=== PATIENT | male | born 1965 | race Caucasian/White ===

== ENCOUNTER → 2016-06-19 | Day surgery (SDC) | payer OTHER ==
[2016-06-18 11:29] VITALS: Ht 182.9 cm; Wt 127.3 kg
[~2016-06-19] VITALS: Ht 182.9 cm; Wt 127.3 kg
[~2016-06-19] MED LIST: AMIT25TA9 PO; AMOX1TAB42 PO; APR25 PO; ATOR-24 PO; B-COCAP20 PO; CALC0.2510 PO; CEPH500C PO; CHOL1TAB76 PO; CHOLTAB11 PO; CINA0.42 PO; FLV1 PO; KFL500 PO; LCTX PO; LIDOCAINE HCL 2% 2 ML VIAL (20MG/ML) ONE; LINE1TAB2 PO; LSN20 PO; METO50TA16 PO; NAPR1TAB9 PO; PHS667 PO; PRD20 PO; PROPOFOL IV EMULSION 10 MG/ML 20 ML VIAL IV ONE; SODI325T9 PO; SODIUM CHLORIDE 0.9% 500ML 500 ML IV ONE; SULF800T23 PEG; ULT50X PO
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
[2016-06-19 09:37] LABS: ISTAT CREATININE 8.3 mg/dl (0.6-1.3); ISTAT HEMOGLOBIN 12.2 g/dl (14.0-18.0); ISTAT IONIZED CALCIUM 1.19 mmol/l (1.12-1.32)
--- NOTE | 2016-06-19 10:03 | Anesthesiology Progress Note ---
Anesthesia Post Op Note Date & Time Jun 19, 2016 at 10:03 Vital Signs Pain Intensity: 0 Vital Signs Past 12 Hours Date Time Temp Pulse Resp B/P Pulse Ox O2 Delivery O2 Flow Rate FiO2 06/19/16 09:53 74 20 145/77 95 Room Air 06/19/16 08:50 37 68 20 189/99 98 Room Air Notes Mental Status: alert / awake / arousable, participated in evaluation Pt Amnestic to Procedure: Yes Nausea / Vomiting: adequately controlled Pain: adequately controlled Airway Patency, RR, SpO2: stable & adequate BP & HR: stable & adequate Hydration State: stable & adequate Anesthetic Complications: no major complications apparent
--- NOTE | 2016-06-19 10:04 | Discharge Instructions ---
Endoscopy Patient Instructions Date / Procedure(s) Performed Jun 19, 2016. Colonoscopy Allergy Information Coded Allergies: Iodinated Diagnostic Agents (Verified Allergy, Unknown, STAGE 4 KIDNEY DISEASE, 06/18/16) Discharge Date / Findings Jun 19, 2016. small colon polyp Provider Instructions Activity Restrictions - No exercising or heavy lifting for 24 hours. - Do not drink alcohol the day of the procedure. - Do not drive a car or operate machinery until the day after the procedure. - Do not make any important decisions or sign important papers in 24 hours after the procedure. Following Day: - Return to full activity which may include returning to work/school. Diet Start your diet with liquids and light foods (jello, soup, juice, toast). Then eat your usual diet if not nauseated. Treatment For Common After Affects For mild abdominal pain, bloating, or excessive gas: - Rest - Eat lightly - Lie on right side Follow-Up Information Follow-up with Dr. Pam Taylor as scheduled Anesthesia Information What You Should Know You have had a procedure that required some medicine to reduce anxiety and discomfort. This treatment is called moderate sedation. After receiving the treatment, you may be sleepy, but you will be able to breathe on your own. The effects of the treatment may last for several hours. Follow these instructions along with Activity/Diet recommendations noted above: * Do NOT do anything where dizziness or clumsiness would be dangerous. * Rest quietly at home today, then you can be up and about tomorrow. * Have a responsible person stay with you the rest of today. * You may have had an I.V. today. If so, you may take the dressing off later today. Recommendations Call your doctor if: * Trouble breathing * Continuous vomiting for more than 24 hours * Temperature above 101 degrees * Severe abdominal pain or bloating * Pain not relieved by pain medicine ordered * There is increased drainage or redness from any incision * A large amount of rectal bleeding greater than 2-3 tablespoons. (If you had a polyp/s removed or have hemorrhoids, a small amount of blood - from the rectum is to be expected.) * You have any unanswered questions or concerns. IN THE EVENT OF A SERIOUS EMERGENCY, GO TO THE NEAREST EMERGENCY ROOM Your discharge instructions were prepared by provider Maurisio Hanson. Patient Instructions Signature Page Shawn Quick Patient (or Guardian) Signature/Date: I have read and understand the instructions given to me by my caregivers. Caregiver/RN/Doctor Signature/Date: The above-named patient and/or guardian has received patient instructions on this date. + Original Patient Signature Page (only) stays with chart. Please make copy for patient.
--- NOTE | 2016-06-19 10:16 | GI REPORT ---
Procedure Date: 06/19/2016 9:30 AM Procedure: Colonoscopy Indications: Screening for colorectal malignant neoplasm Medicines: See the Anesthesia note for documentation of the administered medications Complications: No immediate complications. Estimated Blood Loss: Estimated blood loss was minimal. Procedure: Pre-Anesthesia Assessment: - Prior to the procedure, a History and Physical was performed, and patient medications, allergies and sensitivities were reviewed. The patient's tolerance of previous anesthesia was reviewed. - The risks and benefits of the procedure and the sedation options and risks were discussed with the patient. All questions were answered and informed consent was obtained. - Patient identification and proposed procedure were verified prior to the procedure by the physician and the nurse. The procedure was verified in the pre-procedure area. - Pre-procedure physical examination revealed no contraindications to sedation. - After reviewing the risks and benefits, the patient was deemed in satisfactory condition to undergo the procedure. After I obtained informed consent, the scope was passed under direct vision. Throughout the procedure, the patient's blood pressure, pulse, and oxygen saturations were monitored continuously. The scope was introduced through the anus and advanced to the cecum, identified by appendiceal orifice and ileocecal valve. The colonoscopy was performed without difficulty. The patient tolerated the procedure well. The quality of the bowel preparation was good. Findings: The perianal and digital rectal examinations were normal. A 4 mm polyp was found at 20 cm proximal to the anus. The polyp was sessile. The polyp was removed with a cold snare. Resection and retrieval were complete. Verification of patient identification for the specimen was done by the physician and nurse using the patient's name and medical record number. Estimated blood loss was minimal. The exam was otherwise without abnormality on direct and retroflexion views. Impression: - One 4 mm polyp at 20 cm proximal to the anus, removed with a cold snare. Resected and retrieved. - The examination was otherwise normal on direct and retroflexion views. Recommendation: - Await pathology results. - Discharge patient to home. Maurisio Hanson M.D. Maurisio Hanson MD 06/19/2016 10:14:28 AM This report has been signed electronically. Note Initiated On: 06/19/2016 9:30 AM
[2016-06-19 10:23] VITALS: BP 163/95; PULSE 69; O2SAT 99
== END | disposition home or self-care (01) ==
LOC: C.GI 08:20
PROVIDERS: ATTEND Internal Medicine Gastroenterology
DX: Z12.11 Encounter for screening for malignant neoplasm of colon (principal); K63.5 Polyp of colon; Z80.0 Family history of malignant neoplasm of digestive organs; Z83.71 Family history of colonic polyps; E11.9 Type 2 diabetes mellitus without complications; I10 Essential (primary) hypertension; M81.0 Age-related osteoporosis without current pathological fracture

== ENCOUNTER 2016-09-03 18:26 | Emergency (ER) | payer OTHER ==
[~2016-09-03] VITALS: Ht 182.9 cm; Wt 123.4 kg
[~2016-09-03 18:26] MED LIST changes: -AMOX1TAB42 PO; -APR25 PO; -B-COCAP20 PO; -CEPH500C PO; -CHOL1TAB76 PO; -CHOLTAB11 PO; -CINA0.42 PO; -FLV1 PO; -KFL500 PO; -LCTX PO; -LIDOCAINE HCL 2% 2 ML VIAL (20MG/ML) ONE; -LINE1TAB2 PO; -LSN20 PO; -PHS667 PO; -PRD20 PO; -PROPOFOL IV EMULSION 10 MG/ML 20 ML VIAL IV ONE; -SODIUM CHLORIDE 0.9% 500ML 500 ML IV ONE; -SULF800T23 PEG; -ULT50X PO
[2016-09-03 18:31] VITALS: TEMP 36.6; Ht 182.9 cm; Wt 123.4 kg
[2016-09-03] MEDS ORDERED: SULFAMETHOXAZOLE/TRIMETHOPRIM DS 800/160MG TAB PO STA (18:55)
[2016-09-03] MEDS ORDERED: CEPHALEXIN MONOHYDRATE 250 MG CAP PO ONE (19:00)
[2016-09-03] MEDS ORDERED: CEPHALEXIN 500MG HOME PACK 1 EA BTL PO ONE (19:00)
--- NOTE | 2016-09-03 19:25 | EMERGENCY ROOM VISIT NOTE ---
History Report prepared by [employer]: Christin Reno Under the Supervision of: Dr. Hipolito Nova D.O. First contact with patient: 18:33 Chief Complaint: WOUND INFECTION Stated Complaint: BUG BITE ON LT LEG Nursing Triage Summary: Pt reports he woke up last week with a quarter size wound on right inner calf wound is progressing pt is diabetic History of Present Illness The patient is a 51 year old male who presents to the Emergency Room with complaints of a constant wound infection beginning 8 days ago. The patient states that he noticed a cris on his leg that looked like a spider bite. He reports that 5 days after it started he noticed that it was turning white underneath. He notes that he squeezed out the pus and there was about enough to fill a shot glass and this improved the wound. The patient states that he has not seen his primary care doctor. He notes that he has diabetes and has not checked his blood sugar lately, arthritis, hypertension that he has not been taking medication for recently, and kidney failure. The patient complains of redness. He denies any new cough, runny nose, chest pain, nausea, vomiting, diarrhea, shortness of breath, pain with urination, and recent surgeries, Source of History: patient Onset: 8 days ago Position: leg (right) Quality: other (infection) Timing: constant Modifying Factors (Relieving): other (squeezing pus out) Associated Symptoms: No SOB, No chest pain, No cough, No diarrhea, No nausea , No urinary symptoms, No vomiting Note: Pt complains of redness. He denies any runny nose and recent surgeries, Review of Systems See HPI for pertinent positives & negatives. A total of 10 systems reviewed and were otherwise negative. 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 (15) Urinary retention Surgical Problems: (1) H/O arthroscopic knee surgery (2) H/o fistula placement (3) H/O hand surgery (4) H/O laminectomy Family History Diabetes mellitus FH: cancer FH: gallbladder disease FH: heart disease Hypertension Kidney disease Kidney stones Social History Smoking Status: Never Smoker Smokeless Tobacco Use: No Alcohol Use: occasionally Drug Use: other Marital Status: in relationship Housing Status: lives with significant other Occupation Status: disabled Current/Historical Medications Scheduled Amitriptyline Hcl (Elavil), 25 MG PO HS Atorvastatin (Lipitor), 40 MG PO QAM Calcitriol (Rocaltrol Cap), 0.25 MCG PO QAM Cephalexin Monohydrate (Keflex), 500 MG PO QID Metoprolol Tartrate (Lopressor) (Lopressor), 50 MG PO BID Sodium Bicarbonate (Antacid) (Sodium Bicarbonate), 2 TABS PO TID Sulfa/Trimethoprim (Bactrim Ds 800MG/160MG), 1 TAB PEG BID Allergies Coded Allergies: Iodinated Diagnostic Agents (Verified Allergy, Unknown, STAGE 4 KIDNEY DISEASE, 06/18/16) Physical Exam Vital Signs Date Time Temp Pulse Resp B/P Pulse Ox O2 Delivery O2 Flow Rate FiO2 09/03/16 20:01 92 179/101 96 09/03/16 18:31 36.6 77 18 197/110 98 Room Air Physical Exam GENERAL: sitting up in bed, alert, well appearing, well nourished, no distress, non-toxic EYE EXAM: normal conjunctiva OROPHARYNX: no exudate, no erythema, lips, buccal mucosa, and tongue normal and mucous membranes are moist LUNGS: Clear to auscultation. Normal chest wall mechanics HEART: no murmurs, S1 normal and S2 normal ABDOMEN: abdomen soft, non-tender, normo-active bowel sounds, no masses, no rebound or guarding. BACK: Back is symmetrical on inspection and there is no deformity, no midline tenderness, no CVA tenderness. UPPER EXTREMITIES: upper extremities are grossly normal. LOWER EXTREMITIES: No pitting edema. RLE mid calf on medial aspect with 5cm draining abscess, purulent green discharge, is able to be expressed, area of 4- 5cm of surrounding erythema with induration, bedside ultrasound reveals cobblestone appearance without focal fluid collection NEURO EXAM: Normal sensorium, cranial nerves II-XII grossly intact, normal speech, no gross weakness of arms, no gross weakness of legs. Medical Decision & Procedures ED Course ED COURSE: Vital signs were reviewed and showed hypertension The patients medical record was reviewed The above diagnostic studies were performed and reviewed. ED treatments and interventions as stated above. 184: The patient was evaluated in room C12B. A complete history and physical examination was performed. 185: Trimethoprim/ Sulfamethoxazole 1 tab PO. 1899: Cephalexin Monohydrate 1 homepack PO, Keflex Cap 500mg PO. 2002: Upon reevaluation, the patient is hemodynamically stable.I discussed my findings with the patient and he understands and agrees with the treatment plan. Based on the patients age, coexisting illnesses, exam and lab findings the decision to treat as an outpatient was made. The patient remained stable while under my care. The patient appeared well at the time of discharge. Medical Decision Differential diagnosis includes etiologies such as cellulitis, abscess, MRSA infection, DVT, necrotizing fasciitis, dermatitis, drug eruption, as well as others were entertained. Patient is a 51-year-old diabetic male who presents the ER with a draining abscess on his right mid calf. He notes he opened this up and drained about a shot glass of green purulent discharge. Bedside ultrasound shows cobblestoning but no focal fluid collection. I expressed a small amount of purulent discharge from the wound. He does have surrounding erythema. Vitals were unremarkable. He has no other complaints. Patient was given Bactrim and Keflex instructed to follow with his primary care doctor in next 48 hours. Any recurrence of fevers, worsening erythema or elevated blood sugars was instructed to return immediately to the ER. Patient also admits to not taking any of his blood pressure medications for the past several weeks. Stressed the importance of having this followed up. Discussed with Pt concerning signs and symptoms to watch out for. Pt was instructed to follow up with their PCP and discussed with the patient their option to return to the ED at anytime for persistent or worsening symptoms. The appropriate anticipatory guidance and out- patient management, including indications for return to the emergency department , were explained at length to the patient and understood. Impression Primary Impression: Abscess Additional Impression: Cellulitis Scribe Attestation The scribe's documentation has been prepared under my direction and personally reviewed by me in its entirety. I confirm that the note above accurately reflects all work, treatment, procedures, and medical decision making performed by me. Departure Information Dispostion Home / Self-Care Prescriptions Sulfa/Trimethoprim (Bactrim Ds 800MG/160MG) Tab 1 TAB PEG BID, #20 TAB Prov: Hipolito Nova, DO 09/03/16 Cephalexin Monohydrate (Keflex) 500 Mg Cap 500 MG PO QID, #40 CAP Prov: Hipolito Nova, DO 09/03/16 Referrals No Doctor, Assigned (PCP) Forms HOME CARE DOCUMENTATION FORM, IMPORTANT VISIT INFORMATION, WORK / SCHOOL INSTRUCTIONS Patient Instructions ED Abscess [facility], [facility] Additional Instructions Please follow up with your primary care doctor with in the next 24 hours. Any worsening of your symptoms, please return to the ED immediately. This includes spreading of the redness up her leg, fevers greater than 100.4, persistently elevated blood sugars, or any other concerning signs or symptoms from your standpoint. You must have your leg reevaluated within 2 days. Please take antibiotics as prescribed. Problem Qualifiers Additional Impression: Cellulitis Site of cellulitis: extremity Site of cellulitis of extremity: lower extremity Laterality: right Qualified Codes: L03.115 - Cellulitis of right lower limb
[2016-09-03] MEDS ORDERED: CEPH500C PO (19:36)
[2016-09-03] MEDS ORDERED: SULF800T23 PEG (19:36)
[2016-09-03 20:01] VITALS: BP 179/101; PULSE 92; O2SAT 96
[2016-11-02] MEDS ORDERED: PHS667 PO (12:07)
[2016-11-02] MEDS ORDERED: PRD20 PO (12:07)
[2016-11-02] MEDS ORDERED: LSN20 PO (12:07)
[2016-11-02] MEDS ORDERED: METO50TA16 PO (12:07)
[2016-11-02] MEDS ORDERED: KFL500 PO (12:07)
[2016-11-02] MEDS ORDERED: ULT50X PO (12:07)
[2016-11-02] MEDS ORDERED: APR25 PO (12:07)
[2016-11-02] MEDS ORDERED: FLV1 PO (12:07)
[2016-12-10] MEDS ORDERED: LCTX PO (15:30)
[2016-12-10] MEDS ORDERED: LINE1TAB2 PO (15:30)
[2016-12-10] MEDS ORDERED: AMOX1TAB42 PO (15:30)
== END 2016-09-03 20:03 | disposition home or self-care (01) ==
LOC: C.EDB 18:27 → C.EDC 20:03
DX: L02.415 Cutaneous abscess of right lower limb (principal); L03.115 Cellulitis of right lower limb; N18.4 Chronic kidney disease, stage 4 (severe); E11.9 Type 2 diabetes mellitus without complications; E78.5 Hyperlipidemia, unspecified; M10.9 Gout, unspecified; I10 Essential (primary) hypertension; Z86.14 Personal history of Methicillin resistant Staphylococcus aureus infection; G47.33 Obstructive sleep apnea (adult) (pediatric); M86.9 Osteomyelitis, unspecified; N25.0 Renal osteodystrophy; Z83.3 Family history of diabetes mellitus; Z82.49 Family history of ischemic heart disease and other diseases of the circulatory system

== ENCOUNTER 2016-10-28 19:17 | Inpatient (IN) | payer OTHER ==
[~2016-10-28] VITALS: Ht 182.9 cm; Wt 122.5 kg
[~2016-10-28 19:17] MED LIST changes: +CEPH500C PO; -NAPR1TAB9 PO; +SULF800T23 PEG
[2016-10-28] MEDS ORDERED: SODIUM CHLORIDE 0.9% 500ML 500 ML IV STA (20:53)
[2016-10-28] MEDS ORDERED: LIDO/EPINEPHRINE/SOD BICARB 20 ML VIAL INFIL ONE (21:00)
[2016-10-28] MEDS ORDERED: CEFAZOLIN IV 3,000 MG/65 ML D5W IV ONE (21:00)
[2016-10-28 21:04] LABS: HEMATOCRIT 31.2 % (42-52); MEAN CELL VOLUME 87.9 fL (80-100); MEAN CORPUSCULAR HEMOGLOBIN 29.6 pg (25-34); MEAN CORPUSCULAR HGB CONC 33.7 g/dl (32-36); MEAN PLATELET VOLUME 8.1 fL (7.4-10.4); PLATELET COUNT 343 K/uL (130-400); RED BLOOD COUNT 3.55 M/uL (4.7-6.1); WHITE BLOOD COUNT 17.38 K/uL (4.8-10.8)
[2016-10-28 21:28] LABS: BASO % 0.2 %; BASO ABS # 0.03 K/uL (0-0.2); COMPLETE YES; IG% 0.5 %; LYMPH % 4.9 %; LYMPH ABS # 0.85 K/uL (1.2-3.4); MONO % 4.2 %; NEUT % 88.2 %
[2016-10-28 21:29] LABS: URINE APPEARANCE TURBID (CLEAR); URINE BILIRUBIN NEG (NEG); URINE COLOR YELLOW; URINE EPITHELIAL CELL AUTO 20-30 /lpf (0-5); URINE NITRITE POS (NEG); URINE SPECIFIC GRAVITY 1.017 (1.000-1.030); UROBILINOGEN NEG (NEG); ZZUR CULT IF INDIC CLEAN CATCH YES
[2016-10-28 21:31] LABS: MANUAL MICROSCOPIC REQUIRED? NO; REVIEW REQ? YES
[2016-10-28] MEDS ORDERED: VANCOMYCIN 1GM/270ML NSS IV STA (22:01)
[2016-10-28] MEDS ORDERED: MoRPHine SULFATE 4 MG/ML 1 ML CARP\\VIAL IV STA (22:02)
[2016-10-28] MEDS ORDERED: METOPROLOL TARTRATE 50 MG TAB PO STA (22:13)
[2016-10-28 22:23] LABS: ALKALINE PHOSPHATASE 100 U/L (45-117); ALT/SGPT 26 U/L (12-78); AST/SGOT 15 U/L (15-37); BLOOD UREA NITROGEN 86 mg/dl (7-18); BUN/CREATININE RATIO 7.1 (10-20); CALCIUM 9.2 mg/dl (8.5-10.1); CARBON DIOXIDE 14 mmol/L (21-32); CHLORIDE 111 mmol/L (98-107); GLUCOSE 130 mg/dl (70-99); POTASSIUM 4.1 mmol/L (3.5-5.1); SODIUM 142 mmol/L (136-145)
[2016-10-28] MEDS ORDERED: VANCOMYCIN INJ 2,200 MG in SODIUM CHLORIDE 0.9% 500ML 500 ML IV STA (22:43)
[2016-10-28] MEDS ORDERED: SODIUM BICARBONATE 8.4% INJ 150 MEQ in DEXTROSE 5% 1000ML 1,000 ML IV SCH (22:45)
[2016-10-28] MEDS ORDERED: LABETALOL HCL IV 5 MG/ML 20ML IV ONE (23:00)
[2016-10-28 23:25] LABS: VEN BLD GAS O2 SATURATION < 60.0 %; VEN BLOOD GAS BASE EXCESS -16.2 mmol/L; VENOUS BLOOD GAS PCO2 33 mmHg (38.0-50.0); VENOUS BLOOD GAS PO2 30 mmHg
[2016-10-28] MEDS ORDERED: ONDANSETRON INJ 2 MG/ML 2 ML VIAL ONE (23:45)
[2016-10-28] MEDS ORDERED: ONDANSETRON INJ 2 MG/ML 2 ML VIAL IV STA (23:46)
--- NOTE | 2016-10-28 23:55 | EMERGENCY ROOM VISIT NOTE ---
History Report prepared by [employer]: Christin Reno Under the Supervision of: Dr. Hipolito Nova D.O. First contact with patient: 20:33 Chief Complaint: OTHER COMPLAINT Stated Complaint: FLUID IN KNEE,ABSESS ON TOP OF HEAD,UTI History of Present Illness The patient is a 51 year old male who presents to the Emergency Room with complaints of a constant abscess on his head beginning 1 week ago. The patient states that he shaved his head 1 week ago and noticed a pimple forming the next day. He reprts that over the next few days the bump gradually increased in size before it opened up 2 days ago. He notes that he has stage IV kidney disease and self-catheterizes 3-4 times a day since 2010. The patient also complains of dysuria, headaches, and left knee swelling. He notes that he is concerned that he has a UTI. He reports that he has had intermittent knee swelling since 2006 and had his left knee drained in 2006. The patient states that his knee swelling has been more frequent in the last year and he is having difficulty walking. He reports that he has diabetes but does not check his blood sugar. Pt denies change in vision, fevers, chest pain, shortness of breath, nausea, vomiting, diarrhea. Source of History: patient Onset: 1 week ago Position: head Quality: other (abscess) Timing: constant Associated Symptoms: + headache, + urinary symptoms, No SOB, No chest pain, No diarrhea, No fevers, No nausea, No vomiting Note: Pt complains of left knee swelling. Pt denies change in vision. Review of Systems See HPI for pertinent positives & negatives. A total of 10 systems reviewed and were otherwise negative. 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 (15) Urinary retention Surgical Problems: (1) H/O arthroscopic knee surgery (2) H/o fistula placement (3) H/O hand surgery (4) H/O laminectomy Family History Diabetes mellitus FH: cancer FH: gallbladder disease FH: heart disease Hypertension Kidney disease Kidney stones Social History Smoking Status: Never Smoker Alcohol Use: occasionally Drug Use: other Marital Status: in relationship Housing Status: lives with significant other Occupation Status: disabled Current/Historical Medications Scheduled Amitriptyline Hcl (Elavil), 25 MG PO HS Atorvastatin (Lipitor), 40 MG PO QAM Calcitriol (Rocaltrol Cap), 0.25 MCG PO QAM Metoprolol Tartrate (Lopressor) (Lopressor), 50 MG PO BID Sodium Bicarbonate (Antacid) (Sodium Bicarbonate), 2 TABS PO TID Allergies Coded Allergies: Iodinated Diagnostic Agents (Verified Allergy, Unknown, STAGE 4 KIDNEY DISEASE, 10/28/16) Physical Exam Vital Signs Date Time Temp Pulse Resp B/P Pulse Ox O2 Delivery O2 Flow Rate FiO2 10/28/16 23:24 75 16 194/111 97 Room Air 10/28/16 23:07 91 16 221/119 10/28/16 22:42 94 16 228/126 98 Room Air 10/28/16 22:00 87 16 206/105 98 Room Air 10/28/16 19:33 36.8 97 18 212/106 97 Room Air Physical Exam GENERAL: alert, sitting up in bed, chronically ill appearing, well nourished, no distress, non-toxic EYE EXAM: normal conjunctiva, PERRL and EOM's grossly intact HEAD: Large firm erythematous mass with green purulent drainage from multiple sites. No obvious fluid collection on bedside ultrasound. OROPHARYNX: no exudate, no erythema, lips, buccal mucosa, and tongue normal and mucous membranes are moist NECK: supple, no nuchal rigidity, no adenopathy, non-tender LUNGS: Clear to auscultation. Normal chest wall mechanics HEART: no murmurs, S1 normal and S2 normal ABDOMEN: abdomen soft, non-tender, normo-active bowel sounds, no masses, no rebound or guarding. BACK: Back is symmetrical on inspection and there is no deformity, no midline tenderness, no CVA tenderness. SKIN: no rashes and no bruising. Multiple old scars on extremities. UPPER EXTREMITIES: upper extremities are grossly normal. Fistula located in the LUE. +thrill LOWER EXTREMITIES: No pitting edema. Left knee with pre-patellar edema, no surrounding erythema or induration, flexion up to 90 degrees without pain, beyond 90 with mild discomfort. Gross sensation intact . NEURO EXAM: Normal sensorium, cranial nerves II-XII grossly intact, normal speech, no gross weakness of arms, no gross weakness of legs. Medical Decision & Procedures Laboratory Results 10/28/16 20:55 Red Blood Count 3.55, Mean Corpuscular Volume 87.9, Mean Corpuscular Hemoglobin 29.6, Mean Corpuscular Hemoglobin Concent 33.7, Mean Platelet Volume 8.1, Neutrophils (%) (Auto) 88.2, Lymphocytes (%) (Auto) 4.9, Monocytes (%) (Auto) 4.2, Eosinophils (%) (Auto) 2.0, Basophils (%) (Auto) 0.2, Neutrophils # (Auto) 15.35, Lymphocytes # (Auto) 0.85, Monocytes # (Auto) 0.73, Eosinophils # (Auto) 0.34, Basophils # (Auto) 0.03 10/28/16 20:55 Test 10/28/16 20:55 10/28/16 21:10 10/28/16 23:10 White Blood Count 17.38 K/uL (4.8-10.8) Red Blood Count 3.55 M/uL (4.7-6.1) Hemoglobin 10.5 g/dL (14.0-18.0) Hematocrit 31.2 % (42-52) Mean Corpuscular Volume 87.9 fL (80-100) Mean Corpuscular Hemoglobin 29.6 pg (25-34) Mean Corpuscular Hemoglobin Concent 33.7 g/dl (32-36) Platelet Count 343 K/uL (130-400) Mean Platelet Volume 8.1 fL (7.4-10.4) Neutrophils (%) (Auto) 88.2 % Lymphocytes (%) (Auto) 4.9 % Monocytes (%) (Auto) 4.2 % Eosinophils (%) (Auto) 2.0 % Basophils (%) (Auto) 0.2 % Neutrophils # (Auto) 15.35 K/uL (1.4-6.5) Lymphocytes # (Auto) 0.85 K/uL (1.2-3.4) Monocytes # (Auto) 0.73 K/uL (0.11-0.59) Eosinophils # (Auto) 0.34 K/uL (0-0.5) Basophils # (Auto) 0.03 K/uL (0-0.2) RDW Standard Deviation 49.0 fL (36.4-46.3) RDW Coefficient of Variation 15.3 % (11.5-14.5) Immature Granulocyte % (Auto) 0.5 % Immature Granulocyte # (Auto) 0.08 K/uL (0.00-0.02) Anion Gap 17.0 mmol/L (3-11) Est Creatinine Clear Calc Drug Dose 9.6 ml/min Estimated GFR () 5.0 Estimated GFR (Non- 4.3 BUN/Creatinine Ratio 7.1 (10-20) Calcium Level 9.2 mg/dl (8.5-10.1) Total Bilirubin 1.1 mg/dl (0.2-1) Direct Bilirubin < 0.1 mg/dl (0-0.2) Aspartate Amino Transf (AST/SGOT) 15 U/L (15-37) Alanine Aminotransferase (ALT/SGPT) 26 U/L (12-78) Alkaline Phosphatase 100 U/L (45-117) Total Protein 7.7 gm/dl (6.4-8.2) Albumin 2.6 gm/dl (3.4-5.0) Urine Color YELLOW Urine Appearance TURBID (CLEAR) Urine pH 6.0 (4.5-7.5) Urine Specific [place] 1.017 (1.000-1.030) Urine Protein 3+ (NEG) Urine Glucose (UA) 2+ (NEG) Urine Ketones NEG (NEG) Urine Occult Blood 2+ (NEG) Urine Nitrite POS (NEG) Urine Bilirubin NEG (NEG) Urine Urobilinogen NEG (NEG) Urine Leukocyte Esterase MODERATE (NEG) Urine WBC (Auto) >30 /hpf (0-5) Urine RBC (Auto) 5-10 /hpf (0-4) Urine Hyaline Casts (Auto) 1-5 /lpf (0-5) Urine Epithelial Cells (Auto) 20-30 /lpf (0-5) Urine Bacteria (Auto) 2+ (NEG) Venous Blood pH 7.15 (7.36-7.41) Venous Blood Partial Pressure CO2 33 mmHg (38.0-50.0) Venous Blood Partial Pressure O2 30 mmHg Venous Blood HCO3 12 mmol/L Venous Blood Oxygen Saturation < 60.0 % Venous Blood Base Excess -16.2 mmol/L Laboratory results per my review. Medications Administered Medications (Trade) Dose Ordered Sig/Arti Route Start Time Stop Time Status Last Admin Dose Admin Cefazolin Sodium 3000 mg 3,000 mg NOW ONCE IV 10/28/16 21:00 10/28/16 21:01 DC 10/28/16 22:22 3,000 MG Sodium Chloride (Nss 500ml) 500 ml @ 999 mls/hr Q31M STAT IV 10/28/16 20:53 10/28/16 21:23 DC 10/28/16 21:20 999 MLS/HR Morphine Sulfate (MoRPHine SULFATE INJ) 4 mg NOW STAT IV 10/28/16 22:02 10/28/16 22:03 DC 10/28/16 22:23 4 MG Metoprolol Tartrate 50 mg 50 mg NOW STAT PO 10/28/16 22:13 10/28/16 22:14 DC 10/28/16 22:22 50 MG Vancomycin HCl/ Sodium Chloride (Vancomycin Inj/ Nss 500ml) 544 ml @ 200 mls/hr NOW STAT IV 10/28/16 22:43 10/29/16 01:26 10/28/16 22:59 200 MLS/HR Labetalol HCl (Normodyne IV) 20 mg ONE ONCE IV 10/28/16 23:00 10/28/16 23:01 DC 10/28/16 23:02 20 MG Procedure Incision & Drainage Indication: Abscess. Location: Head Verbal consent was obtained after the risks and benefits were explained, including but not limited to bleeding, scarring, infection, pain, and bone/joint /nerve damage. At this time, the risks of the procedure are less than the risks of NOT performing the procedure. A time out was taken and the correct patient and site identified. The skin was prepped with betadine and a sterile field set. The wound was anesthetized with 5 ml of 1% lidocaine with epinephrine. The abscess cavity was entered with a number 11 blade and green purulent material expressed. Debridement was not performed. Detailed wound care instructions and signs and symptoms of worsening infection reviewed with the patient. No complications and the patient tolerated the procedure well. ED Course ED COURSE: Vital signs were reviewed and showed hypertension The patients medical record was reviewed The above diagnostic studies were performed and reviewed. ED treatments and interventions as stated above. 2032: The patient was evaluated in room C1B. A complete history and physical examination was performed. 2052: Sodium Chloride 500 ml @ 999 mls/hr IV. 2100: Lidocaine/Epinephrine 20ml INFIL, Cefazolin Sodium 3000mg IV. 2200: Vancomycin HCl 2.2gm IV. 2210: I reviewed the patient's case with Dr. Nathalie Reilly. He will evaluate the patient for further management. 2213: Lopressor Tab 50mg PO. 221: Upon reevaluation, the patient is doing well. I discussed my findings with the patient and he understands and agrees with the treatment plan. Based on the patients age, coexisting illnesses, exam and lab findings the decision to treat as an inpatient was made. The patient remained stable while under my care. The patient will be evaluated for further management. 2238: I reviewed the patient's case with a counter caser. He would like him on a bicarb drip but is not doing dialysis tonight. 2243: Vancomycin HCl 2200 mg/Sodium Chloride 544ml @ 200mls/hr IV. 2245: Sodium Bicarbonate 150meq/Dextrose 1150ml @ 75mls/hr IV. Medical Decision Differential diagnosis includes etiologies such as sepsis, UTI, pneumonia, metabolic, electrolyte abnormalities, cardiac sources, intracerebral event, toxicologic, neurologic, as well as others were entertained. Medication Reconciliation: I attest that I have personally reviewed the patient' s current medication list. Blood pressure screening: Patient was found to have an elevated blood pressure and was referred to their primary doctor for recheck and further treatment. Patient is a 51-year-old male who presents the ER for an abscess on his posterior occiput that and a possible UTI. He notes he straight caths himself secondary to a previous trauma. He does have a fistula in his left upper extremity as they are preparing him for dialysis. He follows with Dr. Ragsdale. Labs are remarkable for a leukocytosis of 17,000. BMP shows a creatinine of 12 and a CO2 of 14. Following this a VBG was obtained which shows a pH of 7.15. I placed him on a bicarbonate drip and did discuss case with nephrology. They did agree with bicarbonate drip rate at 75 ml/hr. They will hold on dialysis tonight. Urine showed nitrates, esterase, whites and bacteria. He was covered with vancomycin and Ancef which will cover both staph and strep which of the likely culprits of the infection. This will likely cover for his UTI as well. Blood pressure was significantly elevated at 220s. He was given his home dose of metoprolol, and IV dose of labetalol. He did have improvement of his pressure to the 180s. Patient did have one episode of vomiting. He was admitted to internal medicine for further workup of his sepsis secondary to his abscess, and UTI along with his severe acidosis. Consults Time Called: 2202 Consulting Physician: Dr. Zelaya Returned Call: [phone] I reviewed the patient's case with Dr. Nathalie Reilly. He will evaluate the patient for further management. Additional Consults: Time Called: 2229 Consulted Physician: Nephrology Returned Call: [phone] Additional Comments: I reviewed the patient's case with a counter caser. He would like him on a bicarb drip but is not doing dialysis tonight. Impression Primary Impression: Sepsis Additional Impressions: Abscess Acidosis Renal failure (ARF), acute on chronic Anemia Critical Care I have personally spent 35 minutes of critical care time in the direct management of this patient. This includes bedside care, interpretation of diagnostic studies, and testing, discussion with consultants, patient, and family members, and other required patient management activities. This 35 minutes is in excess of all separately billable procedures. Scribe Attestation The scribe's documentation has been prepared under my direction and personally reviewed by me in its entirety. I confirm that the note above accurately reflects all work, treatment, procedures, and medical decision making performed by me. Departure Information Dispostion Being Evaluated By Hospitalist Pam Pacheco M.D. (PCP) Patient Instructions My [facility] Problem Qualifiers Primary Impression: Sepsis Sepsis type: sepsis due to unspecified organism Qualified Codes: A41.9 - Sepsis, unspecified organism Additional Impressions: Renal failure (ARF), acute on chronic Acute renal failure type: unspecified Chronic kidney disease stage: unspecified stage Qualified Codes: N17.9 - Acute kidney failure, unspecified; N18.9 - Chronic kidney disease, unspecified Anemia Anemia type: unspecified type Qualified Codes: D64.9 - Anemia, unspecified
[2016-10-29] VITALS (21 sets, daily range): BP systolic 131–196; BP diastolic 73–97; PULSE 70–84; TEMP 36.4–37.1; O2SAT 95–97; Ht 182.9 cm; Wt 122.5 kg
[2016-10-29 00:06] LABS: PARTIAL THROMBOPLASTIN RATIO 1.2
[2016-10-29] MEDS ORDERED: GLUCOSE 40% GEL 15 GM TUBE PO PRN (00:15)
[2016-10-29] MEDS ORDERED: GLUCAGON FOR INJ 1 MG VIAL SQ PRN (00:15)
[2016-10-29] MEDS ORDERED: GLUCOSE 10 TABS/TUBE PO PRN (00:15)
[2016-10-29] MEDS ORDERED: DEXTROSE 50% 50 ML SYR IV PRN (00:15)
[2016-10-29] MEDS ORDERED: ONDANSETRON INJ 2 MG/ML 2 ML VIAL IV PRN ×3 (00:15→13:45)
[2016-10-29] MEDS ORDERED: ACETAMINOPHEN 325 MG TAB PO PRN (00:15)
[2016-10-29] MEDS ORDERED: TRAMADOL HCL 50 MG TAB PO PRN ×2 (00:15)
[2016-10-29] MEDS ORDERED: HYDROmorphone INJ 1 MG/ML SYR IV PRN ×2 (00:15)
[2016-10-29] MEDS ORDERED: CEFEPIME IV 2,000 MG in DEXTROSE 5% 100ML 100 ML IV STA (01:24)
[2016-10-29] MEDS ORDERED: VANCOMYCIN CONSULT ACTIVE PRN (01:30)
[2016-10-29 05:07] LABS: ESTIMATED AVERAGE GLUCOSE 108 mg/dl; HA1C FLAG Normal (Normal)
[2016-10-29 06:17] LABS: HEMATOCRIT 28.4 % (42-52); MEAN CELL VOLUME 87.7 fL (80-100); MEAN CORPUSCULAR HEMOGLOBIN 29.6 pg (25-34); MEAN CORPUSCULAR HGB CONC 33.8 g/dl (32-36); MEAN PLATELET VOLUME 7.9 fL (7.4-10.4); PLATELET COUNT 325 K/uL (130-400); RED BLOOD COUNT 3.24 M/uL (4.7-6.1); WHITE BLOOD COUNT 19.12 K/uL (4.8-10.8)
[2016-10-29 06:34] LABS: INR 1.2 (0.9-1.1); PROTHROMBIN TIME (PATIENT) 13.1 SECONDS (9.0-12.0)
[2016-10-29 06:41] LABS: BASO % 0.2 %; BASO ABS # 0.04 K/uL (0-0.2); COMPLETE YES; EOS % 2.2 %; IG% 0.5 %; LYMPH % 6.7 %; LYMPH ABS # 1.28 K/uL (1.2-3.4); MONO % 6.6 %; NEUT % 83.8 %
--- NOTE | 2016-10-29 06:41 | DIAGNOSTIC IMAGING REPORT ---
CHEST ONE VIEW PORTABLE CLINICAL HISTORY: Renal failure. COMPARISON STUDY: No previous studies for comparison. FINDINGS: Lung volumes are normal. There is slight elevation of the right hemidiaphragm. There is no evidence of pulmonary edema. There is moderate cardiomegaly. There is no consolidation. There is no pneumothorax or pleural effusion. IMPRESSION: 1. No acute cardiopulmonary findings. 2. Moderate cardiomegaly. Electronically signed by: Valdo Torres M.D. 10/29/2016 6:40 AM Dictated Date/Time: 10/29/2016 6:39 AM
--- NOTE | 2016-10-29 06:49 | DIAGNOSTIC IMAGING REPORT ---
CT OF THE HEAD WITHOUT CONTRAST CLINICAL HISTORY: Headache. Abscess on top of head. COMPARISON STUDY: No previous studies for comparison. CT DOSE: 691.05 mGy.cm TECHNIQUE: Helical axial images of the head were obtained without IV contrast. Automated exposure control was utilized for the study. FINDINGS: No acute intracranial hemorrhage, midline shift or mass effect is present. Ventricular system is unremarkable. Basilar cisterns are patent. There are no extra-axial collections. Walker-white differentiation is maintained. There are no findings to suggest acute dural sinus thrombosis or acute territorial infarct. There is mild mucosal thickening of the sinuses. Mastoid air cells are clear. Note is made of soft tissue thickening of the scalp at the vertex. There is 4.6 cm scalp density which is suboptimally assessed on this unenhanced exam. Underlying calvarium appears unremarkable. IMPRESSION: 1. No acute intracranial findings. 2. 4.6 cm density of the superior scalp. While nonspecific, this suggests an infectious process and could reflect abscess or phlegmon. Underlying calvarium intact without CT evidence of osteomyelitis. Electronically signed by: Valdo Torres M.D. 10/29/2016 6:48 AM Dictated Date/Time: 10/29/2016 6:45 AM
--- NOTE | 2016-10-29 06:54 | HISTORY & PHYSICAL EXAMINATION ---
DATE OF ADMISSION: 10/29/2016 PRIMARY CARE PHYSICIAN: Dr. Taylor. CHIEF COMPLAINT: Scalp bump/wound. HISTORY OF PRESENT ILLNESS: Hx obtained from px and records. Medical history significant for hypertension, hyperlipidemia, past tobacco/ alcohol/substance abuse as per records, spinal cord ependymoma status post surgery, CRI (baseline crea 5), depression, chronic anemia (baseline hemoglobin 10). history of MRSA as per records. DM2, diet controlled. Recent confinement last May 2015 for osteomyelitis, abscess right tibia sp surgery. Cultures grew MRSA. Last week, the patient noted a bump on the top of his head. Attributed to skin contact w/ the metallic part of the cap he wears. Admits to some manipulation, squeezing out some pus. No fever, no chills, no chest pain, no shortness of breath. Px noted wound worsening. Patient also complaining of left knee pain/swelling getting worse over the since last year leading to ambulation difficulty. At the Emergency Room, the patient noted to have a scalp mass, Attempted drainage done. Px was given Vancomycin and Cefazolin. MEDICAL HISTORY: As above. Last seen at [facility] in January 2015. Patient not uremic at that time as per note. Question of obstructive uropathy. Patient instructed to call if he is experiences symptoms. SURGERIES: He has had biopsy of spinal tumor and tendon reconstruction, vascular procedures. HOME MEDICATIONS: Include Elavil, Lipitor, Rocaltrol, Lopressor, sodium bicarb. ALLERGIES: TO DYE. FAMILY HISTORY: Heart disease. PERSONAL AND SOCIAL HISTORY: Past tobacco/alcohol abuse, disabled. REVIEW OF SYSTEMS: As per HPI, all other ROS negative. PHYSICAL EXAMINATION: VITAL SIGNS: Blood pressure was noted to be 228/126 later 180/100, pulse rate 81, RR 16, temperature 37.3, sats 97 on room air. GENERAL: Noted to be obese, comfortable, no respiratory distress. SKIN: Pallor. HEENT: Pale palpebral conjunctivae. Dry mucosa. Erythematous mass on the scalp post vertex with green drainage. NECK: Short neck. LUNGS: Decreased breath sounds. HEART: Regular rate and rhythm. ABDOMEN: Soft. EXTREMITIES: min LE edema, no tenderness. Tenderness on the left knee with movement, worse with motion. contracted scar, LUE LABS WBC 17 Hg 10.5 crea 12 AG 17 CO2 14 pH 7.15 PCO2 33 IMAGING: CT of the head initial read showed no 4.6 density superior scalp. No evidence of adjacent scalp erosion. ASSESSMENT: 1. Scalp abscess. No sepsis. hx MRSA as per records 2. Hypertension, elevated. 3. Acute renal failure on chronic renal insufficiency end-stage renal disease. no overt uremic sx 4. AGMA 2 to above 5. past tobacco/alcohol/substance abuse as per records 6. acute on chronic anemia possibly secondary to chronic kidney disease 7. DM2, diet-controlled well-controlled, as of recent HgA1c of 5.4. 8. worsening L knee pain of weeks duration PLAN: GMF Cultures. Vanco and Cefepime for now Surgery consult RE scalp abscess. Nephrology consult RE ARF on CRI. ER physician already in touch with [facility]ologist (Dr. Kelsey) who recommends bicarb drip for now. Analgesia, may need to augment antihypertensive regimen. ISS BG goal 140-180. anemia vasques L knee xray, Ortho consult RE L knee pain DVT prophylaxis, Heparin subQ. Full code. MTDD
[2016-10-29 07:14] LABS: BUN/CREATININE RATIO 7.7 (10-20); CALCIUM 8.7 mg/dl (8.5-10.1); FERRITIN 662.8 ng/ml (8.0-388.0); POTASSIUM 4.3 mmol/L (3.5-5.1)
--- NOTE | 2016-10-29 07:27 | DIAGNOSTIC IMAGING REPORT ---
LEFT KNEE 3 VIEWS CLINICAL HISTORY: Left knee pain. FINDINGS: AP, crosstable lateral, and sunrise portable views of the left knee are compared to study dated 10/01/2008. The skeletal structures appear osteopenic. There is advanced tricompartmental degenerative joint space narrowing with near complete loss of the joint space in all 3 compartments. There is bony sclerosis and subchondral cyst formation seen in the medial compartment. There are large marginal osteophytes as well as patellar enthesophytes. There is a large joint effusion. Soft tissue edema is present around the knee. IMPRESSION: 1. Soft tissue and joint effusion. No fracture is seen. 2. Osteopenia and advanced arthritic change as above. Degenerative change has progressed from the 2009 examination. Electronically signed by: Archie Lincoln M.D. 10/29/2016 7:25 AM Dictated Date/Time: 10/29/2016 7:24 AM
--- NOTE | 2016-10-29 07:51 | Medical Consult ---
Consultation Date of Consultation: Oct 29, 2016. Attending Physician: Pooja. Rodríguez S History of Present Illness 51 y/o male diabetic, CKD IV with history of MRSA in great toe noticed a bump on his head after shaving about a week ago. Began draining a few days ago but continued to enlarge. Attempt at I&D was made in the ED, very painful but cultures were obtained. 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 (12) JUNITO (obstructive sleep apnea) (13) Osteomyelitis (14) Renal osteodystrophy (15) Urinary retention Surgical Problems: (1) H/O arthroscopic knee surgery (2) H/o fistula placement (3) H/O hand surgery (4) H/O laminectomy Family History Diabetes mellitus FH: cancer FH: gallbladder disease FH: heart disease Hypertension Kidney disease Kidney stones Social History Smoking Status: Never Smoker Drug Use: other Marital Status: in relationship Housing Status: lives with significant other Occupation Status: disabled Allergies Coded Allergies: Iodinated Diagnostic Agents (Verified Allergy, Unknown, STAGE 4 KIDNEY DISEASE, 10/28/16) Current Inpatient Medications Current Inpatient Medications Medications (Trade) Dose Ordered Sig/Arti Route Start Time Stop Time Status Last Admin Dose Admin Heparin Sodium (Porcine) (Heparin Sq 5000 Unit/0.5ml) 5,000 unit Q8H SQ 10/29/16 08:00 11/28/16 07:59 Acetaminophen (Tylenol Tab) 650 mg Q4H PRN PO 10/29/16 00:15 11/28/16 00:14 Insulin Aspart (novoLOG ASPART) SLIDING SCALE If C... ACHS SC 10/29/16 07:00 11/28/16 06:59 Glucose (Glucose 40% Gel) 15-30 GRAMS 15 GRAMS... UD PRN PO 10/29/16 00:15 11/28/16 00:14 Glucose (Glucose Chew Tab) 4-8 Tablets 4 Tabl... UD PRN PO 10/29/16 00:15 11/28/16 00:14 Dextrose (Dextrose 50% 50ML Syringe) 25-50ML OF 50% DW IV FOR... UD PRN IV 10/29/16 00:15 11/28/16 00:14 Glucagon (Glucagon Inj) 1 mg UD PRN SQ 10/29/16 00:15 11/28/16 00:14 Ondansetron HCl (Zofran Inj) 4 mg Q6H PRN IV 10/29/16 00:15 11/28/16 00:14 Hydromorphone HCl (Dilaudid Inj) 0.5 mg Q3H PRN IV 10/29/16 00:15 11/12/16 00:14 Tramadol HCl (Ultram Tab) 25 mg Q6H PRN PO 10/29/16 00:15 11/28/16 00:14 Ondansetron HCl (Zofran Inj) 4 mg Q6H PRN IV 10/29/16 00:15 11/28/16 00:14 Amitriptyline HCl (Elavil Tab) 25 mg HS PO 10/29/16 21:00 11/28/16 20:59 Atorvastatin Calcium (Lipitor Tab) 40 mg QAM PO 10/29/16 09:00 11/28/16 08:59 Calcitriol (Rocaltrol Cap) 0.25 mcg QAM PO 10/29/16 09:00 11/28/16 08:59 Sodium Bicarbonate (Sodium Bicarbonate Tab) 1,300 mg TID PO 10/29/16 09:00 11/28/16 08:59 Metoprolol Tartrate (Lopressor Tab) 50 mg BID PO 10/29/16 09:00 11/28/16 08:59 Cefepime HCl (Consult) 1 ea DAILY PRN N/A 10/29/16 09:00 11/28/16 08:59 Vancomycin HCl (Consult) 1 ea UD PRN N/A 10/29/16 01:30 11/28/16 01:29 Review of Systems Constitutional: No fever, No chills Physical Exam Date Time Temp Pulse Resp B/P (MAP) Pulse Ox O2 Delivery O2 Flow Rate FiO2 10/29/16 07:12 37.0 81 17 187/84 (118) 96 Room Air 10/29/16 03:29 36.4 78 16 131/73 (92) 97 Room Air 10/29/16 01:23 36.8 84 16 196/92 Room Air 10/29/16 00:44 37.3 81 16 183/101 99 10/28/16 23:24 75 16 194/111 97 Room Air 10/28/16 23:07 91 16 221/119 10/28/16 22:42 94 16 228/126 98 Room Air 10/28/16 22:00 87 16 206/105 98 Room Air 10/28/16 19:33 36.8 97 18 212/106 97 Room Air General Appearance: WD/WN, no apparent distress Skin: normal color, + pertinent finding (large scalp abscess (4 cm) on crown of head) Laboratory Results Last 24 Hours Test 10/28/16 20:55 10/28/16 21:10 10/28/16 23:10 10/29/16 06:04 White Blood Count 17.38 K/uL 19.12 K/uL Red Blood Count 3.55 M/uL 3.24 M/uL Hemoglobin 10.5 g/dL 9.6 g/dL Hematocrit 31.2 % 28.4 % Mean Corpuscular Volume 87.9 fL 87.7 fL Mean Corpuscular Hemoglobin 29.6 pg 29.6 pg Mean Corpuscular Hemoglobin Concent 33.7 g/dl 33.8 g/dl Platelet Count 343 K/uL 325 K/uL Mean Platelet Volume 8.1 fL 7.9 fL Neutrophils (%) (Auto) 88.2 % 83.8 % Lymphocytes (%) (Auto) 4.9 % 6.7 % Monocytes (%) (Auto) 4.2 % 6.6 % Eosinophils (%) (Auto) 2.0 % 2.2 % Basophils (%) (Auto) 0.2 % 0.2 % Neutrophils # (Auto) 15.35 K/uL 16.02 K/uL Lymphocytes # (Auto) 0.85 K/uL 1.28 K/uL Monocytes # (Auto) 0.73 K/uL 1.26 K/uL Eosinophils # (Auto) 0.34 K/uL 0.42 K/uL Basophils # (Auto) 0.03 K/uL 0.04 K/uL RDW Standard Deviation 49.0 fL 49.3 fL RDW Coefficient of Variation 15.3 % 15.3 % Immature Granulocyte % (Auto) 0.5 % 0.5 % Immature Granulocyte # (Auto) 0.08 K/uL 0.10 K/uL Activated Partial Thromboplast Time 32.4 SECONDS Partial Thromboplastin Ratio 1.2 Sodium Level 142 mmol/L 142 mmol/L Potassium Level 4.1 mmol/L 4.3 mmol/L Chloride Level 111 mmol/L 112 mmol/L Carbon Dioxide Level 14 mmol/L 16 mmol/L Anion Gap 17.0 mmol/L 14.0 mmol/L Blood Urea Nitrogen 86 mg/dl 85 mg/dl Creatinine 12.00 mg/dl 11.00 mg/dl Est Creatinine Clear Calc Drug Dose 9.6 ml/min 10.8 ml/min Estimated GFR () 5.0 5.5 Estimated GFR (Non- 4.3 4.8 BUN/Creatinine Ratio 7.1 7.7 Random Glucose 130 mg/dl 112 mg/dl Estimated Average Glucose 108 mg/dl Hemoglobin A1c 5.4 % Calcium Level 9.2 mg/dl 8.7 mg/dl Total Bilirubin 1.1 mg/dl Direct Bilirubin < 0.1 mg/dl Aspartate Amino Transf (AST/SGOT) 15 U/L Alanine Aminotransferase (ALT/SGPT) 26 U/L Alkaline Phosphatase 100 U/L Total Protein 7.7 gm/dl Albumin 2.6 gm/dl Thyroid Stimulating Hormone (TSH) 1.770 uIu/ml Urine Color YELLOW Urine Appearance TURBID Urine pH 6.0 Urine Specific [place] 1.017 Urine Protein 3+ Urine Glucose (UA) 2+ Urine Ketones NEG Urine Occult Blood 2+ Urine Nitrite POS Urine Bilirubin NEG Urine Urobilinogen NEG Urine Leukocyte Esterase MODERATE Urine WBC (Auto) >30 /hpf Urine RBC (Auto) 5-10 /hpf Urine Hyaline Casts (Auto) 1-5 /lpf Urine Epithelial Cells (Auto) 20-30 /lpf Urine Bacteria (Auto) 2+ Venous Blood pH 7.15 Venous Blood Partial Pressure CO2 33 mmHg Venous Blood Partial Pressure O2 30 mmHg Venous Blood HCO3 12 mmol/L Venous Blood Oxygen Saturation < 60.0 % Venous Blood Base Excess -16.2 mmol/L Absolute Reticulocyte Count 0.09 10^6/uL Percent Reticulocyte Count 2.9 % Prothrombin Time 13.1 SECONDS Prothromb Time International Ratio 1.2 Iron Level 29 mcg/dl Total Iron Binding Capacity 180 mcg/dl Transferrin 138 mg/dl Transferrin % Saturation 15 % Ferritin 662.8 ng/ml CT OF THE HEAD WITHOUT CONTRAST CLINICAL HISTORY: Headache. Abscess on top of head. COMPARISON STUDY: No previous studies for comparison. CT DOSE: 691.05 mGy.cm TECHNIQUE: Helical axial images of the head were obtained without IV contrast. Automated exposure control was utilized for the study. FINDINGS: No acute intracranial hemorrhage, midline shift or mass effect is present. Ventricular system is unremarkable. Basilar cisterns are patent. There are no extra-axial collections. Walker-white differentiation is maintained. There are no findings to suggest acute dural sinus thrombosis or acute territorial infarct. There is mild mucosal thickening of the sinuses. Mastoid air cells are clear. Note is made of soft tissue thickening of the scalp at the vertex. There is 4.6 cm scalp density which is suboptimally assessed on this unenhanced exam. Underlying calvarium appears unremarkable. IMPRESSION: 1. No acute intracranial findings. 2. 4.6 cm density of the superior scalp. While nonspecific, this suggests an infectious process and could reflect abscess or phlegmon. Underlying calvarium intact without CT evidence of osteomyelitis. Electronically signed by: Valdo Torres M.D. 10/29/2016 6:48 AM Dictated Date/Time: 10/29/2016 6:45 AM Assessment & Plan scalp abscess DM h/o MRSA Will plan for I&D by Dr. Roth under MAC later this morning.
[2016-10-29] MEDS ORDERED: ETHYL CHLORIDE AER SPR 100 ML CAN EXT SCH (08:00)
[2016-10-29] MEDS: INSULIN ASPART 100 UNITS/ML 3 ML PEN SC SCH ×4 (08:00→21:00)
[2016-10-29] MEDS: HEPARIN SOD 5000 UNIT/0.5 ML CARP SQ SCH ×3 (08:00→16:00)
--- NOTE | 2016-10-29 08:44 | CONSULTATION REPORT ---
DATE OF CONSULTATION: 10/29/2016 DATE OF CONSULTATION: 10/29/2016. REASON FOR CONSULT: Left knee pain. HISTORY OF PRESENT ILLNESS: The patient is a 51-year-old white male known to our practice who was last seen by us in May of 2015 for an abscess of his right first MTP joint. The patient was admitted for a scalp abscess and also at that time was noted to having left knee pain. The patient states that he had shaved his head and at one point noticed a small area that was getting reddened and then states that it appeared that he was having a hair follicle that had gotten infected. He popped this and it went away with some treatment at home which he stated soon after that another one started which he was unable to express any fluid and it continued to get until he came in to be treated. He states that he has been having left knee pain for quite some time. He states that a doctor in 2006 told him he had a very bad knee arthritis and would likely need a total knee replacement at some point down the road. He also states he has had gout in the left knee in the past but the pain is not quite as severe as the gout was this time. He states that the knee hurts all the time, but he noticed that he had an increase in fluid and some decrease in his range of motion. He has been placing a lot of his weight on his right lower extremity to compensate for the pain in the left knee. He states now that his right knee is also starting to bother him a little bit too. We have been consulted to see him for his left knee pain. PAST MEDICAL HISTORY: Hypertension, hyperlipidemia, CKD stage IV with AV fistula, depression, diabetes mellitus type 2, gout as noted above, history of myxopapillary ependymoma status post resection, obstructive sleep apnea, renal osteodystrophy. PAST SURGICAL HISTORY: Arthroscopic knee surgery in the past, fistula placement as noted above, history of hand surgery, laminectomy, I&D of first MTP joint with removal of proximal phalanx and first MTP head in 2016. FAMILY HISTORY: Heart disease. SOCIAL HISTORY: The patient uses chewing tobacco. He does drink beer regularly. MEDICATIONS: Amitriptyline 25 mg at bedtime, atorvastatin 40 mg p.o. q.a.m., calcitriol 8.25 mcg p.o. q.a.m., metoprolol 50 mg p.o. b.i.d. and antacid 2 tabs p.o. t.i.d. ALLERGIES: IODINATED DIAGNOSTIC AGENTS. REVIEW OF SYSTEMS: As per admitting history and physical. PHYSICAL EXAMINATION: VITAL SIGNS: Temperature 37, pulse 81, respirations 17, BP 187/84, pulse ox 96 on room air. GENERAL: The patient is awake and alert and oriented x3 upon walking in the room. He is pleasant and cooperative and in no acute distress. EXTREMITIES: On examination of his left lower extremity the left knee has a moderate effusion compared to the right. There is no overt erythema and the left knee and the right knee are both equal in warmth to the touch. He is mildly tender on palpation and the effusion is somewhat tight at this time but not tense. He is capable of doing active range of motion of the left knee and has full extension and flexes it to approximately about 80 degrees with some discomfort. He states that it does pop and crack. He does have some mild crepitus noted. He feels stable with his collateral ligaments. Calves are soft and nontender and his previous wound from his right foot actually from his abscess of his great toe MTP joint is well healed. NEUROLOGICAL: The patient has no gross motor or sensory deficits. ASSESSMENT: 1. Left knee pain, severe Djd with effusion. 2. Noted scalp abscess. PLAN: I have spoken to Joaquin Morgan PA-C from general surgery and they will be taking this gentleman down to the operating room to do an irrigation and debridement of his scalp abscess. In the meantime looking at his knee films he has fairly severe DJD of his left knee with what looks like bone on bone arthritis at the medial joint line with moderately narrowed joint line laterally. I do not feel he has an infection in this knee at this time; however, we will plan on doing an aspiration of the left knee and sending the fluid off for crystal analysis and aerobic and anaerobic cultures. Currently with his infection and white count of 19,000 we may hold off on giving him any steroid injection in the knee at this time. Further treatment will be dependent on fluid analysis from his left knee. MTDD
--- NOTE | 2016-10-29 08:58 | ORTHOPEDIC PROGRESS NOTE ---
DATE: 10/29/2016 DATE: 10/29/2016. SUBJECTIVE OBJECTIVE: A consult has been dictated on this gentleman. At this point in time, plans are for aspiration of the left knee. At that time, an aspiration site was chosen at the superior lateral aspect of the knee near the patella. The aspiration site was then swabbed with 2 alcohol swabs and 3 Betadine swabs and let to dry. Ethyl chloride was then sprayed on the aspiration site for anesthesia for the skin and a 20 gauge spinal needle was inserted into the suprapatellar pouch with very little difficulty. 7 mL of straw-colored cloudy fluid was aspirated without difficulty and the needle was withdrawn and pressure was applied to the aspiration site. A Band-Aid was then placed on the aspiration site. The aspirate will be sent down for culture, sensitivity and crystal analysis. The patient tolerated the aspiration well.
[2016-10-29] MEDS ORDERED: CEFEPIME CONSULT ACTIVE PRN ×2 (09:00)
[2016-10-29] MEDS ORDERED: CEFEPIME IV 1,000 MG in DEXTROSE 5% 100ML IV SCH (10:00)
[2016-10-29] MEDS: METOPROLOL TARTRATE 50 MG TAB PO SCH ×2 (10:09→21:48)
[2016-10-29] MEDS: ATORVASTATIN 20 MG TAB PO SCH (10:09)
[2016-10-29] MEDS: SODIUM BICARBONATE 650 MG TAB PO SCH ×3 (10:11→21:48)
[2016-10-29] MEDS: CALCITRIOL 0.25 MCG CAP PO SCH (10:11)
[2016-10-29] MEDS ORDERED: LABETALOL HCL 100 MG TAB PO ONE (11:15)
[2016-10-29 12:04] LABS: HEPATITIS B AB NEG
[2016-10-29 12:12] LABS: SYNOVIAL FLUID APPEARANCE CLOUDY; SYNOVIAL FLUID COLOR TAN
--- NOTE | 2016-10-29 12:17 | Nephrology Consultation ---
Nephrology Consultation Date of Consultation: Oct 29, 2016. Attending Physician: Dr Rodríguez Requesting Physician: Dr Rosenthal Reason for Consultation: metabolic acidosis, MICHELLE on CKD History of Present Illness 51 year old male w/ CKD 5 not on dialysis from obstructive uropathy and w/ mature AV fistula admitted overnight for mgt of scalp abscess w/ presenting creatinine 12. Under advice of my partner oncology physician, pt was started on bicarb gtt overnight, w/ creatinine improved to 11 today. K was 4.1; bicarb was 14 on presentation w/ pH on VBG last evening 7.15. Abscess developed over the past week; no f/c prior to admission. Also c/o about one month of L knee pain, treated at home w/ occasional aleve; he cannot tell me how often or frequently. SBP since arrival has been in 180- 200 range, more recently 180s. no chest pain, dyspnea, wheeze/cough, acute vision changes or focal numbness/weakness. 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 Baseline CKD 5; unknown recent baseline but his most recent creatinine 05/2016 is [address] Known to Dr. Ragsdale but has frequently no showed for follow up, not seen since 01/2015. For an I& D later this am of the 5 cm scalp lesion. Some concern also about possible septic L knee: aspiration for cx and fluid analysis done this am. currently on cefepime and vanco. 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 -chronic obstructive uropathy, does chronic intermittent self catheterization -resection of neural mass Family History Diabetes mellitus FH: cancer FH: gallbladder disease FH: heart disease Hypertension Kidney disease Kidney stones Social History Smoking Status: Never Smoker (does use chew tobacco) Alcohol Use: occasionally Drug Use: none, other Marital Status: in relationship Housing Status: lives with significant other Occupation Status: disabled Allergies Coded Allergies: Iodinated Diagnostic Agents (Verified Allergy, Unknown, STAGE 4 KIDNEY DISEASE, 10/28/16) Medications Current Inpatient Medications Medications (Trade) Dose Ordered Sig/Arti Route Start Time Stop Time Status Last Admin Dose Admin Heparin Sodium (Porcine) (Heparin Sq 5000 Unit/0.5ml) 5,000 unit Q8H SQ 10/29/16 08:00 11/28/16 07:59 Acetaminophen (Tylenol Tab) 650 mg Q4H PRN PO 10/29/16 00:15 11/28/16 00:14 Insulin Aspart (novoLOG ASPART) SLIDING SCALE If C... ACHS SC 10/29/16 07:00 11/28/16 06:59 Glucose (Glucose 40% Gel) 15-30 GRAMS 15 GRAMS... UD PRN PO 10/29/16 00:15 11/28/16 00:14 Glucose (Glucose Chew Tab) 4-8 Tablets 4 Tabl... UD PRN PO 10/29/16 00:15 11/28/16 00:14 Dextrose (Dextrose 50% 50ML Syringe) 25-50ML OF 50% DW IV FOR... UD PRN IV 10/29/16 00:15 11/28/16 00:14 Glucagon (Glucagon Inj) 1 mg UD PRN SQ 10/29/16 00:15 11/28/16 00:14 Ondansetron HCl (Zofran Inj) 4 mg Q6H PRN IV 10/29/16 00:15 11/28/16 00:14 Hydromorphone HCl (Dilaudid Inj) 0.5 mg Q3H PRN IV 10/29/16 00:15 11/12/16 00:14 10/29/16 10:05 0.5 MG Tramadol HCl (Ultram Tab) 25 mg Q6H PRN PO 10/29/16 00:15 11/28/16 00:14 Ondansetron HCl (Zofran Inj) 4 mg Q6H PRN IV 10/29/16 00:15 11/28/16 00:14 Amitriptyline HCl (Elavil Tab) 25 mg HS PO 10/29/16 21:00 11/28/16 20:59 Atorvastatin Calcium (Lipitor Tab) 40 mg QAM PO 10/29/16 09:00 11/28/16 08:59 10/29/16 10:09 40 MG Calcitriol (Rocaltrol Cap) 0.25 mcg QAM PO 10/29/16 09:00 11/28/16 08:59 10/29/16 10:11 0.25 MCG Sodium Bicarbonate (Sodium Bicarbonate Tab) 1,300 mg TID PO 10/29/16 09:00 11/28/16 08:59 10/29/16 10:11 1,300 MG Metoprolol Tartrate (Lopressor Tab) 50 mg BID PO 10/29/16 09:00 11/28/16 08:59 10/29/16 10:09 50 MG Cefepime HCl (Consult) 1 ea DAILY PRN N/A 10/29/16 09:00 11/28/16 08:59 Vancomycin HCl (Consult) 1 ea UD PRN N/A 10/29/16 01:30 11/28/16 01:29 Ethyl Chloride (Ethyl Chloride Aerosol) 1 ml TODAY@0800 EXT 10/29/16 08:00 10/29/16 16:00 Cefepime HCl 1000 mg/Dextrose 111.3 ml @ 222.6 mls/ hr DAILY@1000 IV 10/29/16 10:00 11/08/16 09:59 10/29/16 10:21 222.6 MLS/HR Home Meds and Scripts Medications Dose Route/Sig Max Daily Dose Days Date Category Rocaltrol Cap (Calcitriol) 0.25 Mcg Cap 0.25 Mcg PO QAM 06/18/16 Reported Lopressor (Metoprolol Tartrate) 50 Mg Tab 50 Mg PO BID 06/18/16 Reported Lipitor (Atorvastatin Calcium) 40 Mg Tab 40 Mg PO QAM 06/18/16 Reported Sodium Bicarbonate (Sodium Bicarbonate (Antacid)) 325 Mg Tab 2 Tabs PO TID 06/18/16 Reported Elavil (Amitriptyline Hcl) 25 Mg Tab 25 Mg PO HS 06/18/16 Reported Review of Systems Constitutional: + weakness, + fatigue, No fever, No chills Eyes: No worsening of vision ENT: No hearing loss Respiratory: No cough, No shortness of breath Cardiac: No chest pain, No edema, No palpitations Abdomen: No pain, No nausea, No vomiting, No diarrhea Musculoskeletal: + see HPI, + joint pain, No muscle pain Male : + problem reported (did have some gross hematuria a few days ago after having difficulty straight cathing/passing cath; since then hematuria resolved; no change in uop amount) Neuro: + balance problems (d/t knee), No memory loss Psych: + anxiety, No depression symptoms Heme: No abnormal bleeding/bruising Endo: + fatigue Skin: + new/changing skin lesions (scalp lesion; RLE calf lesion healing), No rash Physical Exam Date Time Temp Pulse Resp B/P (MAP) Pulse Ox O2 Delivery O2 Flow Rate FiO2 10/29/16 09:40 83 193/89 (123) 10/29/16 07:12 37.0 81 17 187/84 (118) 96 Room Air 10/29/16 03:29 36.4 78 16 131/73 (92) 97 Room Air 10/29/16 01:23 36.8 84 16 196/92 Room Air 10/29/16 00:44 37.3 81 16 183/101 99 10/28/16 23:24 75 16 194/111 97 Room Air 10/28/16 23:07 91 16 221/119 10/28/16 22:42 94 16 228/126 98 Room Air 10/28/16 22:00 87 16 206/105 98 Room Air 10/28/16 19:33 36.8 97 18 212/106 97 Room Air General Appearance: WD/WN, no apparent distress (on RA, A& O x 3) Eyes: EOMI ENT: hearing grossly normal, + pertinent finding (post superior scalp lesion w / drainage) Neck: supple Respiratory/Chest: lungs clear, no respiratory distress, + decreased breath sounds Cardiovascular: regular rate, rhythm, no edema Abdomen: normal bowel sounds, non tender, soft Extremities: + pertinent finding (skin graft remote/well healed L forearm, L a- c AVF ) Neurologic/Psych: alert, normal mood/affect, oriented x 3 Skin: no jaundice, warm/dry, no rash, + pertinent finding (wound healing RLE medial calf; scalp wound as above) Diagnostics Last 24 Hours Test 10/28/16 20:55 10/28/16 21:10 10/28/16 23:10 10/29/16 06:04 White Blood Count 17.38 K/uL 19.12 K/uL Red Blood Count 3.55 M/uL 3.24 M/uL Hemoglobin 10.5 g/dL 9.6 g/dL Hematocrit 31.2 % 28.4 % Mean Corpuscular Volume 87.9 fL 87.7 fL Mean Corpuscular Hemoglobin 29.6 pg 29.6 pg Mean Corpuscular Hemoglobin Concent 33.7 g/dl 33.8 g/dl Platelet Count 343 K/uL 325 K/uL Mean Platelet Volume 8.1 fL 7.9 fL Neutrophils (%) (Auto) 88.2 % 83.8 % Lymphocytes (%) (Auto) 4.9 % 6.7 % Monocytes (%) (Auto) 4.2 % 6.6 % Eosinophils (%) (Auto) 2.0 % 2.2 % Basophils (%) (Auto) 0.2 % 0.2 % Neutrophils # (Auto) 15.35 K/uL 16.02 K/uL Lymphocytes # (Auto) 0.85 K/uL 1.28 K/uL Monocytes # (Auto) 0.73 K/uL 1.26 K/uL Eosinophils # (Auto) 0.34 K/uL 0.42 K/uL Basophils # (Auto) 0.03 K/uL 0.04 K/uL RDW Standard Deviation 49.0 fL 49.3 fL RDW Coefficient of Variation 15.3 % 15.3 % Immature Granulocyte % (Auto) 0.5 % 0.5 % Immature Granulocyte # (Auto) 0.08 K/uL 0.10 K/uL Activated Partial Thromboplast Time 32.4 SECONDS Partial Thromboplastin Ratio 1.2 Sodium Level 142 mmol/L 142 mmol/L Potassium Level 4.1 mmol/L 4.3 mmol/L Chloride Level 111 mmol/L 112 mmol/L Carbon Dioxide Level 14 mmol/L 16 mmol/L Anion Gap 17.0 mmol/L 14.0 mmol/L Blood Urea Nitrogen 86 mg/dl 85 mg/dl Creatinine 12.00 mg/dl 11.00 mg/dl Est Creatinine Clear Calc Drug Dose 9.6 ml/min 10.8 ml/min Estimated GFR () 5.0 5.5 Estimated GFR (Non- 4.3 4.8 BUN/Creatinine Ratio 7.1 7.7 Random Glucose 130 mg/dl 112 mg/dl Estimated Average Glucose 108 mg/dl Hemoglobin A1c 5.4 % Calcium Level 9.2 mg/dl 8.7 mg/dl Total Bilirubin 1.1 mg/dl Direct Bilirubin < 0.1 mg/dl Aspartate Amino Transf (AST/SGOT) 15 U/L Alanine Aminotransferase (ALT/SGPT) 26 U/L Alkaline Phosphatase 100 U/L Total Protein 7.7 gm/dl Albumin 2.6 gm/dl Thyroid Stimulating Hormone (TSH) 1.770 uIu/ml Urine Color YELLOW Urine Appearance TURBID Urine pH 6.0 Urine Specific [place] 1.017 Urine Protein 3+ Urine Glucose (UA) 2+ Urine Ketones NEG Urine Occult Blood 2+ Urine Nitrite POS Urine Bilirubin NEG Urine Urobilinogen NEG Urine Leukocyte Esterase MODERATE Urine WBC (Auto) >30 /hpf Urine RBC (Auto) 5-10 /hpf Urine Hyaline Casts (Auto) 1-5 /lpf Urine Epithelial Cells (Auto) 20-30 /lpf Urine Bacteria (Auto) 2+ Venous Blood pH 7.15 Venous Blood Partial Pressure CO2 33 mmHg Venous Blood Partial Pressure O2 30 mmHg Venous Blood HCO3 12 mmol/L Venous Blood Oxygen Saturation < 60.0 % Venous Blood Base Excess -16.2 mmol/L Absolute Reticulocyte Count 0.09 10^6/uL Percent Reticulocyte Count 2.9 % Prothrombin Time 13.1 SECONDS Prothromb Time International Ratio 1.2 Iron Level 29 mcg/dl Total Iron Binding Capacity 180 mcg/dl Transferrin 138 mg/dl Transferrin % Saturation 15 % Ferritin 662.8 ng/ml Vitamin B12 Level 481 pg/mL Folate 3.93 ng/mL Test 10/29/16 08:36 10/29/16 10:11 Diagnostic Radiology: CXR > moderate cardiomegaly; no plm edema, effusion, or infiltrate head CT > 4.6 cm scalp lesion concerning for abscess, no CT evidence of abscess Assessment & Plan 51 y/o M w/ MICHELLE on CKD 5, not overtly uremic but hypertensive and w/ uncontrolled acidemia admitted 10/29 with scalp abscess and L knee effusion s/p tap for scalp I& D this am ESRD Needs dialysis-has AVF which we will use; not emergent HD but will start today after OR His urine specimen is contaminated and most any specimen will have studies c/w infection. Also needs renal imaging to evaluate status of obstructive uropathy>renal u/s ordered Monitor vancomycin levels carefully/daily -daily bmp, cbc; f/u cxs Cont sodium bicarb po for now -will need to arrange outpt dialysis > pls c/s SW for admission to [facility] after d/c HTN urgency -ordered baseline ECG >>NSR w/ LVH; anesthesia aware -no indication for troponin unless he develops chest discomfort or dyspnea or other concerning sx -continue labetalol>>started on 100 mg IV bid, first dose to depend on bp after OR; last dose was 20 mg IV last evening -control pain but avoid nsaids Scalp abscess-for I& D this am L knee concern for septic/inflamed joint -per ortho Appreciate consultation; will follow with you. Care coordinated w/ Drs. Rodríguez and Rao.
[2016-10-29] MEDS ORDERED: MIDAZOLAM HCL 1 MG/ML 2ML VIAL ONE ×2 (13:19→13:51)
[2016-10-29] MEDS ORDERED: FENTANYL CITRATE INJ 50 MCG/1 ML 2 ML VIAL IV PRN (13:45)
[2016-10-29] MEDS ORDERED: ATROPINE SULFATE 0.1 MG/ML 5ML SYR IV PRN (13:45)
[2016-10-29] MEDS ORDERED: EpHEDrine SULFATE INJ 50 MG/ML AMP IV PRN (13:45)
[2016-10-29] MEDS ORDERED: PROPOFOL IV EMULSION 10 MG/ML 20 ML VIAL IV ONE (13:57)
--- NOTE | 2016-10-29 14:26 | [facility] Operative Report ---
Operative Report Operative Date Oct 29, 2016. Pre-Operative Diagnosis scalp abcess Post-Operative Diagnosis same Procedure(s) Performed Incision/drainage of scalp abcess Surgeon brian [place] Collector Surgeon(s) yara field Findings 4 cm scalp abcess Specimens fluid for c/s Anesthesia mac Complication(s) None Disposition Recovery Room / PACU I attest to the content of the Intraoperative Record and any orders documented therein. Any exceptions are noted below.
[2016-10-29] MEDS ORDERED: MoRPHine SULFATE 2 MG/ML CARP IV PRN (14:30)
[2016-10-29] MEDS ORDERED: HydrALAZINE HCL 20 MG/ML VIAL ONE (14:44)
--- NOTE | 2016-10-29 15:23 | Anesthesiology Progress Note ---
Anesthesia Post Op Note Date & Time Oct 29, 2016 at 15:23 Vital Signs Pain Intensity: 2 Vital Signs Past 12 Hours Date Time Temp Pulse Resp B/P (MAP) Pulse Ox O2 Delivery O2 Flow Rate FiO2 10/29/16 15:05 36.2 74 16 154/71 95 Room Air 10/29/16 14:50 73 16 173/90 95 Room Air 10/29/16 14:40 73 16 192/84 99 Room Air 10/29/16 14:30 36.8 76 16 177/82 99 Room Air 10/29/16 11:45 70 18 180/95 100 Room Air 10/29/16 09:40 83 193/89 (123) 10/29/16 09:30 Room Air 10/29/16 07:12 37.0 81 17 187/84 (118) 96 Room Air 10/29/16 03:29 36.4 78 16 131/73 (92) 97 Room Air Notes Mental Status: alert / awake / arousable, participated in evaluation Pt Amnestic to Procedure: Yes Nausea / Vomiting: adequately controlled Pain: adequately controlled Airway Patency, RR, SpO2: stable & adequate BP & HR: stable & adequate Hydration State: stable & adequate Anesthetic Complications: no major complications apparent BP improved.
--- NOTE | 2016-10-29 15:26 | OPERATIVE REPORT ---
DATE OF OPERATION: 10/29/2016 PREOPERATIVE DIAGNOSIS: Four cm scalp abscess. POSTOPERATIVE DIAGNOSIS: Same. PROCEDURE PERFORMED: Incision and drainage of scalp abscess. SURGEON: Dr. Roth. IP LITIGATION PARALEGAL: Beckie Solo PA-C. ESTIMATED BLOOD LOSS: Approximately 10 mL. COMPLICATIONS: No immediate. ANESTHESIA: MAC. OPERATION AND FINDINGS: OPERATIVE NOTE: After informed consent was obtained, the patient taken to the operating suite, placed in supine position. IV sedation was administered by anesthesia. After adequate sedation was obtained Betadine solution was used to prep the area around the visible abscess. A vertical incision was made directly over the abscess. We got some purulent fluid. It was rather thick. We were able to squeeze large chunks of purulent material out of the area. We used a swab to obtain fluid for Gram stain, culture and sensitivity. We then thoroughly irrigated the wound. I packed it with half inch packing and sterile dressing was applied. The patient was awakened and transferred to recovery in stable condition. I attest to the content of the Intraoperative Record and any orders documented therein. Any exception s are noted below.
--- NOTE | 2016-10-29 15:38 | Pharmacy Progress Note ---
Pharmacy Abx Initial Consult Date of Service Oct 29, 2016. Pharmacy Dosing Scope Date of Consult: 10/29/16 Consultation requested by: Dr. Zelaya Pharmacy is consulted to initiate vancomycin and cefepime IV dosing therapy, order appropriate labs and adjust drug dose/frequency. Subjective The patient is a 51 year old male admitted on Oct 29, 2016 at 00:03 for scalp abscess and possible L knee infection. Objective Height (Feet): 6 Height (Inches): 0.00 Weight (Kilograms): 123.700 Vital Signs (Past 12Hrs) Vital Signs Past 12 Hours Date Time Temp Pulse Resp B/P (MAP) Pulse Ox O2 Delivery O2 Flow Rate FiO2 10/29/16 15:05 36.2 74 16 154/71 95 Room Air 10/29/16 14:50 73 16 173/90 95 Room Air 10/29/16 14:40 73 16 192/84 99 Room Air 10/29/16 14:30 36.8 76 16 177/82 99 Room Air 10/29/16 11:45 70 18 180/95 100 Room Air 10/29/16 09:40 83 193/89 (123) 10/29/16 09:30 Room Air 10/29/16 07:12 37.0 81 17 187/84 (118) 96 Room Air 10/29/16 03:29 36.4 78 16 131/73 (92) 97 Room Air Lab Results (24Hrs) Test 10/28/16 20:55 10/28/16 21:10 10/28/16 23:10 10/29/16 06:04 White Blood Count 17.38 K/uL (4.8-10.8) 19.12 K/uL (4.8-10.8) Red Blood Count 3.55 M/uL (4.7-6.1) 3.24 M/uL (4.7-6.1) Hemoglobin 10.5 g/dL (14.0-18.0) 9.6 g/dL (14.0-18.0) Hematocrit 31.2 % (42-52) 28.4 % (42-52) Mean Corpuscular Volume 87.9 fL (80-100) 87.7 fL (80-100) Mean Corpuscular Hemoglobin 29.6 pg (25-34) 29.6 pg (25-34) Mean Corpuscular Hemoglobin Concent 33.7 g/dl (32-36) 33.8 g/dl (32-36) Platelet Count 343 K/uL (130-400) 325 K/uL (130-400) Mean Platelet Volume 8.1 fL (7.4-10.4) 7.9 fL (7.4-10.4) Neutrophils (%) (Auto) 88.2 % 83.8 % Lymphocytes (%) (Auto) 4.9 % 6.7 % Monocytes (%) (Auto) 4.2 % 6.6 % Eosinophils (%) (Auto) 2.0 % 2.2 % Basophils (%) (Auto) 0.2 % 0.2 % Neutrophils # (Auto) 15.35 K/uL (1.4-6.5) 16.02 K/uL (1.4-6.5) Lymphocytes # (Auto) 0.85 K/uL (1.2-3.4) 1.28 K/uL (1.2-3.4) Monocytes # (Auto) 0.73 K/uL (0.11-0.59) 1.26 K/uL (0.11-0.59) Eosinophils # (Auto) 0.34 K/uL (0-0.5) 0.42 K/uL (0-0.5) Basophils # (Auto) 0.03 K/uL (0-0.2) 0.04 K/uL (0-0.2) RDW Standard Deviation 49.0 fL (36.4-46.3) 49.3 fL (36.4-46.3) RDW Coefficient of Variation 15.3 % (11.5-14.5) 15.3 % (11.5-14.5) Immature Granulocyte % (Auto) 0.5 % 0.5 % Immature Granulocyte # (Auto) 0.08 K/uL (0.00-0.02) 0.10 K/uL (0.00-0.02) Activated Partial Thromboplast Time 32.4 SECONDS (21.0-31.0) Partial Thromboplastin Ratio 1.2 Sodium Level 142 mmol/L (136-145) 142 mmol/L (136-145) Potassium Level 4.1 mmol/L (3.5-5.1) 4.3 mmol/L (3.5-5.1) Chloride Level 111 mmol/L (98-107) 112 mmol/L (98-107) Carbon Dioxide Level 14 mmol/L (21-32) 16 mmol/L (21-32) Anion Gap 17.0 mmol/L (3-11) 14.0 mmol/L (3-11) Blood Urea Nitrogen 86 mg/dl (7-18) 85 mg/dl (7-18) Creatinine 12.00 mg/dl (0.60-1.40) 11.00 mg/dl (0.60-1.40) Est Creatinine Clear Calc Drug Dose 9.6 ml/min 10.8 ml/min Estimated GFR () 5.0 5.5 Estimated GFR (Non- 4.3 4.8 BUN/Creatinine Ratio 7.1 (10-20) 7.7 (10-20) Random Glucose 130 mg/dl (70-99) 112 mg/dl (70-99) Estimated Average Glucose 108 mg/dl Hemoglobin A1c 5.4 % (4.5-5.6) Calcium Level 9.2 mg/dl (8.5-10.1) 8.7 mg/dl (8.5-10.1) Total Bilirubin 1.1 mg/dl (0.2-1) Direct Bilirubin < 0.1 mg/dl (0-0.2) Aspartate Amino Transf (AST/SGOT) 15 U/L (15-37) Alanine Aminotransferase (ALT/SGPT) 26 U/L (12-78) Alkaline Phosphatase 100 U/L (45-117) Total Protein 7.7 gm/dl (6.4-8.2) Albumin 2.6 gm/dl (3.4-5.0) Thyroid Stimulating Hormone (TSH) 1.770 uIu/ml (0.300-4.500) Urine Color YELLOW Urine Appearance TURBID (CLEAR) Urine pH 6.0 (4.5-7.5) Urine Specific [place] 1.017 (1.000-1.030) Urine Protein 3+ (NEG) Urine Glucose (UA) 2+ (NEG) Urine Ketones NEG (NEG) Urine Occult Blood 2+ (NEG) Urine Nitrite POS (NEG) Urine Bilirubin NEG (NEG) Urine Urobilinogen NEG (NEG) Urine Leukocyte Esterase MODERATE (NEG) Urine WBC (Auto) >30 /hpf (0-5) Urine RBC (Auto) 5-10 /hpf (0-4) Urine Hyaline Casts (Auto) 1-5 /lpf (0-5) Urine Epithelial Cells (Auto) 20-30 /lpf (0-5) Urine Bacteria (Auto) 2+ (NEG) Venous Blood pH 7.15 (7.36-7.41) Venous Blood Partial Pressure CO2 33 mmHg (38.0-50.0) Venous Blood Partial Pressure O2 30 mmHg Venous Blood HCO3 12 mmol/L Venous Blood Oxygen Saturation < 60.0 % Venous Blood Base Excess -16.2 mmol/L Absolute Reticulocyte Count 0.09 10^6/uL (0.02-0.10) Percent Reticulocyte Count 2.9 % (0.5-2.0) Prothrombin Time 13.1 SECONDS (9.0-12.0) Prothromb Time International Ratio 1.2 (0.9-1.1) Iron Level 29 mcg/dl (35-175) Total Iron Binding Capacity 180 mcg/dl (250-450) Transferrin 138 mg/dl (200-360) Transferrin % Saturation 15 % (20-50) Ferritin 662.8 ng/ml (8.0-388.0) Vitamin B12 Level 481 pg/mL (211-911) Folate 3.93 ng/mL (>5.38) Test 10/29/16 06:09 10/29/16 10:11 10/29/16 10:30 10/29/16 12:48 Hepatitis B Surface Antigen NEG (NEG) Hepatitis B Surface Antibody NEG Random Vancomycin Level 20.9 mcg/ml Synovial Fluid Source KNEE Synovial Fluid Color EPPERSON Synovial Fluid Appearance CLOUDY Synovial Fluid WBC 21295 /uL (0-200) Synovial Fluid RBC 85283 /uL Synovial Fluid Polynuclear WBCs % 97.0 % Synovial Fluid Mononuclear WBCs % 3.0 % Test 10/29/16 14:32 Bedside Glucose 102 mg/dl (70-99) Micro Results Date/Time Source Procedure Growth Status 10/29/16 10:30 Joint Fluid/Space (Synovial) Knee Left Gram Stain - Final Resulted 10/29/16 10:30 Joint Fluid/Space (Synovial) Knee Left Bacterial Culture Pending Resulted 10/28/16 21:10 Urine , Clean Catch Urine Culture - Preliminary Staphylococcus Aureus Gram Positive Cocci Resulted 10/29/16 14:00 Abscess Scalp Gram Stain Pending Received 10/29/16 14:00 Abscess Scalp Bacterial Culture Pending Received 10/29/16 06:30 Drainage - Surface Scalp Gram Stain - Final Resulted 10/29/16 06:30 Drainage - Surface Scalp Wound Culture Pending Resulted Risk Factors for Resistance * 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 Pertinent PMH: CKD Stage 5, not yet on dialysis. He was seen by nephrology today and will be starting dialysis today after he comes back from the OR. Regarding vancomycin, he received a loading dose last night and a random level today was 20.9. He does not need additional vancomycin now but I suspect will need some after dialysis, especially because he is still producing urine. Will plan to order a post-HD level and give a dose of vancomycin based upon the level obtained. Plan Vancomycin IV * Loading dose: 2200 mg (17.6 mg/kg) was given last night * Will plan to order a post-HD level 4-6 hrs after dialysis and give the following vancomycin doses based upon the level: * If level < 10, 1 gm * If level 10-15, 750 mg * If level 15-20, 500 mg * If level > 20, none Pharmacy will continue to follow and will adjust dose/frequency as necessary. Thank you.
--- NOTE | 2016-10-29 16:23 | Progress Note ---
Internal Med Progress Note Date of Service: Oct 29, 2016. Provider Documentation: SUBJECTIVE: Patient is status post scalp abscess I & D. Pain is controlled. Denies any chest pain, SOB, nausea, vomiting, fever, chills. BP stable OBJECTIVE: Vital Signs-as noted below Exam: General-AAOX3, no distress Neck-Supple HEENT- Scalp abscess s/p I & D, dressing present Lungs-AEBE, no wheezing, rhonchi Heart-S1, S2 normal, no murmurs Extremities-No edema Lab data as noted below. ASSESSMENT & PLAN: ASSESSMENT AND PLAN : SCALP ABSCESS : S/P Incision and drainage in OR today -No signs of sepsis. 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 MICHELLE ON CKD IV/V -Baseline creatinine around 8 , not on dialysis. Came with creatinine of 12. -For dialysis through fistula (done few years ago) per nephrology -On IV Bicarb drip per nephrology due to metabolic acidosis LEFT KNEE PAIN WITH EFFUSION -Does have severe DJD, rule out gout -S/P Aspiration per ortho today- Cultures/Crystal/ Synovial fluid sent -Synovial fluid- WBC 82315, polymorphs 97%, RBC- 20,000 -Ortho on board. HYPERTENSION UNCONTROLLED -Received IV Labetalol -Continue with labetalol 100 mg PO BID, Metoprolol 50 mg PO BID DM-2 Diet controlled HBA1C 5.4 -ISS, Accuchecks ACUTE ON CHRONIC ANEMIA Likely secondary to CKD -Work up- Folic acid levels-3.93, Vit b12, Vit D normal, Iron studies - no iron deficiency -Monitor Hx of ex tobacco/alcohol/substance abuse as per records DVT PROPHYLAXIS, Heparin subQ. FULL CODE DISPOSITION Medical mx in progress To be determined Vital Signs: Date Time Temp Pulse Resp B/P (MAP) Pulse Ox O2 Delivery O2 Flow Rate FiO2 10/29/16 18:45 36.6 77 174/82 (112) 10/29/16 18:15 78 168/80 10/29/16 18:00 78 160/79 10/29/16 17:45 74 153/80 10/29/16 17:30 77 164/84 10/29/16 17:15 74 146/93 10/29/16 17:00 74 164/97 10/29/16 16:45 70 163/88 10/29/16 16:40 36.7 73 158/87 (110) 10/29/16 16:30 71 160/89 10/29/16 16:20 73 158/87 10/29/16 15:48 36.8 71 16 158/80 (106) 97 Room Air 10/29/16 15:24 95 Room Air 10/29/16 15:20 36.6 74 16 176/85 (115) 96 Room Air 10/29/16 15:05 36.2 74 16 154/71 95 Room Air 10/29/16 14:50 73 16 173/90 95 Room Air 10/29/16 14:40 73 16 192/84 99 Room Air 10/29/16 14:30 36.8 76 16 177/82 99 Room Air 10/29/16 11:45 70 18 180/95 100 Room Air 10/29/16 09:40 83 193/89 (123) 10/29/16 09:30 Room Air 10/29/16 07:12 37.0 81 17 187/84 (118) 96 Room Air 10/29/16 03:29 36.4 78 16 131/73 (92) 97 Room Air 10/29/16 01:23 36.8 84 16 196/92 Room Air 10/29/16 00:44 37.3 81 16 183/101 99 10/28/16 23:24 75 16 194/111 97 Room Air 10/28/16 23:07 91 16 221/119 10/28/16 22:42 94 16 228/126 98 Room Air 10/28/16 22:00 87 16 206/105 98 Room Air 10/28/16 19:33 36.8 97 18 212/106 97 Room Air Lab Results: Results Past 24 Hours Test 10/28/16 20:55 10/28/16 21:10 10/28/16 23:10 10/29/16 06:04 Range/Units White Blood Count 17.38 19.12 4.8-10.8 K/uL Red Blood Count 3.55 3.24 4.7-6.1 M/uL Hemoglobin 10.5 9.6 14.0-18.0 g/dL Hematocrit 31.2 28.4 42-52 % Mean Corpuscular Volume 87.9 87.7 80-100 fL Mean Corpuscular Hemoglobin 29.6 29.6 25-34 pg Mean Corpuscular Hemoglobin Concent 33.7 33.8 32-36 g/dl Platelet Count 343 325 130-400 K/uL Mean Platelet Volume 8.1 7.9 7.4-10.4 fL Neutrophils (%) (Auto) 88.2 83.8 % Lymphocytes (%) (Auto) 4.9 6.7 % Monocytes (%) (Auto) 4.2 6.6 % Eosinophils (%) (Auto) 2.0 2.2 % Basophils (%) (Auto) 0.2 0.2 % Neutrophils # (Auto) 15.35 16.02 1.4-6.5 K/uL Lymphocytes # (Auto) 0.85 1.28 1.2-3.4 K/uL Monocytes # (Auto) 0.73 1.26 0.11-0.59 K/uL Eosinophils # (Auto) 0.34 0.42 0-0.5 K/uL Basophils # (Auto) 0.03 0.04 0-0.2 K/uL RDW Standard Deviation 49.0 49.3 36.4-46.3 fL RDW Coefficient of Variation 15.3 15.3 11.5-14.5 % Immature Granulocyte % (Auto) 0.5 0.5 % Immature Granulocyte # (Auto) 0.08 0.10 0.00-0.02 K/uL Activated Partial Thromboplast Time 32.4 21.0-31.0 SECONDS Partial Thromboplastin Ratio 1.2 Sodium Level 142 142 136-145 mmol/L Potassium Level 4.1 4.3 3.5-5.1 mmol/L Chloride Level 111 112 98-107 mmol/L Carbon Dioxide Level 14 16 21-32 mmol/L Anion Gap 17.0 14.0 3-11 mmol/L Blood Urea Nitrogen 86 85 7-18 mg/dl Creatinine 12.00 11.00 0.60-1.40 mg/dl Est Creatinine Clear Calc Drug Dose 9.6 10.8 ml/min Estimated GFR () 5.0 5.5 Estimated GFR (Non- 4.3 4.8 BUN/Creatinine Ratio 7.1 7.7 10-20 Random Glucose 130 112 70-99 mg/dl Estimated Average Glucose 108 mg/dl Hemoglobin A1c 5.4 4.5-5.6 % Calcium Level 9.2 8.7 8.5-10.1 mg/dl Total Bilirubin 1.1 0.2-1 mg/dl Direct Bilirubin < 0.1 0-0.2 mg/dl Aspartate Amino Transf (AST/SGOT) 15 15-37 U/L Alanine Aminotransferase (ALT/SGPT) 26 12-78 U/L Alkaline Phosphatase 100 45-117 U/L Total Protein 7.7 6.4-8.2 gm/dl Albumin 2.6 3.4-5.0 gm/dl Thyroid Stimulating Hormone (TSH) 1.770 0.300-4.500 uIu/ml Urine Color YELLOW Urine Appearance TURBID CLEAR Urine pH 6.0 4.5-7.5 Urine Specific [place] 1.017 1.000-1.030 Urine Protein 3+ NEG Urine Glucose (UA) 2+ NEG Urine Ketones NEG NEG Urine Occult Blood 2+ NEG Urine Nitrite POS NEG Urine Bilirubin NEG NEG Urine Urobilinogen NEG NEG Urine Leukocyte Esterase MODERATE NEG Urine WBC (Auto) >30 0-5 /hpf Urine RBC (Auto) 5-10 0-4 /hpf Urine Hyaline Casts (Auto) 1-5 0-5 /lpf Urine Epithelial Cells (Auto) 20-30 0-5 /lpf Urine Bacteria (Auto) 2+ NEG Venous Blood pH 7.15 7.36-7.41 Venous Blood Partial Pressure CO2 33 38.0-50.0 mmHg Venous Blood Partial Pressure O2 30 mmHg Venous Blood HCO3 12 mmol/L Venous Blood Oxygen Saturation < 60.0 % Venous Blood Base Excess -16.2 mmol/L Absolute Reticulocyte Count 0.09 0.02-0.10 10^6/uL Percent Reticulocyte Count 2.9 0.5-2.0 % Prothrombin Time 13.1 9.0-12.0 SECONDS Prothromb Time International Ratio 1.2 0.9-1.1 Iron Level 29 35-175 mcg/dl Total Iron Binding Capacity 180 250-450 mcg/dl Transferrin 138 200-360 mg/dl Transferrin % Saturation 15 20-50 % Ferritin 662.8 8.0-388.0 ng/ml Vitamin B12 Level 481 211-911 pg/mL Folate 3.93 >5.38 ng/mL Test 10/29/16 06:09 10/29/16 10:11 10/29/16 10:30 10/29/16 14:32 Range/Units Hepatitis B Surface Antigen NEG NEG Hepatitis B Surface Antibody NEG Random Vancomycin Level 20.9 mcg/ml Synovial Fluid Source KNEE Synovial Fluid Color EPPERSON Synovial Fluid Appearance CLOUDY Synovial Fluid WBC 37966 0-200 /uL Synovial Fluid RBC 260[address] /uL Synovial Fluid Polynuclear WBCs % 97.0 % Synovial Fluid Mononuclear WBCs % 3.0 % Synovial Fluid Crystals Bedside Glucose 102 70-99 mg/dl Test 10/29/16 15:30 Range/Units Uric Acid 9.8 2.6-7.2 mg/dl Microbiology Results 10/29/16 Gram Stain - Final, Resulted 10/29/16 Bacterial Culture, Resulted Pending 10/28/16 Urine Culture - Preliminary, Resulted Staphylococcus Aureus Gram Positive Cocci 10/29/16 Gram Stain, Received Pending 10/29/16 Bacterial Culture, Received Pending 10/29/16 Gram Stain - Final, Resulted 10/29/16 Wound Culture, Resulted Pending
[2016-10-29] MEDS ORDERED: HydrALAZINE HCL 20 MG/ML VIAL IV. PRN (19:00)
[2016-10-29] MEDS ORDERED: LABETALOL HCL 100 MG TAB PO SCH (21:00)
[2016-10-29] MEDS: AMITRIPTYLINE HCL 25 MG TAB PO SCH (21:47)
[2016-10-29] MEDS ORDERED: VANCOMYCIN INJ 500 MG in SODIUM CHLORIDE 0.9% 250ML 250 ML IV SCH (23:30)
[2016-10-30] VITALS (22 sets, daily range): BP systolic 116–181; BP diastolic 65–88; PULSE 68–84; TEMP 37–37.9; O2SAT 94–97
[2016-10-30] MEDS: HEPARIN SOD 5000 UNIT/0.5 ML CARP SQ SCH ×4 (00:48→23:48)
[2016-10-30 05:56] LABS: HEMATOCRIT 27.2 % (42-52); MEAN CELL VOLUME 88.9 fL (80-100); MEAN CORPUSCULAR HEMOGLOBIN 29.1 pg (25-34); MEAN CORPUSCULAR HGB CONC 32.7 g/dl (32-36); MEAN PLATELET VOLUME 8.6 fL (7.4-10.4); PLATELET COUNT 315 K/uL (130-400); RED BLOOD COUNT 3.06 M/uL (4.7-6.1); WHITE BLOOD COUNT 15.96 K/uL (4.8-10.8)
[2016-10-30 06:44] LABS: BUN/CREATININE RATIO 7.3 (10-20); CALCIUM 8.2 mg/dl (8.5-10.1); CREATININE 9.1 mg/dl (0.60-1.40); POTASSIUM 3.9 mmol/L (3.5-5.1)
[2016-10-30] MEDS: INSULIN ASPART 100 UNITS/ML 3 ML PEN SC SCH ×4 (08:00→21:00)
--- NOTE | 2016-10-30 08:16 | Anesthesiology Progress Note ---
Anesthesia Post Op Note Date & Time Oct 30, 2016 at 08:15 Vital Signs Pain Intensity: 0.0 Vital Signs Past 12 Hours Date Time Temp Pulse Resp B/P (MAP) Pulse Ox O2 Delivery O2 Flow Rate FiO2 10/30/16 07:00 37.1 77 16 164/76 (105) 94 Room Air 10/30/16 03:34 37.2 79 16 160/80 (106) 95 Room Air 10/29/16 23:17 37.1 77 16 155/78 (103) 95 Room Air 10/29/16 21:43 82 170/85 (113) Notes Mental Status: alert / awake / arousable, participated in evaluation Pt Amnestic to Procedure: Yes Nausea / Vomiting: adequately controlled Pain: adequately controlled Airway Patency, RR, SpO2: stable & adequate BP & HR: stable & adequate Hydration State: stable & adequate Anesthetic Complications: no major complications apparent
[2016-10-30] MEDS ORDERED: EPOETIN ALFA 10,000 UNITS/ML VIAL IV. SCH (08:30)
--- NOTE | 2016-10-30 08:30 | Surgery Progress Note ---
Surgery Progress Note Date of Service Oct 30, 2016. Subjective Post OP Day: 1 + feeling well Objective Vital Signs: Date Time Temp Pulse Resp B/P (MAP) Pulse Ox O2 Delivery O2 Flow Rate FiO2 10/30/16 07:00 37.1 77 16 164/76 (105) 94 Room Air 10/30/16 03:34 37.2 79 16 160/80 (106) 95 Room Air 10/29/16 23:17 37.1 77 16 155/78 (103) 95 Room Air 10/29/16 21:43 82 170/85 (113) 10/29/16 20:10 Room Air 10/29/16 18:57 36.7 82 18 131/80 (97) 97 Room Air 10/29/16 18:45 36.6 77 174/82 (112) 10/29/16 18:15 78 168/80 10/29/16 18:00 78 160/79 10/29/16 17:45 74 153/80 10/29/16 17:30 77 164/84 10/29/16 17:15 74 146/93 10/29/16 17:00 74 164/97 10/29/16 16:45 70 163/88 10/29/16 16:40 36.7 73 158/87 (110) 10/29/16 16:30 71 160/89 10/29/16 16:20 73 158/87 10/29/16 15:48 36.8 71 16 158/80 (106) 97 Room Air 10/29/16 15:24 95 Room Air 10/29/16 15:20 36.6 74 16 176/85 (115) 96 Room Air 10/29/16 15:05 36.2 74 16 154/71 95 Room Air 10/29/16 14:50 73 16 173/90 95 Room Air 10/29/16 14:40 73 16 192/84 99 Room Air 10/29/16 14:30 36.8 76 16 177/82 99 Room Air 10/29/16 11:45 70 18 180/95 100 Room Air 10/29/16 09:40 83 193/89 (123) 10/29/16 09:30 Room Air Incision(s): clean, dry Laboratory Results: Results Past 24 Hours Test 10/29/16 10:11 10/29/16 10:30 10/29/16 14:32 10/29/16 15:30 Range/Units Random Vancomycin Level 20.9 mcg/ml Synovial Fluid Source KNEE Synovial Fluid Color EPPERSON Synovial Fluid Appearance CLOUDY Synovial Fluid WBC 13603 0-200 /uL Synovial Fluid RBC 37[address] /uL Synovial Fluid Polynuclear WBCs % 97.0 % Synovial Fluid Mononuclear WBCs % 3.0 % Synovial Fluid Crystals Bedside Glucose 102 70-99 mg/dl Uric Acid 9.8 2.6-7.2 mg/dl Test 10/29/16 21:13 10/29/16 21:29 10/30/16 05:16 10/30/16 06:48 Range/Units Bedside Glucose 126 106 70-99 mg/dl Random Vancomycin Level 15.8 mcg/ml White Blood Count 15.96 4.8-10.8 K/uL Red Blood Count 3.06 4.7-6.1 M/uL Hemoglobin 8.9 14.0-18.0 g/dL Hematocrit 27.2 42-52 % Mean Corpuscular Volume 88.9 80-100 fL Mean Corpuscular Hemoglobin 29.1 25-34 pg Mean Corpuscular Hemoglobin Concent 32.7 32-36 g/dl RDW Standard Deviation 50.0 36.4-46.3 fL RDW Coefficient of Variation 15.5 11.5-14.5 % Platelet Count 315 130-400 K/uL Mean Platelet Volume 8.6 7.4-10.4 fL Sodium Level 142 136-145 mmol/L Potassium Level 3.9 3.5-5.1 mmol/L Chloride Level 111 98-107 mmol/L Carbon Dioxide Level 20 21-32 mmol/L Anion Gap 11.0 3-11 mmol/L Blood Urea Nitrogen 67 7-18 mg/dl Creatinine 9.10 0.60-1.40 mg/dl Est Creatinine Clear Calc Drug Dose 13.2 ml/min Estimated GFR () 7.0 Estimated GFR (Non- 6.0 BUN/Creatinine Ratio 7.3 10-20 Random Glucose 105 70-99 mg/dl Calcium Level 8.2 8.5-10.1 mg/dl Microbiology Results 10/29/16 Gram Stain - Final, Resulted 10/29/16 Bacterial Culture, Resulted Pending 10/29/16 Gram Stain - Final, Resulted 10/29/16 Bacterial Culture, Resulted Pending Assessment & Plan s/p I&D scalp abscess daily packing change cont abx
[2016-10-30] MEDS: CALCITRIOL 0.25 MCG CAP PO SCH (08:54)
[2016-10-30] MEDS: ATORVASTATIN 20 MG TAB PO SCH (08:56)
[2016-10-30] MEDS: SODIUM BICARBONATE 650 MG TAB PO SCH (08:57)
[2016-10-30] MEDS: METOPROLOL TARTRATE 50 MG TAB PO SCH (08:57)
--- NOTE | 2016-10-30 09:24 | Orthopedic Progress Note ---
Orthopedic Progress Note Date of Service Oct 30, 2016. Subjective Reports: feeling well Additional Notes: States his knee is feeling a little better today. No new complaints. Knee aspirate negative [place] [address] WBC. Crystal analysis positive for Gout. Objective calves soft nontender, A&O x3, toes mobile Knee with a little less pain with ROM. Mild effusion. Date Time Temp Pulse Resp B/P (MAP) Pulse Ox O2 Delivery O2 Flow Rate FiO2 10/30/16 08:55 79 181/81 (114) 10/30/16 07:00 37.1 77 16 164/76 (105) 94 Room Air 10/30/16 03:34 37.2 79 16 160/80 (106) 95 Room Air 10/29/16 23:17 37.1 77 16 155/78 (103) 95 Room Air 10/29/16 21:43 82 170/85 (113) 10/29/16 20:10 Room Air 10/29/16 18:57 36.7 82 18 131/80 (97) 97 Room Air 10/29/16 18:45 36.6 77 174/82 (112) 10/29/16 18:15 78 168/80 10/29/16 18:00 78 160/79 10/29/16 17:45 74 153/80 10/29/16 17:30 77 164/84 10/29/16 17:15 74 146/93 10/29/16 17:00 74 164/97 10/29/16 16:45 70 163/88 10/29/16 16:40 36.7 73 158/87 (110) 10/29/16 16:30 71 160/89 10/29/16 16:20 73 158/87 10/29/16 15:48 36.8 71 16 158/80 (106) 97 Room Air 10/29/16 15:24 95 Room Air 10/29/16 15:20 36.6 74 16 176/85 (115) 96 Room Air 10/29/16 15:05 36.2 74 16 154/71 95 Room Air 10/29/16 14:50 73 16 173/90 95 Room Air 10/29/16 14:40 73 16 192/84 99 Room Air 10/29/16 14:30 36.8 76 16 177/82 99 Room Air 10/29/16 11:45 70 18 180/95 100 Room Air 10/29/16 09:40 83 193/89 (123) 10/29/16 09:30 Room Air Laboratory Results 24 Hours: Test 10/30/16 05:16 Hematocrit 27.2 % Hemoglobin 8.9 g/dL Assessment & Plan Assessment: Gout Left Knee Plan: Follow cultures for now but doubt infection Discussed case with Dr Horn. No injection at this time with ongoing UTI and Scalp Abscess Oral steroids an option but will let Hospitalist Service make final determination with ongoing renal issues. Will have Ortho weekend team follow cultures but will otherwise sign off. Pt may follow up in the office as needed. Please call with any questions.
--- NOTE | 2016-10-30 11:35 | Pharmacy Progress Note ---
Pharmacy Abx Dose Short Note Date of Service Oct 30, 2016. Assessment & Plan Assessment 51 year old male receiving vancomycin and cefepime for treatment of scalp abscess and possible septic knee Day # 3 of antimicrobial therapy. Patient tolerated HD yesterday and is scheduled to receive again today Urine culture - MSSA but scalp and knee cultures not yet resulted Plan Vancomycin * Pre-HD level today = 18.7 * Will give 500 mg IV x 1 after dialysis today * Another pre-HD level w/ AM labs tomorrow * Will continue to order levels daily and give one time doses based upon pre-HD levels Cefepime * Decrease to 500 mg IV q24h for dialysis dosing - dose to be administered after dialysis Pharmacy will continue to follow and will adjust dose/frequency as necessary. Thank you.
--- NOTE | 2016-10-30 11:50 | Nephrology Progress Note ---
Nephrology Progress Note Date of Service: Oct 30, 2016. Subjective agreeable to starting chronic dialysis; tolerated first tx well yesterday; still some L knee pain > studies most c/w gout; scalp not concerning for osteomyelitis and so far cxs negative Objective Date Time Temp Pulse Resp B/P (MAP) Pulse Ox O2 Delivery O2 Flow Rate FiO2 10/30/16 08:55 79 181/81 (114) 10/30/16 08:00 Room Air 10/30/16 07:00 37.1 77 16 164/76 (105) 94 Room Air 10/30/16 03:34 37.2 79 16 160/80 (106) 95 Room Air 10/29/16 23:17 37.1 77 16 155/78 (103) 95 Room Air 10/29/16 21:43 82 170/85 (113) 10/29/16 20:10 Room Air 10/29/16 18:57 36.7 82 18 131/80 (97) 97 Room Air 10/29/16 18:45 36.6 77 174/82 (112) 10/29/16 18:15 78 168/80 10/29/16 18:00 78 160/79 10/29/16 17:45 74 153/80 10/29/16 17:30 77 164/84 10/29/16 17:15 74 146/93 10/29/16 17:00 74 164/97 10/29/16 16:45 70 163/88 10/29/16 16:40 36.7 73 158/87 (110) 10/29/16 16:30 71 160/89 10/29/16 16:20 73 158/87 10/29/16 15:48 36.8 71 16 158/80 (106) 97 Room Air 10/29/16 15:24 95 Room Air 10/29/16 15:20 36.6 74 16 176/85 (115) 96 Room Air 10/29/16 15:05 36.2 74 16 154/71 95 Room Air 10/29/16 14:50 73 16 173/90 95 Room Air 10/29/16 14:40 73 16 192/84 99 Room Air 10/29/16 14:30 36.8 76 16 177/82 99 Room Air 10/29/16 11:45 70 18 180/95 100 Room Air Physical Exam: General Appearance: WD/WN, no apparent distress (on RA, A& O x 3) Eyes: EOMI ENT: hearing grossly normal, + pertinent finding (post superior scalp lesion dressed) Neck: supple Respiratory/Chest: lungs clear, no respiratory distress, + decreased breath sounds Cardiovascular: regular rate, rhythm, no edema Abdomen: normal bowel sounds, non tender, soft Extremities: + pertinent finding (skin graft remote/well healed L forearm, L a- c AVF ); L knee not overtly inflamed on ext exam except slightly larger than R Neurologic/Psych: alert, normal mood/affect, oriented x 3 Skin: no jaundice, warm/dry, no rash, + pertinent finding (wound healing RLE medial calf; scalp wound as above) Current Inpatient Medications Medications (Trade) Dose Ordered Sig/Arti Route Start Time Stop Time Status Last Admin Dose Admin Heparin Sodium (Porcine) (Heparin Sq 5000 Unit/0.5ml) 5,000 unit Q8H SQ 10/29/16 08:00 11/28/16 07:59 10/30/16 08:30 5,000 UNIT Acetaminophen (Tylenol Tab) 650 mg Q4H PRN PO 10/29/16 00:15 11/28/16 00:14 Insulin Aspart (novoLOG ASPART) SLIDING SCALE If C... ACHS SC 10/29/16 07:00 11/28/16 06:59 Glucose (Glucose 40% Gel) 15-30 GRAMS 15 GRAMS... UD PRN PO 10/29/16 00:15 11/28/16 00:14 Glucose (Glucose Chew Tab) 4-8 Tablets 4 Tabl... UD PRN PO 10/29/16 00:15 11/28/16 00:14 Dextrose (Dextrose 50% 50ML Syringe) 25-50ML OF 50% DW IV FOR... UD PRN IV 10/29/16 00:15 11/28/16 00:14 Glucagon (Glucagon Inj) 1 mg UD PRN SQ 10/29/16 00:15 11/28/16 00:14 Ondansetron HCl (Zofran Inj) 4 mg Q6H PRN IV 10/29/16 00:15 11/28/16 00:14 Hydromorphone HCl (Dilaudid Inj) 0.5 mg Q3H PRN IV 10/29/16 00:15 11/12/16 00:14 10/29/16 10:05 0.5 MG Tramadol HCl (Ultram Tab) 25 mg Q6H PRN PO 10/29/16 00:15 11/28/16 00:14 Ondansetron HCl (Zofran Inj) 4 mg Q6H PRN IV 10/29/16 00:15 11/28/16 00:14 Amitriptyline HCl (Elavil Tab) 25 mg HS PO 10/29/16 21:00 11/28/16 20:59 10/29/16 21:47 25 MG Atorvastatin Calcium (Lipitor Tab) 40 mg QAM PO 10/29/16 09:00 11/28/16 08:59 10/30/16 08:56 40 MG Calcitriol (Rocaltrol Cap) 0.25 mcg QAM PO 10/29/16 09:00 11/28/16 08:59 10/30/16 08:54 0.25 MCG Sodium Bicarbonate (Sodium Bicarbonate Tab) 1,300 mg TID PO 10/29/16 09:00 11/28/16 08:59 10/30/16 08:57 1,300 MG Metoprolol Tartrate (Lopressor Tab) 50 mg BID PO 10/29/16 09:00 11/28/16 08:59 10/30/16 08:57 50 MG Cefepime HCl (Consult) 1 ea DAILY PRN N/A 10/29/16 09:00 11/28/16 08:59 Vancomycin HCl (Consult) 1 ea UD PRN N/A 10/29/16 01:30 11/28/16 01:29 Morphine Sulfate (MoRPHine SULFATE INJ) 2 mg Q1H PRN IV 10/29/16 14:30 11/12/16 14:29 Folic Acid (Folvite Tab) 1 mg DAILY PO 10/30/16 09:00 11/29/16 08:59 10/30/16 09:18 1 MG Hydralazine HCl (Apresoline Tab) 25 mg BID PO 10/29/16 21:00 11/28/16 20:59 10/30/16 08:54 25 MG Hydralazine HCl (HydrALAZINE INJ) 10 mg Q8H PRN IV. 10/29/16 19:00 11/28/16 18:59 Epoetin Ismael (Procrit Inj) 10,000 units TODAY@0830 IV. 10/30/16 08:30 10/30/16 23:59 Heparin Sodium (Porcine) (No Heparin In Dialysis) 1 ea TODAY@0800 N/A 10/30/16 08:00 10/30/16 23:59 Cefepime HCl 500 mg/Dextrose 105.65 ml @ 222.6 mls/hr DAILY@1600 IV 10/30/16 16:00 11/08/16 15:59 Vancomycin HCl 500 mg/Sodium Chloride 260 ml @ 125 mls/hr TODAY@1600 IV 10/30/16 16:00 10/30/16 18:05 Last 24 Hours Test 10/29/16 14:32 10/29/16 15:30 10/29/16 21:13 10/29/16 21:29 Bedside Glucose 102 mg/dl 126 mg/dl Uric Acid 9.8 mg/dl Random Vancomycin Level 15.8 mcg/ml Test 10/30/16 05:16 10/30/16 06:48 10/30/16 10:13 White Blood Count 15.96 K/uL Red Blood Count 3.06 M/uL Hemoglobin 8.9 g/dL Hematocrit 27.2 % Mean Corpuscular Volume 88.9 fL Mean Corpuscular Hemoglobin 29.1 pg Mean Corpuscular Hemoglobin Concent 32.7 g/dl RDW Standard Deviation 50.0 fL RDW Coefficient of Variation 15.5 % Platelet Count 315 K/uL Mean Platelet Volume 8.6 fL Sodium Level 142 mmol/L Potassium Level 3.9 mmol/L Chloride Level 111 mmol/L Carbon Dioxide Level 20 mmol/L Anion Gap 11.0 mmol/L Blood Urea Nitrogen 67 mg/dl Creatinine 9.10 mg/dl Est Creatinine Clear Calc Drug Dose 13.2 ml/min Estimated GFR () 7.0 Estimated GFR (Non- 6.0 BUN/Creatinine Ratio 7.3 Random Glucose 105 mg/dl Calcium Level 8.2 mg/dl Bedside Glucose 106 mg/dl Random Vancomycin Level 18.7 mcg/ml Date/Time Source Procedure Growth Status 10/29/16 14:00 Abscess Scalp Gram Stain - Final Resulted 10/29/16 14:00 Abscess Scalp Bacterial Culture Pending Resulted Assessment & Plan 51 y/o M w/ MICHELLE on CKD 5, not overtly uremic but hypertensive and w/ uncontrolled acidemia admitted 10/29 with scalp abscess and L knee effusion s/p tap for scalp I& D this am ESRD Needs dialysis-has AVF which we will use; for second tx today with goal 1-1.5 L UF <<>> need to start fluid removal slowly His urine specimen is contaminated and most any specimen will have studies c/w infection. Defer to primary service about whether to treat; could consider inf dzs input as well Also needs renal imaging to evaluate status of obstructive uropathy>renal u/s ordered Monitor vancomycin levels carefully/daily -daily bmp, cbc; f/u cxs -will d/c sodium bicarb as he will not need it on hd -will need to arrange outpt dialysis > did d/w SW who will begin process for admission to [facility] after d/c HTN urgency, stable -ordered baseline ECG >> NSR w/ LVH -no indication for troponin unless he develops chest discomfort or dyspnea or other concerning sx -on metoprolol, hydralazine > will increase BB to 75 mg bid; also started lisinopril 20 mg daily and will look to titrate this up as well -control pain but avoid nsaids Scalp abscess-cont abtx; f/u cxs L knee w/ gout -recommend primary service strongly consider steroids >> ? intraarticular versus systemic versus both; avoid nsaids Appreciate consultation; will follow with you.
--- NOTE | 2016-10-30 12:05 | Progress Note ---
Internal Med Progress Note Date of Service: Oct 30, 2016. Provider Documentation: SUBJECTIVE : Patient does have left knee pain and difficulty ambulating. Pain is controlled. Denies any chest pain, SOB, nausea, vomiting, fever, chills. S/P Scalp abscess I & D BP stable OBJECTIVE: Vital Signs-as noted below Exam: General-AAOX3, no distress Neck-Supple HEENT- Scalp abscess s/p I & D, dressing present Lungs-AEBE, no wheezing, rhonchi Heart-S1, S2 normal, no murmurs Extremities-No edema Lab data as noted below. ASSESSMENT & PLAN: ASSESSMENT AND PLAN : SCALP ABSCESS : S/P Incision and drainage in OR on 10/29/16 -No signs of sepsis. Afebrile, WBC - trending down -On IV Vancomycin/Cefepime (Day 2)- discontinue IV Cefepime as cx- Staph -Hx of MRSA in past -General surgery on board. Appreciate inputs MICHELLE ON CKD IV/V- ESRD -Baseline creatinine around 8 , not on dialysis. Came with creatinine of 12. -Newly started on dialysis through fistula (done few years ago) per nephrology -S/P IV Sodium bicarb drip. LEFT KNEE PAIN WITH EFFUSION--> GOUT (Confirmed with synovial fluid analysis) -Does have severe DJD -S/P Aspiration per ortho on 10/29/16 - WBC 54k, Polymorphs-90%, Crystals- negative berifringent needle shaped ---> Diagnostic of GOUT -Will start on short course of steroids- Prednisone 40 mg (Day 06/04) for acute gout as not a candidate for NSAIDS /Colchicine with ESRD. -PT/OT -Ortho signed off. Appreciate inputs HYPERTENSION UNCONTROLLED -Received IV Labetalol -Continue with Hydralazine (started on 10/29)--> Increased to 75 mg PO BID today, Added Lisinopril 20 mg daily today, Continue with Metoprolol 50 mg PO BID. UTI- MSSA -On IV Vancomycin as above DM-2 Diet controlled HBA1C 5.4 -ISS, Accuchecks ACUTE ON CHRONIC ANEMIA Likely secondary to CKD -Work up- Folic acid levels-3.93, Vit b12, Vit D normal, Iron studies - no iron deficiency -Monitor Hx of ex tobacco/alcohol/substance abuse as per records DVT PROPHYLAXIS, Heparin subQ. FULL CODE DISPOSITION Medical mx in progress PT/OT ordered Vital Signs: Date Time Temp Pulse Resp B/P (MAP) Pulse Ox O2 Delivery O2 Flow Rate FiO2 10/30/16 11:52 37.2 72 16 141/86 (104) 97 Room Air 10/30/16 08:55 79 181/81 (114) 10/30/16 08:00 Room Air 10/30/16 07:00 37.1 77 16 164/76 (105) 94 Room Air 10/30/16 03:34 37.2 79 16 160/80 (106) 95 Room Air 10/29/16 23:17 37.1 77 16 155/78 (103) 95 Room Air 10/29/16 21:43 82 170/85 (113) 10/29/16 20:10 Room Air 10/29/16 18:57 36.7 82 18 131/80 (97) 97 Room Air 10/29/16 18:45 36.6 77 174/82 (112) 10/29/16 18:15 78 168/80 10/29/16 18:00 78 160/79 10/29/16 17:45 74 153/80 10/29/16 17:30 77 164/84 10/29/16 17:15 74 146/93 10/29/16 17:00 74 164/97 10/29/16 16:45 70 163/88 10/29/16 16:40 36.7 73 158/87 (110) 10/29/16 16:30 71 160/89 10/29/16 16:20 73 158/87 10/29/16 15:48 36.8 71 16 158/80 (106) 97 Room Air 10/29/16 15:24 95 Room Air 10/29/16 15:20 36.6 74 16 176/85 (115) 96 Room Air 10/29/16 15:05 36.2 74 16 154/71 95 Room Air 10/29/16 14:50 73 16 173/90 95 Room Air 10/29/16 14:40 73 16 192/84 99 Room Air 10/29/16 14:30 36.8 76 16 177/82 99 Room Air Lab Results: Results Past 24 Hours Test 10/29/16 14:32 10/29/16 15:30 10/29/16 21:13 10/29/16 21:29 Range/Units Bedside Glucose 102 126 70-99 mg/dl Uric Acid 9.8 2.6-7.2 mg/dl Random Vancomycin Level 15.8 mcg/ml Test 10/30/16 05:16 10/30/16 06:48 10/30/16 10:13 Range/Units White Blood Count 15.96 4.8-10.8 K/uL Red Blood Count 3.06 4.7-6.1 M/uL Hemoglobin 8.9 14.0-18.0 g/dL Hematocrit 27.2 42-52 % Mean Corpuscular Volume 88.9 80-100 fL Mean Corpuscular Hemoglobin 29.1 25-34 pg Mean Corpuscular Hemoglobin Concent 32.7 32-36 g/dl RDW Standard Deviation 50.0 36.4-46.3 fL RDW Coefficient of Variation 15.5 11.5-14.5 % Platelet Count 315 130-400 K/uL Mean Platelet Volume 8.6 7.4-10.4 fL Sodium Level 142 136-145 mmol/L Potassium Level 3.9 3.5-5.1 mmol/L Chloride Level 111 98-107 mmol/L Carbon Dioxide Level 20 21-32 mmol/L Anion Gap 11.0 3-11 mmol/L Blood Urea Nitrogen 67 7-18 mg/dl Creatinine 9.10 0.60-1.40 mg/dl Est Creatinine Clear Calc Drug Dose 13.2 ml/min Estimated GFR () 7.0 Estimated GFR (Non- 6.0 BUN/Creatinine Ratio 7.3 10-20 Random Glucose 105 70-99 mg/dl Calcium Level 8.2 8.5-10.1 mg/dl Bedside Glucose 106 70-99 mg/dl Random Vancomycin Level 18.7 mcg/ml Microbiology Results 10/29/16 Gram Stain - Final, Resulted 10/29/16 Bacterial Culture, Resulted Pending
[2016-10-30] MEDS ORDERED: LISINOPRIL 20 MG TAB PO ONE (13:00)
[2016-10-30] MEDS ORDERED: CEFEPIME IV 500 MG in DEXTROSE 5% 100ML 100 ML IV SCH (16:00)
[2016-10-30] MEDS ORDERED: VANCOMYCIN INJ 500 MG in SODIUM CHLORIDE 0.9% 250ML 250 ML IV SCH (16:00)
[2016-10-30] MEDS: OXYCODONE/ACETAMINOPHEN 5-325 TAB PO PRN (20:08)
[2016-10-30] MEDS: METOPROLOL TARTRATE 25 MG TAB PO SCH (21:25)
[2016-10-30] MEDS: AMITRIPTYLINE HCL 25 MG TAB PO SCH (21:27)
[2016-10-31] VITALS (22 sets, daily range): BP systolic 86–139; BP diastolic 54–88; PULSE 62–94; TEMP 36.7–37.3; O2SAT 95–96
[2016-10-31 07:32] LABS: HEMATOCRIT 24.9 % (42-52); MEAN CELL VOLUME 88.9 fL (80-100); MEAN CORPUSCULAR HGB CONC 33.7 g/dl (32-36); MEAN PLATELET VOLUME 8.6 fL (7.4-10.4); PLATELET COUNT 272 K/uL (130-400); WHITE BLOOD COUNT 12.62 K/uL (4.8-10.8)
[2016-10-31] MEDS: INSULIN ASPART 100 UNITS/ML 3 ML PEN SC SCH ×4 (07:45→21:00)
[2016-10-31] MEDS: ATORVASTATIN 20 MG TAB PO SCH (07:48)
[2016-10-31] MEDS: CALCITRIOL 0.25 MCG CAP PO SCH (07:48)
[2016-10-31] MEDS: HEPARIN SOD 5000 UNIT/0.5 ML CARP SQ SCH ×2 (07:50→15:48)
[2016-10-31] MEDS: OXYCODONE/ACETAMINOPHEN 5-325 TAB PO PRN ×2 (07:58→18:52)
[2016-10-31] MEDS: HEPARIN SOD (PORCINE) 1000 UNIT/ML 10 ML VIAL IV SCH ×3 (08:00→10:00)
[2016-10-31] MEDS ORDERED: EPOETIN ALFA 10,000 UNITS/ML VIAL IV. SCH (08:00)
[2016-10-31] MEDS ORDERED: HEPARIN SOD (PORCINE) 1000 UNIT/ML 10 ML VIAL IV SCH (08:00)
[2016-10-31 08:39] LABS: CALCIUM 8.8 mg/dl (8.5-10.1); POTASSIUM 3.7 mmol/L (3.5-5.1)
[2016-10-31] MEDS: METOPROLOL TARTRATE 25 MG TAB PO SCH ×2 (09:00→20:47)
[2016-10-31] MEDS: LISINOPRIL 20 MG TAB PO SCH (15:51)
[2016-10-31] MEDS ORDERED: VANCOMYCIN INJ 750 MG in SODIUM CHLORIDE 0.9% 250ML 250 ML IV SCH (16:00)
--- NOTE | 2016-10-31 16:13 | Progress Note ---
Internal Med Progress Note Date of Service: Oct 31, 2016. Provider Documentation: SUBJECTIVE : Patient 's left knee pain is much better today. Scalp abscess pain has resolved. Denies any chest pain, SOB, nausea, vomiting, fever, chills. S/P Scalp abscess I & D BP stable OBJECTIVE: Vital Signs-as noted below Exam: General-AAOX3, no distress Neck-Supple HEENT- Scalp abscess s/p I & D, dressing present Lungs-AEBE, no wheezing, rhonchi Heart-S1, S2 normal, no murmurs Extremities-No edema Lab data as noted below. ASSESSMENT & PLAN: ASSESSMENT AND PLAN : SCALP ABSCESS (MSSA) : S/P Incision and drainage in OR on 10/29/16 -No signs of sepsis. Afebrile, WBC - trending down -S/P IV Vancomycin/Cefepime (Day 2). Changed to Keflex today -Hx of MRSA in past -CX from OR- MSSA -General surgery on board. Appreciate inputs MICHELLE ON CKD IV/V- ESRD -Baseline creatinine around 8 , not on dialysis. Came with creatinine of 12. -Newly started on dialysis through fistula (done few years ago) per nephrology. Done on 10/29, 10/30, 10/31 -S/P IV Sodium bicarb drip. -US renal ordered -Nephrology on board. Need to make arrangements for dialysis outpatient LEFT KNEE PAIN WITH EFFUSION--> GOUT (Confirmed with synovial fluid analysis) -- > Improved -Does have severe DJD -S/P Aspiration per ortho on 10/29/16 - WBC 54k, Polymorphs-90%, Crystals- negative berifringent needle shaped ---> Diagnostic of GOUT -Started on short course of steroids- Prednisone 40 mg (Day 2/5) for acute gout as not a candidate for NSAIDS /Colchicine with ESRD. Responding to steroids. -PT/OT -Ortho signed off. Appreciate inputs HYPERTENSION UNCONTROLLED- Improved BP -Received IV Labetalol -Continue with Hydralazine (started on 10/29) --> Increased to 75 mg PO BID on 10/30/16, Added Lisinopril 20 mg daily on 10/30/16. -Continue with Metoprolol 50 mg PO BID. -On dialysis UTI-MSSA -S/P IV Vancomycin , now on keflex as above DM-2 Diet controlled HBA1C 5.4 -ISS, Accuchecks ACUTE ON CHRONIC ANEMIA Likely secondary to CKD -Work up- Folic acid levels-3.93, Vit b12, Vit D normal, Iron studies - no iron deficiency -Monitor Hx of ex tobacco/alcohol/substance abuse as per records DVT PROPHYLAXIS, Heparin subQ. FULL CODE DISPOSITION OK to discharge from medical point of view Awaiting outpatient dialysis arrangements to be set up. SS on board. Vital Signs: Date Time Temp Pulse Resp B/P (MAP) Pulse Ox O2 Delivery O2 Flow Rate FiO2 10/31/16 14:47 37.1 73 16 138/74 (95) 95 Room Air 10/31/16 13:00 36.7 64 137/71 (93) 10/31/16 12:59 64 137/71 10/31/16 12:45 66 112/62 10/31/16 12:30 64 127/69 10/31/16 12:15 66 113/88 10/31/16 12:03 77 107/77 10/31/16 12:00 94 86/59 10/31/16 11:45 66 132/58 10/31/16 11:30 67 116/54 10/31/16 11:15 66 131/70 10/31/16 11:00 78 109/68 10/31/16 10:45 68 122/75 10/31/16 10:30 67 123/67 10/31/16 10:15 72 121/63 10/31/16 10:00 72 129/72 10/31/16 09:45 67 108/57 10/31/16 09:30 70 115/61 10/31/16 09:24 68 116/65 10/31/16 08:46 37.0 76 139/68 (91) 10/31/16 08:00 Room Air 10/31/16 07:29 37.3 71 18 133/68 (89) 96 Room Air 10/30/16 23:30 37.3 68 18 116/65 (82) 96 Room Air 10/30/16 21:20 82 126/71 (89) 10/30/16 20:20 Room Air 10/30/16 18:22 37.9 84 18 142/74 (96) 95 Room Air 10/30/16 16:41 10/30/16 16:41 37.0 75 135/77 (96) 10/30/16 16:30 75 144/75 10/30/16 16:15 75 144/75 Lab Results: Results Past 24 Hours Test 10/30/16 17:53 10/30/16 19:00 10/30/16 20:20 10/31/16 06:59 Range/Units Bedside Glucose 101 174 70-99 mg/dl Stool Occult Blood NEGATIVE NEGATIVE White Blood Count 12.62 4.8-10.8 K/uL Red Blood Count 2.80 4.7-6.1 M/uL Hemoglobin 8.4 14.0-18.0 g/dL Hematocrit 24.9 42-52 % Mean Corpuscular Volume 88.9 80-100 fL Mean Corpuscular Hemoglobin 30.0 25-34 pg Mean Corpuscular Hemoglobin Concent 33.7 32-36 g/dl RDW Standard Deviation 49.8 36.4-46.3 fL RDW Coefficient of Variation 15.1 11.5-14.5 % Platelet Count 272 130-400 K/uL Mean Platelet Volume 8.6 7.4-10.4 fL Sodium Level 140 136-145 mmol/L Potassium Level 3.7 3.5-5.1 mmol/L Chloride Level 105 98-107 mmol/L Carbon Dioxide Level 24 21-32 mmol/L Anion Gap 11.0 3-11 mmol/L Blood Urea Nitrogen 49 7-18 mg/dl Creatinine 7.00 0.60-1.40 mg/dl Est Creatinine Clear Calc Drug Dose 16.9 ml/min Estimated GFR () 9.6 Estimated GFR (Non- 8.3 BUN/Creatinine Ratio 7.0 10-20 Random Glucose 103 70-99 mg/dl Calcium Level 8.8 8.5-10.1 mg/dl Random Vancomycin Level 16.8 mcg/ml Test 10/31/16 07:36 10/31/16 13:45 Range/Units Bedside Glucose 98 138 70-99 mg/dl
--- NOTE | 2016-10-31 17:01 | DIAGNOSTIC IMAGING REPORT ---
ULTRASOUND KIDNEYS AND BLADDER CLINICAL HISTORY: Acute on chronic renal insufficiency. COMPARISON STUDY: Abdominal CT dated 11/07/2010. TECHNIQUE: Real-time, grayscale, and color flow sonography of the kidneys and bladder is performed. Images are reviewed in the transverse and longitudinal planes. FINDINGS: Kidneys: The kidneys are atrophic and echogenic consistent with medical renal disease. The right kidney measures 10.3 cm in length and the left kidney measures 11.8 cm in length. There is minimal right-sided hydronephrosis. No hydronephrosis is seen on the left. No shadowing renal calculi are identified. There are bilateral renal cysts which measure up to 2.5 cm. There is no sonographic evidence of solid mass lesion. No perinephric fluid is identified. Bladder: The bladder is decompressed around a Hernandez catheter. The bladder appears markedly thick-walled. Upper abdomen: Survey images of the spleen show splenic megaly. The spleen measures 14.7 cm in length. IMPRESSION: 1. The kidneys are atrophic and echogenic consistent with medical renal disease. 2. There is mild right-sided hydronephrosis, likely similar to prior studies. There is no hydronephrosis seen on the left. 3. The bladder is decompressed around a Hernandez catheter and appears markedly thick-walled. Clinical correlation required. 4. Splenomegaly. Electronically signed by: Archie Lincoln M.D. 10/31/2016 4:59 PM Dictated Date/Time: 10/31/2016 4:56 PM
[2016-10-31] MEDS: CEPHALEXIN MONOHYDRATE 500 MG CAP PO SCH (18:44)
[2016-10-31] MEDS: AMITRIPTYLINE HCL 25 MG TAB PO SCH (20:46)
[2016-11-01] MEDS: HEPARIN SOD 5000 UNIT/0.5 ML CARP SQ SCH ×3 (00:22→16:08)
[2016-11-01] MEDS: OXYCODONE/ACETAMINOPHEN 5-325 TAB PO PRN ×2 (00:23→14:17)
[2016-11-01 06:33] LABS: BASO % 0.2 %; BASO ABS # 0.03 K/uL (0-0.2); EOS % 1.4 %; HEMATOCRIT 25.6 % (42-52); IG% 1.3 %; LYMPH ABS # 2.12 K/uL (1.2-3.4); MEAN CELL VOLUME 89.5 fL (80-100); MEAN CORPUSCULAR HEMOGLOBIN 29.7 pg (25-34); MEAN CORPUSCULAR HGB CONC 33.2 g/dl (32-36); MONO % 9.9 %; NEUT % 73.2 %; PLATELET COUNT 321 K/uL (130-400); RED BLOOD COUNT 2.86 M/uL (4.7-6.1); WHITE BLOOD COUNT 15.18 K/uL (4.8-10.8)
[2016-11-01 07:10] LABS: ALB/GLOB RATIO 0.5 (0.9-2); BUN/CREATININE RATIO 7.2 (10-20); CALCIUM 9.1 mg/dl (8.5-10.1); CREATININE 5.4 mg/dl (0.60-1.40)
[2016-11-01 07:26] LABS: COMPLETE YES; POLYCHROMASIA 1+
[2016-11-01 07:34] VITALS: BP 138/70; PULSE 64; TEMP 36.7; O2SAT 97
[2016-11-01] MEDS: INSULIN ASPART 100 UNITS/ML 3 ML PEN SC SCH ×4 (08:00→21:00)
[2016-11-01] MEDS: ATORVASTATIN 20 MG TAB PO SCH (08:27)
[2016-11-01] MEDS: LISINOPRIL 20 MG TAB PO SCH (08:28)
[2016-11-01] MEDS: METOPROLOL TARTRATE 25 MG TAB PO SCH ×2 (08:28→21:41)
[2016-11-01] MEDS: CALCITRIOL 0.25 MCG CAP PO SCH (08:29)
--- NOTE | 2016-11-01 13:43 | Progress Note ---
Internal Med Progress Note Date of Service: Nov 01, 2016. Provider Documentation: SUBJECTIVE : Patient 's left knee pain has improved significantly and tolerating ambulation. Scalp abscess pain has resolved. Denies any chest pain, SOB, nausea, vomiting, fever, chills. S/P Scalp abscess I & D BP stable OBJECTIVE: Vital Signs-as noted below Exam: General-AAOX3, no distress Neck-Supple HEENT- Scalp abscess s/p I & D, dressing present Lungs-AEBE, no wheezing, rhonchi Heart-S1, S2 normal, no murmurs Extremities-No edema Lab data as noted below. ASSESSMENT & PLAN: ASSESSMENT AND PLAN : SCALP ABSCESS (MSSA) : S/P Incision and drainage in OR on 10/29/16 -No signs of sepsis. Afebrile, WBC - trending down -S/P IV Vancomycin/Cefepime (Day 2). Changed to Keflex on day 3 - today day 4 of antibiotics -Hx of MRSA in past -CX from OR- MSSA -General surgery on board. Appreciate inputs MICHELLE ON CKD IV/V- ESRD -Baseline creatinine around 8 , not on dialysis. Came with creatinine of 12. -Newly started on dialysis through fistula (done few years ago) per nephrology. Done on 10/29, 10/30, 10/31 -S/P IV Sodium bicarb drip. -US renal - Atrophic kidney, mild right hydronephrosis unchanged from past. -Nephrology on board. Need to make arrangements for dialysis outpatient LEFT KNEE PAIN WITH EFFUSION--> GOUT (Confirmed with synovial fluid analysis) -- > Improved -Does have severe DJD. -S/P Aspiration per ortho on 10/29/16 - WBC 54k, Polymorphs-90%, Crystals- negative berifringent needle shaped ---> Diagnostic of GOUT -Started on short course of steroids- Prednisone 40 mg (Day 3/5) for acute gout as not a candidate for NSAIDS /Colchicine with ESRD. Responding to steroids. Tolerating ambulation well now. -PT/OT -Ortho signed off. Appreciate inputs HYPERTENSION UNCONTROLLED- Improved BP -Received IV Labetalol -Continue with Hydralazine (started on 10/29) --> Increased to 75 mg PO BID on 10/30/16, Added Lisinopril 20 mg daily on 10/30/16. -Continue with Metoprolol 50 mg PO BID. -On dialysis UTI-MSSA -S/P IV Vancomycin , now on keflex as above DM-2 Diet controlled HBA1C 5.4 -ISS, Accuchecks ACUTE ON CHRONIC ANEMIA Likely secondary to CKD -Work up- Folic acid levels-3.93, Vit b12, Vit D normal, Iron studies - no iron deficiency -Monitor Hx of ex tobacco/alcohol/substance abuse as per records DVT PROPHYLAXIS, Heparin subQ. FULL CODE DISPOSITION OK to discharge from medical point of view Awaiting outpatient dialysis arrangements to be set up. SS on board. Vital Signs: Date Time Temp Pulse Resp B/P (MAP) Pulse Ox O2 Delivery O2 Flow Rate FiO2 11/01/16 07:55 Room Air 11/01/16 07:34 36.7 64 16 138/70 (92) 97 Room Air 11/01/16 00:15 Room Air 10/31/16 23:00 37.1 62 18 136/72 (93) 96 Room Air 10/31/16 16:00 Room Air 10/31/16 14:47 37.1 73 16 138/74 (95) 95 Room Air Lab Results: Results Past 24 Hours Test 10/31/16 13:45 10/31/16 17:13 10/31/16 20:52 11/01/16 05:35 Range/Units Bedside Glucose 138 187 149 70-99 mg/dl White Blood Count 15.18 4.8-10.8 K/uL Red Blood Count 2.86 4.7-6.1 M/uL Hemoglobin 8.5 14.0-18.0 g/dL Hematocrit 25.6 42-52 % Mean Corpuscular Volume 89.5 80-100 fL Mean Corpuscular Hemoglobin 29.7 25-34 pg Mean Corpuscular Hemoglobin Concent 33.2 32-36 g/dl Platelet Count 321 130-400 K/uL Mean Platelet Volume 9.0 7.4-10.4 fL Neutrophils (%) (Auto) 73.2 % Lymphocytes (%) (Auto) 14.0 % Monocytes (%) (Auto) 9.9 % Eosinophils (%) (Auto) 1.4 % Basophils (%) (Auto) 0.2 % Neutrophils # (Auto) 11.12 1.4-6.5 K/uL Lymphocytes # (Auto) 2.12 1.2-3.4 K/uL Monocytes # (Auto) 1.51 0.11-0.59 K/uL Eosinophils # (Auto) 0.21 0-0.5 K/uL Basophils # (Auto) 0.03 0-0.2 K/uL RDW Standard Deviation 48.5 36.4-46.3 fL RDW Coefficient of Variation 14.7 11.5-14.5 % Immature Granulocyte % (Auto) 1.3 % Immature Granulocyte # (Auto) 0.19 0.00-0.02 K/uL Nucleated RBC Absolute Count (auto) 0.03 0-0 K/uL Nucleated Red Blood Cells % 0.2 % Polychromasia 1+ Sodium Level 138 136-145 mmol/L Potassium Level 4.0 3.5-5.1 mmol/L Chloride Level 101 98-107 mmol/L Carbon Dioxide Level 24 21-32 mmol/L Anion Gap 13.0 3-11 mmol/L Blood Urea Nitrogen 39 7-18 mg/dl Creatinine 5.40 0.60-1.40 mg/dl Est Creatinine Clear Calc Drug Dose 22.0 ml/min Estimated GFR () 13.1 Estimated GFR (Non- 11.3 BUN/Creatinine Ratio 7.2 10-20 Random Glucose 98 70-99 mg/dl Calcium Level 9.1 8.5-10.1 mg/dl Total Bilirubin 0.3 0.2-1 mg/dl Aspartate Amino Transf (AST/SGOT) 30 15-37 U/L Alanine Aminotransferase (ALT/SGPT) 19 12-78 U/L Alkaline Phosphatase 78 45-117 U/L Total Protein 6.1 6.4-8.2 gm/dl Albumin 2.0 3.4-5.0 gm/dl Globulin 4.1 2.5-4.0 gm/dl Albumin/Globulin Ratio 0.5 0.9-2 Test 11/01/16 08:11 11/01/16 12:14 Range/Units Bedside Glucose 101 160 70-99 mg/dl
--- NOTE | 2016-11-01 14:05 | Surgery Progress Note ---
Surgery Progress Note Date of Service Nov 01, 2016. Subjective + feeling well the wound is dry, change packing once a day, the wound culture-staphalococcus aureus. Objective Vital Signs: Date Time Temp Pulse Resp B/P (MAP) Pulse Ox O2 Delivery O2 Flow Rate FiO2 11/01/16 07:55 Room Air 11/01/16 07:34 36.7 64 16 138/70 (92) 97 Room Air 11/01/16 00:15 Room Air 10/31/16 23:00 37.1 62 18 136/72 (93) 96 Room Air 10/31/16 16:00 Room Air 10/31/16 14:47 37.1 73 16 138/74 (95) 95 Room Air General Appearance: WD/WN Head: normocephalic Neck: supple, no JVD Respiratory/Chest: chest non-tender, lungs clear Cardiovascular: regular rate, rhythm, no edema Abdomen: normal bowel sounds, non tender Incision(s): clean, dry Extremities: normal range of motion, non-tender, normal inspection Laboratory Results: Results Past 24 Hours Test 10/31/16 17:13 10/31/16 20:52 11/01/16 05:35 11/01/16 08:11 Range/Units Bedside Glucose 187 149 101 70-99 mg/dl White Blood Count 15.18 4.8-10.8 K/uL Red Blood Count 2.86 4.7-6.1 M/uL Hemoglobin 8.5 14.0-18.0 g/dL Hematocrit 25.6 42-52 % Mean Corpuscular Volume 89.5 80-100 fL Mean Corpuscular Hemoglobin 29.7 25-34 pg Mean Corpuscular Hemoglobin Concent 33.2 32-36 g/dl Platelet Count 321 130-400 K/uL Mean Platelet Volume 9.0 7.4-10.4 fL Neutrophils (%) (Auto) 73.2 % Lymphocytes (%) (Auto) 14.0 % Monocytes (%) (Auto) 9.9 % Eosinophils (%) (Auto) 1.4 % Basophils (%) (Auto) 0.2 % Neutrophils # (Auto) 11.12 1.4-6.5 K/uL Lymphocytes # (Auto) 2.12 1.2-3.4 K/uL Monocytes # (Auto) 1.51 0.11-0.59 K/uL Eosinophils # (Auto) 0.21 0-0.5 K/uL Basophils # (Auto) 0.03 0-0.2 K/uL RDW Standard Deviation 48.5 36.4-46.3 fL RDW Coefficient of Variation 14.7 11.5-14.5 % Immature Granulocyte % (Auto) 1.3 % Immature Granulocyte # (Auto) 0.19 0.00-0.02 K/uL Nucleated RBC Absolute Count (auto) 0.03 0-0 K/uL Nucleated Red Blood Cells % 0.2 % Polychromasia 1+ Sodium Level 138 136-145 mmol/L Potassium Level 4.0 3.5-5.1 mmol/L Chloride Level 101 98-107 mmol/L Carbon Dioxide Level 24 21-32 mmol/L Anion Gap 13.0 3-11 mmol/L Blood Urea Nitrogen 39 7-18 mg/dl Creatinine 5.40 0.60-1.40 mg/dl Est Creatinine Clear Calc Drug Dose 22.0 ml/min Estimated GFR () 13.1 Estimated GFR (Non- 11.3 BUN/Creatinine Ratio 7.2 10-20 Random Glucose 98 70-99 mg/dl Calcium Level 9.1 8.5-10.1 mg/dl Total Bilirubin 0.3 0.2-1 mg/dl Aspartate Amino Transf (AST/SGOT) 30 15-37 U/L Alanine Aminotransferase (ALT/SGPT) 19 12-78 U/L Alkaline Phosphatase 78 45-117 U/L Total Protein 6.1 6.4-8.2 gm/dl Albumin 2.0 3.4-5.0 gm/dl Globulin 4.1 2.5-4.0 gm/dl Albumin/Globulin Ratio 0.5 0.9-2 Test 11/01/16 12:14 Range/Units Bedside Glucose 160 70-99 mg/dl Assessment & Plan IMP I/D abscess on scalp pt is doing fine, the wound is dry, continue treatment, will F/U
[2016-11-01 15:26] VITALS: BP 128/71; PULSE 70; TEMP 36.9; O2SAT 95
[2016-11-01] MEDS: CEPHALEXIN MONOHYDRATE 500 MG CAP PO SCH (17:47)
[2016-11-01] MEDS: AMITRIPTYLINE HCL 25 MG TAB PO SCH (21:41)
[2016-11-01 23:25] VITALS: BP 120/69; PULSE 65; TEMP 36.7; O2SAT 97
[2016-11-02] VITALS (18 sets, daily range): BP systolic 103–133; BP diastolic 38–76; PULSE 54–77; TEMP 36.4–36.9; O2SAT 97–98
[2016-11-02] MEDS: HEPARIN SOD 5000 UNIT/0.5 ML CARP SQ SCH ×3 (00:07→16:29)
[2016-11-02 06:49] LABS: HEMATOCRIT 26.3 % (42-52); MEAN CELL VOLUME 89.8 fL (80-100); MEAN CORPUSCULAR HGB CONC 32.3 g/dl (32-36); PLATELET COUNT 341 K/uL (130-400); RED BLOOD COUNT 2.93 M/uL (4.7-6.1); WHITE BLOOD COUNT 13.68 K/uL (4.8-10.8)
[2016-11-02 07:36] LABS: CALCIUM 8.9 mg/dl (8.5-10.1); CREATININE 7.3 mg/dl (0.60-1.40); POTASSIUM 4.3 mmol/L (3.5-5.1)
[2016-11-02] MEDS: INSULIN ASPART 100 UNITS/ML 3 ML PEN SC SCH ×2 (08:00→12:35)
--- NOTE | 2016-11-02 08:07 | Nephrology Progress Note ---
Nephrology Progress Note Date of Service: Nov 02, 2016. Subjective 51 yo male who has progressed to ESRD and using fistula. only complaint is the pain with needle insertion. otherwise doing well with dialysis. has scalp abscess which was i and d and also with gout of the left knee. feels much better. urinating well with salazar catheter. Objective Date Time Temp Pulse Resp B/P (MAP) Pulse Ox O2 Delivery O2 Flow Rate FiO2 11/02/16 07:09 36.9 63 16 125/70 (88) 97 Room Air 11/02/16 00:15 Room Air 11/01/16 23:25 36.7 65 18 120/69 (86) 97 Room Air 11/01/16 15:45 Room Air 11/01/16 15:26 36.9 70 16 128/71 (90) 95 Room Air Physical Exam: General-aaox3, scalp lesion covered Eyes-no sceral icterus ENT-mmm Neck-supple Lungs-cta Heart-rrr Abdomen-bs+ s/nt/nd Extremities-no c/c/e Neuro-nonfocal -salazar in place Current Inpatient Medications Medications (Trade) Dose Ordered Sig/Arti Route Start Time Stop Time Status Last Admin Dose Admin Heparin Sodium (Porcine) (Heparin Sq 5000 Unit/0.5ml) 5,000 unit Q8H SQ 10/29/16 08:00 11/28/16 07:59 11/02/16 00:07 5,000 UNIT Acetaminophen (Tylenol Tab) 650 mg Q4H PRN PO 10/29/16 00:15 11/28/16 00:14 Insulin Aspart (novoLOG ASPART) SLIDING SCALE If C... ACHS SC 10/29/16 07:00 11/28/16 06:59 10/31/16 18:43 1 UNITS Glucose (Glucose 40% Gel) 15-30 GRAMS 15 GRAMS... UD PRN PO 10/29/16 00:15 11/28/16 00:14 Glucose (Glucose Chew Tab) 4-8 Tablets 4 Tabl... UD PRN PO 10/29/16 00:15 11/28/16 00:14 Dextrose (Dextrose 50% 50ML Syringe) 25-50ML OF 50% DW IV FOR... UD PRN IV 10/29/16 00:15 11/28/16 00:14 Glucagon (Glucagon Inj) 1 mg UD PRN SQ 10/29/16 00:15 11/28/16 00:14 Ondansetron HCl (Zofran Inj) 4 mg Q6H PRN IV 10/29/16 00:15 11/28/16 00:14 Tramadol HCl (Ultram Tab) 25 mg Q6H PRN PO 10/29/16 00:15 11/28/16 00:14 Ondansetron HCl (Zofran Inj) 4 mg Q6H PRN IV 10/29/16 00:15 11/28/16 00:14 Amitriptyline HCl (Elavil Tab) 25 mg HS PO 10/29/16 21:00 11/28/16 20:59 11/01/16 21:41 25 MG Atorvastatin Calcium (Lipitor Tab) 40 mg QAM PO 10/29/16 09:00 11/28/16 08:59 11/01/16 08:27 40 MG Calcitriol (Rocaltrol Cap) 0.25 mcg QAM PO 10/29/16 09:00 11/28/16 08:59 11/01/16 08:29 0.25 MCG Morphine Sulfate (MoRPHine SULFATE INJ) 2 mg Q1H PRN IV 10/29/16 14:30 11/12/16 14:29 10/30/16 20:09 2 MG Folic Acid (Folvite Tab) 1 mg DAILY PO 10/30/16 09:00 11/29/16 08:59 11/01/16 08:28 1 MG Hydralazine HCl (HydrALAZINE INJ) 10 mg Q8H PRN IV. 10/29/16 19:00 11/28/16 18:59 Metoprolol Tartrate (Lopressor Tab) 75 mg BID PO 10/30/16 21:00 11/28/16 08:59 11/01/16 21:41 75 MG Lisinopril (Zestril Tab) 20 mg QAM PO 10/31/16 09:00 11/30/16 08:59 11/01/16 08:28 20 MG Prednisone (PredniSONE TAB) 40 mg DAILY PO 10/31/16 09:00 11/05/16 08:59 11/01/16 08:28 40 MG Hydralazine HCl (Apresoline Tab) 75 mg BID PO 10/30/16:00 11/28/16 20:59 11/01/16 21:41 75 MG Oxycodone/ Acetaminophen (Percocet 5-325mg Tab) 1 tab Q4H PRN PO 10/30/16 12:15 11/13/16 12:14 11/01/16 14:17 1 TAB Cephalexin Monohydrate (Keflex Cap) 500 mg QDD PO 10/31/16 17:45 11/10/16 17:44 11/01/16 17:47 500 MG Last 24 Hours Test 11/01/16 08:11 11/01/16 12:14 11/01/16 17:01 11/01/16 20:35 Bedside Glucose 101 mg/dl 160 mg/dl 163 mg/dl 161 mg/dl Test 11/02/16 06:23 White Blood Count 13.68 K/uL Red Blood Count 2.93 M/uL Hemoglobin 8.5 g/dL Hematocrit 26.3 % Mean Corpuscular Volume 89.8 fL Mean Corpuscular Hemoglobin 29.0 pg Mean Corpuscular Hemoglobin Concent 32.3 g/dl RDW Standard Deviation 47.8 fL RDW Coefficient of Variation 14.6 % Platelet Count 341 K/uL Mean Platelet Volume 9.0 fL Sodium Level 136 mmol/L Potassium Level 4.3 mmol/L Chloride Level 100 mmol/L Carbon Dioxide Level 24 mmol/L Anion Gap 12.0 mmol/L Creatinine 7.30 mg/dl Est Creatinine Clear Calc Drug Dose 16.3 ml/min Estimated GFR () 9.1 Estimated GFR (Non- 7.8 BUN/Creatinine Ratio 8.0 Random Glucose 97 mg/dl Calcium Level 8.9 mg/dl Assessment & Plan ESRD-setting up outpt dialysis at [facility]. ok from renal perspective to be discharged once accepted at [facility]. for dialysis tentatively today. volume status is good. urinating well. will remove salazar catheter today. pt will need transportation set up to the dialysis unit. Anemia of ESRD-will do procrit as an outpt to help raise hg levels. FAVIAN-on calcitriol and will give activated vitamin d at the outpt dialysis unit. will start phoslo one with meals. HTN-bp is well controlled on current medications.
[2016-11-02] MEDS ORDERED: EPOETIN ALFA 10,000 UNITS/ML VIAL IV SCH (08:30)
[2016-11-02] MEDS: CALCIUM ACETATE 667MG GELCAP PO SCH ×2 (08:30→13:30)
[2016-11-02] MEDS: METOPROLOL TARTRATE 25 MG TAB PO SCH (09:00)
--- NOTE | 2016-11-02 12:04 | Progress Note ---
Internal Med Progress Note Date of Service: Nov 02, 2016. Provider Documentation: SUBJECTIVE : Patient 's left knee pain has improved significantly and tolerating ambulation. Scalp abscess pain has resolved. Denies any chest pain, SOB, nausea, vomiting, fever, chills. S/P Scalp abscess I & D BP stable OBJECTIVE: Vital Signs-as noted below Exam: General-AAOX3, no distress Neck-Supple HEENT- Scalp abscess s/p I & D, dressing present Lungs-AEBE, no wheezing, rhonchi Heart-S1, S2 normal, no murmurs Extremities-No edema Lab data as noted below. ASSESSMENT & PLAN: ASSESSMENT AND PLAN : SCALP ABSCESS (MSSA) : S/P Incision and drainage in OR on 10/29/16 -No signs of sepsis. Afebrile, WBC - trending down -S/P IV Vancomycin/Cefepime (Day 2). Changed to Keflex on day 3 - today day 5 of antibiotics -Hx of MRSA in past -CX from OR- MSSA -General surgery on board. Appreciate inputs MICHELLE ON CKD IV/V- ESRD -Baseline creatinine around 8 , not on dialysis. Came with creatinine of 12. -Newly started on dialysis through fistula (done few years ago) per nephrology. Done on 10/29, 10/30, 10/31, 11/02 -S/P IV Sodium bicarb drip. -US renal - Atrophic kidney, mild right hydronephrosis unchanged from past. -Nephrology on board. Arrangements for dialysis outpatient made LEFT KNEE PAIN WITH EFFUSION--> GOUT (Confirmed with synovial fluid analysis) -- > Improved -Does have severe DJD. -S/P Aspiration per ortho on 10/29/16 - WBC 54k, Polymorphs-90%, Crystals- negative berifringent needle shaped ---> Diagnostic of GOUT -Started on short course of steroids- Prednisone 40 mg (Day 4/5) for acute gout as not a candidate for NSAIDS /Colchicine with ESRD. Responding to steroids. Tolerating ambulation well now. -PT/OT -Ortho signed off. Appreciate inputs HYPERTENSION UNCONTROLLED- Improved BP -Received IV Labetalol -Continue with Hydralazine (started on 10/29) --> Increased to 75 mg PO BID on 10/30/16, Added Lisinopril 20 mg daily on 10/30/16. -Continue with Metoprolol 50 mg PO BID. -On dialysis UTI-MSSA -S/P IV Vancomycin , now on keflex as above DM-2 Diet controlled HBA1C 5.4 -ISS, Accuchecks ACUTE ON CHRONIC ANEMIA Likely secondary to CKD -Work up- Folic acid levels-3.93, Vit b12, Vit D normal, Iron studies - no iron deficiency -Monitor Hx of ex tobacco/alcohol/substance abuse as per records DVT PROPHYLAXIS, Heparin subQ. FULL CODE DISPOSITION Eager to be discharged Okay to discharge home today. Arrangements for hemodialysis made for outpatient as new to dialysis Vital Signs: Date Time Temp Pulse Resp B/P (MAP) Pulse Ox O2 Delivery O2 Flow Rate FiO2 11/02/16 11:30 54 110/62 11/02/16 11:15 56 121/59 11/02/16 11:00 58 120/75 11/02/16 10:45 57 128/69 11/02/16 10:30 58 119/73 11/02/16 10:15 61 122/76 11/02/16 10:00 64 124/74 11/02/16 09:45 58 133/74 11/02/16 09:30 62 128/73 11/02/16 09:15 62 129/72 11/02/16 09:04 77 122/69 11/02/16 08:55 36.8 65 117/38 (64) 11/02/16 07:15 Room Air 11/02/16 07:09 36.9 63 16 125/70 (88) 97 Room Air 11/02/16 00:15 Room Air 11/01/16 23:25 36.7 65 18 120/69 (86) 97 Room Air 11/01/16 15:45 Room Air 11/01/16 15:26 36.9 70 16 128/71 (90) 95 Room Air Lab Results: Results Past 24 Hours Test 11/01/16 12:14 11/01/16 17:01 11/01/16 20:35 11/02/16 06:23 Range/Units Bedside Glucose 160 163 161 70-99 mg/dl White Blood Count 13.68 4.8-10.8 K/uL Red Blood Count 2.93 4.7-6.1 M/uL Hemoglobin 8.5 14.0-18.0 g/dL Hematocrit 26.3 42-52 % Mean Corpuscular Volume 89.8 80-100 fL Mean Corpuscular Hemoglobin 29.0 25-34 pg Mean Corpuscular Hemoglobin Concent 32.3 32-36 g/dl RDW Standard Deviation 47.8 36.4-46.3 fL RDW Coefficient of Variation 14.6 11.5-14.5 % Platelet Count 341 130-400 K/uL Mean Platelet Volume 9.0 7.4-10.4 fL Sodium Level 136 136-145 mmol/L Potassium Level 4.3 3.5-5.1 mmol/L Chloride Level 100 98-107 mmol/L Carbon Dioxide Level 24 21-32 mmol/L Anion Gap 12.0 3-11 mmol/L Blood Urea Nitrogen 59 7-18 mg/dl Creatinine 7.30 0.60-1.40 mg/dl Est Creatinine Clear Calc Drug Dose 16.3 ml/min Estimated GFR () 9.1 Estimated GFR (Non- 7.8 BUN/Creatinine Ratio 8.0 10-20 Random Glucose 97 70-99 mg/dl Calcium Level 8.9 8.5-10.1 mg/dl Test 11/02/16 07:22 Range/Units Bedside Glucose 105 70-99 mg/dl
[2016-11-02] MEDS ORDERED: PHS667 PO (12:07)
[2016-11-02] MEDS ORDERED: APR25 PO (12:07)
[2016-11-02] MEDS ORDERED: METO50TA16 PO (12:07)
[2016-11-02] MEDS ORDERED: KFL500 PO (12:07)
[2016-11-02] MEDS ORDERED: PRD20 PO (12:07)
[2016-11-02] MEDS ORDERED: FLV1 PO (12:07)
[2016-11-02] MEDS ORDERED: LSN20 PO (12:07)
[2016-11-02] MEDS ORDERED: ULT50X PO (12:07)
--- NOTE | 2016-11-02 12:11 | Discharge Instructions ---
Discharge Instructions Date of Service Nov 02, 2016. Admission Reason for Admission: Scalp Abscess Discharge Discharge Diagnosis / Problem: 1. Scalp abscess status post Incision and drainage 2. Gout , acute Discharge Goals Goal(s): Improve disease control, Diagnostic testing, Therapeutic intervention , Prevent Disease Progression Activity Recommendations Activity Limitations: resume your previous activity (as tolerated) . Instructions / Follow-Up Instructions / Follow-Up MEDICATION CHANGES: 1. New medication: Hydralazine 75 mg PO BID for BP control 2. New medication: Keflex as directed x 6 more days to complete total of 10 days of antibiotics for Scalp abscess/UTI 3. New medication: Prednisone 40 mg x 2 more days to to complete course of 5 days in total for acute gout - right knee 4. New medication; Lisinopril 20 mg daily for bp control 5. Increased metoprolol to 75 mg PO BID from 50 mg PO BID for BP control NEWLY STARTED ON DIALYSIS -Follow up with Nephrology. Arrangements for your outpatient dialysis made MONITOR OUTPATIENT 1. BP with changes in medications as above FOLLOW UP 1. Follow up with Dr Talyor on 11/05/16 at 2:00 PM 2. Follow up with nephrology as per schedule Current Hospital Diet Patient's current hospital diet: Diabetes Type 2 Diet, AHA Diet (Heart Healthy) Discharge Diet Recommended Diet: AHA Diet (Heart Healthy), Low Sodium Diet (2gm Na), Diabetes Type 2 Diet, Renal Diet Procedures Procedures Performed: Incision and Drainage Scalp Abscess Pending Studies Studies pending at discharge: no Laboratory Results Hemoglobin A1c Test 10/28/16 20:55 Range/Units Estimated Average Glucose 108 mg/dl Hemoglobin A1c 5.4 4.5-5.6 % Medical Emergencies . Who to Call and When: Medical Emergencies: If at any time you feel your situation is an emergency, please call 911 immediately. . Non-Emergent Contact Non-Emergency issues call your: Primary Care Provider . . "Provider Documentation" section prepared by Norma Rodríguez. . VTE Core Measure Inpt VTE Proph given/why not?: Reyna Skaggs, SCD's
--- NOTE | 2016-11-02 12:14 | Discharge Summary ---
Discharge Summary Date of Service Nov 02, 2016. Discharge Summary Admission Date: Oct 29, 2016 at 00:03 Discharge Date: Nov 02, 2016 Discharge Disposition: Home Principal Diagnosis: 1. Scalp Abscess S/P Incision and drainage (MSSA) 2. Acute gout - Right knee (newly diagnosed) 3. MICHELLE on CKD V (newly started on dialysis) 3. UTI, MSSA 4. Hypertension, uncontrolled Secondary Diagnoses/Problems: 1. DM-2 2. Chronic anemia of CKD 3. Obesity Procedures: I & D - scalp abscess on 10/29/16 Right knee effusion aspiration- diagnosed with gout Hemo dialysis - newly started 10/29, 10/30, 10/31, 11/02 IV Antibiotics Tele monitoring CXR Knee X ray CT head US renal Consultations: Nephrology Cardiology General surgery Orthopedics Pending Studies/Follow-Up: . Instructions / Follow-Up Instructions / Follow-Up MEDICATION CHANGES: 1. New medication: Hydralazine 75 mg PO BID for BP control 2. New medication: Keflex as directed x 6 more days to complete total of 10 days of antibiotics for Scalp abscess/UTI 3. New medication: Prednisone 40 mg x 2 more days to to complete course of 5 days in total for acute gout - right knee 4. New medication; Lisinopril 20 mg daily for bp control 5. Increased metoprolol to 75 mg PO BID from 50 mg PO BID for BP control NEWLY STARTED ON DIALYSIS -Follow up with Nephrology. Arrangements for your outpatient dialysis made MONITOR OUTPATIENT 1. BP with changes in medications as above FOLLOW UP 1. Follow up with Dr Taylor on 11/05/16 at 2:00 PM 2. Follow up with nephrology as per schedule Medication Reconciliation New Medications: Calcium Acetate (Phoslo 667 Mg) 667 Mg Cap 667 MG PO TIDM for 30 Days, #90 CAP Cephalexin Monohydrate (Cephalexin) 500 Mg Cap 500 MG PO QDD for 6 Days, #6 CAP Folic Acid (Folic Acid) 1 Mg Tab 1 MG PO DAILY for 30 Days, #30 TAB Hydralazine Hcl (Apresoline) 25 Mg Tab 75 MG PO BID for 30 Days, #60 TAB 2 Refills Lisinopril (Lisinopril) 20 Mg Tab 20 MG PO QAM for 30 Days, #30 TAB 2 Refills Prednisone (Prednisone) 20 Mg Tab 40 MG PO DAILY for 2 Days, #4 TAB Tramadol HCl (Tramadol HCl) 50 Mg Tab 25 MG PO Q6H PRN for Pain for 10 Days, #20 TAB Changed Medications: Metoprolol Tartrate (Lopressor) (Lopressor) 50 Mg Tab 75 MG PO BID for 30 Days, #90 TAB 2 Refills (Changed from: 50 MG; Refills: ) Continued Medications: Amitriptyline Hcl (Elavil) 25 Mg Tab 25 MG PO HS Atorvastatin (Lipitor) 40 Mg Tab 40 MG PO QAM Calcitriol (Rocaltrol Cap) 0.25 Mcg Cap 0.25 MCG PO QAM Discontinued Medications: Sodium Bicarbonate (Antacid) (Sodium Bicarbonate) 325 Mg Tab 2 TABS PO TID Admission Information HPI (per Admitting provider): HISTORY OF PRESENT ILLNESS: Hx obtained from px and records. Medical history significant for hypertension, hyperlipidemia, past tobacco/ alcohol/substance abuse as per records, spinal cord ependymoma status post surgery, CRI (baseline crea 5), depression, chronic anemia (baseline hemoglobin 10). history of MRSA as per records. DM2, diet controlled. Recent confinement last May 2015 for osteomyelitis, abscess right tibia sp surgery. Cultures grew MRSA. Last week, the patient noted a bump on the top of his head. Attributed to skin contact w/ the metallic part of the cap he wears. Admits to some manipulation, squeezing out some pus. No fever, no chills, no chest pain, no shortness of breath. Px noted wound worsening. Patient also complaining of left knee pain/swelling getting worse over the since last year leading to ambulation difficulty. At the Emergency Room, the patient noted to have a scalp mass, Attempted drainage done. Px was given Vancomycin and Cefazolin. Hospital Course ASSESSMENT AND PLAN : SCALP ABSCESS (MSSA) : S/P Incision and drainage in OR on 10/29/16 -No signs of sepsis. Afebrile, WBC - trending down -S/P IV Vancomycin/Cefepime (Day 2). Changed to Keflex on day 3 - today day 5 of antibiotics -Hx of MRSA in past -CX from OR- MSSA -General surgery on board. Appreciate inputs MICHELLE ON CKD IV/V- ESRD -Baseline creatinine around 8 , not on dialysis. Came with creatinine of 12. -Newly started on dialysis through fistula (done few years ago) per nephrology. Done on 10/29, 10/30, 10/31, 11/02 -S/P IV Sodium bicarb drip. -US renal - Atrophic kidney, mild right hydronephrosis unchanged from past. -Nephrology on board. Arrangements for dialysis outpatient made LEFT KNEE PAIN WITH EFFUSION--> GOUT (Confirmed with synovial fluid analysis) -- > Improved -Does have severe DJD. -S/P Aspiration per ortho on 10/29/16 - WBC 54k, Polymorphs-90%, Crystals- negative berifringent needle shaped ---> Diagnostic of GOUT -Started on short course of steroids- Prednisone 40 mg (Day 4) for acute gout as not a candidate for NSAIDS /Colchicine with ESRD. Responding to steroids. Tolerating ambulation well now. -PT/OT -Ortho signed off. Appreciate inputs HYPERTENSION UNCONTROLLED- Improved BP -Received IV Labetalol -Continue with Hydralazine (started on 10/29) --> Increased to 75 mg PO BID on 10/30/16, Added Lisinopril 20 mg daily on 10/30/16. -Continue with Metoprolol 50 mg PO BID. -On dialysis UTI-MSSA -S/P IV Vancomycin , now on keflex as above DM-2 Diet controlled HBA1C 5.4 -ISS, Accuchecks ACUTE ON CHRONIC ANEMIA Likely secondary to CKD -Work up- Folic acid levels-3.93, Vit b12, Vit D normal, Iron studies - no iron deficiency -Monitor Hx of ex tobacco/alcohol/substance abuse as per records DVT PROPHYLAXIS, Heparin subQ. FULL CODE DISPOSITION Eager to be discharged Okay to discharge home today. Arrangements for hemodialysis made for outpatient as new to dialysis Total time spent on discharge = This includes examination of the patient, discharge planning, medication reconciliation, and communication with other providers. Discharge Instructions Discharge Goals Goal(s): Improve disease control, Diagnostic testing, Therapeutic intervention , Prevent Disease Progression Activity Recommendations Activity Limitations: resume your previous activity (as tolerated) . Instructions / Follow-Up Instructions / Follow-Up MEDICATION CHANGES: 1. New medication: Hydralazine 75 mg PO BID for BP control 2. New medication: Keflex as directed x 6 more days to complete total of 10 days of antibiotics for Scalp abscess/UTI 3. New medication: Prednisone 40 mg x 2 more days to to complete course of 5 days in total for acute gout - right knee 4. New medication; Lisinopril 20 mg daily for bp control 5. Increased metoprolol to 75 mg PO BID from 50 mg PO BID for BP control NEWLY STARTED ON DIALYSIS -Follow up with Nephrology. Arrangements for your outpatient dialysis made MONITOR OUTPATIENT 1. BP with changes in medications as above FOLLOW UP 1. Follow up with Dr Taylor on 11/05/16 at 2:00 PM 2. Follow up with nephrology as per schedule Current Hospital Diet Patient's current hospital diet: Diabetes Type 2 Diet, AHA Diet (Heart Healthy) Discharge Diet Recommended Diet: AHA Diet (Heart Healthy), Low Sodium Diet (2gm Na), Diabetes Type 2 Diet, Renal Diet Procedures Procedures Performed: Incision and Drainage Scalp Abscess Pending Studies Studies pending at discharge: no Laboratory Results Hemoglobin A1c Test 10/28/16 20:55 Range/Units Estimated Average Glucose 108 mg/dl Hemoglobin A1c 5.4 4.5-5.6 % Medical Emergencies . Who to Call and When: Medical Emergencies: If at any time you feel your situation is an emergency, please call 911 immediately. . Non-Emergent Contact Non-Emergency issues call your: Primary Care Provider . . "Provider Documentation" section prepared by Norma Rodríguez. . VTE Core Measure Inpt VTE Proph given/why not?: Reyna Skaggs, SCD's
[2016-11-02] MEDS: CALCITRIOL 0.25 MCG CAP PO SCH (13:28)
[2016-11-02] MEDS: LISINOPRIL 20 MG TAB PO SCH (13:29)
[2016-11-02] MEDS: ATORVASTATIN 20 MG TAB PO SCH (13:29)
[2016-12-10] MEDS ORDERED: LINE1TAB2 PO (15:30)
[2016-12-10] MEDS ORDERED: LCTX PO (15:30)
[2016-12-10] MEDS ORDERED: AMOX1TAB42 PO (15:30)
== END 2016-11-02 17:49 | disposition home or self-care (01) | DRG 602 ==
LOC: ENRESERVTM → ENRESERVDT → C.EDB 19:19 → C.MSW 10-29 00:03
PROVIDERS: ADMIT Internal Medicine; ATTEND Internal Medicine
PROC: 0S9D3ZZ Drainage of Left Knee Joint, Percutaneous Approach (ICD-10-PCS; 2016-10-29)
PROC: 0H90XZZ Drainage of Scalp Skin, External Approach (ICD-10-PCS; principal; 2016-10-29 13:45)
DX: L02.811 Cutaneous abscess of head [any part, except face] (principal); N18.6 End stage renal disease; N39.0 Urinary tract infection, site not specified; N17.9 Acute kidney failure, unspecified; B95.61 Methicillin susceptible Staphylococcus aureus infection as the cause of diseases classified elsewhere; M10.9 Gout, unspecified; I12.9 Hypertensive chronic kidney disease with stage 1 through stage 4 chronic kidney disease, or unspecified chronic kidney disease; E11.9 Type 2 diabetes mellitus without complications; D63.1 Anemia in chronic kidney disease; E66.9 Obesity, unspecified; Z87.891 Personal history of nicotine dependence; Z86.14 Personal history of Methicillin resistant Staphylococcus aureus infection

== ENCOUNTER 2016-11-20 06:11 | Day surgery (SDC) | payer OTHER ==
[~2016-11-20] VITALS: Ht 182.9 cm; Wt 119.0 kg
[~2016-11-20 06:11] MED LIST changes: +APR25 PO; +CEFAZOLIN 1000MG/55 ML D5W IV SCH; +CEFAZOLIN 2000 MG/60 ML D5W IV SCH; -CEPH500C PO; +D5W AND 1/4NSS 1,000 ML IV ONE; +FLV1 PO; +KFL500 PO; +LSN20 PO; +PHS667 PO; +PRD20 PO; -SODI325T9 PO; -SULF800T23 PEG; +ULT50X PO
[2016-11-20 06:37] VITALS: BP 132/74; PULSE 71; TEMP 37; O2SAT 97; Ht 182.9 cm; Wt 119.0 kg
--- NOTE | 2016-11-20 07:32 | History and Physical ---
History & Physical Date Nov 20, 2016. Chief Complaint Malfunctioning left upper arm av fistula History of Present Illness The patient is a 51 year old male who has a left upper arm fistula which was placed years ago. Now with difficulty with runs. Vitals Vital Signs Past 12 Hours Date Time Temp Pulse Resp B/P (MAP) Pulse Ox O2 Delivery O2 Flow Rate FiO2 11/20/16 06:37 37 71 14 132/74 (93) 97 Room Air Allergies Coded Allergies: Iodinated Diagnostic Agents (Verified Allergy, Unknown, STAGE 4 KIDNEY DISEASE, 11/20/16) Home Medications Scheduled Amitriptyline Hcl (Elavil), 25 MG PO HS Atorvastatin (Lipitor), 40 MG PO QAM Calcitriol (Rocaltrol Cap), 0.25 MCG PO QAM Calcium Acetate (Phoslo 667 Mg), 667 MG PO TIDM Folic Acid (Folic Acid), 1 MG PO DAILY Hydralazine Hcl (Apresoline), 75 MG PO BID Lisinopril (Lisinopril), 20 MG PO QAM Metoprolol Tartrate (Lopressor) (Lopressor), 75 MG PO BID Scheduled PRN Tramadol HCl (Tramadol HCl), 25 MG PO Q6H PRN for Pain Problem List Medical Problems: (1) AV fistula (2) CKD (chronic kidney disease), stage IV (3) Depression (4) Diabetes (5) DM type 2 (diabetes mellitus, type 2) (6) Dyslipidemia (7) Gout (8) Gout (9) Hypertension (10) MRSA (methicillin resistant Staphylococcus aureus) (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 (12) JUNITO (obstructive sleep apnea) (13) Osteomyelitis (14) Renal osteodystrophy (15) Scalp abscess (16) Urinary retention Surgical Problems: (1) H/O arthroscopic knee surgery (2) H/o fistula placement (3) H/O hand surgery (4) H/O laminectomy Surgical / Medical History Hx Cardiac Surgery: No Hx Abdominal Surgery: No Hx Cancer Surgery: No Hx Thoracic Surgery: No Hx Orthopedic: Yes (left Knee, Left arm, back, right foot) Hx Urinary Tract Surgery: No HX Other Surgery: Yes (mva=left reconstructive surgery left arm/hand) Past Medical/Surgical History: Diabetes, Hypertension, Kidney Disease Family History Diabetes mellitus FH: cancer FH: gallbladder disease FH: heart disease Hypertension Kidney disease Kidney stones Social History Smoking Status: Never Smoker Hx Tobacco Use In Past Year?: Yes Hx Alcohol Use - Type & Amnt: Yes (6-12 per week) Hx Substance Use -Type & Amnt: No Review of Systems Constitutional: No chills, No diaphoresis, No fever, No malaise, No weakness, No weight gain, No weight loss, No sweats, No fatigue, No problem reported Respiratory: No cough, No cyanosis, No BUCKLEY, No hemoptysis, No orthopnea, No PND , No short of breath, No sputum production, No stridor, No wheezing, No dyspnea , No problem reported Cardiovascular: No chest pain, No chest tightness, No chest pressure, No palpitations, No syncope, No diaphoresis, No edema, No intermittent claudication , No orthopnea, No cyanosis, No mumur, No lightheadedness, No paroxysmal nocturnal dyspnea, No problem reported Gastrointestinal: No abdominal pain, No constipation, No diarrhea, No nausea, No vomiting, No anorexia, No appetite changes, No belching, No flatulence, No food intolerance, No hematemesis, No hemorrhoids, No hematochezia, No stool changes, No heartburn, No indigestion, No dysphagia, No rectal bleeding, No problem reported Neurologic: No dizziness, No weakness, No headache, No lethargy, No numbness, No paresthesia, No pre-existing deficit, No seizures, No tics, No tingling, No tremors, No vertigo, No memory loss, No LOC, No problem reported Physical Exam Constitutional: General Apperance: heathly-appearing, well-nourished, well-developed Level of Distress: NAD Ambulation: ambulating normally Psychiatric: Mental Status: active & alert, normal mood, normal affect Orientation: oriented except where noted, to time, to place, to person Memory: recent memory normal, remote memory normal Lungs: Auscultation: breath sounds normal Cardiovascular: Heart Auscultation: RRR Peripheral Pulses: Radial Pulse: normal on the left, normal on the right Femoral Pulse: normal on the left, normal on the right Abdomen: Inspection & Palpation: soft Extremities: Upper Right: no cyanosis, no edema, no varicosities, no palpable cord, no clubbing, no ulcers, no mottling Upper Left: pertinent finding (fistula with thrill and bruit) Lower Right: no cyanosis, no edema, no varicosities, no palpable cord, no clubbing, no ulcers, no mottling Lower Left: no cyanosis, no edema, no varicosities, no palpable cord, no clubbing, no ulcers, no mottling Assessment and Plan Imp: Malfunctioning left upper arm av fistula Plan: Patient admitted for a fistulogram with possible intervention. I have discussed the risks options and benefits of the procedure with the patient. The patient understands the risks options and benefits and agrees to the procedure.
--- NOTE | 2016-11-20 07:33 | Procedure Note ---
Pre-Mod Sedation Assessment General Date of Moderate Sedation: Nov 20, 2016. Vital Signs: Vital Signs Past 12 Hours Date Time Temp Pulse Resp B/P (MAP) Pulse Ox O2 Delivery O2 Flow Rate FiO2 11/20/16 06:37 37 71 14 132/74 (93) 97 Room Air Pre-Sedation Airway Assessment Oral Cavity: Loose Teeth Short Thick Neck: Yes Hx of Sleep Apnea: No Smoking Status: Never Smoker Mallampati Classification: Class I ASA Classification: Class III Notes The planned sedation has been discussed with the patient and consent obtained. I have identified the patient, determined the appropriateness of sedation and have assessed the patient immediately prior to the procedure. All medicine(s) and interventions are by my order.
[2016-11-20 07:45] VITALS: BP 132/74; PULSE 71; TEMP 37; O2SAT 97
[2016-11-20] MEDS ORDERED: FENTANYL CITRATE INJ 50 MCG/1 ML 2 ML VIAL ONE (07:51)
[2016-11-20] MEDS ORDERED: MIDAZOLAM HCL 1 MG/ML 2ML VIAL ONE (07:52)
[2016-11-20] MEDS ORDERED: MIDAZOLAM HCL 1 MG/ML 2ML VIAL IV ONE (08:12)
[2016-11-20] MEDS ORDERED: FENTANYL CITRATE INJ 50 MCG/1 ML 2 ML VIAL IV ONE (08:13)
[2016-11-20] MEDS ORDERED: LIDOCAINE HCL 1% 20 ML VIAL INJ ONE (08:14)
[2016-11-20] MEDS ORDERED: OPTIRAY 300 IV ONE (08:53)
--- NOTE | 2016-11-20 08:57 | Procedure Note ---
Post-Moderate Sedation Plan General Date of Moderate Sedation Nov 20, 2016. Vital Signs: Vital Signs Past 12 Hours Date Time Temp Pulse Resp B/P (MAP) Pulse Ox O2 Delivery O2 Flow Rate FiO2 11/20/16 07:45 37.0 71 14 132/74 97 Room Air 11/20/16 06:37 37 71 14 132/74 (93) 97 Room Air Review - Discharge Plan Post Moderate Sedation Plan: On clinical assessment, the patient appears to have tolerated the conscious sedation without complications. Patient is recovering as anticipated. Patient will continue to be monitored by nursing and may be discharged when conscious sedation discharge criteria are met.
--- NOTE | 2016-11-20 08:57 | [facility] Post Operative Brief Note ---
Immediate Operative Summary Operative Date Nov 20, 2016. Pre-Operative Diagnosis Malfunctioning Fistula Post-Operative Diagnosis Same Procedure(s) Performed Fistulogram MILLING PLANER OPERATOR venous Conscious sedation Surgeon Hernando Cigarette Catcher Surgeon(s) Angela Arreguin Estimated Blood Loss 3 Findings good thrill Specimens None Anesthesia Local with conscous sedation Complication(s) None Disposition
--- NOTE | 2016-11-20 08:58 | Discharge Instructions ---
Discharge Instructions Date of Service Nov 20, 2016. Visit Reason for Visit: End Stage Renal Disease, Malfunctioning Fistula Discharge Discharge Diagnosis / Problem: Malfunctioning fistula Discharge Goals Goal(s): Therapeutic intervention Activity Recommendations Activity Limitations: resume your previous activity Anesthesia . Post Anesthesia Instructions: If you have had General Anesthesia or IV Sedation: * Do not drive today. * Resume driving when surgeon permits. * Do not make important decisions or sign legal documents today. * Call surgeon for: 1. Temperature elevations greater than 101 degrees F. 2. Uncontrollable pain. 3. Excessive bleeding. 4. Persistent nausea and vomiting. 5. Medication intolerance (nausea, vomiting or rash). * For nausea and vomiting use only clear liquids such as: tea, soda, bouillon until nausea subsides, then gradually increase diet as tolerated. * If you have any concerns or questions, call your surgeon's office. If physician is unavailable and it is an emergency, call 911 or go to the nearest emergency room. . Instructions / Follow-Up Instructions / Follow-Up Call [phone] with any questions or concerns. SPECIAL CARE INSTRUCTIONS: Medications: * Continue to take your medications as directed. If you have been given a prescription for Plavix, please fill it immediately and take as directed. Incision Care: * Your puncture site may have some bruising and minor swelling for about one week. * You will have a small dressing covering your puncture site. You may remove the dressing after 24 hours and shower. You may let the warm soapy water run over it, but be sure to dry the puncture site well and keep it dry. * DO NOT IMMERSE THE INCISION IN A TUB/POOL/etc. UNTIL HEALED. * Puncture sites should be kept covered with a band-aid until it begins to heal. Restrictions: * Depending on whether you leg or arm was punctured to access the arteries, you will be required to lay flat, hold your arm still, or both, for about 4 hours after the procedure to prevent bleeding. * Limit your activity for the first 48 hours. You may walk and go up and down steps. Avoid excessive bending or movement at the puncture site. Possible Complications: * Excessive Swelling - after blood flow is improved you may notice increased swelling in the lower legs. This is a normal response. This usually depends on the amount of blockages in the leg, how long they have been there prior to your procedure and how much blood flow was restored. Elevating your legs will help to improve this. Please notify our office ([phone] ) if the swelling does not go away after lying in bed overnight. * Infection/Drainage/Bleeding - Drainage or bleeding from the puncture site should be minimal. If you have excessive bleeding or drainage, call our office ([phone]) right away. * Pain - You may experience some mild pain or soreness at your puncture site. If your pain does not improve, please contact our office ([phone]). Call your doctor and seek emergent treatment if you develop: * Temperature above 101 degrees * Any fever or chills * Any redness or purulent drainage from the puncture site * Any new dusky/blue colored toes or feet with coolness or sharp or aching pain. SKIN IRRITATION: * You may experience some redness and/or swelling in the area where radiation was administered. If any skin irritation occurs, please contact your family physician. FOLLOW UP VISIT: Keep any scheduled doctor appointments. Diet Recommendations Recommended Home Diet: resume previous diet Procedures Procedures Performed: Fistulogram RECREATION TEACHER venous Conscious sedation Pending Studies Studies pending at discharge: no Medical Emergencies . Who to Call and When: Medical Emergencies: If at any time you feel your situation is an emergency, please call 911 immediately. . Non-Emergent Contact Non-Emergency issues call your: Surgeon . . "Provider Documentation" section prepared by Geoff Villagomez. .
[2016-11-20 09:05] VITALS: BP 150/75; PULSE 72; TEMP 36.7; O2SAT 97
--- NOTE | 2016-11-20 09:30 | DIAGNOSTIC IMAGING REPORT ---
DATE OF PROCEDURE: 11/20/2016 PREOPERATIVE DIAGNOSIS: Left arm arteriovenous fistula dysfunction. POSTOPERATIVE DIAGNOSIS: Left arm arteriovenous fistula dysfunction. PROCEDURE: Left arm fistulogram, venoplasty with 8 x 40 and 10 x 60 mm balloon, conscious sedation for 44 minutes. SURGEON: Dr. Geoff Villagomez. ELECTRIC TOOL REPAIRER: Dr. Angela Arreguin. ANESTHESIA: Conscious sedation plus local. ESTIMATED BLOOD LOSS: 3 mL. COMPLICATIONS: None. CONDITION: Stable. INDICATIONS: Mr. Shawn Munson is a 51-year-old gentleman with history of end-stage renal disease on hemodialysis through a left arm AV fistula. He additionally has type 2 diabetes, hyperlipidemia, hypertension, history of MRSA infection, sleep apnea, osteomyelitis. He is having difficulty with runs on dialysis. For this reason, he was recommended to undergo a fistulogram. The risks, benefits and alternatives were discussed with the patient and he consented to the procedure. DESCRIPTION OF PROCEDURE: The patient was taken to the [facility] and placed in supine position. His left arm and upper chest were prepped and draped in the usual sterile fashion. A safety timeout was performed and the patient, procedure, and side were correctly identified. The patient was given 1 mg of Versed and 50 mg of fentanyl for conscious sedation. The patient had some pulsatility to his fistula in the left antecubital fossa. Local anesthesia was used to anesthetize the skin overlying this region. Micropuncture needle was used to access the fistula near its arterial anastomosis by palpation. Micropuncture sheath was placed into the cephalic vein and fistulogram obtained. This showed a large caliber cephalic vein, but with significant amount of tortuosity and several areas of stenosis. We then moved more centrally and another fistulogram was obtained. There did not appear to be any central narrowing. We then looked back down the arm. An 0.35 Glidewire was placed through the micropuncture sheath and into the cephalic vein. The micropuncture sheath was exchanged for 6-Indonesian sheath. An 8 x 40 Fellows balloon was chosen. This was placed into the cephalic vein into one of the areas of stenosis. Cephalic vein was venoplastied in 2 areas. Balloon was removed and a fistulogram was obtained which showed residual stenosis. I then chose a 10 x 60 mm balloon. This was passed into the cephalic vein into the area of stenosis and inflated. Balloon was removed and a fistulogram again obtained. This showed improvement in areas of stenosis. There still was some tortuosity appreciated in the cephalic vein. He may require further intervention with possible revision of his fistula in the form of a resection of some of the redundant vein. The 6-Indonesian sheath was removed and manual pressure was held for approximately 5 minutes with good hemostasis. A sterile dressing was applied. The patient was transferred to PACU in stable condition. He tolerated the procedure well and there were no immediate complications. Dr. Geoff Villagomez was present for the entire procedure. I, Dr. Villagomez was present and scrubed for the entire procedure. [facility]
[2016-11-20 09:35] VITALS: BP 144/73; PULSE 72; TEMP 36.5; O2SAT 97
[2016-12-10] MEDS ORDERED: LCTX PO (15:30)
[2016-12-10] MEDS ORDERED: AMOX1TAB42 PO (15:30)
[2016-12-10] MEDS ORDERED: LINE1TAB2 PO (15:30)
== END 2016-11-20 09:35 | disposition home or self-care (01) ==
LOC: C.ACU 06:11
PROVIDERS: ATTEND Surgery Vascular Surgery
DX: T82.9XXA Unspecified complication of cardiac and vascular prosthetic device, implant and graft, initial encounter (principal); Y83.1 Surgical operation with implant of artificial internal device as the cause of abnormal reaction of the patient, or of later complication, without mention of misadventure at the time of the procedure; N18.4 Chronic kidney disease, stage 4 (severe); Z99.2 Dependence on renal dialysis; E11.9 Type 2 diabetes mellitus without complications; E78.5 Hyperlipidemia, unspecified; G47.33 Obstructive sleep apnea (adult) (pediatric); Z98.890 Other specified postprocedural states; I12.9 Hypertensive chronic kidney disease with stage 1 through stage 4 chronic kidney disease, or unspecified chronic kidney disease

== ENCOUNTER 2016-12-06 14:04 | Inpatient (IN) | payer OTHER ==
[2016-12-06] VITALS (8 sets, daily range): BP systolic 122–167; BP diastolic 66–84; PULSE 65–73; TEMP 36.4–36.8; O2SAT 96–100; Ht 182.9 cm; Wt 120.7 kg
[~2016-12-06] VITALS: Ht 182.9 cm; Wt 120.7 kg
[~2016-12-06 14:04] MED LIST changes: -CEFAZOLIN 1000MG/55 ML D5W IV SCH; -CEFAZOLIN 2000 MG/60 ML D5W IV SCH; -D5W AND 1/4NSS 1,000 ML IV ONE; -KFL500 PO; -PRD20 PO
[2016-12-06] MEDS ORDERED: PIPERACILLIN/TAZOBACTAM 4.5 GM/100ML D5W IV STA (14:21)
[2016-12-06] MEDS ORDERED: VANCOMYCIN 1GM/270ML NSS IV STA (14:21)
[2016-12-06] MEDS ORDERED: CINA0.42 PO (14:34)
[2016-12-06] MEDS ORDERED: B-COCAP20 PO (14:34)
[2016-12-06] MEDS ORDERED: CHOLTAB11 PO (14:35)
[2016-12-06 15:06] LABS: BASO % 0.5 %; BASO ABS # 0.05 K/uL (0-0.2); EOS % 11.8 %; HEMATOCRIT 26.9 % (42-52); IG% 0.4 %; LYMPH % 10.9 %; LYMPH ABS # 1.02 K/uL (1.2-3.4); MEAN CELL VOLUME 93.7 fL (80-100); MEAN CORPUSCULAR HEMOGLOBIN 30.3 pg (25-34); MEAN CORPUSCULAR HGB CONC 32.3 g/dl (32-36); MEAN PLATELET VOLUME 8.5 fL (7.4-10.4); MONO % 6.8 %; NEUT % 69.6 %; PLATELET COUNT 245 K/uL (130-400); RED BLOOD COUNT 2.87 M/uL (4.7-6.1); WHITE BLOOD COUNT 9.37 K/uL (4.8-10.8)
--- NOTE | 2016-12-06 15:09 | Medical Consult ---
Consultation Date of Consultation: Dec 06, 2016. Attending Physician: History of Present Illness This is a 51-year-old male who cut the dorsal aspect of his left third digit a few days ago while he was cutting chicken. He notes progressive pain and swelling over the dorsal aspect of the PIP joint. Past Medical/Surgical History Medical Problems: (1) Abscess Status: Acute (2) Abscess of right foot Status: Acute (3) Acidosis Status: Acute (4) Anemia Status: Acute (5) HTN (hypertension) Status: Acute (6) Renal failure (ARF), acute on chronic Status: Acute (7) Sepsis Status: Acute History of left upper extremity trauma status post flap coverage. He notes increasing swelling suggestive of lymphedema in the left upper extremity over the past 6 months. Family History Diabetes mellitus FH: cancer FH: gallbladder disease FH: heart disease Hypertension Kidney disease Kidney stones Social History Smoking Status: Never Smoker Drug Use: none, other Marital Status: in relationship Housing Status: lives with family, lives with significant other Occupation Status: disabled Allergies Coded Allergies: Iodinated Diagnostic Agents (Verified Allergy, Unknown, STAGE 4 KIDNEY DISEASE, 12/06/16) Review of Systems Constitutional: + chills Eyes: No worsening of vision, No eye pain, No redness, No discharge, No diplopia, No problem reported Respiratory: No cough, No sputum, No wheezing, No shortness of breath, No dyspnea on exertion, No dyspnea at rest, No hemoptysis, No problem reported Abdomen: No pain, No nausea, No vomiting, No diarrhea, No constipation, No GI bleeding, No problem reported Physical Exam Date Time Temp Pulse Resp B/P (MAP) Pulse Ox O2 Delivery O2 Flow Rate FiO2 12/06/16 14:06 36.9 69 16 131/71 96 Room Air General Appearance: no apparent distress Head: normocephalic Eyes: normal inspection ENT: normal ENT inspection Neck: trachea midline Extremities/Musculoskelatal: + pertinent finding (left middle finger examination does show a laceration of the dorsal aspect of the PIP joint he has gross pus drainage. He has pain with range of motion of the PIP joint to suggest septic joint. He has negative Knavel signs) Laboratory Results Last 24 Hours Test 12/06/16 14:52 Assessment & Plan Assessment: left hand infection, septic PIP joint Plan at this point I'm concerned he may have septic plan for urgent irrigation and debridement of joint. May do this under digital block with sedation. He should be admitted to the hospitalist service given given multiple medical problems such as on dialysis, left upper extremity fistula history of diabetes, etc. I discussed risks benefits and reasonable outcomes for surgical treatment and risks and discussed including but not limited to risk of infection stiffness and loss of motion forward to improve etc. is agreeable wishes to proceed.
[2016-12-06 15:24] LABS: INR 1.1 (0.9-1.1); PARTIAL THROMBOPLASTIN RATIO 1.2; PROTHROMBIN TIME (PATIENT) 11.9 SECONDS (9.0-12.0)
[2016-12-06 15:27] LABS: ANISOCYTOSIS PRESENT; COMPLETE YES; POLYCHROMASIA 1+
[2016-12-06 15:36] LABS: ALB/GLOB RATIO 0.7 (0.9-2); BUN/CREATININE RATIO 4.4 (10-20); CALCIUM 8.2 mg/dl (8.5-10.1); CREATININE 6.9 mg/dl (0.60-1.40); POTASSIUM 4.2 mmol/L (3.5-5.1)
--- NOTE | 2016-12-06 15:39 | EMERGENCY ROOM VISIT NOTE ---
History Report prepared by [employer]ani: Jerry London Under the Supervision of: Dr. Archie Lr M.D. First contact with patient: 14:11 Chief Complaint: INFECTION Stated Complaint: CUT ON L SHELBY WRIGHT IS INFECTED History of Present Illness The patient is a 51 year old male who presents to the Emergency Room with complaints of a worsening left middle finger infection beginning five days ago. He states that he cut his left middle knuckle while he was cutting chicken. He notes that the knife that he was using was brand new. The patient states that the area did not appear "bad" until two days ago. He states that the area was draining pus-like discharge initially, then a clear drainage, and has began draining pus-like fluid again. He denies any fevers. The patient is on dialysis and began his treatments 1 month ago. He notes that his left hand and arm has been swelling since he started the dialysis. He has a history of diabetes, but states that it is well controlled. Source of History: patient Onset: Five days ago Position: finger(s) (left middle) Quality: other (infection) Timing: worsening Associated Symptoms: No fevers Review of Systems See HPI for pertinent positives & negatives. A total of 10 systems reviewed and were otherwise negative. 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 (15) Scalp abscess (16) Urinary retention Surgical Problems: (1) H/O arthroscopic knee surgery (2) H/o fistula placement (3) H/O hand surgery (4) H/O laminectomy Family History Diabetes mellitus FH: cancer FH: gallbladder disease FH: heart disease Hypertension Kidney disease Kidney stones Social History Smoking Status: Never Smoker Alcohol Use: occasionally Drug Use: none, other Marital Status: in relationship Housing Status: lives with significant other Occupation Status: disabled Current/Historical Medications Scheduled Amitriptyline Hcl (Elavil), 25 MG PO HS Atorvastatin (Lipitor), 40 MG PO QAM B-Complex W/ C & Folic Acid (Renal), 1 CAP PO DAILY Calcitriol (Rocaltrol Cap), 0.25 MCG PO QAM Calcium Acetate (Phoslo 667 Mg), 667 MG PO TIDM Cholecalciferol (D-5000), 5,000 INTER.UNIT PO DAILY Cinacalcet Hydrochloride (Sensipar), 30 MG PO DAILY Folic Acid (Folic Acid), 1 MG PO DAILY Hydralazine Hcl (Apresoline), 75 MG PO BID Lisinopril (Lisinopril), 20 MG PO QAM Metoprolol Tartrate (Lopressor) (Lopressor), 75 MG PO BID Scheduled PRN Tramadol HCl (Tramadol HCl), 25 MG PO Q6H PRN for Pain Allergies Coded Allergies: Iodinated Diagnostic Agents (Verified Allergy, Unknown, STAGE 4 KIDNEY DISEASE, 12/06/16) Physical Exam Vital Signs Date Time Temp Pulse Resp B/P (MAP) Pulse Ox O2 Delivery O2 Flow Rate FiO2 12/06/16 14:06 36.9 69 16 131/71 96 Room Air Physical Exam GENERAL: Patient is in no acute distress. HEENT: No acute trauma, normocephalic atraumatic, mucous membranes moist, no nasal congestion, no scleral icterus. NECK: No stridor, no adenopathy, no meningismus, trachea is midline. LUNGS: Clear to auscultation bilaterally, no wheeze, no rhonchi, breath sounds equal. HEART: 2/6 systolic murmur with a regular rate and rhythm. ABDOMEN: Soft, nontender, bowel sounds positive, no hernias, no peritonitis. EXTREMITIES: Left upper extremity is edematous and swollen from the fingers to the elbow. Old scarring to the left forearm consistent with previous injury. Dialysis fistula in the left AC. Left third finger is markedly edematous, erythematous and warm. Pus-like drainage from the dorsal aspect over the PIP joint. Significant pain with movement of the finger. Extensor tendon function appears intact. NEUROLOGIC: Oriented x 3, no acute motor or sensory deficits, no focal weakness. SKIN: No rash, no jaundice, no diaphoresis. Medical Decision & Procedures ER Provider Diagnostic Interpretation: X-ray results as stated below per interpretation by me and the radiologist: LEFT HAND 3 VIEWS FINDINGS: 3 views of left hand are obtained. No prior studies are available for comparison at the time of dictation. The skeletal structures are osteopenic. No fracture is seen. No bony erosion or periostitis is identified. Moderate arthritic change with mild subluxation is seen at the first metacarpophalangeal joint. Mild arthritic change is present at the first carpometacarpal articulation and involving the interphalangeal joints. Surgical clips are present around the wrist. There is marked soft tissue edema involving the wrist and hand. An indeterminant rectangular foreign body within the ventral soft tissues in the wrist may represent a surgical drain. No subcutaneous gas is seen. IMPRESSION: 1. Osteopenia and arthritic change as above. No acute bony abnormality is seen in the left hand. 2. Marked soft tissue edema is present around the left wrist and in the hand. 4. A foreign body within the ventral soft tissues of the wrist may represent a surgical drain. Clinical correlation will be required.. Electronically signed by: Archie Lincoln M.D. Laboratory Results 12/06/16 14:52 Red Blood Count 2.87, Mean Corpuscular Volume 93.7, Mean Corpuscular Hemoglobin 30.3, Mean Corpuscular Hemoglobin Concent 32.3, Mean Platelet Volume 8.5, Neutrophils (%) (Auto) 69.6, Lymphocytes (%) (Auto) 10.9, Monocytes (%) (Auto) 6.8, Eosinophils (%) (Auto) 11.8, Basophils (%) (Auto) 0.5, Neutrophils # (Auto ) 6.51, Lymphocytes # (Auto) 1.02, Monocytes # (Auto) 0.64, Eosinophils # (Auto ) 1.11, Basophils # (Auto) 0.05 12/06/16 14:52 Test 12/06/16 14:52 White Blood Count 9.37 K/uL (4.8-10.8) Red Blood Count 2.87 M/uL (4.7-6.1) Hemoglobin 8.7 g/dL (14.0-18.0) Hematocrit 26.9 % (42-52) Mean Corpuscular Volume 93.7 fL (80-100) Mean Corpuscular Hemoglobin 30.3 pg (25-34) Mean Corpuscular Hemoglobin Concent 32.3 g/dl (32-36) Platelet Count 245 K/uL (130-400) Mean Platelet Volume 8.5 fL (7.4-10.4) Neutrophils (%) (Auto) 69.6 % Lymphocytes (%) (Auto) 10.9 % Monocytes (%) (Auto) 6.8 % Eosinophils (%) (Auto) 11.8 % Basophils (%) (Auto) 0.5 % Neutrophils # (Auto) 6.51 K/uL (1.4-6.5) Lymphocytes # (Auto) 1.02 K/uL (1.2-3.4) Monocytes # (Auto) 0.64 K/uL (0.11-0.59) Eosinophils # (Auto) 1.11 K/uL (0-0.5) Basophils # (Auto) 0.05 K/uL (0-0.2) RDW Standard Deviation 60.9 fL (36.4-46.3) RDW Coefficient of Variation 18.1 % (11.5-14.5) Immature Granulocyte % (Auto) 0.4 % Immature Granulocyte # (Auto) 0.04 K/uL (0.00-0.02) Polychromasia 1+ Basophilic Stippling 1+ Anisocytosis PRESENT Erythrocyte Sedimentation Rate 47 mm/hr (0-14) Prothrombin Time 11.9 SECONDS (9.0-12.0) Prothromb Time International Ratio 1.1 (0.9-1.1) Activated Partial Thromboplast Time 31.3 SECONDS (21.0-31.0) Partial Thromboplastin Ratio 1.2 Anion Gap 10.0 mmol/L (3-11) Est Creatinine Clear Calc Drug Dose 17.0 ml/min Estimated GFR () 9.7 Estimated GFR (Non- 8.4 BUN/Creatinine Ratio 4.4 (10-20) Lactic Acid Level 1.3 mmol/L (0.4-2.0) Calcium Level 8.2 mg/dl (8.5-10.1) Total Bilirubin 0.6 mg/dl (0.2-1) Aspartate Amino Transf (AST/SGOT) 18 U/L (15-37) Alanine Aminotransferase (ALT/SGPT) 24 U/L (12-78) Alkaline Phosphatase 99 U/L (45-117) Total Protein 6.8 gm/dl (6.4-8.2) Albumin 2.9 gm/dl (3.4-5.0) Globulin 3.9 gm/dl (2.5-4.0) Albumin/Globulin Ratio 0.7 (0.9-2) Laboratory results reviewed by me. Medications Administered Medications (Trade) Dose Ordered Sig/Arti Route Start Time Stop Time Status Last Admin Dose Admin Vancomycin HCl (Vancomycin 1gm/ 270ml Nss) 1 gm NOW STAT IV 12/06/16 14:21 12/06/16 14:25 DC 12/06/16 15:01 1 GM Piperacillin Sod/ Tazobactam Sod (Zosyn Iv) 4.5 gm NOW STAT IV 12/06/16 14:21 12/06/16 14:25 DC 12/06/16 15:01 4.5 GM ED Course 1415: The patient was evaluated in room B4B. A complete history and physical exam was performed. 1421: Ordered Zosyn 4.5 gm IV, Vancomycin 1 gm/270 mL NSS 1 gm IV. 1524: Upon reexamination the patient is resting comfortably. I discussed results and treatment plan with the patient. He verbalizes agreement and understanding. The patient will be evaluated for further management. Medical Decision The patient is a 51 year old male who presents to the ED with complaints of a left middle finger infection. Differential diagnoses considered include joint infection, tenosynovitis, cellulitis, osteomyelitis, bacteremia, tendon laceration, and immunocompromise. Blood pressure screening: Patient was found to have a slightly elevated blood pressure due to circumstances. I do not believe that the patient requires hypertension monitoring. Medication Reconciliation: I attest that I have personally reviewed the patient' s current medication list. There is no leukocytosis. The patient is anemic but this is baseline looking back at previous testing. Renal panel testing shows a high creatinine consistent with his dialysis need. There was no hepatitis or coagulopathy. Lactic acid level was not elevated making sepsis less likely. Blood cultures are pending. Left hand film showed swelling, no fracture or air within the soft tissues. Culture of the drainage from the left third finger is pending. The patient has a left hand cellulitis and left third finger tenosynovitis. There is also concern for the possibility of joint involvement. The patient was given IV Zosyn and IV vancomycin. I did talk with the on-call orthopedist. The patient will be taken to the operating room later today. I talked with the patient and case management. The on-call hospitalist was consulted. Consults Time Called: 151 Consulting Physician: Dr. Torres -Orthopedic Surgery Returned Call: [phone] Discussed the patient's case. Dr. Torres plans to take the patient to the OR later today. He recommends observation by the hospitalist service first. Additional Consults: Time Called: 152 Consulted Physician: Dr. Waqas Gaffney Returned Call: [phone] Additional Comments: Discussed the patient's case. The patient will be evaluated for further management. Impression Primary Impression: Cellulitis of left hand Additional Impressions: Tenosynovitis of finger Immunocompromised Scribe Attestation The scribe's documentation has been prepared under my direction and personally reviewed by me in its entirety. I confirm that the note above accurately reflects all work, treatment, procedures, and medical decision making performed by me. Departure Information Dispostion Being Evaluated By Hospitalist Referrals Pam Taylor M.D. (PCP) Patient Instructions My [facility] Problem Qualifiers
--- NOTE | 2016-12-06 15:52 | DIAGNOSTIC IMAGING REPORT ---
LEFT HAND 3 VIEWS CLINICAL HISTORY: Infection in the third finger and the left hand. FINDINGS: 3 views of left hand are obtained. No prior studies are available for comparison at the time of dictation. The skeletal structures are osteopenic. No fracture is seen. No bony erosion or periostitis is identified. Moderate arthritic change with mild subluxation is seen at the first metacarpophalangeal joint. Mild arthritic change is present at the first carpometacarpal articulation and involving the interphalangeal joints. Surgical clips are present around the wrist. There is marked soft tissue edema involving the wrist and hand. An indeterminant rectangular foreign body within the ventral soft tissues in the wrist may represent a surgical drain. No subcutaneous gas is seen. IMPRESSION: 1. Osteopenia and arthritic change as above. No acute bony abnormality is seen in the left hand. 2. Marked soft tissue edema is present around the left wrist and in the hand. 4. A foreign body within the ventral soft tissues of the wrist may represent a surgical drain. Clinical correlation will be required.. Electronically signed by: Archie Lincoln M.D. 12/06/2016 3:51 PM Dictated Date/Time: 12/06/2016 3:47 PM
[2016-12-06] MEDS ORDERED: ACETAMINOPHEN 325 MG TAB PO PRN (17:00)
[2016-12-06] MEDS ORDERED: POLYETHYLENE (MIRALAX) 17 GM PACK PO PRN (17:00)
[2016-12-06] MEDS ORDERED: CHOL1TAB76 PO (17:07)
[2016-12-06] MEDS ORDERED: VANCOMYCIN CONSULT ACTIVE PRN (17:35)
[2016-12-06] MEDS ORDERED: PIPERACILL/TAZOBAC CONSULT ACTIVE PRN (17:45)
[2016-12-06] MEDS ORDERED: VANCOMYCIN INJ 1,400 MG in SODIUM CHLORIDE 0.9% 500ML 500 ML IV ONE (18:15)
[2016-12-06] MEDS ORDERED: OXYCODONE/ACETAMINOPHEN 7.5-325 TAB PO PRN (18:45)
[2016-12-06] MEDS ORDERED: MoRPHine SULFATE 2 MG/ML CARP IV PRN (18:45)
[2016-12-06] MEDS: CALCIUM ACETATE 667MG GELCAP PO SCH (19:05)
[2016-12-06] MEDS ORDERED: LIDOCAINE HCL 1% 20 ML VIAL ONE (20:07)
[2016-12-06] MEDS ORDERED: BUPIVACAINE 0.5 % 5 MG/1 ML MPF 30ML VIAL ONE (20:07)
--- NOTE | 2016-12-06 20:33 | Pharmacy Progress Note ---
Pharmacy Abx Initial Consult Date of Service Dec 06, 2016. Pharmacy Dosing Scope Date of Consult: 12/06/16 Consultation requested by: Dr. Alan Pharmacy is consulted to initiate vancomycin/Zosyn IV dosing therapy, order appropriate labs and adjust drug dose/frequency. Subjective The patient is a 51 year old male admitted on Dec 06, 2016 at 16:24. Objective Height (Feet): 6 Height (Inches): 0.00 Weight (Kilograms): 120.800 Vital Signs (Past 12Hrs) Vital Signs Past 12 Hours Date Time Temp Pulse Resp B/P (MAP) Pulse Ox O2 Delivery O2 Flow Rate FiO2 12/06/16 18:49 151/80 (103) 12/06/16 18:00 100 Room Air 12/06/16 18:00 36.8 65 14 167/84 100 Room Air 12/06/16 17:54 36.8 65 14 167/84 (111) 100 Room Air 12/06/16 17:23 64 20 121/74 100 Room Air 12/06/16 16:00 67 18 128/78 100 Room Air 12/06/16 15:14 100 Room Air 12/06/16 14:06 36.9 69 16 131/71 96 Room Air Lab Results (24Hrs) Laboratory Tests (24 Hours) Test 12/06/16 14:52 Erythrocyte Sedimentation Rate 47 mm/hr (0-14) H Lactic Acid Level 1.3 mmol/L (0.4-2.0) White Blood Count 9.37 K/uL (4.8-10.8) Red Blood Count 2.87 M/uL (4.7-6.1) L Hemoglobin 8.7 g/dL (14.0-18.0) L Hematocrit 26.9 % (42-52) L Mean Corpuscular Volume 93.7 fL (80-100) Mean Corpuscular Hemoglobin 30.3 pg (25-34) Mean Corpuscular Hemoglobin Concent 32.3 g/dl (32-36) Platelet Count 245 K/uL (130-400) Mean Platelet Volume 8.5 fL (7.4-10.4) Neutrophils (%) (Auto) 69.6 % Lymphocytes (%) (Auto) 10.9 % Monocytes (%) (Auto) 6.8 % Eosinophils (%) (Auto) 11.8 % Basophils (%) (Auto) 0.5 % Neutrophils # (Auto) 6.51 K/uL (1.4-6.5) H Lymphocytes # (Auto) 1.02 K/uL (1.2-3.4) L Monocytes # (Auto) 0.64 K/uL (0.11-0.59) H Eosinophils # (Auto) 1.11 K/uL (0-0.5) H Basophils # (Auto) 0.05 K/uL (0-0.2) Micro Results Date/Time Source Procedure Growth Status 12/06/16 15:02 Blood Blood Culture Pending Received 12/06/16 14:52 Blood Blood Culture Pending Received 12/06/16 00:00 Cellulitis Finger , Left 3rd Gram Stain Pending Received 12/06/16 00:00 Cellulitis Finger , Left 3rd Wound Culture Pending Received Assessment & Plan Assessment 51 year old male with PMH of DM and HD who is admitted for an infected laceration on his finger. Surgeon is concerned for septic PIP joint. The patient injured his hand while cutting chicken. Plan vancomycin/Zosyn for treatment of bone/joint infection Vancomycin IV * Loading dose: 2400 mg (20 mg/kg) * Goal trough level for joint infection : 15 to 20 mcg/mL * Random level ordered for 12/07/16 * A less than traditional dose and extended dosing interval has been selected due to likelihood of drug accumulation in patient with CKD on HD. Piperacillin/tazobactam * 4.5 g bolus administered over 30 minutes, then 4.5 g IV extended infusion every 12 hours for CrCl 20 mL/min or less and dialysis. Pharmacy will continue to follow and will adjust dose/frequency as necessary. Thank you.
[2016-12-06] MEDS ORDERED: PROPOFOL IV EMULSION 10 MG/ML 20 ML VIAL IV ONE (20:47)
[2016-12-06] MEDS ORDERED: LIDOCAINE HCL 2% 2 ML VIAL (20MG/ML) ONE (20:47)
[2016-12-06] MEDS ORDERED: MIDAZOLAM HCL 1 MG/ML 2ML VIAL ONE ×2 (20:48)
[2016-12-06] MEDS ORDERED: FENTANYL CITRATE INJ 50 MCG/1 ML 2 ML VIAL ONE (20:58)
--- NOTE | 2016-12-06 21:24 | [facility] Operative Report ---
Operative Report Operative Date Dec 06, 2016. Pre-Operative Diagnosis Septic Left middle finger proximal interphalangeal joint Post-Operative Diagnosis Same Procedure(s) Performed Arthrotomy and drainage septic left middle finger proximal interphalangeal joint Surgeon bette Senior Product Consultant Surgeon(s) none Estimated Blood Loss 1 cc Findings gross pus in PIP joint Specimens cultures Drains none Anesthesia digit block with sedation Complication(s) None Indications This is a gentleman with progressive pain and swelling after a laceration to the dorsal aspect of the left middle finger proximal interphalangeal joint he presents with concern for septic joint. Has gross pus coming out of the joint. Risk and benefits have been discussed including but not limited to infection stiffness loss of motion failure to improve continued infection etc. He is agreeable and wishes to proceed with surgical intervention. Other alternatives of treatment have been discussed. Description of Procedure I injected mix of lidocaine and Marcaine at the base of the left middle finger for a digital block. The patient's extremity was then prepped and draped in the standard fashion. Using a finger tourniquet given that the patient had an upper extremity fistula. A surgical timeout was taken prior to the procedure and the proper procedure and patient site was verified. I made a longitudinal incision over the area of drainage was directly over the PIP joint dorsally. Dissection was carried down through the skin and subcutaneous tissue. Gross pus was encountered. There was a rent between the central slip and the lateral band of I open. I performed formal arthrotomy and drainage of the proximal interphalangeal joint. Gross pus was encountered in the joint. I then irrigated the area with 1 L of normal saline. Debridement of skin and subcutaneous tissue fascia and bone was performed with curettes scissors, knife. Area of debridement was approximately 1 x 1 cm.. Tourniquet was let down, hemostasis was obtained with bipolar electrocautery patient's incision was closed with 4-0 nylon in the central area was packed with iodoform gauze packing. Patient was placed in a soft dressing and sent to the PACU in stable condition. End I attest to the content of the Intraoperative Record and any orders documented therein. Any exceptions are noted below.
[2016-12-06] MEDS ORDERED: FENTANYL CITRATE INJ 50 MCG/1 ML 2 ML VIAL IV PRN (21:30)
[2016-12-06] MEDS ORDERED: EpHEDrine SULFATE INJ 50 MG/ML AMP IV PRN (21:30)
[2016-12-06] MEDS ORDERED: PROMETHAZINE HCL INJ 6.25 MG in SODIUM CHLORIDE 0.9% 50ML 50 ML IV PRN (21:30)
[2016-12-06] MEDS ORDERED: ATROPINE SULFATE 0.1 MG/ML 5ML SYR IV PRN (21:30)
[2016-12-06] MEDS ORDERED: ONDANSETRON INJ 2 MG/ML 2 ML VIAL IV PRN ×2 (21:30)
--- NOTE | 2016-12-06 21:45 | Anesthesiology Progress Note ---
Anesthesia Post Op Note Date & Time Dec 06, 2016 at 21:44 Vital Signs Pain Intensity: 0 Vital Signs Past 12 Hours Date Time Temp Pulse Resp B/P (MAP) Pulse Ox O2 Delivery O2 Flow Rate FiO2 12/06/16 21:36 62 19 12/06/16 21:36 64 19 113/58 100 12/06/16 21:31 61 15 121/65 97 12/06/16 21:31 62 15 12/06/16 21:26 64 17 12/06/16 21:26 63 17 114/61 96 12/06/16 21:22 120/64 12/06/16 21:21 69 26 94 12/06/16 21:21 36.1 65 20 120/64 98 Room Air 12/06/16 21:21 67 26 12/06/16 18:49 151/80 (103) 12/06/16 18:00 100 Room Air 12/06/16 18:00 36.8 65 14 151/80 100 Room Air 12/06/16 18:00 36.8 65 14 167/84 100 Room Air 12/06/16 17:54 36.8 65 14 167/84 (111) 100 Room Air 12/06/16 17:23 64 20 121/74 100 Room Air 12/06/16 16:00 67 18 128/78 100 Room Air 12/06/16 15:14 100 Room Air 12/06/16 14:06 36.9 69 16 131/71 96 Room Air Notes Mental Status: alert / awake / arousable, participated in evaluation Pt Amnestic to Procedure: Yes Nausea / Vomiting: adequately controlled Pain: adequately controlled Airway Patency, RR, SpO2: stable & adequate BP & HR: stable & adequate Hydration State: stable & adequate Anesthetic Complications: no major complications apparent
[2016-12-06] MEDS: TRIAMCINOLONE ACET 0.1% CR 80 GM TUBE EXT SCH (22:11)
[2016-12-06] MEDS: METOPROLOL TARTRATE 25 MG TAB PO SCH (22:14)
--- NOTE | 2016-12-06 23:44 | History and Physical ---
History & Physical Date & Time of Service: Dec 06, 2016 at 17:31 Chief Complaint: Cut On L Middle Jason Is Infected Primary Care Physician: Pam Taylor M.D. History of Present Illness Source: patient, family, clinic records, hospital records 51 yoM with diet-controlled diabetes presents with a worsening L 3rd finger after cutting himself while working with raw chicken on December 01. He has a h/o chronic lymphedema and a working fistula in that LUE. He was recently admitted 10/28-11/02 for an MSSA scalp abscess that was I&D, an acute gout flare and worsening ESRD, and was started on hemodialysis during that admission. He has a h/o MRSA last year. He denies any fevers, chills, chest pain, SOB, nausea, vomiting, diarrhea, blood in stool. He recently underwent a fistulogram on 11/20 for a non-working fistula. Last hemodialysis was yesterday in [place], and patient states he felt "better than I ever have after a session." He reports that the pain and stiffness in his affected finger has been getting worse with time. He was evaluated by Dr. Torres in the ER with a plan to go for surgical washout this afternoon. 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 Status: Chronic Family History Diabetes mellitus FH: cancer FH: gallbladder disease FH: heart disease Hypertension Kidney disease Kidney stones Social History Smoking Status: Never Smoker Smokeless Tobacco Use: Yes Alcohol Use: occasionally (weekends only) Drug Use: none, other Marital Status: single, in relationship Housing status: lives alone Occupational Status: disabled Immunizations History of Influenza Vaccine: Yes Influenza Vaccine Date: May 15, 2016 History of Tetanus Vaccine?: Yes Tetanus Immunization Date: Dec 13, 2007 History of Pneumococcal: No Pneumococcal Date: Dec 31, 2008 History of Hepatitis B Vaccine: Yes Hepatitis Immunization Date: Apr 08, 2015 Multi-Drug Resistant Organisms History of MDRO: Yes Type of MDRO: MRSA Allergies Coded Allergies: Iodinated Diagnostic Agents (Verified Allergy, Unknown, STAGE 4 KIDNEY DISEASE, 12/06/16) Home Medications Scheduled Amitriptyline Hcl (Elavil), 25 MG PO HS Atorvastatin (Lipitor), 40 MG PO QAM B-Complex W/ C & Folic Acid (Renal), 1 CAP PO DAILY Calcitriol (Rocaltrol Cap), 0.25 MCG PO QAM Calcium Acetate (Phoslo 667 Mg), 667 MG PO TIDM Cholecalciferol (D 1999), 2,000 INTER.UNIT PO QD Folic Acid (Folic Acid), 1 MG PO DAILY Hydralazine Hcl (Apresoline), 75 MG PO BID Lisinopril (Lisinopril), 20 MG PO QAM Metoprolol Tartrate (Lopressor) (Lopressor), 75 MG PO BID Review of Systems At least ten systems reviewed and negative except as indicated in HPI and itching with rash on gluteal area for last couple of weeks. This is reportedly made worse by sitting in the chair at hemodialysis. Constitutional: No fever, No chills Eyes: No worsening of vision, No problem reported ENT: No sore throat Respiratory: No cough, No wheezing, No shortness of breath Cardiovascular: No chest pain Abdomen: No pain, No nausea, No vomiting, No diarrhea, No constipation, No GI bleeding Musculoskeletal: + joint pain, + swelling Genitourinary - Male: No problem reported Psychiatric: + insomnia, No substance abuse Endocrine: + problem reported (patient self-catheterizes four times daily) Integumentary: + rash (glutes), + itch Allergic / Immunologic: No food allergies Physical Exam Vital Signs Date Time Temp Pulse Resp B/P (MAP) Pulse Ox O2 Delivery O2 Flow Rate FiO2 7/9/17 17:23 64 20 121/74 100 Room Air 12/06/16 16:00 67 18 128/78 100 Room Air 12/06/16 14:06 36.9 69 16 131/71 96 Room Air GEN: WNWD, in no acute distress, alert and appropriate HEENT: NC/AT, PERRL, normal sclerae/conjunctivae, MMM, pharynx nonacute CARDIO: reg rate, S1/2 heard without m/g/r LUNGS: CTA bilaterally, no crackles, rales or wheezes, good diaphragmatic excursion ABD: soft, non-tender, non-distended, no rebound or guarding, +BS BUTTOCKS: erythematous excoriated as if scratched excessively around gluteal fold. Dry skin present, area is somewhat on both sides posteriorly EXTREMITY: RP and DP palpable 2+ bilat, no LE swelling or edema, extremities are warm and well-perfused NEURO: CN 2-12 grossly intact, sensation intact throughout, no gross focal deficits. MUSC: 5/5 strength throughout, no focal deficits SKIN: warm and dry and rash as above. Diagnostics Laboratory Results 12/06/16 14:52 Red Blood Count 2.87, Mean Corpuscular Volume 93.7, Mean Corpuscular Hemoglobin 30.3, Mean Corpuscular Hemoglobin Concent 32.3, Mean Platelet Volume 8.5, Neutrophils (%) (Auto) 69.6, Lymphocytes (%) (Auto) 10.9, Monocytes (%) (Auto) 6.8, Eosinophils (%) (Auto) 11.8, Basophils (%) (Auto) 0.5, Neutrophils # (Auto ) 6.51, Lymphocytes # (Auto) 1.02, Monocytes # (Auto) 0.64, Eosinophils # (Auto ) 1.11, Basophils # (Auto) 0.05 12/06/16 14:52 Test 12/06/16 14:52 12/06/16 21:32 White Blood Count 9.37 K/uL (4.8-10.8) Red Blood Count 2.87 M/uL (4.7-6.1) Hemoglobin 8.7 g/dL (14.0-18.0) Hematocrit 26.9 % (42-52) Mean Corpuscular Volume 93.7 fL (80-100) Mean Corpuscular Hemoglobin 30.3 pg (25-34) Mean Corpuscular Hemoglobin Concent 32.3 g/dl (32-36) Platelet Count 245 K/uL (130-400) Mean Platelet Volume 8.5 fL (7.4-10.4) Neutrophils (%) (Auto) 69.6 % Lymphocytes (%) (Auto) 10.9 % Monocytes (%) (Auto) 6.8 % Eosinophils (%) (Auto) 11.8 % Basophils (%) (Auto) 0.5 % Neutrophils # (Auto) 6.51 K/uL (1.4-6.5) Lymphocytes # (Auto) 1.02 K/uL (1.2-3.4) Monocytes # (Auto) 0.64 K/uL (0.11-0.59) Eosinophils # (Auto) 1.11 K/uL (0-0.5) Basophils # (Auto) 0.05 K/uL (0-0.2) RDW Standard Deviation 60.9 fL (36.4-46.3) RDW Coefficient of Variation 18.1 % (11.5-14.5) Immature Granulocyte % (Auto) 0.4 % Immature Granulocyte # (Auto) 0.04 K/uL (0.00-0.02) Polychromasia 1+ Basophilic Stippling 1+ Anisocytosis PRESENT Erythrocyte Sedimentation Rate 47 mm/hr (0-14) Prothrombin Time 11.9 SECONDS (9.0-12.0) Prothromb Time International Ratio 1.1 (0.9-1.1) Activated Partial Thromboplast Time 31.3 SECONDS (21.0-31.0) Partial Thromboplastin Ratio 1.2 Anion Gap 10.0 mmol/L (3-11) Est Creatinine Clear Calc Drug Dose 17.0 ml/min Estimated GFR () 9.7 Estimated GFR (Non- 8.4 BUN/Creatinine Ratio 4.4 (10-20) Lactic Acid Level 1.3 mmol/L (0.4-2.0) Calcium Level 8.2 mg/dl (8.5-10.1) Total Bilirubin 0.6 mg/dl (0.2-1) Aspartate Amino Transf (AST/SGOT) 18 U/L (15-37) Alanine Aminotransferase (ALT/SGPT) 24 U/L (12-78) Alkaline Phosphatase 99 U/L (45-117) Total Protein 6.8 gm/dl (6.4-8.2) Albumin 2.9 gm/dl (3.4-5.0) Globulin 3.9 gm/dl (2.5-4.0) Albumin/Globulin Ratio 0.7 (0.9-2) Bedside Glucose 92 mg/dl (70-99) Date/Time Source Procedure Growth Status 12/06/16 15:02 Blood Blood Culture Pending Received 12/06/16 21:09 Abscess 2nd Gram Stain Pending Received 12/06/16 21:09 Abscess 2nd Bacterial Culture Pending Received Results Past 24 Hours Test 12/06/16 14:52 Range/Units White Blood Count 9.37 4.8-10.8 K/uL Red Blood Count 2.87 4.7-6.1 M/uL Hemoglobin 8.7 14.0-18.0 g/dL Hematocrit 26.9 42-52 % Mean Corpuscular Volume 93.7 80-100 fL Mean Corpuscular Hemoglobin 30.3 25-34 pg Mean Corpuscular Hemoglobin Concent 32.3 32-36 g/dl Platelet Count 245 130-400 K/uL Mean Platelet Volume 8.5 7.4-10.4 fL Neutrophils (%) (Auto) 69.6 % Lymphocytes (%) (Auto) 10.9 % Monocytes (%) (Auto) 6.8 % Eosinophils (%) (Auto) 11.8 % Basophils (%) (Auto) 0.5 % Neutrophils # (Auto) 6.51 1.4-6.5 K/uL Lymphocytes # (Auto) 1.02 1.2-3.4 K/uL Monocytes # (Auto) 0.64 0.11-0.59 K/uL Eosinophils # (Auto) 1.11 0-0.5 K/uL Basophils # (Auto) 0.05 0-0.2 K/uL RDW Standard Deviation 60.9 36.4-46.3 fL RDW Coefficient of Variation 18.1 11.5-14.5 % Immature Granulocyte % (Auto) 0.4 % Immature Granulocyte # (Auto) 0.04 0.00-0.02 K/uL Polychromasia 1+ Basophilic Stippling 1+ Anisocytosis PRESENT Erythrocyte Sedimentation Rate 47 0-14 mm/hr Prothrombin Time 11.9 9.0-12.0 SECONDS Prothromb Time International Ratio 1.1 0.9-1.1 Activated Partial Thromboplast Time 31.3 21.0-31.0 SECONDS Partial Thromboplastin Ratio 1.2 Sodium Level 135 136-145 mmol/L Potassium Level 4.2 3.5-5.1 mmol/L Chloride Level 93 98-107 mmol/L Carbon Dioxide Level 32 21-32 mmol/L Anion Gap 10.0 3-11 mmol/L Blood Urea Nitrogen 31 7-18 mg/dl Creatinine 6.90 0.60-1.40 mg/dl Est Creatinine Clear Calc Drug Dose 17.0 ml/min Estimated GFR () 9.7 Estimated GFR (Non- 8.4 BUN/Creatinine Ratio 4.4 10-20 Random Glucose 116 70-99 mg/dl Lactic Acid Level 1.3 0.4-2.0 mmol/L Calcium Level 8.2 8.5-10.1 mg/dl Total Bilirubin 0.6 0.2-1 mg/dl Aspartate Amino Transf (AST/SGOT) 18 15-37 U/L Alanine Aminotransferase (ALT/SGPT) 24 12-78 U/L Alkaline Phosphatase 99 45-117 U/L Total Protein 6.8 6.4-8.2 gm/dl Albumin 2.9 3.4-5.0 gm/dl Globulin 3.9 2.5-4.0 gm/dl Albumin/Globulin Ratio 0.7 0.9-2 Microbiology Results 12/06/16 Blood Culture, Received Pending 12/06/16 Blood Culture, Received Pending 12/06/16 Gram Stain, Received Pending 12/06/16 Wound Culture, Received Pending Diagnostic Radiology LEFT HAND 3 VIEWS CLINICAL HISTORY: Infection in the third finger and the left hand. FINDINGS: 3 views of left hand are obtained. No prior studies are available for comparison at the time of dictation. The skeletal structures are osteopenic. No fracture is seen. No bony erosion or periostitis is identified. Moderate arthritic change with mild subluxation is seen at the first metacarpophalangeal joint. Mild arthritic change is present at the first carpometacarpal articulation and involving the interphalangeal joints. Surgical clips are present around the wrist. There is marked soft tissue edema involving the wrist and hand. An indeterminant rectangular foreign body within the ventral soft tissues in the wrist may represent a surgical drain. No subcutaneous gas is seen. IMPRESSION: 1. Osteopenia and arthritic change as above. No acute bony abnormality is seen in the left hand. 2. Marked soft tissue edema is present around the left wrist and in the hand. 4. A foreign body within the ventral soft tissues of the wrist may represent a surgical drain. Clinical correlation will be required.. EKG EKG from 10/29/2016 reveals SR 69 w evidence of LVH Impression Assessment and Plan 51 yo M presents with L finger infection x 1 week that is worse. 1. L finger infection 2/2 working with raw chicken and cutting his finger. Pt with decreased ROM and worsening pain. No systemic signs are present currently , however, surgery required per Ortho who evaluated him in the ER. Cont Vanc/ Zosyn. Dr. Torres with plans to take him to the OR later today. Keep NPO, pain control efforts. 2. ESRD-on hemodialysis. Dr. Ragsdale was consulted. Pt is on a , , Sat cycle at [place]. Cont Calcitriol, Phoslo, Nephrocaps, vit D supplementation 3. HTN-chronic, stable. Cont home meds including recently added hydralazine 75 BID, lisinopril 20 daily and lopressor recently increased to 75mg BID. 4. Dyslipidemia-cont Lipitor 40mg 5. Urinary retention 2/2 benign spinal tumor-patient self catheterizes QID 6. Diet-controlled diabetes-not on meds at home with recent A1C 5.4 in September 2016. No need for fingersticks or ISS/carb coverage at this time. 7. JUNITO-reportedly noncompliance with CPAP at home. OK to try the mask avail here. 8. Anemia of ESRD-declined since starting HD. Per Nephro recs. No bleeding or reason for acute transfusion at this time. DVT proph-held in light of upcoming surgery Dispo-to Med/Surg FULL CODE Livier Alan DO [facility] Hospitalist Level of Care Med/Surg Resuscitation Status FULL RESUSCITATION VTE Prophylaxis VTE Risk Assessment Done? Y/N: Yes Risk Level: Moderate Given or contraindicated: Contraindicated Additional Copies To Pam Taylor M.D.
[2016-12-07] VITALS (8 sets, daily range): BP systolic 113–138; BP diastolic 54–75; PULSE 74–77; TEMP 36.7–37.1; O2SAT 96–99
[2016-12-07] MEDS: OXYCODONE/ACETAMINOPHEN 5-325 TAB PO PRN ×4 (01:22→17:55)
[2016-12-07] MEDS: PIPERACILL/TAZOBAC IV 4.5 GM in DEXTROSE 5% 100ML IV SCH ×2 (01:23→13:54)
--- NOTE | 2016-12-07 07:22 | Orthopedic Progress Note ---
Orthopedic Progress Note Date of Service Dec 07, 2016. Subjective Post OP Day: 1 Reports: feeling well Objective N/V intact, incision C/D/I Date Time Temp Pulse Resp B/P (MAP) Pulse Ox O2 Delivery O2 Flow Rate FiO2 12/07/16 07:11 36.9 74 18 131/65 (87) 98 Room Air 12/07/16 03:15 36.9 77 16 117/54 (75) 96 Room Air 12/07/16 01:14 37.0 75 16 136/65 (88) 98 Room Air 12/07/16 00:00 36.8 75 16 137/66 (89) 98 Room Air 12/06/16 23:22 69 96 21 12/06/16 23:15 Room Air 12/06/16 23:02 36.5 73 16 122/66 (84) 99 Room Air 12/06/16 22:36 Room Air 12/06/16 22:31 Room Air 12/06/16 22:30 36.7 66 18 165/75 (105) 99 Room Air 12/06/16 22:00 36.4 67 16 144/74 (97) 98 12/06/16 21:50 36.2 12/06/16 21:47 61 16 12/06/16 21:47 61 16 100 12/06/16 21:46 125/72 12/06/16 21:42 62 16 100 12/06/16 21:42 62 16 12/06/16 21:41 131/66 12/06/16 21:37 64 18 98 12/06/16 21:37 63 18 12/06/16 21:36 62 19 12/06/16 21:36 64 19 113/58 100 12/06/16 21:31 61 15 121/65 97 12/06/16 21:31 62 15 12/06/16 21:26 64 17 12/06/16 21:26 63 17 114/61 96 12/06/16 21:22 120/64 12/06/16 21:21 69 26 94 12/06/16 21:21 36.1 65 20 120/64 98 Room Air 12/06/16 21:21 67 26 12/06/16 18:49 151/80 (103) 12/06/16 18:00 100 Room Air 12/06/16 18:00 36.8 65 14 151/80 100 Room Air 12/06/16 18:00 36.8 65 14 167/84 100 Room Air 12/06/16 17:54 36.8 65 14 167/84 (111) 100 Room Air 12/06/16 17:23 64 20 121/74 100 Room Air 12/06/16 16:00 67 18 128/78 100 Room Air 12/06/16 15:14 100 Room Air 12/06/16 14:06 36.9 69 16 131/71 96 Room Air Laboratory Results 24 Hours: Test 12/06/16 14:52 12/07/16 07:12 White Blood Count 9.37 K/uL Red Blood Count 2.87 M/uL Hemoglobin 8.7 g/dL Hematocrit 26.9 % Mean Corpuscular Volume 93.7 fL Mean Corpuscular Hemoglobin 30.3 pg Mean Corpuscular Hemoglobin Concent 32.3 g/dl Platelet Count 245 K/uL Mean Platelet Volume 8.5 fL Neutrophils (%) (Auto) 69.6 % Lymphocytes (%) (Auto) 10.9 % Monocytes (%) (Auto) 6.8 % Eosinophils (%) (Auto) 11.8 % Basophils (%) (Auto) 0.5 % Neutrophils # (Auto) 6.51 K/uL Lymphocytes # (Auto) 1.02 K/uL Monocytes # (Auto) 0.64 K/uL Eosinophils # (Auto) 1.11 K/uL Basophils # (Auto) 0.05 K/uL Prothromb Time International Ratio 1.1 Prothrombin Time 11.9 SECONDS Assessment & Plan Assessment: Post op day #1 I and D of septic PIP joint Plan: occupational therapy for ROM DC packing and change dressing wednesday continue Abx will follow Discharge Planning DVT Prophylaxis: SCDs Therapy: Occupational Therapy
[2016-12-07 07:29] LABS: BASO % 0.2 %; BASO ABS # 0.02 K/uL (0-0.2); EOS % 11.8 %; HEMATOCRIT 26.1 % (42-52); IG% 0.2 %; LYMPH % 8.6 %; LYMPH ABS # 0.81 K/uL (1.2-3.4); MEAN CELL VOLUME 93.2 fL (80-100); MEAN CORPUSCULAR HEMOGLOBIN 28.9 pg (25-34); MONO % 6.3 %; NEUT % 72.9 %; PLATELET COUNT 220 K/uL (130-400); WHITE BLOOD COUNT 9.47 K/uL (4.8-10.8)
[2016-12-07 08:02] LABS: COMPLETE YES
[2016-12-07 08:13] LABS: BUN/CREATININE RATIO 4.8 (10-20); CALCIUM 7.3 mg/dl (8.5-10.1); POTASSIUM 4.9 mmol/L (3.5-5.1)
[2016-12-07] MEDS: METOPROLOL TARTRATE 25 MG TAB PO SCH ×2 (09:43→20:33)
[2016-12-07] MEDS: CALCITRIOL 0.25 MCG CAP PO SCH (09:45)
[2016-12-07] MEDS: CALCIUM ACETATE 667MG GELCAP PO SCH ×3 (09:45→18:16)
[2016-12-07] MEDS: LISINOPRIL 20 MG TAB PO SCH (09:46)
[2016-12-07] MEDS: CHOLECALCIFEROL 1000 INTER.UNIT TAB PO SCH (09:46)
[2016-12-07] MEDS: NEPHROCAPS PO SCH (09:46)
[2016-12-07] MEDS: ATORVASTATIN 40 MG TAB PO SCH (09:46)
[2016-12-07] MEDS: TRIAMCINOLONE ACET 0.1% CR 80 GM TUBE EXT SCH ×2 (09:47→20:34)
[2016-12-07] MEDS ORDERED: VANCOMYCIN INJ 500 MG in SODIUM CHLORIDE 0.9% 250ML 250 ML IV ONE (10:00)
--- NOTE | 2016-12-07 10:51 | Nephrology Consultation ---
Nephrology Consultation Date of Consultation: Dec 07, 2016. Attending Physician: faisal stevenson Reason for Consultation: esrd History of Present Illness Patient is a 51 year old male who dialyzes at the [facility] on t /h/s. last treatment was wednesday and was uneventful. last wednesday, pt cut his finger while trimming chicken for the november. pt was using antibiotic cream and was doing well. no fevers or chills but hand had worsening swelling and came in to the hospital. Pt was recently in the hospital from 10/28 to 11/02 with gout and initiated dialysis at that time. pt interested in home therapies and to see the local surgeon in [place] for pd catheter placement. pt found to have a septic left middle pip joint and underwent arthrotomy and drainage of a septic joint last night. Past Medical/Surgical History Medical Problems: (1) Abscess Status: Acute (2) Abscess of right foot Status: Acute (3) Acidosis Status: Acute (4) Anemia Status: Acute (5) Cellulitis of left hand Status: Acute (6) HTN (hypertension) Status: Acute (7) Immunocompromised Status: Acute (8) Renal failure (ARF), acute on chronic Status: Acute (9) Sepsis Status: Acute (10) Tenosynovitis of finger Status: Acute ESRD on dialysis t/h/s at [facility] DM GOUT HTN JUNITO urinary retention-straight caths himself secondary to spinal tumor laminectomy fistula placement Family History Diabetes mellitus FH: cancer FH: gallbladder disease FH: heart disease Hypertension Kidney disease Kidney stones Social History Smoking Status: Never Smoker Alcohol Use: occasionally Drug Use: none, other Marital Status: single, in relationship Housing Status: lives with significant other Occupation Status: disabled Allergies Coded Allergies: Iodinated Diagnostic Agents (Verified Allergy, Unknown, STAGE 4 KIDNEY DISEASE, 12/06/16) Medications Current Inpatient Medications Medications (Trade) Dose Ordered Sig/Arti Route Start Time Stop Time Status Last Admin Dose Admin Acetaminophen (Tylenol Tab) 650 mg Q4H PRN PO 12/06/16 17:00 01/05/17 16:59 Polyethylene (Miralax Powder Packet) 17 gm DAILY PRN PO 12/06/16 17:00 01/05/17 16:59 Triamcinolone Acetonide (Triamcinolone Acet 0.1% Crm) 1 appln BID EXT 12/06/16 21:00 01/05/17 20:59 12/07/16 09:47 1 APPLN Vancomycin HCl (Consult) 1 ea UD PRN N/A 12/06/16 17:35 01/05/17 17:34 Atorvastatin Calcium (Lipitor Tab) 40 mg QAM PO 12/07/16 09:00 01/06/17 08:59 12/07/16 09:46 40 MG Vitamin B Complex/ Vit C/Folic Acid (Nephrocaps) 1 cap DAILY PO 12/07/16 09:00 01/06/17 08:59 12/07/16 09:46 1 CAP Calcitriol (Rocaltrol Cap) 0.25 mcg QAM PO 12/07/16 09:00 01/06/17 08:59 12/07/16 09:45 0.25 MCG Calcium Acetate (Phoslo Cap) 667 mg TIDM PO 12/06/16 17:56 01/05/17 17:59 12/07/16 09:45 667 MG Folic Acid (Folvite Tab) 1 mg DAILY PO 12/07/16 09:00 01/06/17 08:59 12/07/16 09:44 1 MG Hydralazine HCl (Apresoline Tab) 75 mg BID PO 12/06/16 21:00 01/05/17 20:59 12/07/16 09:44 75 MG Lisinopril (Zestril Tab) 20 mg QAM PO 12/07/16 09:00 01/06/17 08:59 12/07/16 09:46 20 MG Metoprolol Tartrate (Lopressor Tab) 75 mg BID PO 12/06/16 21:00 01/05/17 20:59 12/07/16 09:43 75 MG Cholecalciferol (Vitamin D Tab) 2,000 inter.unit QAM PO 12/07/16 09:00 01/06/17 08:59 12/07/16 09:46 2,000 INTER.UNIT Piperacillin Sod/ Tazobactam Sod (Consult) 1 ea UD PRN N/A 12/06/16 17:45 01/05/17 17:44 Piperacillin Sod/ Tazobactam Sod 4.5 gm/Dextrose 120 ml @ 30 mls/hr Q12H IV 12/07/16 02:00 12/16/16 23:59 12/07/16 01:23 30 MLS/HR Morphine Sulfate (MoRPHine SULFATE INJ) 2 mg Q4H PRN IV 12/06/16 18:45 12/20/16 18:44 Oxycodone/ Acetaminophen (Percocet 5-325mg Tab) 1 tab Q4H PRN PO 12/06/16 21:30 12/20/16 21:29 Oxycodone/ Acetaminophen (Percocet 5-325mg Tab) 2 tab Q4H PRN PO 12/06/16 21:30 12/20/16 21:29 12/07/16 08:06 2 TAB Ondansetron HCl (Zofran Inj) 4 mg ONE PRN IV 12/06/16 21:30 01/05/17 21:29 Vancomycin HCl 500 mg/Sodium Chloride 260 ml @ 125 mls/hr NOW ONCE IV 12/07/16 10:00 12/07/16 12:04 12/07/16 09:48 125 MLS/HR Home Meds and Scripts Medications Dose Route/Sig Max Daily Dose Days Date Category D 2000 (Cholecalciferol) 2,000 Unit Tab 2,000 Inter.unit PO QD 12/06/16 Reported Renal (B-Complex W/ C & Folic Acid) 1 Cap Cap 1 Cap PO DAILY 12/06/16 Reported Folic Acid 1 Mg Tab 1 Mg PO DAILY 30 11/02/16 Rx Phoslo 667 Mg (Calcium Acetate) 667 Mg Cap 667 Mg PO TIDM 30 11/02/16 Rx Lisinopril 20 Mg Tab 20 Mg PO QAM 11/02/16 Rx Apresoline (Hydralazine Hcl) 25 Mg Tab 75 Mg PO BID 30 11/02/16 Rx Lopressor (Metoprolol Tartrate) 50 Mg Tab 75 Mg PO BID 30 11/02/16 Rx Rocaltrol Cap (Calcitriol) 0.25 Mcg Cap 0.25 Mcg PO QAM 06/18/16 Reported Lipitor (Atorvastatin Calcium) 40 Mg Tab 40 Mg PO QAM 06/18/16 Reported Elavil (Amitriptyline Hcl) 25 Mg Tab 25 Mg PO HS 06/18/16 Reported Review of Systems Constitutional: No fever, No chills Eyes: No worsening of vision ENT: No hearing loss Respiratory: No shortness of breath Cardiac: No chest pain, No edema Abdomen: No nausea, No vomiting Musculoskeletal: + joint pain Male : + problem reported (decrease in urination) Neuro: No weakness Endo: + fatigue all other review of systems otherwise negative Physical Exam Date Time Temp Pulse Resp B/P (MAP) Pulse Ox O2 Delivery O2 Flow Rate FiO2 12/07/16 07:50 Room Air 12/07/16 07:11 36.9 74 18 131/65 (87) 98 Room Air 12/07/16 03:15 36.9 77 16 117/54 (75) 96 Room Air 12/07/16 01:14 37.0 75 16 136/65 (88) 98 Room Air 12/07/16 00:00 36.8 75 16 137/66 (89) 98 Room Air 12/06/16 23:22 69 96 21 12/06/16 23:15 Room Air 12/06/16 23:02 36.5 73 16 122/66 (84) 99 Room Air 12/06/16 22:36 Room Air 12/06/16 22:31 Room Air 12/06/16 22:30 36.7 66 18 165/75 (105) 99 Room Air 12/06/16 22:00 36.4 67 16 144/74 (97) 98 12/06/16 21:50 36.2 12/06/16 21:47 61 16 12/06/16 21:47 61 16 100 12/06/16 21:46 125/72 12/06/16 21:42 62 16 100 12/06/16 21:42 62 16 12/06/16 21:41 131/66 12/06/16 21:37 64 18 98 12/06/16 21:37 63 18 12/06/16 21:36 62 19 12/06/16 21:36 64 19 113/58 100 12/06/16 21:31 61 15 121/65 97 12/06/16 21:31 62 15 12/06/16 21:26 64 17 12/06/16 21:26 63 17 114/61 96 12/06/16 21:22 120/64 12/06/16 21:21 69 26 94 12/06/16 21:21 36.1 65 20 120/64 98 Room Air 12/06/16 21:21 67 26 12/06/16 18:49 151/80 (103) 12/06/16 18:00 100 Room Air 12/06/16 18:00 36.8 65 14 151/80 100 Room Air 12/06/16 18:00 36.8 65 14 167/84 100 Room Air 12/06/16 17:54 36.8 65 14 167/84 (111) 100 Room Air 12/06/16 17:23 64 20 121/74 100 Room Air 12/06/16 16:00 67 18 128/78 100 Room Air 12/06/16 15:14 100 Room Air 12/06/16 14:06 36.9 69 16 131/71 96 Room Air General Appearance: no apparent distress Eyes: normal inspection ENT: normal ENT inspection Neck: supple Respiratory/Chest: lungs clear Cardiovascular: regular rate, rhythm Abdomen: normal bowel sounds, non tender, soft Extremities: + pertinent finding Neurologic/Psych: + pertinent finding (straight caths) Skin: normal color, no jaundice Diagnostics Last 24 Hours Test 12/06/16 14:52 12/06/16 21:32 12/07/16 07:12 White Blood Count 9.37 K/uL 9.47 K/uL Red Blood Count 2.87 M/uL 2.80 M/uL Hemoglobin 8.7 g/dL 8.1 g/dL Hematocrit 26.9 % 26.1 % Mean Corpuscular Volume 93.7 fL 93.2 fL Mean Corpuscular Hemoglobin 30.3 pg 28.9 pg Mean Corpuscular Hemoglobin Concent 32.3 g/dl 31.0 g/dl Platelet Count 245 K/uL 220 K/uL Mean Platelet Volume 8.5 fL 8.0 fL Neutrophils (%) (Auto) 69.6 % 72.9 % Lymphocytes (%) (Auto) 10.9 % 8.6 % Monocytes (%) (Auto) 6.8 % 6.3 % Eosinophils (%) (Auto) 11.8 % 11.8 % Basophils (%) (Auto) 0.5 % 0.2 % Neutrophils # (Auto) 6.51 K/uL 6.90 K/uL Lymphocytes # (Auto) 1.02 K/uL 0.81 K/uL Monocytes # (Auto) 0.64 K/uL 0.60 K/uL Eosinophils # (Auto) 1.11 K/uL 1.12 K/uL Basophils # (Auto) 0.05 K/uL 0.02 K/uL RDW Standard Deviation 60.9 fL 60.3 fL RDW Coefficient of Variation 18.1 % 18.1 % Immature Granulocyte % (Auto) 0.4 % 0.2 % Immature Granulocyte # (Auto) 0.04 K/uL 0.02 K/uL Polychromasia 1+ Basophilic Stippling 1+ Anisocytosis PRESENT Erythrocyte Sedimentation Rate 47 mm/hr Prothrombin Time 11.9 SECONDS Prothromb Time International Ratio 1.1 Activated Partial Thromboplast Time 31.3 SECONDS Partial Thromboplastin Ratio 1.2 Sodium Level 135 mmol/L 136 mmol/L Potassium Level 4.2 mmol/L 4.9 mmol/L Chloride Level 93 mmol/L 99 mmol/L Carbon Dioxide Level 32 mmol/L 27 mmol/L Anion Gap 10.0 mmol/L 10.0 mmol/L Blood Urea Nitrogen 31 mg/dl 38 mg/dl Creatinine 6.90 mg/dl 8.00 mg/dl Est Creatinine Clear Calc Drug Dose 17.0 ml/min 14.7 ml/min Estimated GFR () 9.7 8.1 Estimated GFR (Non- 8.4 7.0 BUN/Creatinine Ratio 4.4 4.8 Random Glucose 116 mg/dl 99 mg/dl Lactic Acid Level 1.3 mmol/L Calcium Level 8.2 mg/dl 7.3 mg/dl Total Bilirubin 0.6 mg/dl Aspartate Amino Transf (AST/SGOT) 18 U/L Alanine Aminotransferase (ALT/SGPT) 24 U/L Alkaline Phosphatase 99 U/L Total Protein 6.8 gm/dl Albumin 2.9 gm/dl Globulin 3.9 gm/dl Albumin/Globulin Ratio 0.7 Bedside Glucose 92 mg/dl Red Blood Cell Morphology Unremarkable Random Vancomycin Level 22.6 mcg/ml Assessment & Plan ESRD-dialyzes t/h/s. no indication for dialysis today. plan on dialysis tomorrow. k 4.9 today Anemia of renal failure-goal hg of 10 to 11, will give procrit tomorrow on dialysis. hg down to 8.1, may have procrit resistance in the setting of infection. FAVIAN-will follow phos levels intermittently. on calcitriol, nephrocaps, phoslo. will double check the phoslo dose. ID-on appropriate antibiotics. blood cultures are pending. defer to primary hospitalist.
--- NOTE | 2016-12-07 10:54 | Progress Note ---
Internal Med Progress Note Date of Service: Dec 07, 2016. Provider Documentation: SUBJECTIVE: [] OBJECTIVE: Vital Signs-as noted below Exam: GEN: WNWD, in no acute distress, alert and appropriate CARDIO: reg rate, S1/2 heard without murmurs LUNGS: CTA bilaterally, no crackles, rales or wheezes, good diaphragmatic excursion ABD: soft, non-tender, non-distended, no rebound or guarding, +BS EXTREMITY: S/P LEFT 3RD FINGER I & D- Dressing present- hand elevated Lab data as noted below. ASSESSMENT & PLAN: Assessment and Plan 51 yo M presents with L finger infection x 1 week that is worse. LEFT FINGER INFECTION S/P Trauma while working with raw chicken and cutting his finger. Pain, swelling , stiffness kept worsening and thus came to ER. S/P I & D Septic PIP joint (3rd finger) on 12/06/16 by hand surgeon -IV Vancomycin/Zosyn (Day 2) . Follow up wound cultures from OR. Initial cultures- staph aureus, group b strep -Pain mx -Ortho on board. ESRD-on hemodialysis. -Pt is on a , , Sat cycle at [facility]. -Cont Calcitriol, Phoslo, Nephrocaps, vit D supplementation -Nephrology on board. HTN-chronic, stable. -Cont home meds including recently added hydralazine 75 BID, lisinopril 20 daily and lopressor recently increased to 75mg BID. DYSLIPIDEMIA -cont Lipitor 40mg URINARY RETENTION 2/2 benign spinal tumor-patient self catheterizes QID DIET CONTROLLED DM -2 -not on meds at home with recent A1C 5.4 in September 2016. -No need for fingersticks or ISS/carb coverage at this time. ANEMIA OF CKD -Stable JUNITO-reportedly noncompliance with CPAP at home. -Continue while in hospital DVT proph- SCDS/TEDS. Encouraged ambulation FULL CODE DISPOSITION Expected discharge home when stable Vital Signs: Date Time Temp Pulse Resp B/P (MAP) Pulse Ox O2 Delivery O2 Flow Rate FiO2 12/07/16 07:50 Room Air 12/07/16 07:11 36.9 74 18 131/65 (87) 98 Room Air 12/07/16 03:15 36.9 77 16 117/54 (75) 96 Room Air 12/07/16 01:14 37.0 75 16 136/65 (88) 98 Room Air 12/07/16 00:00 36.8 75 16 137/66 (89) 98 Room Air 12/06/16 23:22 69 96 21 12/06/16 23:15 Room Air 12/06/16 23:02 36.5 73 16 122/66 (84) 99 Room Air 12/06/16 22:36 Room Air 12/06/16 22:31 Room Air 12/06/16 22:30 36.7 66 18 165/75 (105) 99 Room Air 12/06/16 22:00 36.4 67 16 144/74 (97) 98 12/06/16 21:50 36.2 12/06/16 21:47 61 16 12/06/16 21:47 61 16 100 12/06/16 21:46 125/72 12/06/16 21:42 62 16 100 12/06/16 21:42 62 16 12/06/16 21:41 131/66 12/06/16 21:37 64 18 98 12/06/16 21:37 63 18 12/06/16 21:36 62 19 12/06/16 21:36 64 19 113/58 100 12/06/16 21:31 61 15 121/65 97 12/06/16 21:31 62 15 12/06/16 21:26 64 17 12/06/16 21:26 63 17 114/61 96 12/06/16 21:22 120/64 12/06/16 21:21 69 26 94 12/06/16 21:21 36.1 65 20 120/64 98 Room Air 12/06/16 21:21 67 26 12/06/16 18:49 151/80 (103) 12/06/16 18:00 100 Room Air 12/06/16 18:00 36.8 65 14 151/80 100 Room Air 12/06/16 18:00 36.8 65 14 167/84 100 Room Air 12/06/16 17:54 36.8 65 14 167/84 (111) 100 Room Air 12/06/16 17:23 64 20 121/74 100 Room Air 12/06/16 16:00 67 18 128/78 100 Room Air 12/06/16 15:14 100 Room Air 12/06/16 14:06 36.9 69 16 131/71 96 Room Air Lab Results: Results Past Hours Test 12/06/16 14:52 12/06/16 21:32 12/07/16 07:12 Range/Units White Blood Count 9.37 9.47 4.8-10.8 K/uL Red Blood Count 2.87 2.80 4.7-6.1 M/uL Hemoglobin 8.7 8.1 14.0-18.0 g/dL Hematocrit 26.9 26.1 42-52 % Mean Corpuscular Volume 93.7 93.2 80-100 fL Mean Corpuscular Hemoglobin 30.3 28.9 25-34 pg Mean Corpuscular Hemoglobin Concent 32.3 31.0 32-36 g/dl Platelet Count 245 220 130-400 K/uL Mean Platelet Volume 8.5 8.0 7.4-10.4 fL Neutrophils (%) (Auto) 69.6 72.9 % Lymphocytes (%) (Auto) 10.9 8.6 % Monocytes (%) (Auto) 6.8 6.3 % Eosinophils (%) (Auto) 11.8 11.8 % Basophils (%) (Auto) 0.5 0.2 % Neutrophils # (Auto) 6.51 6.90 1.4-6.5 K/uL Lymphocytes # (Auto) 1.02 0.81 1.2-3.4 K/uL Monocytes # (Auto) 0.64 0.60 0.11-0.59 K/uL Eosinophils # (Auto) 1.11 1.12 0-0.5 K/uL Basophils # (Auto) 0.05 0.02 0-0.2 K/uL RDW Standard Deviation 60.9 60.3 36.4-46.3 fL RDW Coefficient of Variation 18.1 18.1 11.5-14.5 % Immature Granulocyte % (Auto) 0.4 0.2 % Immature Granulocyte # (Auto) 0.04 0.02 0.00-0.02 K/uL Polychromasia 1+ Basophilic Stippling 1+ Anisocytosis PRESENT Erythrocyte Sedimentation Rate 47 0-14 mm/hr Prothrombin Time 11.9 9.0-12.0 SECONDS Prothromb Time International Ratio 1.1 0.9-1.1 Activated Partial Thromboplast Time 31.3 21.0-31.0 SECONDS Partial Thromboplastin Ratio 1.2 Sodium Level 135 136 136-145 mmol/L Potassium Level 4.2 4.9 3.5-5.1 mmol/L Chloride Level 93 99 98-107 mmol/L Carbon Dioxide Level 32 27 21-32 mmol/L Anion Gap 10.0 10.0 3-11 mmol/L Blood Urea Nitrogen 31 38 7-18 mg/dl Creatinine 6.90 8.00 0.60-1.40 mg/dl Est Creatinine Clear Calc Drug Dose 17.0 14.7 ml/min Estimated GFR () 9.7 8.1 Estimated GFR (Non- 8.4 7.0 BUN/Creatinine Ratio 4.4 4.8 10-20 Random Glucose 116 99 70-99 mg/dl Lactic Acid Level 1.3 0.4-2.0 mmol/L Calcium Level 8.2 7.3 8.5-10.1 mg/dl Total Bilirubin 0.6 0.2-1 mg/dl Aspartate Amino Transf (AST/SGOT) 18 15-37 U/L Alanine Aminotransferase (ALT/SGPT) 24 12-78 U/L Alkaline Phosphatase 99 45-117 U/L Total Protein 6.8 6.4-8.2 gm/dl Albumin 2.9 3.4-5.0 gm/dl Globulin 3.9 2.5-4.0 gm/dl Albumin/Globulin Ratio 0.7 0.9-2 Bedside Glucose 92 70-99 mg/dl Red Blood Cell Morphology Unremarkable Random Vancomycin Level 22.6 mcg/ml Microbiology Results 12/06/16 Blood Culture, Received Pending 12/06/16 Blood Culture, Received Pending 12/06/16 Gram Stain - Final, Resulted 12/06/16 Bacterial Culture, Resulted Pending
--- NOTE | 2016-12-07 11:31 | Pharmacy Progress Note ---
Pharmacy Abx Dose Short Note Date of Service Dec 07, 2016. Assessment & Plan Assessment * 51 year old male receiving Vancomycin/Zosyn for treatment of bone/joint infection (?septic PIP joint). * Day #2 of antimicrobial therapy. * Random vanc level obtained this morning is slightly supratherapeutic. Will provide additional small dose of vancomycin with repeat random level tomorrow morning. * Patient is to receive hemodialysis tomorrow. Plan * Vancomycin * Random level of 22.6 mcg/mL is slightly supratherapeutic. * Vancomycin 500mg IV x1 dose today * Goal trough level for bone/joint infection : ~15-20 mcg/mL, C/S pending * Random level ordered for: 12/08 with AM labs * Zosyn * Zosyn 4.5gm IV x1 dose over 30 min, then * Zosyn 4.5gm IV q12h extended 4-hour infusions - as recommended for patients on intermittent hemodialysis - more aggressive regimen selected based on BMI > 35kg/ m2 Pharmacy will continue to follow and will adjust dose/frequency as necessary. Thank you.
[2016-12-07 13:18] LABS: HEPATITIS B AB POS
[2016-12-08] VITALS (21 sets, daily range): BP systolic 103–138; BP diastolic 52–71; PULSE 65–93; TEMP 36.4–37.4; O2SAT 97–98
[2016-12-08] MEDS: PIPERACILL/TAZOBAC IV 4.5 GM in DEXTROSE 5% 100ML IV SCH ×2 (02:04→13:56)
[2016-12-08] MEDS: OXYCODONE/ACETAMINOPHEN 5-325 TAB PO PRN ×4 (02:05→18:46)
[2016-12-08 06:27] LABS: HEMATOCRIT 25.7 % (42-52); MEAN CELL VOLUME 93.5 fL (80-100); MEAN CORPUSCULAR HEMOGLOBIN 28.7 pg (25-34); MEAN CORPUSCULAR HGB CONC 30.7 g/dl (32-36); MEAN PLATELET VOLUME 8.2 fL (7.4-10.4); PLATELET COUNT 208 K/uL (130-400); RED BLOOD COUNT 2.75 M/uL (4.7-6.1); WHITE BLOOD COUNT 10.06 K/uL (4.8-10.8)
[2016-12-08 07:10] LABS: BUN/CREATININE RATIO 4.7 (10-20); CALCIUM 7.7 mg/dl (8.5-10.1); CREATININE 9.5 mg/dl (0.60-1.40); POTASSIUM 5.4 mmol/L (3.5-5.1)
--- NOTE | 2016-12-08 08:23 | Nephrology Progress Note ---
Nephrology Progress Note Date of Service: Dec 08, 2016. Subjective 51 yo male with esrd with neurogenic bladder who requires self catheterization twice a day and presented with infected pip joint requiring surgery. hand still swollen but otherwise feels good. no other complaints. blood cultures negative. wound culture positive for staph and group b strep. Objective Date Time Temp Pulse Resp B/P (MAP) Pulse Ox O2 Delivery O2 Flow Rate FiO2 12/08/16 07:15 Room Air 12/08/16 06:40 36.9 70 18 125/66 (85) 98 Room Air 12/08/16 03:51 36.8 77 16 134/71 (92) 97 Room Air 12/07/16 23:16 37.1 77 16 124/65 (84) 97 Room Air 12/07/16 20:21 75 138/75 (96) 12/07/16 20:20 Room Air 12/07/16 18:48 36.7 75 18 115/63 (80) 99 Room Air 12/07/16 15:43 37.1 74 18 113/55 (74) 97 Room Air Physical Exam: General-aaox3 Eyes-no scleral icterus ENT-mmm Neck-supple Lungs-cta Heart-rrr Abdomen-bs+ s/nt/nd Extremities-left hand/finger wrapped Neuro-nonfocal Current Inpatient Medications Medications (Trade) Dose Ordered Sig/Arti Route Start Time Stop Time Status Last Admin Dose Admin Acetaminophen (Tylenol Tab) 650 mg Q4H PRN PO 12/06/16 17:00 01/05/17 16:59 Polyethylene (Miralax Powder Packet) 17 gm DAILY PRN PO 12/06/16 17:00 01/05/17 16:59 Triamcinolone Acetonide (Triamcinolone Acet 0.1% Crm) 1 appln BID EXT 12/06/16 21:00 01/05/17 20:59 12/07/16 20:34 1 APPLN Vancomycin HCl (Consult) 1 ea UD PRN N/A 12/06/16 17:35 01/05/17 17:34 Atorvastatin Calcium (Lipitor Tab) 40 mg QAM PO 12/07/16 09:00 01/06/17 08:59 12/07/16 09:46 40 MG Vitamin B Complex/ Vit C/Folic Acid (Nephrocaps) 1 cap DAILY PO 12/07/16 09:00 01/06/17 08:59 12/07/16 09:46 1 CAP Calcitriol (Rocaltrol Cap) 0.25 mcg QAM PO 12/07/16 09:00 01/06/17 08:59 12/07/16 09:45 0.25 MCG Calcium Acetate (Phoslo Cap) 667 mg TIDM PO 12/06/16 17:56 01/05/17 17:59 12/07/16 18:16 667 MG Folic Acid (Folvite Tab) 1 mg DAILY PO 12/07/16 09:00 01/06/17 08:59 12/07/16 09:44 1 MG Hydralazine HCl (Apresoline Tab) 75 mg BID PO 12/06/16 21:00 01/05/17 20:59 12/07/16 20:33 75 MG Lisinopril (Zestril Tab) 20 mg QAM PO 12/07/16 09:00 01/06/17 08:59 12/07/16 09:46 20 MG Metoprolol Tartrate (Lopressor Tab) 75 mg BID PO 12/06/16 21:00 01/05/17 20:59 12/07/16 20:33 75 MG Cholecalciferol (Vitamin D Tab) 2,000 inter.unit QAM PO 12/07/16 09:00 01/06/17 08:59 12/07/16 09:46 2,000 INTER.UNIT Piperacillin Sod/ Tazobactam Sod (Consult) 1 ea UD PRN N/A 12/06/16 17:45 01/05/17 17:44 Piperacillin Sod/ Tazobactam Sod 4.5 gm/Dextrose 120 ml @ 30 mls/hr Q12H IV 12/07/16 02:00 12/16/16 23:59 12/08/16 02:04 30 MLS/HR Morphine Sulfate (MoRPHine SULFATE INJ) 2 mg Q4H PRN IV 12/06/16 18:45 12/20/16 18:44 Oxycodone/ Acetaminophen (Percocet 5-325mg Tab) 1 tab Q4H PRN PO 12/06/16 21:30 12/20/16 21:29 12/08/16 07:18 1 TAB Ondansetron HCl (Zofran Inj) 4 mg ONE PRN IV 12/06/16 21:30 01/05/17 21:29 Last 24 Hours Test 12/07/16 12:22 12/08/16 06:02 Hepatitis B Surface Antigen NEG Hepatitis B Surface Antibody POS Hepatitis B Core Total Antibody NON-REACTIVE White Blood Count 10.06 K/uL Red Blood Count 2.75 M/uL Hemoglobin 7.9 g/dL Hematocrit 25.7 % Mean Corpuscular Volume 93.5 fL Mean Corpuscular Hemoglobin 28.7 pg Mean Corpuscular Hemoglobin Concent 30.7 g/dl RDW Standard Deviation 61.6 fL RDW Coefficient of Variation 18.3 % Platelet Count 208 K/uL Mean Platelet Volume 8.2 fL Sodium Level 135 mmol/L Potassium Level 5.4 mmol/L Chloride Level 101 mmol/L Carbon Dioxide Level 22 mmol/L Anion Gap 12.0 mmol/L Blood Urea Nitrogen 44 mg/dl Creatinine 9.50 mg/dl Est Creatinine Clear Calc Drug Dose 12.3 ml/min Estimated GFR () 6.6 Estimated GFR (Non- 5.7 BUN/Creatinine Ratio 4.7 Random Glucose 92 mg/dl Calcium Level 7.7 mg/dl Random Vancomycin Level 22.8 mcg/ml Assessment & Plan ESRD-dialyzes t/h/s. for dialysis today on a 2k bath. Anemia of renal failure-goal hg of 10 to 11, will give procrit today. hg levels are trending down. FAVIAN-will follow phos levels intermittently. on calcitriol, nephrocaps, phoslo.
[2016-12-08] MEDS ORDERED: EPOETIN ALFA 10,000 UNITS/ML VIAL IV. ONE (08:30)
[2016-12-08] MEDS: CALCIUM ACETATE 667MG GELCAP PO SCH ×3 (08:30→18:09)
[2016-12-08] MEDS: METOPROLOL TARTRATE 25 MG TAB PO SCH ×2 (08:52→20:28)
[2016-12-08] MEDS: TRIAMCINOLONE ACET 0.1% CR 80 GM TUBE EXT SCH ×2 (08:52→20:28)
[2016-12-08] MEDS: ATORVASTATIN 40 MG TAB PO SCH (12:45)
[2016-12-08] MEDS: CALCITRIOL 0.25 MCG CAP PO SCH (12:46)
[2016-12-08] MEDS: NEPHROCAPS PO SCH (12:46)
[2016-12-08] MEDS: CHOLECALCIFEROL 1000 INTER.UNIT TAB PO SCH (12:46)
[2016-12-08] MEDS: LISINOPRIL 20 MG TAB PO SCH (12:46)
--- NOTE | 2016-12-08 15:12 | Pharmacy Progress Note ---
Pharmacy Abx Dose Short Note Date of Service Dec 08, 2016. Assessment & Plan Assessment * 51 year old male receiving Vancomycin/Zosyn for treatment of bone/joint infection (?septic PIP joint). * Day #3 of antimicrobial therapy. * Patient received ~3hr hemodialysis today (2L). * Cultures from 2nd/3rd fingers growing MRSA, vanc GAVI 2. * Random vanc level obtained this morning is slightly supratherapeutic. Will provide additional small dose of vancomycin today after dialysis session, with repeat random level tomorrow morning. Plan * Vancomycin * Random level of 22.8 mcg/mL is slightly supratherapeutic. * Vancomycin 500mg IV x1 dose today post-dialysis * Goal trough level for bone/joint infection : ~20 mcg/mL, vanc GAVI 2 * Random level ordered for: 12/09 with AM labs * Zosyn * Zosyn 4.5gm IV x1 dose over 30 min, then * Zosyn 4.5gm IV q12h extended 4-hour infusions - as recommended for patients on intermittent hemodialysis - more aggressive regimen selected based on BMI > 35kg/ m2 Pharmacy will continue to follow and will adjust dose/frequency as necessary. Thank you.
[2016-12-08] MEDS ORDERED: VANCOMYCIN INJ 500 MG in SODIUM CHLORIDE 0.9% 250ML 250 ML IV ONE (15:15)
--- NOTE | 2016-12-08 17:26 | Progress Note ---
Internal Med Progress Note Date of Service: Dec 08, 2016. Provider Documentation: SUBJECTIVE: The patient was seen and examined Complains of pain and swelling left Middle finger Denies any fever,chills OBJECTIVE: Vital Signs-as noted below Exam: General-no distress Eyes-normal ENT-normal Neck-supple Lungs-clear to auscultate bilaterally Heart-regular,no murmur appreciated Abdomen-Benign,no masses,bowel sound present Extremities-1+ edema bilaterally Neuro-AAOx3 Lab data as noted below. ASSESSMENT & PLAN: SEPTIC RIGHT PROXIMAL PIP JOINT WITH ABSCESS FORMATION S/P Trauma while working with raw chicken and cutting his finger on 12/01/16 S/P I & D Septic PIP joint (3rd finger) on 12/06/16 by hand surgeon -Continue IV Vancomycin/Zosyn (Day 3) . Follow up wound cultures from OR. Initial cultures- staph aureus, group b strep-sensitivity pending -Appreciate Ortho input ESRD-on hemodialysis. -Pt is on a Tues, Thurs, Sat cycle at [facility]. -Cont Calcitriol, Phoslo, Nephrocaps, vit D supplementation -Appreciate Nephrology HTN-chronic, stable. -Cont home meds including recently added hydralazine 75 BID, lisinopril 20 daily and Lopressor recently increased to 75mg BID. 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 -No need for fingersticks or ISS/carb coverage at this time. ANEMIA OF CKD -Stable JUNITO-reportedly noncompliance with CPAP at home. -Continue while in hospital DVT proph- SCDS/TEDS. Encouraged ambulation FULL CODE DISPOSITION Expected discharge home when stable Vital Signs: Date Time Temp Pulse Resp B/P (MAP) Pulse Ox O2 Delivery O2 Flow Rate FiO2 12/08/16 14:52 37.2 93 16 138/69 (92) 97 Room Air 12/08/16 12:31 36.4 84 18 122/62 (82) 98 Room Air 12/08/16 12:15 37.1 72 124/61 (82) 12/08/16 12:00 76 105/63 12/08/16 11:45 69 110/59 12/08/16 11:30 70 105/60 12/08/16 11:15 65 110/58 12/08/16 11:02 70 121/68 12/08/16 10:45 69 116/71 12/08/16 10:30 75 108/63 12/08/16 10:15 80 112/59 12/08/16 10:00 71 103/52 12/08/16 09:45 75 110/63 12/08/16 09:30 69 108/57 12/08/16 09:15 71 116/62 12/08/16 09:00 76 112/59 12/08/16 08:45 37.4 80 124/68 (86) 12/08/16 07:15 Room Air 12/08/16 06:40 36.9 70 18 125/66 (85) 98 Room Air 12/08/16 03:51 36.8 77 16 134/71 (92) 97 Room Air 12/07/16 23:16 37.1 77 16 124/65 (84) 97 Room Air 12/07/16 20:21 75 138/75 (96) 12/07/16 20:20 Room Air 12/07/16 18:48 36.7 75 18 115/63 (80) 99 Room Air Lab Results: Results Past 24 Hours Test 12/08/16 06:02 Range/Units White Blood Count 10.06 4.8-10.8 K/uL Red Blood Count 2.75 4.7-6.1 M/uL Hemoglobin 7.9 14.0-18.0 g/dL Hematocrit 25.7 42-52 % Mean Corpuscular Volume 93.5 80-100 fL Mean Corpuscular Hemoglobin 28.7 25-34 pg Mean Corpuscular Hemoglobin Concent 30.7 32-36 g/dl RDW Standard Deviation 61.6 36.4-46.3 fL RDW Coefficient of Variation 18.3 11.5-14.5 % Platelet Count 208 130-400 K/uL Mean Platelet Volume 8.2 7.4-10.4 fL Sodium Level 135 136-145 mmol/L Potassium Level 5.4 3.5-5.1 mmol/L Chloride Level 101 98-107 mmol/L Carbon Dioxide Level 22 21-32 mmol/L Anion Gap 12.0 3-11 mmol/L Blood Urea Nitrogen 44 7-18 mg/dl Creatinine 9.50 0.60-1.40 mg/dl Est Creatinine Clear Calc Drug Dose 12.3 ml/min Estimated GFR () 6.6 Estimated GFR (Non- 5.7 BUN/Creatinine Ratio 4.7 10-20 Random Glucose 92 70-99 mg/dl Calcium Level 7.7 8.5-10.1 mg/dl Random Vancomycin Level 22.8 mcg/ml
--- NOTE | 2016-12-08 19:31 | Orthopedic Progress Note ---
Orthopedic Progress Note Date of Service Dec 08, 2016. Subjective Post OP Day: 2 Reports: feeling well Objective incision C/D/I Does show a supple motion without significant discomfort. Finger is moderately swollen and does show erythema. I do not detect any additional fluctuance. Negative Knavel signs Date Time Temp Pulse Resp B/P (MAP) Pulse Ox O2 Delivery O2 Flow Rate FiO2 12/08/16 14:52 37.2 93 16 138/69 (92) 97 Room Air 12/08/16 12:31 36.4 84 18 122/62 (82) 98 Room Air 12/08/16 12:15 37.1 72 124/61 (82) 12/08/16 12:00 76 105/63 12/08/16 11:45 69 110/59 12/08/16 11:30 70 105/60 12/08/16 11:15 65 110/58 12/08/16 11:02 70 121/68 12/08/16 10:45 69 116/71 12/08/16 10:30 75 108/63 12/08/16 10:15 80 112/59 12/08/16 10:00 71 103/52 12/08/16 09:45 75 110/63 12/08/16 09:30 69 108/57 12/08/16 09:15 71 116/62 12/08/16 09:00 76 112/59 12/08/16 08:45 37.4 80 124/68 (86) 12/08/16 07:15 Room Air 12/08/16 06:40 36.9 70 18 125/66 (85) 98 Room Air 12/08/16 03:51 36.8 77 16 134/71 (92) 97 Room Air 12/07/16 23:16 37.1 77 16 124/65 (84) 97 Room Air 12/07/16 20:21 75 138/75 (96) 12/07/16 20:20 Room Air Laboratory Results 24 Hours: Test 12/08/16 06:02 Hematocrit 25.7 % Hemoglobin 7.9 g/dL Assessment & Plan Assessment: Post op day #1 2 and D of septic PIP joint Plan: occupational therapy for ROM I removed his packing today. I would not anticipate any further surgical treatment. Appreciate final recommendations for antibiotics as per infectious disease. At this point in time he should continue to ice and elevate the extremity. He should see me approximately 10 days from discharge at [facility] Discharge Planning DVT Prophylaxis: SCDs Therapy: Occupational Therapy
--- NOTE | 2016-12-08 19:33 | Consultant Recommendations ---
Chemistry Technician Recommendations Date of Service Dec 08, 2016. Chemistry Technician Recommendations He should follow up with Dr. [facility] [place] approximately 10 days from discharge Please call [phone] an appointment. Continue therapy for range of motion. Continue to elevate the hand above the level of the heart. Continue dry sterile dressing change once a day
[2016-12-09] VITALS (8 sets, daily range): BP systolic 128–161; BP diastolic 68–76; PULSE 66–80; TEMP 36.7–37.1; O2SAT 96–98
[2016-12-09] MEDS: PIPERACILL/TAZOBAC IV 4.5 GM in DEXTROSE 5% 100ML IV SCH ×2 (01:29→13:48)
[2016-12-09] MEDS: CALCIUM ACETATE 667MG GELCAP PO SCH ×3 (08:55→17:46)
[2016-12-09] MEDS: ATORVASTATIN 40 MG TAB PO SCH (09:00)
[2016-12-09] MEDS: NEPHROCAPS PO SCH (09:00)
[2016-12-09] MEDS: CALCITRIOL 0.25 MCG CAP PO SCH (09:01)
[2016-12-09] MEDS: METOPROLOL TARTRATE 25 MG TAB PO SCH ×2 (09:01→20:55)
[2016-12-09] MEDS: LISINOPRIL 20 MG TAB PO SCH (09:02)
[2016-12-09] MEDS: CHOLECALCIFEROL 1000 INTER.UNIT TAB PO SCH (09:02)
[2016-12-09] MEDS: TRIAMCINOLONE ACET 0.1% CR 80 GM TUBE EXT SCH ×2 (09:03→20:58)
--- NOTE | 2016-12-09 09:30 | Pharmacy Progress Note ---
Pharmacy Abx Dose Short Note Date of Service Dec 09, 2016. Assessment & Plan Assessment 51 year old male receiving Vancomycin/Zosyn for treatment of bone/joint infection (?septic PIP joint). * Day #4 of antimicrobial therapy. * Patient received ~3hr hemodialysis yesterday (2L). * Cultures from 2nd/3rd fingers growing MRSA, vanc GAVI 2. * Random vanc level obtained this morning is therapeutic. Will provide additional small dose of vancomycin today with repeat random level tomorrow morning. Plan * Vancomycin * Random level of 19.6 mcg/mL is therapeutic. * Vancomycin 500mg IV x1 dose today at approximately 1100 hours * Goal trough level for bone/joint infection : ~20 mcg/mL, vanc GAVI 2 * Random level ordered for: 12/10 with AM labs * Zosyn * Zosyn 4.5gm IV x1 dose over 30 min, then * Zosyn 4.5gm IV q12h extended 4-hour infusions - as recommended for patients on intermittent hemodialysis - more aggressive regimen selected based on BMI > 35kg/ m2 Pharmacy will continue to follow and will adjust dose/frequency as necessary. Thank you.
[2016-12-09] MEDS ORDERED: VANCOMYCIN INJ 500 MG in SODIUM CHLORIDE 0.9% 250ML 250 ML IV ONE (11:00)
[2016-12-09] MEDS: OXYCODONE/ACETAMINOPHEN 5-325 TAB PO PRN ×2 (12:36→20:52)
--- NOTE | 2016-12-09 14:14 | Medical Consult ---
Consultation Date of Consultation: Dec 09, 2016. Attending Physician: Neptali Hobbs M.D. History of Present Illness pt admitted with infection left third finger, had significant infection, underwent washout on 12/06. Started on vanco and zosyn. Recently started on HD. tolerating well. denies f/c. wound culture superficial and deep grew MRSA and GBS, OR culture now with alpha strep as well. ESR 47, wbc nml. creat increased. vanco trough today is 19.6. MRSA resistant to doxy and clinda. ID consulted for abx. No more OR planned. states pain is 4/10. no f/c no cp, cough, sob, n/v/d. no allergies to abx. all remaining ros reviewed and are negative. Past Medical/Surgical History Medical Problems: (1) Abscess Status: Acute (2) Abscess of right foot Status: Acute (3) Acidosis Status: Acute (4) Anemia Status: Acute (5) Cellulitis of left hand Status: Acute (6) HTN (hypertension) Status: Acute (7) Immunocompromised Status: Acute (8) Renal failure (ARF), acute on chronic Status: Acute (9) Sepsis Status: Acute (10) Tenosynovitis of finger Status: Acute Family History Diabetes mellitus FH: cancer FH: gallbladder disease FH: heart disease Hypertension Kidney disease Kidney stones Social History Smoking Status: Never Smoker Smokeless Tobacco Use: Yes Alcohol Use: occasionally (weekends only) Drug Use: none, other Marital Status: single, in relationship Housing Status: lives with significant other Occupation Status: disabled Allergies Coded Allergies: Iodinated Diagnostic Agents (Verified Allergy, Unknown, STAGE 4 KIDNEY DISEASE, 12/06/16) Current Inpatient Medications Current Inpatient Medications Medications (Trade) Dose Ordered Sig/Arti Route Start Time Stop Time Status Last Admin Dose Admin Acetaminophen (Tylenol Tab) 650 mg Q4H PRN PO 12/06/16 17:00 01/05/17 16:59 Polyethylene (Miralax Powder Packet) 17 gm DAILY PRN PO 12/06/16 17:00 01/05/17 16:59 Triamcinolone Acetonide (Triamcinolone Acet 0.1% Crm) 1 appln BID EXT 12/06/16 21:00 01/05/17 20:59 12/09/16 09:03 1 APPLN Vancomycin HCl (Consult) 1 ea UD PRN N/A 12/06/16 17:35 01/05/17 17:34 Atorvastatin Calcium (Lipitor Tab) 40 mg QAM PO 12/07/16 09:00 01/06/17 08:59 12/09/16 09:00 40 MG Vitamin B Complex/ Vit C/Folic Acid (Nephrocaps) 1 cap DAILY PO 12/07/16 09:00 01/06/17 08:59 12/09/16 09:00 1 CAP Calcitriol (Rocaltrol Cap) 0.25 mcg QAM PO 12/07/16 09:00 01/06/17 08:59 12/09/16 09:01 0.25 MCG Calcium Acetate (Phoslo Cap) 667 mg TIDM PO 12/06/16 17:56 01/05/17 17:59 12/09/16 12:33 667 MG Folic Acid (Folvite Tab) 1 mg DAILY PO 12/07/16 09:00 01/06/17 08:59 12/09/16 09:01 1 MG Hydralazine HCl (Apresoline Tab) 75 mg BID PO 12/06/16 21:00 01/05/17 20:59 12/09/16 09:02 75 MG Lisinopril (Zestril Tab) 20 mg QAM PO 12/07/16 09:00 01/06/17 08:59 12/09/16 09:02 20 MG Metoprolol Tartrate (Lopressor Tab) 75 mg BID PO 12/06/16 21:00 01/05/17 20:59 12/09/16 09:01 75 MG Cholecalciferol (Vitamin D Tab) 2,000 inter.unit QAM PO 12/07/16 09:00 01/06/17 08:59 12/09/16 09:02 2,000 INTER.UNIT Piperacillin Sod/ Tazobactam Sod (Consult) 1 ea UD PRN N/A 12/06/16 17:45 01/05/17 17:44 Piperacillin Sod/ Tazobactam Sod 4.5 gm/Dextrose 120 ml @ 30 mls/hr Q12H IV 12/07/16 02:00 12/16/16 23:59 12/09/16 13:48 30 MLS/HR Morphine Sulfate (MoRPHine SULFATE INJ) 2 mg Q4H PRN IV 12/06/16 18:45 12/20/16 18:44 12/08/16 20:37 2 MG Oxycodone/ Acetaminophen (Percocet 5-325mg Tab) 1 tab Q4H PRN PO 12/06/16 21:30 12/20/16 21:29 12/09/16 12:36 1 TAB Ondansetron HCl (Zofran Inj) 4 mg ONE PRN IV 12/06/16 21:30 01/05/17 21:29 Physical Exam Date Time Temp Pulse Resp B/P (MAP) Pulse Ox O2 Delivery O2 Flow Rate FiO2 12/09/16 11:30 36.7 66 20 150/68 (95) 98 Room Air 12/09/16 08:18 96 Room Air 12/09/16 07:40 Room Air 12/09/16 07:25 37.0 80 16 140/68 (92) 96 Room Air 12/09/16 03:24 37.0 80 16 145/73 (97) 98 Room Air 12/08/16 23:07 37.0 81 16 123/68 (86) 97 Room Air 12/08/16 20:10 Room Air 12/08/16 19:56 36.8 86 16 135/64 (87) 97 Room Air 12/08/16 14:52 37.2 93 16 138/69 (92) 97 Room Air General Appearance: WD/WN, no apparent distress Head: normocephalic, atraumatic Eyes: normal inspection, EOMI Neck: supple Respiratory/Chest: lungs clear, normal breath sounds, no respiratory distress Cardiovascular: regular rate, rhythm, no edema Abdomen/GI: non tender, soft Extremities/Musculoskelatal: normal inspection, no pedal edema, + pertinent finding (third left finger dressin c/d/i, no drainage, no warmth, able to move digit, no drainage, no bleeding, no surrounding cellulitis) Neurologic/Psych: alert, oriented x 3 Skin: normal color Laboratory Results Item Value Date Time Gram Stain - Final Resulted 12/06/16 0000 Cellulitis Finger , Left 3rd Blood Culture - Preliminary Resulted 12/06/16 1452 Blood NO GROWTH TO DATE. Blood Culture - Preliminary Resulted 12/06/16 1502 Blood NO GROWTH TO DATE. Gram Stain - Final Resulted 12/06/16 2109 Abscess 2nd Gram Stain - Final Resulted 12/06/162108 Abscess 2nd Random Vancomycin Level 19.6 mcg/ml 12/09/16 0625 Last 24 Hours Test 12/09/16 06:25 Random Vancomycin Level 19.6 mcg/ml Assessment & Plan (1) Tenosynovitis of finger Assessment & Plan: with ESRD would prefer to place pt on zyvox po with augmentin 875mg daily but will need to verify insurance coverage. no other po options available to treat MRSA with doxy and clinda resistance. He is on HD and can not receive bactrim. will change to augmentin and zyvox here, if unable to get zyvox coverage as outpt will need continue vanco therapy. ? if pt can have picc with assess issues for HD. will follow. thank you (2) Cellulitis of left hand Status: Acute (3) Abscess Status: Acute (4) MRSA (methicillin resistant Staphylococcus aureus)
--- NOTE | 2016-12-09 16:32 | Progress Note ---
Internal Med Progress Note Date of Service: Dec 09, 2016. Provider Documentation: SUBJECTIVE: The patient was seen and examined Complains of pain and swelling left Middle finger Denies any fever,chills Pain and swelling is better today Getting Physical therapy OBJECTIVE: Vital Signs-as noted below Exam: General-no distress Eyes-normal ENT-normal Neck-supple Lungs-clear to auscultate bilaterally Heart-regular,no murmur appreciated Abdomen-Benign,no masses,bowel sound present Extremities-1+ edema bilaterally Left Middle finger is bandaged Neuro-AAOx3 Lab data as noted below. ASSESSMENT & PLAN: SEPTIC RIGHT PROXIMAL PIP JOINT WITH ABSCESS FORMATION S/P Trauma while working with raw chicken and cutting his finger on 12/01/16 S/P I & D Septic PIP joint (3rd finger) on 12/06/16 by hand surgeon -Continue IV Vancomycin/Zosyn (Day 3) . Follow up wound cultures from OR. Initial cultures- staph aureus, group b strep-sensitivity pending -Appreciate Ortho input -Appreciate ID input -Oral Zyvox and Augmentin started today -likely home tomorrow -If Zyvox is not covered -will have to continue IV Vancomycin ESRD-on hemodialysis. -Pt is on a Tues, Th, Sat cycle at [place]. -Cont Calcitriol, Phoslo, Nephrocaps, vit D supplementation -Appreciate Nephrology -Continue HD HTN-chronic, stable. -Cont home meds including recently added hydralazine 75 BID, lisinopril 20 daily and Lopressor recently increased to 75mg BID. 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 -No need for fingersticks or ISS/carb coverage at this time. ANEMIA OF CKD -Stable JUNITO-reportedly noncompliance with CPAP at home. -Continue while in hospital DVT proph- SCDS/TEDS. Encouraged ambulation FULL CODE DISPOSITION Expected discharge home when stable Likely to be discharged tomorrow Vital Signs: Date Time Temp Pulse Resp B/P (MAP) Pulse Ox O2 Delivery O2 Flow Rate FiO2 12/09/16 15:10 Room Air 12/09/16 14:59 36.9 76 16 128/70 (89) 96 Room Air 12/09/16 11:30 36.7 66 20 150/68 (95) 98 Room Air 12/09/16 08:18 96 Room Air 12/09/16 07:40 Room Air 12/09/16 07:25 37.0 80 16 140/68 (92) 96 Room Air 12/09/16 03:24 37.0 80 16 145/73 (97) 98 Room Air 12/08/16 23:07 37.0 81 16 123/68 (86) 97 Room Air 12/08/16 20:10 Room Air 12/08/16 19:56 36.8 86 16 135/64 (87) 97 Room Air Lab Results: Results Past 24 Hours Test 12/09/16 06:25 Range/Units Random Vancomycin Level 19.6 mcg/ml
[2016-12-09] MEDS: LINEZOLID 600 MG TAB PO SCH (21:05)
[2016-12-10] VITALS (19 sets, daily range): BP systolic 102–155; BP diastolic 55–76; PULSE 66–86; TEMP 36.7–37.1; O2SAT 95–97
--- NOTE | 2016-12-10 07:25 | Nephrology Progress Note ---
Nephrology Progress Note Date of Service: Dec 10, 2016. Subjective 51 yo male with esrd with neurogenic bladder who requires self catheterization twice a day and presented with infected pip joint requiring surgery. hand continues to be swollen. no fevers or chills. good appetite. no n/v. Objective Date Time Temp Pulse Resp B/P (MAP) Pulse Ox O2 Delivery O2 Flow Rate FiO2 12/09/16 23:50 Room Air 12/09/16 23:25 36.7 71 18 161/76 (104) 97 Room Air 12/09/16 20:54 80 153/76 (101) 12/09/16 19:24 37.1 77 16 136/69 (91) Room Air 12/09/16 15:10 Room Air 12/09/16 14:59 36.9 76 16 128/70 (89) 96 Room Air 12/09/16 11:30 36.7 66 20 150/68 (95) 98 Room Air 12/09/16 08:18 96 Room Air 12/09/16 07:40 Room Air 12/09/16 07:25 37.0 80 16 140/68 (92) 96 Room Air Physical Exam: General-aaox3 Eyes-no scleral icterus ENT-mmm Neck-supple Lungs-clear Heart-regular Abdomen-bs+ s/nt/nd Extremities-left hand/finger wrapped and +edema in left hand Neuro-nonfocal Current Inpatient Medications Medications (Trade) Dose Ordered Sig/Arti Route Start Time Stop Time Status Last Admin Dose Admin Acetaminophen (Tylenol Tab) 650 mg Q4H PRN PO 12/06/16 17:00 01/05/17 16:59 Polyethylene (Miralax Powder Packet) 17 gm DAILY PRN PO 12/06/16 17:00 01/05/17 16:59 Triamcinolone Acetonide (Triamcinolone Acet 0.1% Crm) 1 appln BID EXT 12/06/16 21:00 01/05/17 20:59 12/09/16 20:58 1 APPLN Atorvastatin Calcium (Lipitor Tab) 40 mg QAM PO 12/07/16 09:00 01/06/17 08:59 12/09/16 09:00 40 MG Vitamin B Complex/ Vit C/Folic Acid (Nephrocaps) 1 cap DAILY PO 12/07/16 09:00 01/06/17 08:59 12/09/16 09:00 1 CAP Calcitriol (Rocaltrol Cap) 0.25 mcg QAM PO 12/07/16 09:00 01/06/17 08:59 12/09/16 09:01 0.25 MCG Calcium Acetate (Phoslo Cap) 667 mg TIDM PO 12/06/16 17:56 01/05/17 17:59 12/09/16 17:46 667 MG Folic Acid (Folvite Tab) 1 mg DAILY PO 12/07/16 09:00 01/06/17 08:59 12/09/16 09:01 1 MG Hydralazine HCl (Apresoline Tab) 75 mg BID PO 12/06/16 21:00 01/05/17 20:59 12/09/16 20:56 75 MG Lisinopril (Zestril Tab) 20 mg QAM PO 12/07/16 09:00 01/06/17 08:59 12/09/16 09:02 20 MG Metoprolol Tartrate (Lopressor Tab) 75 mg BID PO 12/06/16 21:00 01/05/17 20:59 12/09/16 20:55 75 MG Cholecalciferol (Vitamin D Tab) 2,000 inter.unit QAM PO 12/07/16 09:00 01/06/17 08:59 12/09/16 09:02 2,000 INTER.UNIT Morphine Sulfate (MoRPHine SULFATE INJ) 2 mg Q4H PRN IV 12/06/16 18:45 12/20/16 18:44 12/08/16 20:37 2 MG Oxycodone/ Acetaminophen (Percocet 5-325mg Tab) 1 tab Q4H PRN PO 12/06/16 21:30 12/20/16 21:29 12/09/16 20:52 1 TAB Ondansetron HCl (Zofran Inj) 4 mg ONE PRN IV 12/06/16 21:30 01/05/17 21:29 Amoxicillin/ Clavulanate Potassium (Augmentin Tab) 500 mg DAILY PO 12/10/16 09:00 01/21/17 08:59 Linezolid (Zyvox Tab) 600 mg BID PO 12/09/16 21:00 01/20/17 20:59 12/09/16 21:05 600 MG Epoetin Ismael (Procrit Inj) 10,000 units TODAY@0800 ONCE IV. 12/10/16 08:00 12/10/16 08:01 Assessment & Plan ESRD-dialyzes t/h/s. for dialysis today on a 2k bath. lungs cta and no edema in legs. has significant edema in hand. Anemia of renal failure-goal hg of 10 to 11, will give procrit today. last hg of 7.9. no transfusion indicated at this time. FAVIAN-continue binders and follow phos levels intermittently.
[2016-12-10] MEDS ORDERED: EPOETIN ALFA 10,000 UNITS/ML VIAL IV. ONE (08:00)
[2016-12-10] MEDS: CALCIUM ACETATE 667MG GELCAP PO SCH ×3 (08:30→14:37)
[2016-12-10] MEDS: METOPROLOL TARTRATE 25 MG TAB PO SCH (09:00)
[2016-12-10] MEDS ORDERED: AMOXICILLIN/CLAVULANATE TAB 500 MG TAB PO SCH (09:00)
--- NOTE | 2016-12-10 14:01 | Progress Note ---
Internal Med Progress Note Date of Service: Dec 10, 2016. Provider Documentation: SUBJECTIVE: The patient was seen and examined Complains of pain and swelling left Middle finger Denies any fever,chills Ready to get out of the hospital Has had numerous trial for PICC-failed and he does not want it anymore OBJECTIVE: Vital Signs-as noted below Exam: General-no distress Eyes-normal ENT-normal Neck-supple Lungs-clear to auscultate bilaterally Heart-regular,no murmur appreciated Abdomen-Benign,no masses,bowel sound present Extremities-1+ edema bilaterally Left Middle finger is bandaged Neuro-AAOx3 Lab data as noted below. ASSESSMENT & PLAN: SEPTIC RIGHT PROXIMAL PIP JOINT WITH ABSCESS FORMATION S/P Trauma while working with raw chicken and cutting his finger on 12/01/16 S/P I & D Septic PIP joint (3rd finger) on 12/06/16 by hand surgeon -Continue IV Vancomycin/Zosyn (Day 3) . Follow up wound cultures from OR. Initial cultures- staph aureus, group b strep-sensitivity pending -Appreciate Ortho input -Appreciate ID input -Oral Zyvox and Augmentin started today -likely home tomorrow -If Zyvox is not covered -will have to continue IV Vancomycin -Awaiting coverage for Zyvox -ready to be discharged ESRD-on hemodialysis. -Pt is on a , , Wed cycle at [place]. -Cont Calcitriol, Phoslo, Nephrocaps, vit D supplementation -Appreciate Nephrology -Continue HD as per Nephrology HTN-chronic, stable. -Cont home meds including recently added hydralazine 75 BID, lisinopril 20 daily and Lopressor recently increased to 75mg BID. 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 -No need for fingersticks or ISS/carb coverage at this time. ANEMIA OF CKD -Stable JUNITO-reportedly noncompliance with CPAP at home. -Continue while in hospital DVT proph- SCDS/TEDS. Encouraged ambulation FULL CODE DISPOSITION Expected discharge home when stable Likely to be discharged today if Zyvox is approved Vital Signs: Date Time Temp Pulse Resp B/P (MAP) Pulse Ox O2 Delivery O2 Flow Rate FiO2 7/13/17 12:45 73 136/76 12/10/16 12:30 70 131/65 12/10/16 12:15 76 125/59 12/10/16 12:00 69 116/72 12/10/16 11:48 36.8 70 14 115/69 (84) 97 Room Air 12/10/16 11:45 71 115/69 12/10/16 11:30 71 117/64 12/10/16 11:15 68 122/66 12/10/16 11:00 69 132/67 12/10/16 10:45 68 114/66 12/10/16 10:30 70 124/70 12/10/16 10:15 72 129/71 12/10/16 10:03 77 102/55 12/10/16 10:00 36.7 74 130/61 (84) 12/10/16 08:53 97 Room Air 12/10/16 07:50 36.7 66 14 141/71 (94) 97 Room Air 12/09/16 23:50 Room Air 12/09/16 23:25 36.7 71 18 161/76 (104) 97 Room Air 12/09/16 20:54 80 153/76 (101) 12/09/16 19:24 37.1 77 16 136/69 (91) Room Air 12/09/16 15:10 Room Air 12/09/16 14:59 36.9 76 16 128/70 (89) 96 Room Air
[2016-12-10] MEDS: LINEZOLID 600 MG TAB PO SCH (14:28)
[2016-12-10] MEDS: CHOLECALCIFEROL 1000 INTER.UNIT TAB PO SCH (14:28)
[2016-12-10] MEDS: CALCITRIOL 0.25 MCG CAP PO SCH (14:30)
[2016-12-10] MEDS: TRIAMCINOLONE ACET 0.1% CR 80 GM TUBE EXT SCH (14:30)
[2016-12-10] MEDS: ATORVASTATIN 40 MG TAB PO SCH (14:31)
[2016-12-10] MEDS: NEPHROCAPS PO SCH (14:32)
[2016-12-10] MEDS: LISINOPRIL 20 MG TAB PO SCH (14:34)
--- NOTE | 2016-12-10 14:50 | Progress Note ---
Subjective Date of Service: Dec 10, 2016. Subjective d/c pending zyvox approval. on augmentin, renal dosing. culture with mrsa and gbx. no more surgey planned, afebrile. blood cultures negative. Problem List Medical Problems: (1) Abscess Status: Acute (2) Abscess of right foot Status: Acute (3) Acidosis Status: Acute (4) Anemia Status: Acute (5) Cellulitis of left hand Status: Acute (6) HTN (hypertension) Status: Acute (7) Immunocompromised Status: Acute (8) Renal failure (ARF), acute on chronic Status: Acute (9) Sepsis Status: Acute (10) Tenosynovitis of finger Status: Acute Objective Vital Signs Date Time Temp Pulse Resp B/P (MAP) Pulse Ox O2 Delivery O2 Flow Rate FiO2 12/10/16 14:33 79 134/72 (92) 12/10/16 12:45 73 136/76 12/10/16 12:30 70 131/65 12/10/16 12:15 76 125/59 12/10/16 12:00 69 116/72 12/10/16 11:48 36.8 70 14 115/69 (84) 97 Room Air 12/10/16 11:45 71 115/69 12/10/16 11:30 71 117/64 12/10/16 11:15 68 122/66 12/10/16 11:00 69 132/67 12/10/16 10:45 68 114/66 12/10/16 10:30 70 124/70 12/10/16 10:15 72 129/71 12/10/16 10:03 77 102/55 12/10/16 10:00 36.7 74 130/61 (84) 12/10/16 08:53 97 Room Air 12/10/16 07:50 36.7 66 14 141/71 (94) 97 Room Air 12/09/16 23:50 Room Air 12/09/16 23:25 36.7 71 18 161/76 (104) 97 Room Air 12/09/16 20:54 80 153/76 (101) 12/09/16 19:24 37.1 77 16 136/69 (91) Room Air 12/09/16 15:10 Room Air 12/09/16 14:59 36.9 76 16 128/70 (89) 96 Room Air Laboratory Results Item Value Date Time Gram Stain - Final Resulted 12/06/16 0000 Cellulitis Finger , Left 3rd Blood Culture - Preliminary Resulted 12/06/16 1452 Blood NO GROWTH TO DATE. Blood Culture - Preliminary Resulted 12/06/16 1502 Blood NO GROWTH TO DATE. Gram Stain - Final Resulted 12/06/162108 Abscess 2nd Gram Stain - Final Resulted 12/06/162108 Abscess 2nd Gram Stain - Final Complete 12/06/16 0000 Cellulitis Finger , Left 3rd Gram Stain - Final Resulted 12/06/162108 Abscess 2nd Assessment and Plan (1) Tenosynovitis of finger Assessment & Plan: will need prolonged abx, min 21 days, awaiting zyvox approval, with hd and mrsa resistance will need zyvox. canfollow in wound center or ID office post d/c to assess if additional abx needed. control wound care. ok for d/c when stable. (2) Cellulitis of left hand (3) Abscess (4) MRSA (methicillin resistant Staphylococcus aureus)
[2016-12-10] MEDS ORDERED: LINE1TAB2 PO (15:30)
[2016-12-10] MEDS ORDERED: AMOX1TAB42 PO (15:30)
[2016-12-10] MEDS ORDERED: LCTX PO (15:30)
--- NOTE | 2016-12-10 15:43 | Discharge Instructions ---
Discharge Instructions Date of Service Dec 10, 2016. Admission Reason for Admission: Tenosynovitis Of Finger Discharge Discharge Diagnosis / Problem: SEPTIC RIGHT PROXIMAL PIP JOINT .MRSA Discharge Goals Goal(s): Prevent Disease Progression Activity Recommendations Activity Limitations: resume your previous activity . Instructions / Follow-Up Instructions / Follow-Up Dr Taylor on 12/17/16 at 10:45 AM,Please keep doing Dialysis and keep/make appointment with Ortho as advised and ID ( Dr Dorantes) in 3 weeks Current Hospital Diet Patient's current hospital diet: Renal Diet Discharge Diet Recommended Diet: Diabetes Type 2 Diet, Renal Diet Procedures Procedures Performed: Arthrotomy and drainage septic left middle finger proximal interphalangeal joint Pending Studies Studies pending at discharge: no Laboratory Results Hemoglobin A1c Test 10/28/16 20:55 Range/Units Estimated Average Glucose 108 mg/dl Hemoglobin A1c 5.4 4.5-5.6 % Medical Emergencies . Who to Call and When: Medical Emergencies: If at any time you feel your situation is an emergency, please call 911 immediately. . Non-Emergent Contact Non-Emergency issues call your: Primary Care Provider . Past History Medical & Surgical History: (1) Cellulitis (2) Cellulitis of left hand (3) Abscess (4) MRSA (methicillin resistant Staphylococcus aureus) (5) CKD (chronic kidney disease), stage IV (6) DM type 2 (diabetes mellitus, type 2) (7) Hypertension (8) Gout (9) Dyslipidemia (10) Depression (11) H/O hand surgery (12) H/O laminectomy (13) H/O arthroscopic knee surgery (14) H/o fistula placement . "Provider Documentation" section prepared by Neptali Hobbs. . Cloth Spreader Screen Printing Recommendations Cloth Spreader Screen Printing Recommendations: He [facility] [place] approximately 10 days from discharge Please call [phone] an appointment. Continue therapy for range of motion. Continue to elevate the hand above the level of the heart. Continue dry sterile dressing change once a day Dr Dorantes's office :please call for appointment in 3 weeks [phone] VTE Core Measure Inpt VTE Proph given/why not?: Unfractionated heparin SQ, Contraindicated
--- NOTE | 2016-12-11 08:01 | Discharge Summary ---
Discharge Summary Date of Service Dec 11, 2016. Discharge Summary Admission Date: Dec 06, 2016 at 16:24 Discharge Date: Dec 10, 2016 Discharge Disposition: Home with services Principal Diagnosis: SEPTIC RIGHT 3RD PROXIMAL PIP JOINT .MRSA Secondary Diagnoses/Problems: Please see H&P and Hospital Progress note Consultations: ID and Nephro Medication Reconciliation New Medications: Lactobacillus Acidophilus (Lactinex) Tab 2 TAB PO BID, #120 TAB Amoxicillin & Pot Clavulanate (Amoxicillin/Clavulanate P) 1 Tab Tab 500 MG PO DAILY for 21 Days, #21 TAB Linezolid (Linezolid) 600 Mg Tab 600 MG PO BID for 21 Days, #42 TAB Continued Medications: Atorvastatin (Lipitor) 40 Mg Tab 40 MG PO QAM B-Complex W/ C & Folic Acid (Renal) 1 Cap Cap 1 CAP PO DAILY, #90 Calcitriol (Rocaltrol Cap) 0.25 Mcg Cap 0.25 MCG PO QAM Calcium Acetate (Phoslo 667 Mg) 667 Mg Cap 667 MG PO TIDM for 30 Days, #90 CAP Cholecalciferol (D 2000) 2,000 Unit Tab 2000 INTER.UNIT PO QD Folic Acid (Folic Acid) 1 Mg Tab 1 MG PO DAILY for 30 Days, #30 TAB Hydralazine Hcl (Apresoline) 25 Mg Tab 75 MG PO BID for 30 Days, #60 TAB 2 Refills Lisinopril (Lisinopril) 20 Mg Tab 20 MG PO QAM for 30 Days, #30 TAB 2 Refills Metoprolol Tartrate (Lopressor) (Lopressor) 50 Mg Tab 75 MG PO BID for 30 Days, #90 TAB 2 Refills Discontinued Medications: Amitriptyline Hcl (Elavil) 25 Mg Tab 25 MG PO HS Admission Information HPI (per Admitting provider): 51 yoM with diet-controlled diabetes presents with a worsening L 3rd finger after cutting himself while working with raw chicken on December 01. He has a h/o chronic lymphedema and a working fistula in that LUE. He was recently admitted 10/28-11/02 for an MSSA scalp abscess that was I&D, an acute gout flare and worsening ESRD, and was started on hemodialysis during that admission. He has a h/o MRSA last year. He denies any fevers, chills, chest pain, SOB, nausea, vomiting, diarrhea, blood in stool. He recently underwent a fistulogram on 11/20 for a non-working fistula. Last hemodialysis was yesterday in [place], and patient states he felt "better than I ever have after a session." He reports that the pain and stiffness in his affected finger has been getting worse with time. He was evaluated by Dr. Torres in the ER with a plan to go for surgical washout this afternoon. 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 Status: Chronic Family History Diabetes mellitus FH: cancer FH: gallbladder disease FH: heart disease Hypertension Kidney disease Kidney stones Social History Smoking Status: Never Smoker Smokeless Tobacco Use: Yes Alcohol Use: occasionally (weekends only) Drug Use: none, other Marital Status: single, in relationship Housing status: lives alone Occupational Status: disabled Immunizations History of Influenza Vaccine: Yes Influenza Vaccine Date: May 15, 2016 History of Tetanus Vaccine?: Yes Tetanus Immunization Date: Dec 13, 2007 History of Pneumococcal: No Pneumococcal Date: Dec 31, 2008 History of Hepatitis B Vaccine: Yes Hepatitis Immunization Date: Apr 08, 2015 Multi-Drug Resistant Organisms History of MDRO: Yes Type of MDRO: MRSA Allergies Coded Allergies: Iodinated Diagnostic Agents (Verified Allergy, Unknown, STAGE 4 KIDNEY DISEASE, 12/06/16) Home Medications Scheduled Amitriptyline Hcl (Elavil), 25 MG PO HS Atorvastatin (Lipitor), 40 MG PO QAM B-Complex W/ C & Folic Acid (Renal), 1 CAP PO DAILY Calcitriol (Rocaltrol Cap), 0.25 MCG PO QAM Calcium Acetate (Phoslo 667 Mg), 667 MG PO TIDM Cholecalciferol (D 1999), 2,000 INTER.UNIT PO QD Folic Acid (Folic Acid), 1 MG PO DAILY Hydralazine Hcl (Apresoline), 75 MG PO BID Lisinopril (Lisinopril), 20 MG PO QAM Metoprolol Tartrate (Lopressor) (Lopressor), 75 MG PO BID Review of Systems At least ten systems reviewed and negative except as indicated in HPI and itching with rash on gluteal area for last couple of weeks. This is reportedly made worse by sitting in the chair at hemodialysis. Constitutional: No fever, No chills Eyes: No worsening of vision, No problem reported ENT: No sore throat Respiratory: No cough, No wheezing, No shortness of breath Cardiovascular: No chest pain Abdomen: No pain, No nausea, No vomiting, No diarrhea, No constipation, No GI bleeding Musculoskeletal: + joint pain, + swelling Genitourinary - Male: No problem reported Psychiatric: + insomnia, No substance abuse Endocrine: + problem reported (patient self-catheterizes four times daily) Integumentary: + rash (glutes), + itch Allergic / Immunologic: No food allergies Physical Ex - H&P Physical Exam Vital Signs Date Time Temp Pulse Resp B/P (MAP) Pulse Ox O2 Delivery O2 Flow Rate FiO2 12/06/16 17:23 64 20 121/74 100 Room Air 12/06/16 16:00 67 18 128/78 100 Room Air 12/06/16 14:06 36.9 69 16 131/71 96 Room Air GEN: WNWD, in no acute distress, alert and appropriate HEENT: NC/AT, PERRL, normal sclerae/conjunctivae, MMM, pharynx nonacute CARDIO: reg rate, S1/2 heard without m/g/r LUNGS: CTA bilaterally, no crackles, rales or wheezes, good diaphragmatic excursion ABD: soft, non-tender, non-distended, no rebound or guarding, +BS BUTTOCKS: erythematous excoriated as if scratched excessively around gluteal fold. Dry skin present, area is somewhat on both sides posteriorly EXTREMITY: RP and DP palpable 2+ bilat, no LE swelling or edema, extremities are warm and well-perfused NEURO: CN 2-12 grossly intact, sensation intact throughout, no gross focal deficits. MUSC: 5/5 strength throughout, no focal deficits SKIN: warm and dry and rash as above. Diagnostics - H&P Diagnostics Laboratory Results 12/06/16 14:52 Red Blood Count 2.87, Mean Corpuscular Volume 93.7, Mean Corpuscular Hemoglobin 30.3, Mean Corpuscular Hemoglobin Concent 32.3, Mean Platelet Volume 8.5, Neutrophils (%) (Auto) 69.6, Lymphocytes (%) (Auto) 10.9, Monocytes (%) (Auto) 6.8, Eosinophils (%) (Auto) 11.8, Basophils (%) (Auto) 0.5, Neutrophils # (Auto ) 6.51, Lymphocytes # (Auto) 1.02, Monocytes # (Auto) 0.64, Eosinophils # (Auto ) 1.11, Basophils # (Auto) 0.05 12/06/16 14:52 Test 12/06/16 14:52 12/06/16 21:32 White Blood Count 9.37 K/uL (4.8-10.8) Red Blood Count 2.87 M/uL (4.7-6.1) Hemoglobin 8.7 g/dL (14.0-18.0) Hematocrit 26.9 % (42-52) Mean Corpuscular Volume 93.7 fL (80-100) Mean Corpuscular Hemoglobin 30.3 pg (25-34) Mean Corpuscular Hemoglobin Concent 32.3 g/dl (32-36) Platelet Count 245 K/uL (130-400) Mean Platelet Volume 8.5 fL (7.4-10.4) Neutrophils (%) (Auto) 69.6 % Lymphocytes (%) (Auto) 10.9 % Monocytes (%) (Auto) 6.8 % Eosinophils (%) (Auto) 11.8 % Basophils (%) (Auto) 0.5 % Neutrophils # (Auto) 6.51 K/uL (1.4-6.5) Lymphocytes # (Auto) 1.02 K/uL (1.2-3.4) Monocytes # (Auto) 0.64 K/uL (0.11-0.59) Eosinophils # (Auto) 1.11 K/uL (0-0.5) Basophils # (Auto) 0.05 K/uL (0-0.2) RDW Standard Deviation 60.9 fL (36.4-46.3) RDW Coefficient of Variation 18.1 % (11.5-14.5) Immature Granulocyte % (Auto) 0.4 % Immature Granulocyte # (Auto) 0.04 K/uL (0.00-0.02) Polychromasia 1+ Basophilic Stippling 1+ Anisocytosis PRESENT Erythrocyte Sedimentation Rate 47 mm/hr (0-14) Prothrombin Time 11.9 SECONDS (9.0-12.0) Prothromb Time International Ratio 1.1 (0.9-1.1) Activated Partial Thromboplast Time 31.3 SECONDS (21.0-31.0) Partial Thromboplastin Ratio 1.2 Anion Gap 10.0 mmol/L (3-11) Est Creatinine Clear Calc Drug Dose 17.0 ml/min Estimated GFR () 9.7 Estimated GFR (Non- 8.4 BUN/Creatinine Ratio 4.4 (10-20) Lactic Acid Level 1.3 mmol/L (0.4-2.0) Calcium Level 8.2 mg/dl (8.5-10.1) Total Bilirubin 0.6 mg/dl (0.2-1) Aspartate Amino Transf (AST/SGOT) 18 U/L (15-37) Alanine Aminotransferase (ALT/SGPT) 24 U/L (12-78) Alkaline Phosphatase 99 U/L (45-117) Total Protein 6.8 gm/dl (6.4-8.2) Albumin 2.9 gm/dl (3.4-5.0) Globulin 3.9 gm/dl (2.5-4.0) Albumin/Globulin Ratio 0.7 (0.9-2) Bedside Glucose 92 mg/dl (70-99) Date/Time Source Procedure Growth Status 12/06/16 15:02 Blood Blood Culture Pending Received 12/06/16 21:09 Abscess 2nd Gram Stain Pending Received 12/06/16 21:09 Abscess 2nd Bacterial Culture Pending Received Results Past 24 Hours Test 12/06/16 14:52 Range/Units White Blood Count 9.37 4.8-10.8 K/uL Red Blood Count 2.87 4.7-6.1 M/uL Hemoglobin 8.7 14.0-18.0 g/dL Hematocrit 26.9 42-52 % Mean Corpuscular Volume 93.7 80-100 fL Mean Corpuscular Hemoglobin 30.3 25-34 pg Mean Corpuscular Hemoglobin Concent 32.3 32-36 g/dl Platelet Count 245 130-400 K/uL Mean Platelet Volume 8.5 7.4-10.4 fL Neutrophils (%) (Auto) 69.6 % Lymphocytes (%) (Auto) 10.9 % Monocytes (%) (Auto) 6.8 % Eosinophils (%) (Auto) 11.8 % Basophils (%) (Auto) 0.5 % Neutrophils # (Auto) 6.51 1.4-6.5 K/uL Lymphocytes # (Auto) 1.02 1.2-3.4 K/uL Monocytes # (Auto) 0.64 0.11-0.59 K/uL Eosinophils # (Auto) 1.11 0-0.5 K/uL Basophils # (Auto) 0.05 0-0.2 K/uL RDW Standard Deviation 60.9 36.4-46.3 fL RDW Coefficient of Variation 18.1 11.5-14.5 % Immature Granulocyte % (Auto) 0.4 % Immature Granulocyte # (Auto) 0.04 0.00-0.02 K/uL Polychromasia 1+ Basophilic Stippling 1+ Anisocytosis PRESENT Erythrocyte Sedimentation Rate 47 0-14 mm/hr Prothrombin Time 11.9 9.0-12.0 SECONDS Prothromb Time International Ratio 1.1 0.9-1.1 Activated Partial Thromboplast Time 31.3 21.0-31.0 SECONDS Partial Thromboplastin Ratio 1.2 Sodium Level 135 136-145 mmol/L Potassium Level 4.2 3.5-5.1 mmol/L Chloride Level 93 98-107 mmol/L Carbon Dioxide Level 32 21-32 mmol/L Anion Gap 10.0 3-11 mmol/L Blood Urea Nitrogen 31 7-18 mg/dl Creatinine 6.90 0.60-1.40 mg/dl Est Creatinine Clear Calc Drug Dose 17.0 ml/min Estimated GFR () 9.7 Estimated GFR (Non- 8.4 BUN/Creatinine Ratio 4.4 10-20 Random Glucose 116 70-99 mg/dl Lactic Acid Level 1.3 0.4-2.0 mmol/L Calcium Level 8.2 8.5-10.1 mg/dl Total Bilirubin 0.6 0.2-1 mg/dl Aspartate Amino Transf (AST/SGOT) 18 15-37 U/L Alanine Aminotransferase (ALT/SGPT) 24 12-78 U/L Alkaline Phosphatase 99 45-117 U/L Total Protein 6.8 6.4-8.2 gm/dl Albumin 2.9 3.4-5.0 gm/dl Globulin 3.9 2.5-4.0 gm/dl Albumin/Globulin Ratio 0.7 0.9-2 Microbiology Results 12/06/16 Blood Culture, Received Pending 12/06/16 Blood Culture, Received Pending 12/06/16 Gram Stain, Received Pending 12/06/16 Wound Culture, Received Pending Diagnostic Radiology LEFT HAND 3 VIEWS CLINICAL HISTORY: Infection in the third finger and the left hand. FINDINGS: 3 views of left hand are obtained. No prior studies are available for comparison at the time of dictation. The skeletal structures are osteopenic. No fracture is seen. No bony erosion or periostitis is identified. Moderate arthritic change with mild subluxation is seen at the first metacarpophalangeal joint. Mild arthritic change is present at the first carpometacarpal articulation and involving the interphalangeal joints. Surgical clips are present around the wrist. There is marked soft tissue edema involving the wrist and hand. An indeterminant rectangular foreign body within the ventral soft tissues in the wrist may represent a surgical drain. No subcutaneous gas is seen. IMPRESSION: 1. Osteopenia and arthritic change as above. No acute bony abnormality is seen in the left hand. 2. Marked soft tissue edema is present around the left wrist and in the hand. 4. A foreign body within the ventral soft tissues of the wrist may represent a surgical drain. Clinical correlation will be required.. EKG EKG from 10/29/2016 reveals SR 69 w evidence of LVH Impression - H&P Impression Assessment and Plan 51 yo M presents with L finger infection x 1 week that is worse. 1. L finger infection 2/2 working with raw chicken and cutting his finger. Pt with decreased ROM and worsening pain. No systemic signs are present currently , however, surgery required per Ortho who evaluated him in the ER. Cont Vanc/ Zosyn. Dr. Torres with plans to take him to the OR later today. Keep NPO, pain control efforts. 2. ESRD-on hemodialysis. Dr. Ragsdale was consulted. Pt is on a Tues, Thurs, Sat cycle at [place]. Cont Calcitriol, Phoslo, Nephrocaps, vit D supplementation 3. HTN-chronic, stable. Cont home meds including recently added hydralazine 75 BID, lisinopril 20 daily and lopressor recently increased to 75mg BID. 4. Dyslipidemia-cont Lipitor 40mg 5. Urinary retention 2/2 benign spinal tumor-patient self catheterizes QID 6. Diet-controlled diabetes-not on meds at home with recent A1C 5.4 in September 2016. No need for fingersticks or ISS/carb coverage at this time. 7. JUNITO-reportedly noncompliance with CPAP at home. OK to try the mask avail here. 8. Anemia of ESRD-declined since starting HD. Per Nephro recs. No bleeding or reason for acute transfusion at this time. DVT proph-held in light of upcoming surgery Dispo-to Med/Surg FULL CODE Livier Alan DO [facility]ist Level of Care Med/Surg Resuscitation Status FULL RESUSCITATION VTE Prophylaxis VTE Risk Assessment Done? Y/N: Yes Risk Level: Moderate Given or contraindicated: Contraindicated Additional Copies To Pam Taylor M.D. Physical Exam (per Admitting): GEN: WNWD, in no acute distress, alert and appropriate HEENT: NC/AT, PERRL, normal sclerae/conjunctivae, MMM, pharynx nonacute CARDIO: reg rate, S1/2 heard without m/g/r LUNGS: CTA bilaterally, no crackles, rales or wheezes, good diaphragmatic excursion ABD: soft, non-tender, non-distended, no rebound or guarding, +BS BUTTOCKS: erythematous excoriated as if scratched excessively around gluteal fold. Dry skin present, area is somewhat on both sides posteriorly EXTREMITY: RP and DP palpable 2+ bilat, no LE swelling or edema, extremities are warm and well-perfused NEURO: CN 2-12 grossly intact, sensation intact throughout, no gross focal deficits. MUSC: 5/5 strength throughout, no focal deficits SKIN: warm and dry and rash as above. Hospital Course SEPTIC RIGHT PROXIMAL PIP JOINT WITH ABSCESS FORMATION S/P Trauma while working with raw chicken and cutting his finger on 12/01/16 S/P I & D Septic PIP joint (3rd finger) on 12/06/16 by hand surgeon -Continue IV Vancomycin/Zosyn (Day 3) . Follow up wound cultures from OR. Initial cultures- staph aureus, group b strep-sensitivity pending -Appreciate Ortho input -Appreciate ID input -Oral Zyvox and Augmentin started today -likely home tomorrow -If Zyvox is not covered -will have to continue IV Vancomycin -Awaiting coverage for Zyvox -ready to be discharged ESRD-on hemodialysis. -Pt is on a , , Wed cycle at [place]. -Cont Calcitriol, Phoslo, Nephrocaps, vit D supplementation -Appreciate Nephrology -Continue HD as per Nephrology HTN-chronic, stable. -Cont home meds including recently added hydralazine 75 BID, lisinopril 20 daily and Lopressor recently increased to 75mg BID. 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 -No need for fingersticks or ISS/carb coverage at this time. ANEMIA OF CKD -Stable JUNITO-reportedly noncompliance with CPAP at home. -Continue while in hospital DVT proph- SCDS/TEDS. Encouraged ambulation FULL CODE DISPOSITION Expected discharge home when stable Likely to be discharged today if Zyvox is approved Total time spent on discharge = 35 minutes This includes examination of the patient, discharge planning, medication reconciliation, and communication with other providers. Discharge Instructions Date of Service Dec 10, 2016. Admission Reason for Admission: Tenosynovitis Of Finger Discharge Discharge Diagnosis / Problem: SEPTIC RIGHT PROXIMAL PIP JOINT .MRSA Discharge Goals Goal(s): Prevent Disease Progression Activity Recommendations Activity Limitations: resume your previous activity . Instructions / Follow-Up Instructions / Follow-Up Dr Taylor on 12/17/16 at 10:45 AM,Please keep doing Dialysis and keep/make appointment with Ortho as advised and ID ( Dr Dorantes) in 3 weeks Current Hospital Diet Patient's current hospital diet: Renal Diet Discharge Diet Recommended Diet: Diabetes Type 2 Diet, Renal Diet Procedures Procedures Performed: Arthrotomy and drainage septic left middle finger proximal interphalangeal joint Pending Studies Studies pending at discharge: no Laboratory Results Hemoglobin A1c Test 10/28/16 20:55 Range/Units Estimated Average Glucose 108 mg/dl Hemoglobin A1c 5.4 4.5-5.6 % Medical Emergencies . Who to Call and When: Medical Emergencies: If at any time you feel your situation is an emergency, please call 911 immediately. . Non-Emergent Contact Non-Emergency issues call your: Primary Care Provider . Past History Medical & Surgical History: (1) Cellulitis (2) Cellulitis of left hand (3) Abscess (4) MRSA (methicillin resistant Staphylococcus aureus) (5) CKD (chronic kidney disease), stage IV (6) DM type 2 (diabetes mellitus, type 2) (7) Hypertension (8) Gout (9) Dyslipidemia (10) Depression (11) H/O hand surgery (12) H/O laminectomy (13) H/O arthroscopic knee surgery (14) H/o fistula placement . "Provider Documentation" section prepared by Neptali Hbobs. . Boatwright Recommendations Boatwright Recommendations: He should follow up with [facility] [place] approximately 10 days from discharge Please call [phone] an appointment. Continue therapy for range of motion. Continue to elevate the hand above the level of the heart. Continue dry sterile dressing change once a day Dr Dorantes's office :please call for appointment in 3 weeks [phone] VTE Core Measure Inpt VTE Proph given/why not?: Unfractionated heparin SQ, Contraindicated <Electronically signed by Neptali Hobbs M.D.> Signed: 12/10/16 1547 Signed: Additional Copies To Pam Taylor M.D.
== END 2016-12-10 16:15 | disposition home or self-care (01) | DRG 506 ==
LOC: C.EDB 14:05 → C.MSN 16:24 → ENRESERV 16:33 → EDBEDREQ 17:09
PROVIDERS: ADMIT Hospitalist; ATTEND Internal Medicine
PROC: 0R9X0ZZ Drainage of Left Finger Phalangeal Joint, Open Approach (ICD-10-PCS; principal; 2016-12-06 19:30)
PROC: 0RBX0ZZ Excision of Left Finger Phalangeal Joint, Open Approach (ICD-10-PCS; principal; 2016-12-06 19:30)
DX: M00.041 Staphylococcal arthritis, right hand (principal); N18.6 End stage renal disease; I12.0 Hypertensive chronic kidney disease with stage 5 chronic kidney disease or end stage renal disease; L03.012 Cellulitis of left finger; M65.142 Other infective (teno)synovitis, left hand; B95.62 Methicillin resistant Staphylococcus aureus infection as the cause of diseases classified elsewhere; B95.0 Streptococcus, group A, as the cause of diseases classified elsewhere; B95.1 Streptococcus, group B, as the cause of diseases classified elsewhere; S61.213A Laceration without foreign body of left middle finger without damage to nail, initial encounter; W26.0XXA Contact with knife, initial encounter; E11.22 Type 2 diabetes mellitus with diabetic chronic kidney disease; E78.5 Hyperlipidemia, unspecified; N25.0 Renal osteodystrophy; D49.2 Neoplasm of unspecified behavior of bone, soft tissue, and skin; R33.9 Retention of urine, unspecified; D63.1 Anemia in chronic kidney disease; G47.33 Obstructive sleep apnea (adult) (pediatric); I89.0 Lymphedema, not elsewhere classified; E66.9 Obesity, unspecified; Z68.36 Body mass index [BMI] 36.0-36.9, adult; Z91.19 Patient's noncompliance with other medical treatment and regimen; Z99.2 Dependence on renal dialysis; Z95.828 Presence of other vascular implants and grafts; Z79.891 Long term (current) use of opiate analgesic; Z79.899 Other long term (current) drug therapy

== ENCOUNTER → 2017-03-12 | Outpatient (CLI) | payer OTHER ==
[~2017-03-12] MED LIST changes: -AMIT25TA9 PO; +AMOX1TAB42 PO; +B-COCAP20 PO; +CHOL1TAB76 PO; +LCTX PO; +LINE1TAB2 PO; -ULT50X PO
--- NOTE | 2017-03-17 10:54 | CODING QUERY NO DIAGNOSIS ---
: 1965 TREATMENT RENDERED WITHOUT A DIAGNOSIS To promote full compliance with coding requirements relating to patient care, physician participation is requested in all cases of tar boiler uncertainty. Please assist us with providing a diagnosis/symptom for the test(s) below: A diagnosis/symptom was not documented on your Order. A valid diagnosis/symptom is required to bill all insurances. Please remember that we are unable to code a diagnosis of rule out, probable, possible, questionable, or suspected. Tests that require a diagnosis: DOS: 03/12/17 * AERO/ANAE CULTURE & GRAM STAIN DIAGNOSIS: Provider Signature: Date: Thank you [facility] [employer] [facility] Once completed, please kindly fax back to [phone] For questions please call [phone]
== END | disposition home or self-care (01) ==
LOC: C.LABSPEC 17:02
PROVIDERS: ATTEND Orthopaedic Surgery
DX: M86.9 Osteomyelitis, unspecified (principal)

== ENCOUNTER 2020-01-24 08:34 | Inpatient (IN) ==
--- NOTE | 2020-01-24 08:55 | Emergency Department Note ---
Impression & Plan CHF (congestive heart failure), HTN (hypertension), Dialysis patient, Acute hyperkalemia, Breath shortness ED Provider Note NAME: SOLE LEE AGE: 54 SEX: M : 1965 ARRIVES VIA: Walk-In INFORMANT: Patient ED PROVIDER(S): Hipolito Nova DO CHIEF COMPLAINT: Shortness of breath HPI: Patient is a 54-year-old male who presents the ER for shortness of breath. He is dialysis dependent Wednesday, Wednesday, Wednesday. Last course of dialysis was this past Wednesday. He skipped Wednesday as he had some left upper dental pain. He did not see anybody for this. He denies any chest pain. No belly pain but notes may be some fullness in his abdomen. No nausea vomiting or diarrhea. He still urinates about twice a day. Denies any loss of taste or smell. No cough. He has had a runny nose for the past month. No exposure to anyone with coronavirus. No other exacerbating or remitting factors. Shortness of breath is not worse with lying flat or up moving around or anything else that he can think of. Was not a previous smoker. Does dip. No other exacerbating or remitting factors. ROS: See above HPI for pertinent positives & negatives. A total of 10 systems reviewed and were otherwise negative. PAST MEDICAL HISTORY:See Below PAST SURGICAL HISTORY:See Below FAMILY HISTORY:See Below SOCIAL HISTORY:See Below HOME MEDICATIONS:See Below ALLERGIES:See Below VITALS:See Below PHYSICAL EXAMINATION: GENERAL: Sitting up in bed, alert, well appearing, well nourished, dyspneic with conversation EYE EXAM: normal conjunctiva. OROPHARYNX: no exudate, no erythema, lips, buccal mucosa, and tongue normal and mucous membranes are moist NECK: supple, no nuchal rigidity, no adenopathy, non-tender LUNGS: Diminished at bilateral bases. Normal chest wall mechanics HEART: no murmurs, S1 normal and S2 normal ABDOMEN: abdomen soft, non-tender, normo-active bowel sounds, no masses, no rebound or guarding. BACK: Back is symmetrical on inspection and there is no deformity, no midline tenderness, no CVA tenderness. SKIN: no rashes and no bruising UPPER EXTREMITIES: upper extremities are grossly normal. Fistula in left upper extremity. Positive thrill. LOWER EXTREMITIES: No pitting edema. Calves are equal bilateral NEURO EXAM: Normal sensorium, cranial nerves II-XII grossly intact, normal speech, no gross weakness of arms, no gross weakness of legs. MEDICAL DECISION MAKING: Patient is a 54-year-old male who presents the ER for shortness of breath. He is a dialysis dependent gentleman who has not received dialysis since this past Wednesday. He missed Wednesday and today. IV was established blood work was obtained. Labs show no significant leukocytosis. Mild anemia at 8.2. BMP with potassium of 5.9. EKG with no peak T waves. Creatinine was elevated at 15. T bili slightly elevated at 1.2. No transaminitis. Troponin was detectable but not positive. Lipase normal. Chest x-ray shows CHF. Patient was given Nitropaste and 1 g IV calcium gluconate due to the mild hyperkalemia. Patient was updated bedside. Discussed with nephrology. They will dialyze him today. Request observation. Discussed with the hospitalist for observation and dialysis. CT of the face was performed and showed no large focal abscess. Triage Nursing notes reviewed. Prior medical records reviewed Vital Signs: reviewed and remarkable for hypertensive and tachycardic Differential diagnosis: Differential diagnoses includes but is not limited to pneumonia, bronchitis, COPD/Asthma exacerbation, pneumothorax, pulmonary embolism, congestive heart failure, acute coronary syndrome ER treatment provided: See below Diagnostics interpreted by me: ECG: Sinus tachycardia rate of 101 Normal axis No PVCs Normal QTC Cardiac Monitoring: An order was placed for continuous cardiac monitoring. The monitor shows a rate of 98 with sinus rhythm. Laboratory studies: As stated above and show below. Imaging studies: Portable AP upright 1 view of the chest shows CHF CT of the face shows multiple dental caries but no large focal abscess Consultation(s): Discussed with Nat Rangel who agrees with dialysis and observation Discussed with hospitalist for observation ED COURSE: Procedures: none Critical Care: None Past Med/Surg History Social History Smoking Status: Never smoker Feels Safe at Home: Yes Allergies Allergies Allergy/AdvReac Type Severity Reaction Status Date / Time Iodinated Contrast Media Allergy Unknown STAGE 4 Verified 01/24/20 10:23 KIDNEY DISEASE Home Meds Home Medications Medication Instructions Recorded Confirmed atorvastatin [Lipitor] 40 mg PO PM #0 06/18/16 01/24/20 calcitriol [Rocaltrol] 0.25 mcg PO QAM #0 06/18/16 01/24/20 B complex with C 20-folic acid 1 cap PO QAM #90 12/06/16 01/24/20 [Renal Caps] amlodipine 5 mg PO QAM 01/24/20 01/24/20 cinacalcet 30 mg PO 3XWK 01/24/20 01/24/20 gabapentin 600 mg PO QAM 01/24/20 01/24/20 lamotrigine 100 mg PO PM 01/24/20 01/24/20 lidocaine-prilocaine 1 applic TOPICAL DIRECTED 01/24/20 01/24/20 naproxen sodium 660 mg PO Q8H PRN 01/24/20 01/24/20 sevelamer carbonate [Renvela] 1,600 - 2,400 mg PO DIRECTED 01/24/20 01/24/20 Results & Data (ED) Vital Signs Vital Signs - 24 hr 01/24/20 08:39 01/24/20 08:57 01/24/20 09:31 Temperature 37 C Temperature Source Oral Pulse Rate 95 H Pulse Rate [Right Finger] Pulse Rhythm [Right Finger] Respiratory Rate 18 Respiratory Effort / Characteristics Non-Labored Spontaneous Respiratory Depth Normal Normal Respiratory Pattern Regular Regular Blood Pressure 188/99 H Blood Pressure [Right Arm] Blood Pressure Mean 128 Blood Pressure Mean [Right Arm] Blood Pressure Position Sitting Pulse Oximetry 96 94 Oxygen Delivery Method Room Air Room Air Nasal Cannula Oxygen Flow Rate 4 Sepsis Recent Fever Within 48 Hours No Sepsis New/Unexplained Change in Mental Status N/A Sepsis Action Taken by Nursing No Action Required 01/24/20 09:33 01/24/20 09:52 01/24/20 10:08 Temperature Temperature Source Pulse Rate Pulse Rate [Right Finger] 88 91 H Pulse Rhythm [Right Finger] Regular Respiratory Rate 12 26 H Respiratory Effort / Characteristics Non-Labored Spontaneous Respiratory Depth Normal Respiratory Pattern Blood Pressure Blood Pressure [Right Arm] 152/86 H 169/90 H Blood Pressure Mean Blood Pressure Mean [Right Arm] 108 116 Blood Pressure Position Pulse Oximetry 98 98 97 Oxygen Delivery Method Nasal Cannula Nasal Cannula Room Air Oxygen Flow Rate 4 Sepsis Recent Fever Within 48 Hours Sepsis New/Unexplained Change in Mental Status Sepsis Action Taken by Nursing 01/24/20 10:49 Temperature Temperature Source Pulse Rate Pulse Rate [Right Finger] 88 Pulse Rhythm [Right Finger] Respiratory Rate 16 Respiratory Effort / Characteristics Respiratory Depth Respiratory Pattern Blood Pressure Blood Pressure [Right Arm] 168/88 H Blood Pressure Mean Blood Pressure Mean [Right Arm] 114 Blood Pressure Position Pulse Oximetry 98 Oxygen Delivery Method Nasal Cannula Oxygen Flow Rate 2 Sepsis Recent Fever Within 48 Hours Sepsis New/Unexplained Change in Mental Status Sepsis Action Taken by Nursing Laboratory Data Result diagrams: 01/24/20 09:35 01/24/20 09:35 Lab Results 01/24/20 01/24/20 01/24/20 Range/Units 09:35 09:35 09:35 WBC 8.36 (4.8-10.8) K/uL RBC 2.48 L (4.7-6.1) M/uL Hgb 8.2 L (14.0-18.0) g/dL Hct 24.6 L (42-52) % MCV 99.2 (80-100) fL MCH 33.1 (25-34) pg MCHC 33.3 (32-36) g/dL RDW Std Deviation 57.2 H (36.4-46.3) fL RDW Coeff of Jose R 16.0 H (11.5-14.5) % Plt Count 148 (130-400) K/uL MPV 9.2 (7.4-10.4) fL Immature Gran % (Auto) 0.2 % Neut % (Auto) 85.5 % Lymph % (Auto) 7.5 % Hutchinson % (Auto) 4.4 % Eos % (Auto) 2.2 % Baso % (Auto) 0.2 % Neut # (Auto) 7.14 H (1.4-6.5) K/uL Lymph # (Auto) 0.63 L (1.2-3.4) K/uL Hutchinson # (Auto) 0.37 (0.11-0.59) K/uL Eos # (Auto) 0.18 (0-0.5) K/uL Baso # (Auto) 0.02 (0-0.2) K/uL Immature Gran # (Auto) 0.02 (0.00-0.02) K/uL PT 12.8 H (9.0-12.0) Seconds INR 1.2 H (0.9-1.1) APTT 30.0 (21.0-31.0) Seconds PTT Ratio 1.1 Sodium 136 (136-145) mmol/L Potassium 5.9 H (3.5-5.1) mmol/L Chloride 101 (98-107) mmol/L Carbon Dioxide 21 (21-32) mmol/L Anion Gap 14.0 H (3-11) BUN 82 H (7-18) mg/dl Creatinine 14.90 H* (0.6-1.4) mg/dl Est Cr Clr Drug Dosing 7.8 ml/min Est GFR ( Amer) 3.8 Est GFR (Non-Af Amer) 3.2 BUN/Creatinine Ratio 5.5 L (10-20) Glucose 188 H (70-99) mg/dl Calcium 8.6 (8.5-10.1) mg/dl Total Bilirubin 1.2 H (0.2-1) mg/dl AST 14 L (15-37) U/L ALT 16 (12-78) U/L Alkaline Phosphatase 122 H (45-117) U/L Troponin I 0.040 (0-0.045) ng/ml Total Protein 7.5 (6.4-8.2) gm/dl Albumin 3.3 L (3.4-5.0) gm/dl Globulin 4.2 H (2.5-4.0) gm/dl Albumin/Globulin Ratio 0.8 L (0.9-2) Lipase 157 (73-393) U/L Administered Medications Nitroglycerin (Nitroglycerin 2% Ointment 30gm Tube) 2 inch EXT Q6H ESTELLA Stop: 02/23/20 08:59 Last Admin: 01/24/20 09:34 Dose: 2 inch Documented by: [id number] Discontinued Medications Calcium Gluconate 1,000 mg/ (Sodium Chloride) 60 mls @ 240 mls/hr IV NOW STA Stop: 01/24/20 10:38 Last Admin: 01/24/20 10:46 Dose: 240 mls/hr Documented by: [id number] Discharge Plan Visit Data Chief Complaint: Shortness of Breath/Dyspnea Stated Complaint: SOB STARTED EARLY THIS MORNING ED Provider: Hipolito Nova Discharge Problem: CHF (congestive heart failure), HTN (hypertension), Dialysis patient, Acute hyperkalemia, Breath shortness Forms Stand Alone Forms: My [facility] [place] Data Prescriptions Prescriptions: No Action atorvastatin [Lipitor] 40 mg Tablet 40 mg PO PM Qty: 0 RF: 0 calcitriol [Rocaltrol] 0.25 mcg Capsule 0.25 mcg PO QAM Qty: 0 RF: 0 Renal Caps 1 mg Capsule 1 cap PO QAM Qty: 90 RF: 0 amlodipine 5 mg tablet 5 mg PO QAM RF: 0 lidocaine-prilocaine 2.5-2.5 % cream 1 applic topical DIRECTED RF: 0 naproxen sodium 220 mg Tablet 660 mg PO Q8H PRN (Reason: Pain) RF: 0 gabapentin 300 mg capsule 600 mg PO QAM RF: 0 lamotrigine 100 mg tablet 100 mg PO PM RF: 0 cinacalcet 30 mg tablet 30 mg PO 3XWK RF: 0 sevelamer carbonate [Renvela] 800 mg tablet 1,600 - 2,400 mg PO DIRECTED RF: 0 Discharge Problem: CHF (congestive heart failure) Qualifiers: Heart failure type: unspecified Heart failure chronicity: unspecified Qualified Code(s): I50.9 - Heart failure, unspecified HTN (hypertension) Qualifiers: Hypertension type: unspecified Qualified Code(s): I10 - Essential (primary) hypertension
[2020-01-24] MEDS ORDERED: NITROGLYCERIN 2% OINTMENT 30GM TUBE EXT SCH (09:00)
[2020-01-24 09:48] LABS: Basophils # (auto) 0.02 K/uL (0-0.2); Basophils % (auto) 0.2 %; Eosinophils # (auto) 0.18 K/uL (0-0.5); Eosinophils % (auto) 2.2 %; Hematocrit (blood only) 24.6 % (42-52); Hemoglobin 8.2 g/dL (14.0-18.0); Immature Granulocytes # (auto) 0.02 K/uL (0.00-0.02); Immature Granulocytes % (auto) 0.2 %; Lymphocytes # (auto) 0.63 K/uL (1.2-3.4); Lymphocytes % (auto) 7.5 %; Mean Corpuscular Hemoglobin 33.1 pg (25-34); Mean Corpuscular Hgb Conc 33.3 g/dL (32-36); Mean Corpuscular Volume 99.2 fL (80-100); Mean Platelet Volume 9.2 fL (7.4-10.4); Monocytes # (auto) 0.37 K/uL (0.11-0.59); Monocytes % (auto) 4.4 %; Neutrophils # (auto) 7.14 K/uL (1.4-6.5); Neutrophils % (auto) 85.5 %; Platelet Count 148 K/uL (130-400); RDW Standard Deviation 57.2 fL (36.4-46.3); Red Blood Count 2.48 M/uL (4.7-6.1); White Blood Count 8.36 K/uL (4.8-10.8)
[2020-01-24 10:02] LABS: INR 1.2 (0.9-1.1); Partial Thromboplastin Ratio 1.1; Prothrombin Time 12.8 Seconds (9.0-12.0)
--- NOTE | 2020-01-24 10:12 | CT Scan Report ---
CT facial bones wo con CT DOSE: 757.17 mGy.cm CLINICAL HISTORY: swelling left uppper jaw COMPARISON STUDY: No previous studies for comparison. TECHNIQUE: Helical images were acquired in the transverse plane. The study was reviewed and analyzed on the independent 3-D workstation. A dose lowering technique was utilized adhering to the principle s of ALARA. The pterygoid plates appear intact. The zygomatic arches appear intact. The globes appear intact. There is no evidence of orbital emphysema. The orbital wakefield and floor appear intact. The mandibular condyles appear intact. There is bilateral maxillary sinus mucosal thickening. There are no air-fluid levels. There is mild left-sided facial edema. There are no fluid collections to indicate an abscess. The patient has poor dentition with multiple dental caries and multiple dental apical abscesses. IMPRESSION: 1. Very poor dentition with multiple bilateral dental caries and multiple bilateral dental apical abs cesses. 2. No soft tissue abscess identified 3. Mild left facial soft tissue edema 4. No fractures identified. ACT 112: Negative or not required by law. Electronically signed by: Farhat Hernandez M.D. 01/24/2020 10:11 AM
[2020-01-24 10:15] LABS: Albumin Globulin Ratio 0.8 (0.9-2); Albumin Level 3.3 gm/dl (3.4-5.0); BUN Creatinine Ratio 5.5 (10-20); Bilirubin,Total 1.2 mg/dl (0.2-1); Calcium 8.6 mg/dl (8.5-10.1); Creatinine Clr Calc Pharmacy 7.8 ml/min; Est GFR (African American) 3.8; Est GFR (Non-African American) 3.2; Globulin 4.2 gm/dl (2.5-4.0); Potassium 5.9 mmol/L (3.5-5.1); Total Protein 7.5 gm/dl (6.4-8.2); Troponin I 0.04 ng/ml (0-0.045)
[2020-01-24] MEDS ORDERED: CALCIUM GLUCONATE 10% 1,000 MG in SODIUM CHLORIDE 0.9% 50 ML IV STA (10:24)
--- NOTE | 2020-01-24 10:37 | XRay Report ---
XR chest 1V portable HISTORY: Atypical Chest Pain COMPARISON: Chest 10/29/2016. FINDINGS: The heart remains mildly enlarged. No pleural effusions. No pneumothorax. Mild diffuse inte rstitial thickening. No new focal lung consolidations to suggest pneumonia. IMPRESSION: Cardiomegaly with mild diffuse interstitial thickening. This could be chronic or represent developing congestive change. ACT 112: Negative or not required by law. Electronically signed by: Chemo Aragon M.D. 01/24/2020 10:35 AM
[2020-01-24] MEDS ORDERED: HEPARIN SOD (PORCINE) 1000 UNIT/ML 10 ML VIAL IV ONE (11:14)
[2020-01-24] MEDS ORDERED: SODIUM CHLORIDE 0.9% 1000ML 1,000 ML IV PRN (11:14)
--- NOTE | 2020-01-24 11:54 | Electrocardiogram Report ---
Test Reason : Blood Pressure : / mmHG Vent. Rate : 101 BPM Atrial Rate : 101 BPM P-R Int : 144 ms QRS Dur : 088 ms QT Int : 344 ms P-R-T Axes : 058 008 054 degrees QTc Int : 446 ms Sinus tachycardia Left atrial enlargement Borderline ECG When compared with ECG of 29-OCT-2016 11:51, No significant change was found Confirmed by Peter Jeffries ([id number]) on 01/24/2020 11:54:10 AM Referred By: Confirmed By:Peter Jeffries
--- NOTE | 2020-01-24 12:48 | History & Physical Report ---
Date of Service January 24, 2020 Assessment & Plan (1) Fluid overload: Pt is 54 y/o F with PMH ESRD on HD on MWF, diet controlled DM II, HTN, dyslipidemia, gout, JUNITO presented to ER with c/o SOB this morning. Missed dialysis, last dialysis 01/19/20. Denies fever chills, change in cough CXR: Cardiomegaly with mild diffuse interstitial thickening. This could be chronic or represent developing congestive change. In ER patient afebrile, P: 95, BP: 188/99, RR: 18, 96% on room air. No leukocyt osis, Hgb: 8.2 (at baseline) Fluid overload secondary to missed HD Admit for dialysis today Nephrology consult, Dr. Paul aware Continue fluid restriction (2) ESRD (end stage renal disease) on dialysis: On HD on MWF schedule Missed dialysis Wednesday and today Plan to have dialysis today as above Continue renal meds Nephrology consult (3) Acute hyperkalemia: K: 5.9 In ER given calcium gluconate Plan for hemodialysis today Monitor BMP (4) Dental infection: Started with left upper tooth ache 3-4 days ago with left facial edema. No further tooth ache or facial edema. Denies fever/chills. CT Face: 1. Very poor dentition with multiple bilateral dental caries and multiple bilateral dental apical abscesses. 2. No soft tissue abscess identified. 3. Mild left facial soft tissue edema. 4. No fractures identified. Pt with improvement prior to arrival today Will start clindamycin and probiotics Patient will need outpatient dentist follow-up (5) HTN (hypertension): Initially hypertensive upon ER arrival In ER Nitropaste was placed with improved BP Would not continue Nitropaste as patient getting dialysis today and expect BPs to normalize after dialysis Continue amlodipine (6) DM type 2 (diabetes mellitus, type 2): Diet controlled A1c: 5.8 on 11/07/2019 In ER random BS. Patient reports drink soda prior to ER arrival Monitor BSG's NovoLog sliding scale per protocol (7) Dyslipidemia: Continue atorvastatin (8) Depression: Continue lamotrigine (9) Urinary retention: Self caths as needed secondary to h/o spinal surgery Continue self cath PRN while in hospital (10) JUNITO (obstructive sleep apnea): Patient was to have outpatient sleep study however has not completed DVT Prophylaxis -SCDs Full Code as per discussion with pt Follows with Dr Flex Michaels for routine care Pt was seen and care coordinated with Dr Mcdowell. See addendum Admission and Anticipated Discharge Date Admission Date: January 24, 2020 History of Present Illness Chief Complaint: SOB Primary Care Provider: Adri Michaels MD Pt is 54 y/o F with PMH ESRD on HD on MWF, diet controlled DM II, HTN, dyslipidemia, gout, JUNITO presented to ER with c/o SOB this morning. Started with left upper tooth ache 3-4 days ago with left facial edema. Didn't want to sit at dialysis with a toothache so did not go to dialysis since 01/19/2020. Today with SOB and noted some increased abdominal girth. Chronic cough and post nasal drip. Denies fever/chills. Denies CP. States was doing gentle massage to left cheek and since yesterday has not had further dental pain and facial swelling resolv ed. Denies any noted gingival edema or discharge or foul taste in mouth. H/O poor dentition and does not follow with dentist. Makes urine. Reports h/o back surgery and does need to self cath intermittently to fully empty bladder. Denies fever/chills, diaphoresis, N/V/D/C, SIMPSON, dizziness, syncope, vision changes, neck pain, orthopnea, palpitations, sore throat, choking, otalgia, rhinorrhea, abdominal pain, paresthesias, weakness, extremity weakness, extremity edema, rashes, urinary symptoms, ill contacts or known Covid 19 exposure. Allergies Allergy/AdvReac Type Severity Reaction Status Date / Time Iodinated Contrast Media Allergy Unknown STAGE 4 Verified 01/24/20 10:23 KIDNEY DISEASE Home Medications Home Medications Medication Instructions Recorded Confirmed Type atorvastatin [Lipitor] 40 mg PO PM #0 06/18/16 01/24/20 History calcitriol [Rocaltrol] 0.25 mcg PO QAM #0 06/18/16 01/24/20 History B complex with C 20-folic acid 1 cap PO QAM #90 12/06/16 01/24/20 History [Renal Caps] amlodipine 5 mg PO QAM 01/24/20 01/24/20 History cinacalcet 30 mg PO 3XWK 01/24/20 01/24/20 History gabapentin 600 mg PO QAM 01/24/20 01/24/20 History lamotrigine 100 mg PO PM 01/24/20 01/24/20 History lidocaine-prilocaine 1 applic TOPICAL DIRECTED 01/24/20 01/24/20 History sevelamer carbonate [Renvela] 1,600 - 2,400 mg PO DIRECTED 01/24/20 01/24/20 History Past Med/Surg History Medical History AV fistula Depression Diabetes DM type 2 (diabetes mellitus, type 2) Dyslipidemia ESRD (end stage renal disease) on dialysis Gout MRSA (methicillin resistant Staphylococcus aureus) JUNITO (obstructive sleep apnea) Renal osteodystrophy Urinary retention "straight caths self, 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" Surgical History H/O arthroscopic knee surgery H/O hand surgery H/O laminectomy "07/08/2010- Partial L1 and complete L2 and L3 laminectomies for microsurgical resection of intradural extramedullary tumor." Family History Other Diabetes Heart disease Social History Smoking Status: Current some day smoker Do You Dip or Chew Tobacco: Yes; Hx Alcohol Use: Yes Alcohol type: beer Alcohol Intake Frequency: Monthly or Less Hx Substance Use: Yes Last Used Substance: Days (ago) Last Used Substance Other:: he states it has been a while Current Living Situation: Alone Feels Safe at Home: Yes Review of Systems Review of Systems: All systems reviewed & are unremarkable except as noted in HPI & below Physical Exam Physical Exam: General: no distress, obese Head: normocephalic, atraumatic Eyes: PERRL, EOM's intact, conjunctiva non-injected, anicteric ENT: normal inspection external ears, nose, mucous membranes moist Dental: very poor dentition throughout with caries and broken teeth, left upper teeth broken off to gumline without noted gingival erythema or palpable abscess, no drainage, and non tender to palpation; left face with faint edema and is non-tender to palpation Neck: supple, trachea midline, ROM intact Lungs: no respiratory distress, faint rales at bases bilaterally, no wheezing CV: RRR, + murmur, no JVD, no pretibial edema Abd: normal BS, soft, non-tender Ext: no cyanosis, no calf tenderness, left arm with fistula with palpable thrill Neuro: A&O x 3, no focal deficits noted, normal affect Skin: warm, dry Results & Data Results & Data ([facility]) Vital Signs (Past 12 Hours) Vital Signs Temp Pulse Pulse Resp BP BP Pulse Ox 01/24/20 12:44 36.7 C 86 18 162/80 H 94 01/24/20 11:52 86 20 160/91 H 97 01/24/20 10:49 88 16 168/88 H 98 01/24/20 10:08 91 H 26 H 169/90 H 97 01/24/20 09:52 88 12 152/86 H 98 01/24/20 09:33 98 01/24/20 08:57 94 01/24/20 08:39 37 C 95 H 18 188/99 H 96 Laboratory Results Short CBC 01/24/20 Range/Units 09:35 WBC 8.36 (4.8-10.8) K/uL Hgb 8.2 L (14.0-18.0) g/dL Hct 24.6 L (42-52) % Plt Count 148 (130-400) K/uL BMP 01/24/20 09:35 Sodium 136 Potassium 5.9 H Chloride 101 Carbon Dioxide 21 BUN 82 H Creatinine 14.90 H* Glucose 188 H Calcium 8.6 Cardiac Enzymes 01/24/20 Range/Units 09:35 Troponin I 0.040 (0-0.045) ng/ml Liver Function 01/24/20 Range/Units 09:35 Total Bilirubin 1.2 H (0.2-1) mg/dl AST 14 L (15-37) U/L ALT 16 (12-78) U/L Alkaline Phosphatase 122 H (45-117) U/L Albumin 3.3 L (3.4-5.0) gm/dl Diagnostic Findings CXR: IMPRESSION: Cardiomegaly with mild diffuse interstitial thickening. This could be chronic or represent developing congestive change. FACE CT: IMPRESSION: 1. Very poor dentition with multiple bilateral dental caries and multiple bilateral dental apical abscesses. 2. No soft tissue abscess identified 3. Mild left facial soft tissue edema 4. No fractures identified. ECG Rate (beats per minute): 101 Rhythm: sinus tachycardia Code Status & VTE Plan VTE Prophylaxis Plan VTE Prophylaxis will be ordered: Yes Supervising Physician Co-Signing Physician Notes Attending Addendum: date of service 01/24/20 care coordinated with BLAKE Valentine please refer to her notes for full details, I agree with her notes patient seen and examined, records reviewed by myself as well on exam, patient seen sitting up in bed, comfortable, not in distress denies active shortness of breath, chest pain states left facial pain improving, denies problems with chewing and swallowing food no other symptoms re-evaluated around 1030 pm as patient was noted to be in a fib on telemetry after arriving from HD comfortable, conversing with his roommate, in good spirits denies chest pain, dyspnea, nausea/vomiting, palpitations VS noted and reviewed oriented x 3, not in distress, speaks in sentences with no effort nor accessory muscle use (+) mild left facial edema, no erythema, tenderness, no trismus (+) poor dentition, no gingival edema noted normal rate, regular rhythm, no murmurs clear breath sounds bilaterally non distended, soft, nontender no bipedal edema, erythema, warmth no neuro deficits WBC 8.3 Hg 82 Crea 14.9 ASSESSMENT AND PLAN 54 year old male with history of ESRD, HTN, DM 2? presenting with dyspnea after missing HD sessions x 2 due to toothache. MILD VOLUME OVERLOAD, SECONDARY TO MISSING HD ESRD not in respiratory distress CXR: volume overload pattern Nephrology consulted, HD scheduled for day of admission PERIODONTAL ABSCESS Face CT: 1. Very poor dentition with multiple bilateral dental caries and multiple bilateral dental apical abscesses. 2. No soft tissue abscess identified 3. Mild left facial soft tissue edema 4. No fractures identified. -- no signs of sepsis, ,afebrile -- IV Clindamycin initiated will need to establish with Dentist as soon as possible (patient slated to have left knee arthroplasty 02/12/20) NEW ONSET A FIB -- no history of a fib -- CHASVASC2 score is 1 for HTN patient states he had DM 2 yrs ago, A1c the past few years <6, not taking any DM meds -- Metoprolol tartrate 12.5mg BID started PRN Metoprolol IV for HR >110 Aspirin 81mg po daily -- Echo ordered Cardiology consulted other diagnoses and plan of care as per BLAKE Mcdowell MD (1) HTN (hypertension) Hypertension type: unspecified Qualified Code(s): I10 - Essential (primary) hypertension
[2020-01-24] MEDS ORDERED: EPOETIN ALFA 10,000 UNITS/ML VIAL IV SCH (13:00)
[2020-01-24] MEDS ORDERED: DEXTROSE 50% 50 ML SYRINGE IV PRN (13:07)
[2020-01-24] MEDS ORDERED: LIDOCAINE/PRILOCAINE 2.5% EA CRM EXT PRN (13:07)
[2020-01-24] MEDS ORDERED: CARBOHYDRATES FOR HYPOGLYCEMIA PO PRN (13:07)
[2020-01-24] MEDS ORDERED: GLUCOSE 10 TABS/TUBE PO PRN (13:07)
[2020-01-24] MEDS ORDERED: GLUCAGON FOR INJ 1 MG VIAL SQ PRN (13:07)
[2020-01-24] MEDS ORDERED: GLUCOSE 40% GEL 15 GM TUBE PO PRN (13:07)
[2020-01-24] MEDS ORDERED: ACETAMINOPHEN 325 MG TAB PO PRN (13:07)
[2020-01-24] MEDS ORDERED: SEVELAMER HCL 800 MG TABLET PO PRN (13:20)
[2020-01-24] MEDS: CLINDAMYCIN 600 MG in DEXTROSE 5% 50 ML IV SCH ×2 (14:20→22:26)
[2020-01-24] MEDS: SEVELAMER HCL 800 MG TABLET PO SCH (19:13)
[2020-01-24] MEDS: INSULIN ASPART 100 UNITS/ML 3 ML PEN SC SCH ×2 (19:15→22:12)
--- NOTE | 2020-01-24 19:29 | Nephrology Consultation ---
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 His last dialysis treatment was 5 days ago. he states that he missed his tx on 01/21 due to symptoms from a tooth abscess with facial edema. He presented to the ER with K 5.9, SBP in 190s and new hypoxia. Other pmh includes JUNITO not using Cpap, [facility], gout, HL, HTN, chronic urinary retention in [facility]. he is admitted for urgent dialysis to manage vol OL and hyperkalemia. Allergies Allergy/AdvReac Type Severity Reaction Status Date / Time Iodinated Contrast Media Allergy Unknown STAGE 4 Verified 01/24/20 10:23 KIDNEY DISEASE Home Medications Home Medications Medication Instructions Recorded Confirmed Type atorvastatin [Lipitor] 40 mg PO PM #0 06/18/16 01/24/20 History calcitriol [Rocaltrol] 0.25 mcg PO QAM #0 06/18/16 01/24/20 History B complex with C 20-folic acid 1 cap PO QAM #90 12/06/16 01/24/20 History [Renal Caps] amlodipine 5 mg PO QAM 01/24/20 01/24/20 History cinacalcet 30 mg PO 3XWK 01/24/20 01/24/20 History gabapentin 600 mg PO QAM 01/24/20 01/24/20 History lamotrigine 100 mg PO PM 01/24/20 01/24/20 History lidocaine-prilocaine 1 applic TOPICAL DIRECTED 01/24/20 01/24/20 History sevelamer carbonate [Renvela] 1,600 - 2,400 mg PO DIRECTED 01/24/20 01/24/20 History Patient History Medical History AV fistula Depression Diabetes DM type 2 (diabetes mellitus, type 2) Dyslipidemia ESRD (end stage renal disease) on dialysis Gout MRSA (methicillin resistant Staphylococcus aureus) JUNITO (obstructive sleep apnea) Renal osteodystrophy Urinary retention "straight caths self, 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" Surgical History H/O arthroscopic knee surgery H/O hand surgery H/O laminectomy "07/08/2010- Partial L1 and complete L2 and L3 laminectomies for microsurgical resection of intradural extramedullary tumor." Family History Other Diabetes Heart disease Social History Smoking Status: Current some day smoker Do You Dip or Chew Tobacco: Yes; Hx Alcohol Use: Yes Alcohol type: beer Alcohol Intake Frequency: Monthly or Le ss Hx Substance Use: Yes Last Used Substance: Days (ago) Last Used Substance Other:: he states it has been a while Current Living Situation: Alone Feels Safe at Home: Yes Review of Systems Review of Systems: All systems reviewed & are unremarkable except as noted in HPI & below Respiratory: + dyspnea and + dyspnea on exertion Cardiovascular: + orthopnea and + paroxysmal nocturnal dyspnea Integumentary: + non-healing lesions (in mouth) Physical Exam Constitutional: well developed and well nourished; no acute distress Eyes: EOM intact bilaterally ENMT: Ears: no external ear abnormality Nose: no external nose abnormality Mouth: + dry oral mucous membranes and + poor dentition mild facial edema Neck: no nuchal rigidity Respiratory: normal respiratory effort Auscultation: + diminished lung sounds Cardiovascular: Rate/Rhythm: regular rate and regular rhythm Extremities: + edema and + AV fistula (+ t/b) Gastrointestinal (Abdomen): Inspection/Auscultation: normal bowel sounds Percussion/Palpation: abdomen soft; abdomen nontender Musculoskeletal: Extremities: strength 5/5 throughout Skin: no rashes, warm and dry Neurologic: parada, fluent speech, no tremor Psychiatric: Orientation: alert and oriented x 3 Affect: + flat affect Results & Data ([facility]) Vital Signs (Past 12 Hours) Vital Signs Temp Pulse Pulse Pulse Resp BP BP 01/24/20 19:00 72 121/77 01/24/20 18:40 71 125/72 01/24/20 18:20 74 122/77 01/24/20 18:00 75 124/73 01/24/20 17:40 76 124/71 01/24/20 17:20 76 123/76 01/24/20 17:00 79 146/79 H 01/24/20 16:55 37.0 C 85 85 144/84 H 01/24/20 15:20 36.8 C 78 18 149/78 H 01/24/20 14:58 84 01/24/20 13:44 36.7 C 86 18 162/80 H 01/24/20 12:44 36.7 C 86 18 162/80 H 01/24/20 11:52 86 20 160/91 H 01/24/20 10:49 88 16 168/88 H 01/24/20 10:08 91 H 26 H 169/90 H 01/24/20 09:52 88 12 152/86 H 01/24/20 09:33 01/24/20 08:57 01/24/20 08:39 37 C 95 H 18 188/99 H Pulse Ox 01/24/20 19:00 01/24/20 18:40 01/24/20 18:20 01/24/20 18:00 01/24/20 17:40 01/24/20 17:20 01/24/20 17:00 01/24/20 16:55 01/24/20 15:20 97 01/24/20 14:58 01/24/20 13:44 94 01/24/20 12:44 94 01/24/20 11:52 97 01/24/20 10:49 98 01/24/20 10:08 97 01/24/20 09:52 98 01/24/20 09:33 98 01/24/20 08:57 94 01/24/20 08:39 96 Laboratory Results 01/24/20 09:35 01/24/20 09:[address] 1. Very poor dentition with multiple bilateral dental caries and multiple bilateral dental apical abscesses. 2. No soft tissue abscess identified 3. Mild left facial soft tissue edema 4. No fractures identified. cxr Cardiomegaly with mild diffuse interstitial thickening. This could be chronic or represent developing congestive change. (1) Fluid overload Hypervolemia type: other Qualified Code(s): E87.79 - Other fluid overload
[2020-01-24] MEDS: lamoTRIgine 100 MG TAB PO SCH (21:55)
[2020-01-24] MEDS: ATORVASTATIN 40 MG TAB PO SCH (21:55)
[2020-01-24] MEDS: HEPARIN SOD (PORCINE) 1000 UNIT/ML 10 ML VIAL IV SCH (22:13)
[2020-01-24] MEDS ORDERED: METOPROLOL TARTRATE 1 MG/ML VIAL IV PRN (22:59)
[2020-01-24] MEDS: ASPIRIN 81 MG ECTAB PO SCH (23:16)
[2020-01-24] MEDS: METOPROLOL TARTRATE 25 MG TAB PO SCH (23:16)
[2020-01-24 23:59] LABS: BUN Creatinine Ratio 4.6 (10-20); Creatinine Clr Calc Pharmacy 14.3 ml/min; Est GFR (African American) 8.1; Magnesium 1.8 mg/dl (1.8-2.4); Thyroid Stimulating Hormone 0.999 uIu/ml (0.300-4.500)
[2020-01-25] MEDS: CLINDAMYCIN 600 MG in DEXTROSE 5% 50 ML IV SCH (06:04)
--- NOTE | 2020-01-25 08:03 | Nephrology Progress Note ---
Date of Service January 25, 2020 Assessment & Plan (1) ESRD (end stage renal disease) on dialysis: with missed txs and hyperkalemia -- improved after aggressive tx yesterday with 4 hr and 3.9L UF >pt has had one tx so far this week > will give another tx today. work at 3L UF with another 4h tx today >>>he dialyzes at [facility] under my care MWF chair time 930: plan for d/c tomorrow and OP HD tomorrow but will need to have later chair time arranged at OP dialysis unit. Pt states he cannot go to dialysis on Sat and prefers tx tomorrow -care coordinated with Tae Singh (2) Fluid overload: improving; suspect A fib related to this potentially (as well as anemia) but defer to cardiology for eval and full opinion. tx again today as no d/c planned (3) Anemia in ESRD (end-stage renal disease): stable hgb though below target; will give 10K epo on tx today; pt does not adhere to OP rx for dialysis which may have a role here; do not believe beyond epo with tx today that he needs further inpt intervention; manage as OP Present on Admission?: Yes (4) Dental infection: on abtx; ct noted; per primary service Admission and Anticipated Discharge Date Admission Date: January 24, 2020 Subjective feeling better; states he can breathe better; still wtih tooth pain, no n/v, no chest pain; cardiology eval pending to eval a fib but he converted ON spontaneously Review of Systems Review of Systems: All systems reviewed & are unremarkable except as noted in HPI & below Physical Exam Constitutional: well developed and well nourished; no acute distress on RA today Eyes: EOM intact bilaterally ENMT: Ears: no external ear abnormality Nose: no external nose abnormality Mouth: + dry oral mucous membranes and + poor dentition Neck: no nuchal rigidity Respiratory: normal respiratory effort Auscultation: lungs clear to auscultation bilaterally and + diminished lung sounds Cardiovascular: Rate/Rhythm: regular rate and regular rhythm Extremities: + edema and + AV fistula (+ t/b) Gastrointestinal (Abdomen): Inspection/Auscultation: normal bowel sounds Percussion/Palpation: abdomen soft; abdomen nontender Musculoskeletal: Extremities: strength 5/5 throughout Skin: no rashes, warm and dry Neurologic: parada, fluent speech, no tremor Psychiatric: Orientation: alert and oriented x 3 Affect: euthymic affect Results & Data ([facility]) Vital Signs (Past 12 Hours) Vital Signs Temp Pulse Pulse Pulse Resp BP BP 01/25/20 07:20 36.9 C 86 132/74 01/25/20 05:08 37.1 C 90 20 156/73 H 01/25/20 02:00 87 01/25/20 01:00 133 H 01/24/20 23:04 36.8 C 133 H 20 149/79 H 01/24/20 21:53 37.3 C 115 H 152/83 H 01/24/20 21:00 36.8 C 87 87 142/82 H 142/82 H 01/24/20 20:40 78 145/84 H 01/24/20 20:20 78 154/87 H Pulse Ox 01/25/20 07:20 95 01/25/20 05:08 90 01/25/20 02:00 01/25/20 01:00 01/24/20 23:04 92 01/24/20 21:53 94 01/24/20 21:00 01/24/20 20:40 01/24/20 20:20 Laboratory Results 01/25/20 07:32 01/25/20 07:32 (1) Fluid overload Hypervolemia type: other Qualified Code(s): E87.79 - Other fluid overload
[2020-01-25 08:07] LABS: Hematocrit (blood only) 24.1 % (42-52); Hemoglobin 8.1 g/dL (14.0-18.0); Mean Corpuscular Hemoglobin 32.7 pg (25-34); Mean Corpuscular Hgb Conc 33.6 g/dL (32-36); Mean Corpuscular Volume 97.2 fL (80-100); Mean Platelet Volume 9.1 fL (7.4-10.4); Platelet Count 149 K/uL (130-400); RDW Coefficient of Variation 16.3 % (11.5-14.5); RDW Standard Deviation 57.4 fL (36.4-46.3); Red Blood Count 2.48 M/uL (4.7-6.1); White Blood Count 6.19 K/uL (4.8-10.8)
[2020-01-25] MEDS: GABAPENTIN 300 MG CAP PO SCH (08:20)
[2020-01-25] MEDS: METOPROLOL TARTRATE 25 MG TAB PO SCH ×2 (08:20→20:54)
--- NOTE | 2020-01-25 08:43 | Electrocardiogram Report ---
Test Reason : Blood Pressure : / mmHG Vent. Rate : 130 BPM Atrial Rate : 070 BPM P-R Int : 000 ms QRS Dur : 076 ms QT Int : 326 ms P-R-T Axes : 000 000 126 degrees QTc Int : 479 ms Atrial fibrillation with rapid ventricular response Left ventricular hypertrophy with repolarization abnormality Abnormal ECG When compared with ECG of 24-JAN-2020 08:54, Atrial fibrillation has replaced Sinus rhythm ST more depressed Anterior leads Confirmed by Peter Jeffries ([id number]) on 01/25/2020 8:42:41 AM Referred By: REFERRED SELF Confirmed By:Peter Jeffries
[2020-01-25] MEDS: SEVELAMER HCL 800 MG TABLET PO SCH ×3 (08:49→19:36)
[2020-01-25] MEDS: SACCHAROMYCES BOULARDII 250 MG CAP PO SCH (08:50)
[2020-01-25] MEDS: CALCITRIOL 0.25 MCG CAPSULE PO SCH (08:51)
[2020-01-25] MEDS: AMLODIPINE BESYLATE 5 MG TAB PO SCH (08:52)
[2020-01-25] MEDS: NEPHROCAPS PO SCH (08:52)
[2020-01-25] MEDS: INSULIN ASPART 100 UNITS/ML 3 ML PEN SC SCH ×4 (08:53→21:25)
[2020-01-25 08:55] LABS: BUN Creatinine Ratio 4.7 (10-20); Calcium 9.4 mg/dl (8.5-10.1); Creatinine Clr Calc Pharmacy 12.6 ml/min; Est GFR (African American) 6.9; Est GFR (Non-African American) 5.9; Magnesium 1.9 mg/dl (1.8-2.4); Phosphorus 6.4 mg/dl (2.5-4.9); Potassium 5.1 mmol/L (3.5-5.1)
[2020-01-25] MEDS: HEPARIN SOD (PORCINE) 1000 UNIT/ML 10 ML VIAL IV SCH ×2 (09:28→15:35)
[2020-01-25] MEDS ORDERED: HEPARIN SOD (PORCINE) 1000 UNIT/ML 10 ML VIAL IV ONE (11:00)
[2020-01-25] MEDS ORDERED: SODIUM CHLORIDE 0.9% 1000ML 1,000 ML IV PRN (11:00)
--- NOTE | 2020-01-25 11:43 | Hospitalist Progress Note ---
Date of Service January 25, 2020 Assessment & Plan (1) Fluid overload: Dyspnea resolved after hemodialysis yesterday. He was also on a fluid restriction. Oxygenating well on room air. He is getting another HD treatment today and will continue with home dialysis center for next session tomorrow after discharge. (2) ESRD (end stage renal disease) on dialysis: On HD on MWF schedule Missed two days of dialysis this week prior to presenting to the ER with dyspnea. Continue renal meds Nephrology consult (3) Atrial fibrillation, new onset: Cardiology consulted. Appreciate thoughts and recs. Echo performed this am with read pending. Conversion to sinus rhythm overnight spontaneously (4) Acute hyperkalemia: resolved with HD treatment (5) Dental infection: Started with left upper tooth ache 3-4 days ago with left facial edema. No further tooth ache or facial edema. Denies fever/chills. CT Face: 1. Very poor dentition with multiple bilateral dental caries and multiple bilateral dental apical abscesses. 2. No soft tissue abscess identified. 3. Mild left facial soft tissue edema. 4. No fractures identified. On clindamycin and denies any tootah ache or facial swelling today. Consulted OMFS in house-Dr. Umana. Will need to orchestrate getting treatment of this first, prior to any knee surgery. (6) HTN (hypertension): Initially hypertensive upon ER arrival In ER Nitropaste was placed with improved BP Continue amlodipine per home regimen. At goal this morning. (7) DM type 2 (diabetes mellitus, type 2): Diet controlled A1c: 5.8 on 11/07/2019 In ER random BS. Patient reports drink soda prior to ER arrival Monitor BSG's NovoLog sliding scale per protocol (8) Dyslipidemia: Continue atorvastatin per home regimen. (9) Depression: Continue lamotrigine per home regimen (10) Urinary retention: chronic, Self caths as needed secondary to h/o spinal surgery Continue self cath PRN while in hospital (11) JUNITO (obstructive sleep apnea): Patient was to have outpatient sleep study however has not completed (12) Anemia in ESRD (end-stage renal disease): per Nephro (13) DVT prophylaxis: SCDs, add heparin Full Code Dispo-to home in am or when business systems manager has completed assessment and recs regarding atrial fibrillation. Plan for HD today and DC to home with outpatient HD at parent facility. Also need to orchestrate definitive oral care and let Ortho in [place] know about the dental infection with planned knee surgery in mid-January. Appreciate case management assistance with this and with transportation in am to outpatient dialysis. [facility] Admission and Anticipated Discharge Date Admission Date: January 24, 2020 Subjective 54 yo M who missed HD treatments earlier in the week, presented to the ER with SOB and was found to have an elevated potassium of 5.9. He underwent treatment and feels his SOB is totally resolved today. He reports he overall feels much better, and at baseline. He has an upcoming orthopedic surgery with Dr. Hudson in [place] to replace his knee. We discussed that this may not happen with his multiple tooth infections. Consult placed to Dr. Umana to consider tooth removal or drainage of abscesses. He is currently on clindamycin and denies any issues with this. No n/v and he tolerated breakfast well. Denies chest pain, fevers of chills. Also has a known heart murmur which was heard on exam this morning. He denies feeling badly in previous days. Denies palpitations, lightheadedness or other concerning symptoms. New onset afib was found on EKG and cardiology is consulted. Review of Systems Review of Systems: All systems reviewed & are unremarkable except as noted in Subjective Physical Exam Physical Exam: CONSTITUTIONAL: WNWD, vitals as above, generally well- appearing EYES: normal conjunctivae, no scleral icterus ENT: MMM, no overt facial swelling or erythema present. RESPIRATORY: clear to auscultation bilaterally, no crackles, rales or wheezes, normal respiratory effort GASTROINTESTINAL: normal bowel sounds, soft, nontender, nondistended MUSCULOSKELETAL: moves all extremities equally, no gross focal deficits, head is normocephalic and atraumatic SKIN: warm and dry, palpable thrill of LUE fistula NEUROLOGIC: CN 2-12 grossly intact, no sensory deficit, normal cognition, normal speech, no tremor, no gross focal deficits. PSYCHIATRIC: alert cooperative and oriented to person, place and time. Euthymic mood, makes good eye contact, language grossly intact, recent and remote memory grossly intact. Results & Data Results & Data ([facility]) Vital Signs (Past 12 Hours) Vital Signs Temp Pulse Pulse Pulse Resp BP Pulse Ox 01/25/20 07:20 36.9 C 86 132/74 95 01/25/20 07:00 92 H 01/25/20 05:08 37.1 C 90 20 156/73 H 90 01/25/20 02:00 87 01/25/20 01:00 133 H Laboratory Results Short CBC 01/25/20 Range/Units 07:32 WBC 6.19 (4.8-10.8) K/uL Hgb 8.1 L (14.0-18.0) g/dL Hct 24.1 L (42-52) % Plt Count 149 (130-400) K/uL BMP 01/24/20 01/25/20 23:21 07:32 Sodium 136 135 L Potassium 4.0 D 5.1 D Chloride 99 101 Carbon Dioxide 28 26 BUN 37 H D 43 H Creatinine 7.92 H* D 9.05 H* D Glucose 223 H 103 H Calcium 9.0 9.4 Medications Administered Current Inpatient Medications Acetaminophen (Acetaminophen 325 Mg Tab) 650 mg PO Q4H PRN PRN Reason: Pain or Fever Stop: 02/23/20 13:06 Amlodipine Besylate (Amlodipine Besylate 5 Mg Tab) 5 mg PO QAM [facility] Stop: 02/24/20 08:59 Last Admin: 01/25/20 08:52 Dose: 5 mg Documented by: Aspirin (Aspirin 81 Mg Ectab) 81 mg PO Q24H ESTELLA Stop: 02/23/20 22:59 Last Admin: 01/24/20 23:16 Dose: 81 mg Documented by: Atorvastatin Calcium (Atorvastatin 40 Mg Tab) 40 mg PO PM ESTELLA Stop: 02/23/20 20:59 Last Admin: 01/24/20 21:55 Dose: 40 mg Documented by: Calcitriol (Calcitriol 0.25 Mcg Capsule) 0.25 mcg PO QAM ESTELLA Stop: 02/24/20 08:59 Last Admin: 01/25/20 08:51 Dose: 0.25 mcg Documented by: Clindamycin HCl (Clindamycin Hcl 150 Mg Cap) 600 mg PO TID ESTELLA; Protocol Stop: 02/04/20 13:59 Dextrose (Dextrose 50% 50 Ml Syringe) 25 - 50 ml IV UD PRN; Protocol PRN Reason: Hypoglycemia Protocol Stop: 02/23/20 13:06 Gabapentin (Gabapentin 300 Mg Cap) 600 mg PO QAM ESTELLA Stop: 02/24/20 08:59 Last Admin: 01/25/20 08:20 Dose: 600 mg Documented by: Glucagon (Glucagon For Inj 1 Mg Vial) 1 mg SQ UD PRN; Protocol PRN Reason: Hypoglycemia Protocol Stop: 02/23/20 13:06 Glucose (Glucose 10 Tabs/Tube) 4 - 8 tabs PO UD PRN; Protocol PRN Reason: Hypoglycemia Protocol Stop: 02/23/20 13:06 Glucose (Glucose 40% Gel 15 Gm Tube) 15 - 30 gm PO UD PRN; Protocol PRN Reason: Hypoglycemia Protocol Stop: 02/23/20 13:06 Heparin Sodium (Porcine) (Heparin Sod (Porcine) 1000 Unit/Ml 10 Ml Vial) 400 units IV Q1H ESTELLA Stop: 01/25/20 13:01 Sodium Chloride (Nss 1000ml) 1,000 mls @ 0 mls/hr IV .Q0M PRN PRN Reason: For Hemodialysis Use ONLY Stop: 01/25/20 16:59 Insulin Aspart (Insulin Aspart 100 Units/Ml 3 Ml Pen) 0 units SC ACHS ESTELLA Stop: 02/23/20 16:29 Last Admin: 01/25/20 08:53 Dose: 3 units Documented by: Lamotrigine (Lamotrigine 100 Mg Tab) 100 mg PO PM ESTELLA Stop: 02/23/20 20:59 Last Admin: 01/24/20 21:55 Dose: 100 mg Documented by: Lidocaine/Prilocaine (Lidocaine/Prilocaine 2.5% Ea Crm) 1 ea EXT DAILY PRN PRN Reason: PRIOR TO DIALYSIS Stop: 02/23/20 13:06 Metoprolol Tartrate (Metoprolol Tartrate 25 Mg Tab) 12.5 mg PO BID ESTELLA Stop: 02/23/20 22:59 Last Admin: 01/25/20 08:20 Dose: 12.5 mg Documented by: Metoprolol Tartrate (Metoprolol Tartrate 1 Mg/Ml Vial) 5 mg IV Q6 PRN PRN Reason: A FIB IN RVR Stop: 02/24/20 00:00 Miscellaneous (Cinacalcet: Order Awaiting Action) 1 ea N/A QS ESTELLA Stop: 02/23/20 15:59 Last Admin: 01/25/20 08:34 Dose: Not Given Documented by: Miscellaneous (Carbohydrates For Hypoglycemia ) 15 - 30 gm PO UD PRN PRN Reason: Hypoglycemia Protocol Stop: 02/23/20 13:06 Saccharomyces Boulardii (Saccharomyces Boulardii 250 Mg Cap) 250 mg PO DAILY ESTELLA Stop: 02/24/20 08:59 Last Admin: 01/25/20 08:50 Dose: 250 mg Documented by: Sevelamer HCl (Sevelamer Hcl 800 Mg Tablet) 2,400 mg PO TIDM ESTELLA Stop: 02/23/20 16:59 Last Admin: 01/25/20 08:49 Dose: 2,400 mg Documented by: Sevelamer HCl (Sevelamer Hcl 800 Mg Tablet) 800 mg PO PRN PRN PRN Reason: with snacks Stop: 02/23/20 13:19 Vitamin B Complex/Folic Acid (Nephrocaps) 1 cap PO QAM ESTELLA Stop: 02/24/20 08:59 Last Admin: 01/25/20 08:52 Dose: 1 cap Documented by: (1) HTN (hypertension) Hypertension type: unspecified Qualified Code(s): I10 - Essential (primary) hypertension (2) Fluid overload Hypervolemia type: other Qualified Code(s): E87.79 - Other fluid overload
[2020-01-25] MEDS ORDERED: CLINDAMYCIN HCL 150 MG CAP PO SCH (14:00)
[2020-01-25] MEDS ORDERED: EPOETIN ALFA 10,000 UNITS in SYRINGE 0 ML IV SCH (16:00)
[2020-01-25] MEDS: ATORVASTATIN 40 MG TAB PO SCH (20:54)
[2020-01-25] MEDS: lamoTRIgine 100 MG TAB PO SCH (20:55)
[2020-01-25] MEDS: ASPIRIN 81 MG ECTAB PO SCH (22:05)
[2020-01-26 06:51] LABS: Hemoglobin 8.6 g/dL (14.0-18.0); Mean Corpuscular Hgb Conc 33.1 g/dL (32-36); Mean Corpuscular Volume 96.7 fL (80-100); Mean Platelet Volume 9.1 fL (7.4-10.4); Platelet Count 160 K/uL (130-400); RDW Coefficient of Variation 15.9 % (11.5-14.5); RDW Standard Deviation 55.4 fL (36.4-46.3); Red Blood Count 2.69 M/uL (4.7-6.1); White Blood Count 5.56 K/uL (4.8-10.8)
[2020-01-26 07:50] LABS: BUN Creatinine Ratio 4.8 (10-20); Calcium 9.4 mg/dl (8.5-10.1); Creatinine Clr Calc Pharmacy 16.7 ml/min; Est GFR (African American) 9.7; Est GFR (Non-African American) 8.3; Phosphorus 6.6 mg/dl (2.5-4.9); Potassium 4.6 mmol/L (3.5-5.1)
[2020-01-26] MEDS: INSULIN ASPART 100 UNITS/ML 3 ML PEN SC SCH (08:17)
[2020-01-26] MEDS: GABAPENTIN 300 MG CAP PO SCH (08:18)
[2020-01-26] MEDS: METOPROLOL TARTRATE 25 MG TAB PO SCH (08:19)
[2020-01-26] MEDS: CALCITRIOL 0.25 MCG CAPSULE PO SCH (08:19)
[2020-01-26] MEDS: AMLODIPINE BESYLATE 5 MG TAB PO SCH (08:19)
[2020-01-26] MEDS: SACCHAROMYCES BOULARDII 250 MG CAP PO SCH (08:19)
[2020-01-26] MEDS: SEVELAMER HCL 800 MG TABLET PO SCH (08:20)
[2020-01-26] MEDS: NEPHROCAPS PO SCH (08:20)
--- NOTE | 2020-01-26 08:45 | Cardiology Consultation ---
Date of Consultation January 26, 2020 Assessment & Plan (1) Atrial fibrillation, new onset: (2) ESRD (end stage renal disease) on dialysis: (3) Fluid overload: (4) Acute hyperkalemia: (5) Anemia in ESRD (end-stage renal disease): Transient atrial fibrillation during the setting of hyperkalemia and volume overload after missed hemodialysis appointment. Patient spontaneously converted on his own. Given the clinical context I do not believe any intervention is necessary from a cardiac standpoint. No medication changes will be made at this time. Recommend follow-up with PCP as an outpatient and may consider outpatient Zio patch monitor to rule out recurrence. Mild aortic stenosis again to be followed up with PCP. (6) Aortic stenosis: History of Present Illness Reason for Consultation: paf Requesting Physician: Dr. Alan Attending Physician: Livier Alan, DO History of Present Illness Mr. morgan is a medically complex 54-year-old gentleman who presented to [facility] emergency department on 01/24/2020 with complaints of shortness of breath and increasing abdominal girth. The patient developed a significant toothache several days prior to presentation and stated that he did not feel like going through dialysis and missed his treatment on 01/19/2020. After admission the patient lapsed into atrial fibrillation with rapid ventricular response in the setting of hyperkalemia but quickly converted to normal sinus rhythm with electrolyte correction and hemodialysis treatment. He denies experiencing any cardiac complaints of chest pain, palpitations, lightheadedness, dizziness or syncope. Allergies Allergy/AdvReac Type Severity Reaction Status Date / Time Iodinated Contrast Media Allergy Unknown STAGE 4 Verified 01/24/20 10:23 KIDNEY DISEASE Home Medications Home Medications Medication Instructions Recorded Confirmed Type atorvastatin [Lipitor] 40 mg PO PM #0 06/18/16 01/24/20 History calcitriol [Rocaltrol] 0.25 mcg PO QAM #0 06/18/16 01/24/20 History Renal Caps 1 cap PO QAM #90 12/06/16 01/24/20 History amlodipine 5 mg PO QAM 01/24/20 01/24/20 History cinacalcet 30 mg PO 3XWK 01/24/20 01/24/20 History gabapentin 600 mg PO QAM 01/24/20 01/24/20 History lamotrigine 100 mg PO PM 01/24/20 01/24/20 History lidocaine-prilocaine 1 applic TOPICAL DIRECTED 01/24/20 01/24/20 History sevelamer carbonate [Renvela] 1,600 - 2,400 mg PO DIRECTED 01/24/20 01/24/20 History Patient History Medical History AV fistula Depression Diabetes DM type 2 (diabetes mellitus, type 2) Dyslipidemia ESRD (end stage renal disease) on dialysis Gout MRSA (methicillin resistant Staphylococcus aureus) JUNITO (obstructive sleep apnea) Renal osteodystrophy Urinary retention "straight caths self, 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" Surgical History H/O arthroscopic knee surgery H/O hand surgery H/O laminectomy "07/08/2010- Partial L1 and complete L2 and L3 laminectomies for microsurgical resection of intradural extramedullary tumor." Family History Other Diabetes Heart disease Social History Smoking Status: Current some day smoker Do You Dip or Chew Tobacco: Yes; Hx Alcohol Use: Yes Alcohol type: beer Alcohol Intake Frequency: Monthly or Less Hx Substance Use: Yes Last Used Substance: Days (ago) Last Used Substance Other:: he states it has been a while Communication Ability: Effective Current Living Situation: Alone Feels Safe at Home: Yes Review of Systems Review of Systems: All systems reviewed & are unremarkable except as noted in HPI & below Physical Exam Physical Exam: General: Awake, alert and oriented x 3. No acute distress. HEENT: Normocephalic, atraumatic. Pupils equal, round and reactive to light and accommodation. Extraocular muscles are intact. Anicteric sclera. Moist mucous membranes. Neck: No JVD. No bruit. Cardiovascular: Regular. Positive S-4. Normal S-1 and S-2. No S-3. 3/6 mid to late systolic ejection murmur, greatest at the right sternal border, second intercostal space with radiation to the bilateral carotids. No rubs. Pulmonary: Clear to auscultation bilaterally. No rales, rhonchi, or wheezing. Abdomen: Bowel sounds x 4, soft. No rebound, guarding or tenderness. No organomegaly. Extremities: No clubbing, cyanosis or edema. +2 pedal pulses bilaterally. Skin: Warm and dry. Results & Data ([facility]) Vital Signs (Past 12 Hours) Vital Signs Temp Pulse Pulse Pulse Resp BP Pulse Ox 01/26/20 07:45 36.4 C L 69 18 162/83 H 95 01/26/20 07:34 65 01/26/20 01:00 81 01/25/20 23:00 37.1 C 70 20 149/73 H 94 Laboratory Results Laboratory Results - last 48 hr 01/24/20 01/24/20 01/24/20 13:15 16:30 21:58 WBC RBC Hgb Hct MCV MCH MCHC RDW Std Deviation RDW Coeff of Jose R Plt Count MPV Sodium Potassium Chloride Carbon Dioxide Anion Gap BUN Creatinine Est Cr Clr Drug Dosing Est GFR ( Amer) Est GFR (Non-Af Amer) BUN/Creatinine Ratio Glucose POC Glucose 126 H 180 H 108 H Calcium Phosphorus Magnesium TSH 01/24/20 01/25/20 01/25/20 23:21 07:28 07:32 WBC 6.19 RBC 2.48 L Hgb 8.1 L Hct 24.1 L MCV 97.2 MCH 32.7 MCHC 33.6 RDW Std Deviation 57.4 H RDW Coeff of Jose R 16.3 H Plt Count 149 MPV 9.1 Sodium 136 Potassium 4.0 D Chloride 99 Carbon Dioxide 28 Anion Gap 9.0 BUN 37 H D Creatinine 7.92 H* D Est Cr Clr Drug Dosing 14.3 Est GFR ( Amer) 8.1 Est GFR (Non-Af Amer) 7.0 BUN/Creatinine Ratio 4.6 L Glucose 223 H POC Glucose 108 H Calcium 9.0 Phosphorus Magnesium 1.8 TSH 0.999 01/25/20 01/25/20 01/25/20 07:32 11:20 19:28 WBC RBC Hgb Hct MCV MCH MCHC RDW Std Deviation RDW Coeff of Jose R Plt Count MPV Sodium 135 L Potassium 5.1 D Chloride 101 Carbon Dioxide 26 Anion Gap 9.0 BUN 43 H Creatinine 9.05 H* D Est Cr Clr Drug Dosing 12.6 Est GFR ( Amer) 6.9 Est GFR (Non-Af Amer) 5.9 BUN/Creatinine Ratio 4.7 L Glucose 103 H POC Glucose 134 H 100 H Calcium 9.4 Phosphorus 6.4 H Magnesium 1.9 TSH 01/25/20 01/26/20 01/26/20 20:12 06:19 06:19 WBC 5.56 RBC 2.69 L Hgb 8.6 L Hct 26.0 L MCV 96.7 MCH 32.0 MCHC 33.1 RDW Std Deviation 55.4 H RDW Coeff of Jose R 15.9 H Plt Count 160 MPV 9.1 Sodium 139 Potassium 4.6 Chloride 104 Carbon Dioxide 27 Anion Gap 8.0 BUN 33 H Creatinine 6.82 H* D Est Cr Clr Drug Dosing 16.7 Est GFR ( Amer) 9.7 Est GFR (Non-Af Amer) 8.3 BUN/Creatinine Ratio 4.8 L Glucose 97 POC Glucose 134 H Calcium 9.4 Phosphorus 6.6 H Magnesium 2.0 TSH 01/26/20 07:48 WBC RBC Hgb Hct MCV MCH MCHC RDW Std Deviation RDW Coeff of Jose R Plt Count MPV Sodium Potassium Chloride Carbon Dioxide Anion Gap BUN Creatinine Est Cr Clr Drug Dosing Est GFR ( Amer) Est GFR (Non-Af Amer) BUN/Creatinine Ratio Glucose POC Glucose 116 H Calcium Phosphorus Magnesium TSH (1) Fluid overload Hypervolemia type: other Qualified Code(s): E87.79 - Other fluid overload
--- NOTE | 2020-01-26 08:51 | Discharge Summary ---
Date of Service January 26, 2020 Admission HPI Per Admitting Provider Pt is 54 y/o F with PMH ESRD on HD on MWF, diet controlled DM II, HTN, dyslipidemia, gout, JUNITO presented to ER with c/o SOB this morning. Started with left upper tooth ache 3-4 days ago with left facial edema. Didn't want to sit at dialysis with a toothache so did not go to dialysis since 01/19/2020. Today with SOB and noted some increased abdominal girth. Chronic cough and post nasal drip. Denies fever/chills. Denies CP. States was doing gentle massage to left cheek and since yesterday has not had further dental pain and facial swelling resolved. Denies any noted gingival edema or discharge or foul taste in mouth. H/O poor dentition and does not follow with dentist. Makes urine. Reports h/o back surgery and does need to self cath intermittently to fully empty bladder. Denies fever/chills, diaphoresis, N/V/D/C, SIMPSON, dizziness, syncope, vision changes, neck pain, orthopnea, palpitations, sore throat, choking, otalgia, rhinorrhea, abdominal pain, paresthesias, weakness, extremity weakness, extremity edema, rashes, urinary symptoms, ill contacts or known Covid 19 exposure. Admission Exam Per Admitting Provider General: no distress, obese Head: normocephalic, atraumatic Eyes: PERRL, EOM's intact, conjunctiva non-injected, anicteric ENT: normal inspection external ears, nose, mucous membranes moist Dental: very poor dentition throughout with caries and broken teeth, left upper teeth broken off to gumline without noted gingival erythema or palpable abscess, no drainage, and non tender to palpation; left face with faint edema and is non- tender to palpation Neck: supple, trachea midline, ROM intact Lungs: no respiratory distress, faint rales at bases bilaterally, no wheezing CV: RRR, + murmur, no JVD, no pretibial edema Abd: normal BS, soft, non-tender Ext: no cyanosis, no calf tenderness, left arm with fistula with palpable thrill Neuro: A&O x 3, no focal deficits noted, normal affect Skin: warm, dry Principal Diagnosis Acute dyspnea in the setting of noncompliance with hemodialysis treatments Hyperkalemia-resolved New onset atrial fibrillation with spontaneous conversion to sinus rhythm Dental infections with multiple dental caries and multiple periapical abscesses. Discharge Exam CONSTITUTIONAL: WNWD, vitals as above, generally well-appearing EYES: normal conjunctivae, no scleral icterus ENT: MMM, no overt facial swelling or erythema present. RESPIRATORY: clear to auscultation bilaterally, no crackles, rales or wheezes, normal respiratory effort CARDIOLOGY: S1/2 heard with normal rate and rhythm, 3/6 TYLOR heard. No peripheral edema or JVD, 2+pulses bilateral radial, extremities are warm and wel l perfused GASTROINTESTINAL: normal bowel sounds, soft, nontender, nondistended MUSCULOSKELETAL: moves all extremities equally, no gross focal deficits, head is normocephalic and atraumatic SKIN: warm and dry, palpable thrill of LUE fistula NEUROLOGIC: CN 2-12 grossly intact, no sensory deficit, normal cognition, normal speech, no tremor, no gross focal deficits. PSYCHIATRIC: alert cooperative and oriented to person, place and time. Euthymic mood, makes good eye contact, language grossly intact, recent and remote memory grossly intact. Discharge Data Allergies Allergy/AdvReac Type Severity Reaction Status Date / Time Iodinated Contrast Media Allergy Unknown STAGE 4 Verified 01/24/20 10:23 KIDNEY DISEASE Consultations 01/24/20 10:50 ED Decision to Admit Stat 01/24/20 13:07 Consult Nephrology Routine 01/24/20 22:56 Consult Cardiology Routine 01/25/20 12:00 Consult Case Management - Discharge Planning Routine Ordered Studies 01/24/20 08:51 CT facial bones wo con Stat Hospital Course (1) Dyspnea: (2) Fluid overload: (3) ESRD (end stage renal disease) on dialysis: (4) Atrial fibrillation, new onset: (5) Acute hyperkalemia: (6) Dental infection: 54-year-old end-stage renal disease patient on hemodialysis presented to the emergency room with acute shortness of breath that began earlier that morning. He reported noncompliance with recent hemodialysis treatments as he had a left upper tooth ache x3 to 4 days with left facial edema. A face CT revealed poor dentition with multiple bilateral dental caries and multiple bilateral dental apical abscesses. No soft tissue abscess was identified and mild left facial soft tissue edema was present. A chest x-ray revealed cardiomegaly with mild diffuse interstitial thickening that could represent developing congestive change. He was admitted to the hospitalist service for fluid overload secondary to noncompliance with hemodialysis. Nephrology was consulted and dialyzed him that day with subsequent resolution of shortness of breath within 24 hours. He was initially put on clindamycin, however, after discussion with of the local necks of usual surgeon this was not considered necessary unless he was acutely ill. Care coordination was performed with the maxillofacial surgeon to establish care and evaluate the dental infections. This is mostly important as the patient has a scheduled knee replacement in [address] Clayton at [facility]. The patient also was found to be in new onset atrial fibrillation and was started on metoprolol tartrate 12.5 p.o. twice daily. Cardiology was consulted noting this transient atrial fibrillation took place during acute hyperkalemia and volume overload after missed hemodialysis appointments. The patient spontaneously converted on his own to sinus rhythm overnight. Given this clinical context it was felt no further intervention was necessary from a cardiac standpoint and no medication changes were made. Upon follow-up with primary care physician consideration may be given to an outpatient ZIO patch to rule out recurrence. This was conveyed to the patient who verbalized understanding. At time of discharge he was hemodynamically stable and afebrile and asymptomatic. He was tolerating p.o. and mentating and ambulating at baseline. He was oxygenating well on room air. Follow-up with primary care physician was established prior to discharge. Total Time Total Time Spent Total Time Spent (In Minutes): 60 Total Time Includes: Examination of the Patient, Discharge Planning, Medication Reconciliation and Communication With Other Providers Discharge Plan Discharge Items Patient Disposition: Home - Self-Care Reason For Visit: FLUID OVERLOAD Discharge Diagnosis: Dyspnea resolved Hyperkalemia-resolved Dental infection (multiple dental caries with multiple periapical abscesses) New onset atrial fibrillation-converted spontaneously to sinus rhythm Condition on Discharge: Fair Activity: Resume your previous activity Non-emergency contact: Primary Care Provider Call non-emergency contact if: you have any medication questions Follow-up/Referrals: Adri Nolan MD [Primary Care Provider] - 02/01/20 12:00 pm (Date & Time 02/01/2020 12:00 PM Provider Adri Michaels MD Department Internal Medicine [facility] ) Diet: Carb Consistent or DM2 and Dialysis Renal Addtl Attending Provider Instructions: Please take all medications as instructed on discharge list below. You have multiple teeth infected and will need to see Dr. Louie Umana, a maxillofacial dental surgeon, prior to going for your knee replacement. His office will be reaching out to you to set this up. Please continue outpatient dialysis as scheduled. You were found to have a new heart rhythm called atrial fibrillation on admission. The custom decorating consultant who saw you recommended no changes to your medications, but it will be important to remain compliant with all dialysis sessions. You have an appointment scheduled with your Primary Care Provider (PCP) at the date/time above to ensure you are still doing well after discharge to home. It was a pleasure taking care of you! Please call if you have any questions or problems. You can reach a [facility] Hospitalist on duty at [facility] 24 hours a day by calling [phone]. Take care of yourself. Livier Alan, DO [facility] Pending Studies at Discharge: No Stand-Alone Forms: My [facility], Smoking Cessation Medications and DC Order Prescriptions: Continued atorvastatin [Lipitor] 40 mg Tablet 40 mg PO PM Qty: 0 RF: 0 calcitriol [Rocaltrol] 0.25 mcg Capsule 0.25 mcg PO QAM Qty: 0 RF: 0 Renal Caps 1 mg Capsule 1 cap PO QAM Qty: 90 RF: 0 amlodipine 5 mg tablet 5 mg PO QAM RF: 0 lidocaine-prilocaine 2.5-2.5 % cream 1 applic topical DIRECTED RF: 0 gabapentin 300 mg capsule 600 mg PO QAM RF: 0 lamotrigine 100 mg tablet 100 mg PO PM RF: 0 cinacalcet 30 mg tablet 30 mg PO 3XWK RF: 0 sevelamer carbonate [Renvela] 800 mg tablet 1,600 - 2,400 mg PO DIRECTED RF: 0 Discharge Orders: Discharge Order (Routine); Ordered 01/26/20 Ordered By: Livier Alan Admission Data Admit Date/Time: 01/24/20 11:20 Attending Provider: Livier Alan Admit Provider: Duy Mcdowell Primary Care Provider: Adri Nolan Other Providers: Duy Mcdowell ; Eliecer Ledesma ; Nat Paul Other Interventions: Discharge Summary Assessment (RN) Last Done: 01/26/20 09:04
== END 2020-01-26 10:11 | disposition home or self-care (01) | DRG 640 ==
LOC: ED 08:34 → 2N 11:20 → SUATTDRO 11:20 → 2N 11:52

== ENCOUNTER 2020-07-09 08:26 | Inpatient (IN) ==
[2020-07-09] MEDS ORDERED: ALBUT/IPRATROP 3MG/0.5MG NEB 3 ML VIAL NEB STA (08:50)
[2020-07-09] MEDS ORDERED: CALCIUM GLUCONATE 10% 1,000 MG in SODIUM CHLORIDE 0.9% 50 ML IV STA (09:08)
[2020-07-09 09:11] LABS: Basophils # (auto) 0.02 K/uL (0-0.2); Basophils % (auto) 0.2 %; Eosinophils % (auto) 2.3 %; Hematocrit (blood only) 29.4 % (42-52); Hemoglobin 10.2 g/dL (14.0-18.0); Immature Granulocytes # (auto) 0.02 K/uL (0.00-0.02); Immature Granulocytes % (auto) 0.2 %; Lymphocytes # (auto) 0.46 K/uL (1.2-3.4); Lymphocytes % (auto) 3.6 %; Mean Corpuscular Hemoglobin 31.3 pg (25-34); Mean Corpuscular Hgb Conc 34.7 g/dL (32-36); Mean Corpuscular Volume 90.2 fL (80-100); Mean Platelet Volume 9.5 fL (7.4-10.4); Monocytes # (auto) 0.65 K/uL (0.11-0.59); Monocytes % (auto) 5.1 %; Neutrophils # (auto) 11.33 K/uL (1.4-6.5); Neutrophils % (auto) 88.6 %; Platelet Count 169 K/uL (130-400); RDW Coefficient of Variation 16.1 % (11.5-14.5); RDW Standard Deviation 53.2 fL (36.4-46.3); Red Blood Count 3.26 M/uL (4.7-6.1); White Blood Count 12.78 K/uL (4.8-10.8)
[2020-07-09 09:18] LABS: iSTAT Hemoglobin 9.9 g/dl (14.0-18.0); iSTAT Ionized Calcium 0.98 mmol/l (1.12-1.32); iSTAT Potassium 6.1 mmol/L (3.3-5.0)
--- NOTE | 2020-07-09 09:32 | XRay Report ---
XR chest 1V portable CLINICAL HISTORY: Shortness of breath COMPARISON STUDY: 03/07/2020 FINDINGS: The heart is enlarged. There are increased perihilar markings. The appearance favors conges tive failure with mild interstitial edema. Interstitial infectious/inflammatory processes could appea r similar.[ No significant pleural effusions are visualized. There is no evidence for lobar consolid ation. IMPRESSION: 1. Cardiomegaly and increased perihilar markings. The findings likely represent congestive failure wi th mild interstitial edema. An interstitial infectious/inflammatory process could appear similar but is felt to be statistically less likely. ACT 112: Negative or not required by law. Electronically signed by: Farhat Hernandez M.D. 07/09/2020 9:31 AM
[2020-07-09 09:37] LABS: BUN Creatinine Ratio 6.1 (10-20); Calcium 8.7 mg/dl (8.5-10.1); Creatinine Clr Calc Pharmacy 9.9 ml/min; Est GFR (African American) 5.1; Est GFR (Non-African American) 4.4; Potassium 6.2 mmol/L (3.5-5.1)
[2020-07-09] MEDS ORDERED: HEPARIN SOD (PORCINE) 1000 UNIT/ML 10 ML VIAL IV ONE (09:46)
[2020-07-09] MEDS ORDERED: SODIUM CHLORIDE 0.9% 1000ML 1,000 ML IV PRN (09:46)
--- NOTE | 2020-07-09 10:03 | Emergency Department Note ---
History of Present Illness General Chief complaint: Shortness of Breath/Dyspnea Stated complaint: SOB Time Seen by Provider: 07/09/20 08:39 History of Present Illness Provider complaint: Shortness of breath Onset (ago): day(s) 1 Associated symptoms: + cough and + shortness of breath; no chest pain, no fever/chills and no headaches 55-year-old male end-stage renal disease on hemodialysis Wednesday, Wednesday, Wednesday presents emergency department for shortness of breath. Patient reports he started having shortness of breath today this morning when he was trying to walk his dog. He reports he did not go to dialysis as scheduled yesterday. He reports he did not go to dialysis yesterday because he was having some upper chest congestion, sinus congestion and cough that began on Wednesday. No fevers or chills. No nausea or vomiting. No chest pain. Patient states his last full dialysis session was on Wednesday. Home Medications Medication Instructions Recorded Confirmed Type atorvastatin [Lipitor] 40 mg PO DAILY #0 06/18/16 07/09/20 History amlodipine 5 mg PO QPM 01/24/20 07/09/20 History gabapentin 300 mg PO BID 01/24/20 07/09/20 History sevelamer carbonate [Renvela] 2,400 mg PO DIRECTED 01/24/20 07/09/20 History calcium acetate(phosphat bind) 1,334 mg PO UD 03/07/20 07/09/20 History lamotrigine 200 mg PO HS 03/07/20 07/09/20 History metoprolol tartrate 50 mg PO BID 03/07/20 07/09/20 History trazodone 50 mg PO HS PRN 03/07/20 07/09/20 History lanthanum 1,000 mg PO HS 07/09/20 07/09/20 History Allergies Allergy/AdvReac Type Severity Reaction Status Date / Time Iodinated Contrast Media Allergy Unknown STAGE 4 Verified 07/09/20 09:10 KIDNEY DISEASE Past Med/Surg History Medical History (Updated 07/09/20 @ 10:04 by Ramakrishna Deleon) AV fistula Depression Diabetes DM type 2 (diabetes mellitus, type 2) Dyslipidemia ESRD (end stage renal disease) on dialysis Gout MRSA (methicillin resistant Staphylococcus aureus) JUNITO (obstructive sleep apnea) Renal osteodystrophy Urinary retention "straight caths self, 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" Surgical History H/O arthroscopic knee surgery H/O hand surgery H/O laminectomy "07/08/2010- Partial L1 and complete L2 and L3 laminectomies for microsurgical resection of intradural extramedullary tumor." Family History Other Diabetes Heart disease Social History Smoking Status: Never smoker Hx Alcohol Use: Yes Alcohol type: beer Alcohol Intake Frequency: Monthly or Less Hx Substance Use: Yes Last Used Substance: Days (ago) Last Used Substance Other:: he states it has been a while Communication Ability: Effective Current Living Situation: Alone Feels Safe at Home: Yes Assistive Devices: None Review of Systems A total of 10 systems reviewed and were otherwise negative Physical Exam Vital Signs Vital Signs - 24 hr 07/09/20 08:31 07/09/20 08:40 07/09/20 09:19 Temperature 36.7 C Temperature Source Oral Pulse Rate 66 Pulse Rate [Left Finger] 62 Pulse Rhythm Regular Pulse Strength Normal Respiratory Rate 18 20 Respiratory Effort / Characteristics Non-Labored Spontaneous Non-Labored Spontaneous Respiratory Depth Normal Respiratory Pattern Regular Blood Pressure 168/89 H Blood Pressure [Left Arm] Blood Pressure Mean 115 Blood Pressure Mean [Left Arm] Blood Pressure Position Sitting Pulse Oximetry 92 98 99 Oxygen Delivery Method Room Air Nasal Cannula Nasal Cannula Oxygen Flow Rate 2 2 Sepsis Recent Fever Within 48 Hours No Sepsis New/Unexplained Change in Mental Status N/A Sepsis Action Taken by Nursing No Action Required Oxygen Flow Rate - Titration 2 Pulse Oximetry Post Tiitration 97 07/09/20 09:34 Temperature Temperature Source Pulse Rate Pulse Rate [Left Finger] 62 Pulse Rhythm Pulse Strength Respiratory Rate 18 Respiratory Effort / Characteristics Respiratory Depth Respiratory Pattern Blood Pressure Blood Pressure [Left Arm] 155/88 H Blood Pressure Mean Blood Pressure Mean [Left Arm] 110 Blood Pressure Position Pulse Oximetry 96 Oxygen Delivery Method Nasal Cannula Oxygen Flow Rate 2 Sepsis Recent Fever Within 48 Hours Sepsis New/Unexplained Change in Mental Status Sepsis Action Taken by Nursing Oxygen Flow Rate - Titration Pulse Oximetry Post Tiitration Physical Exam GENERAL: He is oriented to person, place, and time. He appears well-developed and well-nourished. He does not appear distressed. HENT: Exam performed. - Head: Normocephalic and atraumatic. - Right Ear: External ear normal. No mastoid tenderness. - Left Ear: External ear normal. No mastoid tenderness. - Mouth/Throat: The oropharynx is clear and moist. No trismus in the jaw. No dental abscesses or uvula swelling. No oropharyngeal exudate or tonsillar abscesses. EYES: Conjunctivae and EOM are normal. Pupils are equal, round, and reactive to light. Right eye exhibits no discharge. Left eye exhibits no discharge. No scleral icterus. NECK: Normal range of motion. Neck supple. No JVD present. No spinous process tenderness present. No carotid bruit present. No rigidity. No tracheal deviation and normal range of motion present. No Brudzinski's sign and no Kernig's sign noted. CV: Normal rate, regular rhythm, normal heart sounds and intact distal pulses. There is no peripheral edema. Palpable radial pulses bue. PULM/CHEST: Expiratory wheezes bilaterally. - Chest Wall: He exhibits no tenderness. ABD: The abdomen is soft. Bowel sounds are normal. He has no distension. No mass is present. There is no tenderness. There is no rebound, no guarding, no Pagan's sign and no tenderness at McBurney's point. Rovsig negative. MUSC/SKEL: Normal range of motion. There is no peripheral edema, tenderness or deformity. AV fistula in the left upper extremity with a palpable thrill. LYMPH: No cervical adenopathy. NEURO: He is alert and oriented to person, place, and time. He has normal strength. No cranial nerve deficit or sensory deficit. Coordination and gait normal. GCS eye subscore is 4. GCS verbal subscore is 5. GCS motor subscore is 6. Cerebellar tests wnl. SKIN: Skin is warm and dry. He is not diaphoretic. PSYCH: He has a normal mood and affect. Behavior is normal. Judgment and thought content normal. Course Course 08: The patient was evaluated in room C7. A complete history and physical exam was performed. Cardiac monitoring: An order was placed for continuous cardiac monitoring. The monitor shows a rate of 70 with sinus rhythm Patient was placed on continuous pulse ox and found to be 87% on room air. Patient was started on 2 L nasal cannula which improved his oxygen saturation. Patient ordered DuoNeb treatment given his wheezes. 0905: Vital signs stable on 2 L nasal cannula. [id number]-[id number] labs show a potassium of 6.2. EKG does show peaked T waves. Patient will be treated with calcium gluconate 1 g IV. 0950: Vital signs stable on 2 L nasal cannula. Chest x-ray does show that the patient is fluid overloaded. Discussed with nephrology Dr. Rangel who states she can dialyze the patient inpatient and to have the patient admitted to the [facility] hospitalist team. Discussed with Yajaira Reilly PA-C who stated to admit to Dr. Hobbs 1002: Covid negative. Administered Medications Discontinued Medications Albuterol (Albut/Ipratrop 3mg/0.5mg Neb 3 Ml Vial) 3 ml NEB NOW STA Stop: 07/09/20 08:51 Last Admin: 07/09/20 09:18 Dose: 3 ml Documented by: [id number] Calcium Gluconate 1,000 mg/ (Sodium Chloride) 60 mls @ 240 mls/hr IV NOW STA Stop: 07/09/20 09:22 Last Admin: 07/09/20 09:34 Dose: 240 mls/hr Documented by: [id number] Critical Care Time Critical Care Time: Yes Total Critical Care Time: 55 I have personally spent greater than 55 minutes of critical care time in the di rect management of this patient. This includes bedside care, interpretation of diagnostic studies, and testing, discussion with consultants, patient, and family members, and other required patient management activities. This 55 minutes is in excess of all separately billable procedures. Medical Decision Making Laboratory Data Result diagrams: 07/09/20 09:00 07/09/20 09:00 Lab Results 07/09/20 07/09/20 07/09/20 Range/Units 09:00 09:00 09:05 WBC 12.78 H (4.8-10.8) K/uL RBC 3.26 L (4.7-6.1) M/uL Hgb 10.2 L (14.0-18.0) g/dL POC Hgb 9.9 L (14.0-18.0) g/dl Hct 29.4 L (42-52) % POC Hct 29 L (42-52) % MCV 90.2 (80-100) fL MCH 31.3 (25-34) pg MCHC 34.7 (32-36) g/dL RDW Std Deviation 53.2 H (36.4-46.3) fL RDW Coeff of Jose R 16.1 H (11.5-14.5) % Plt Count 169 (130-400) K/uL MPV 9.5 (7.4-10.4) fL Immature Gran % (Auto) 0.2 % Neut % (Auto) 88.6 % Lymph % (Auto) 3.6 % [place] % (Auto) 5.1 % Eos % (Auto) 2.3 % Baso % (Auto) 0.2 % Neut # (Auto) 11.33 H (1.4-6.5) K/uL Lymph # (Auto) 0.46 L (1.2-3.4) K/uL [place] # (Auto) 0.65 H (0.11-0.59) K/uL Eos # (Auto) 0.30 (0-0.5) K/uL Baso # (Auto) 0.02 (0-0.2) K/uL Immature Gran # (Auto) 0.02 (0.00-0.02) K/uL POC Sodium 127 L (135-144) mmol/L Sodium 127 L (136-145) mmol/L POC Potassium 6.1 H* (3.3-5.0) mmol/L Potassium 6.2 H* (3.5-5.1) mmol/L POC Chloride 91 L (101-112) mmol/L Chloride 91 L (98-107) mmol/L Carbon Dioxide 24 (21-32) mmol/L POC Total CO2 25 (24-31) mmol/L Anion Gap 12.0 H (3-11) POC Anion Gap 19.0 (16-25) mmol/L POC BUN 80 H (7-18) mg/dl BUN 71 H (7-18) mg/dl Creatinine 11.50 H* (0.6-1.4) mg/dl POC Creatinine 13.0 H* (0.6-1.3) mg/dl Est Cr Clr Drug Dosing 9.9 ml/min Est GFR ( Amer) 5.1 Est GFR (Non-Af Amer) 4.4 BUN/Creatinine Ratio 6.1 L (10-20) Glucose 160 H (70-99) mg/dl POC Glucose (other) 162 H (70-99) mg/dl Calcium 8.7 (8.5-10.1) mg/dl POC Ioniz Calcium Huseyin 0.98 L (1.12-1.32) mmol/l COVID-19 Eval Order SARS-CoV-2, RNA, NAAT (NEGATIVE) 07/09/20 07/09/20 Range/Units Unknown Unknown WBC (4.8-10.8) K/uL RBC (4.7-6.1) M/uL Hgb (14.0-18.0) g/dL POC Hgb (14.0-18.0) g/dl Hct (42-52) % POC Hct (42-52) % MCV (80-100) fL MCH (25-34) pg MCHC (32-36) g/dL RDW Std Deviation (36.4-46.3) fL RDW Coeff of Jose R (11.5-14.5) % Plt Count (130-400) K/uL MPV (7.4-10.4) fL Immature Gran % (Auto) % Neut % (Auto) % Lymph % (Auto) % [place] % (Auto) % Eos % (Auto) % Baso % (Auto) % Neut # (Auto) (1.4-6.5) K/uL Lymph # (Auto) (1.2-3.4) K/uL [place] # (Auto) (0.11-0.59) K/uL Eos # (Auto) (0-0.5) K/uL Baso # (Auto) (0-0.2) K/uL Immature Gran # (Auto) (0.00-0.02) K/uL POC Sodium (135-144) mmol/L Sodium (136-145) mmol/L POC Potassium (3.3-5.0) mmol/L Potassium (3.5-5.1) mmol/L POC Chloride (101-112) mmol/L Chloride (98-107) mmol/L Carbon Dioxide (21-32) mmol/L POC Total CO2 (24-31) mmol/L Anion Gap (3-11) POC Anion Gap (16-25) mmol/L POC BUN (7-18) mg/dl BUN (7-18) mg/dl Creatinine (0.6-1.4) mg/dl POC Creatinine (0.6-1.3) mg/dl Est Cr Clr Drug Dosing ml/min Est GFR ( Amer) Est GFR (Non-Af Amer) BUN/Creatinine Ratio (10-20) Glucose (70-99) mg/dl POC Glucose (other) (70-99) mg/dl Calcium (8.5-10.1) mg/dl POC Ioniz Calcium Huseyin (1.12-1.32) mmol/l COVID-19 Eval Order [facility]19 [facility] SARS-CoV-2, RNA, NAAT NEGATIVE (NEGATIVE) Imaging Data Radiologist's Impression: XR chest 1V portable CLINICAL HISTORY: Shortness of breath COMPARISON STUDY: 03/07/2020 FINDINGS: The heart is enlarged. There are increased perihilar markings. The appearance favors congestive failure with mild interstitial edema. Interstitial infectious/inflammatory processes could appear similar.[ No significant pleural effusions are visualized. There is no evidence for lobar consolidation. IMPRESSION: 1. Cardiomegaly and increased perihilar markings. The findings likely represent congestive failure with mild interstitial edema. An interstitial infect ious/inflammatory process could appear similar but is felt to be statistically less likely. ACT 112: Negative or not required by law. Electronically signed by: Farhat Hernandez M.D. 07/09/2020 9:31 AM Dictated: 07/09/20926 Transcribed: 07/09/20926 ECG Data Indication: + SOB/dyspnea Rate (beats per minute): 68 Rhythm: + normal sinus ECG Intervals/blocks: + Normal QRS, + Normal [place] and + Normal QT-c ECG ST segments: + Normal ST segments ECG Findings: + Peaked T waves [facility] Narrative 0839: The patient was evaluated in room C7. A complete history and physical exam was performed. Cardiac monitoring: An order was placed for continuous cardiac monitoring. The monitor shows a rate of 70 with sinus rhythm Patient was placed on continuous pulse ox and found to be 87% on room air. Patient was started on 2 L nasal cannula which improved his oxygen saturation. Patient ordered DuoNeb treatment given his wheezes. 09: Vital signs stable on 2 L nasal cannula. [id number]-[id number] labs show a potassium of 6.2. EKG does show peaked T waves. Patient will be treated with calcium gluconate 1 g IV. 0950: Vital signs stable on 2 L nasal cannula. Chest x-ray does show that the patient is fluid overloaded. Discussed with nephrology Dr. Rangel who states she can dialyze the patient inpatient and to have the patient admitted to the [facility] hospitalist team. Discussed with Yajaira Reilly PA-C who stated to admit to Dr. Hobbs 1002: Covid negative. Impression & Plan Hypoxia, Acute hyperkalemia, Fluid overload, ESRD (end stage renal disease) on dialysis Discharge Plan Visit Data Chief Complaint: Shortness of Breath/Dyspnea Stated Complaint: SOB ED Provider: Ramakrishna Deloen Discharge Problem: Hypoxia, Acute hyperkalemia, Fluid overload, ESRD (end stage renal disease) on dialysis Patient Disposition: Admitted As Inpatient Forms Stand Alone Forms: [facility], Virtual Emergency Department, Important Visit Information Prescriptions Prescriptions: No Action atorvastatin [Lipitor] 40 mg Tablet 40 mg PO DAILY Qty: 0 RF: 0 amlodipine 5 mg tablet 5 mg PO QPM RF: 0 gabapentin 300 mg capsule 300 mg PO BID RF: 0 sevelamer carbonate [Renvela] 800 mg tablet 2,400 mg PO DIRECTED RF: 0 lanthanum 1,000 mg tablet,chewable 1,000 mg PO HS RF: 0 lamotrigine 200 mg tablet 200 mg PO HS RF: 0 trazodone 100 mg Tablet 50 mg PO HS PRN (Reason: Pain) RF: 0 metoprolol tartrate 50 mg tablet 50 mg PO BID RF: 0 calcium acetate(phosphat bind) 667 mg capsule 1,334 mg PO UD RF: 0 Referrals Referrals: Adri Nolan MD [Primary Care Provider] - Discharge Problem: Fluid overload Qualifiers: Hypervolemia type: unspecified Qualified Code(s): E87.70 - Fluid overload, unspecified
--- NOTE | 2020-07-09 10:14 | History & Physical Report ---
Date of Service July 09, 2020 Assessment & Plan (1) Hypoxia: (2) Acute hyperkalemia: (3) ESRD (end stage renal disease) on dialysis: This is a 55-year-old male who has significant past medical history of benign spinal tumor which resulted in neurogenic bladder, obstructive uropathy and eventual kidney failure. He had tumor removed several years ago and has been on dialysis for approximately 3 years. Currently he receives hemodialysis Wednesday and Fridays. Further medical problems include diet-controlled T2DM, HTN, HLD, gout, depression, and JUNITO. He presents ED today secondary to worsening shortness of breath x1 day. Pt presented similarly after missed HD 12/2019 requiring hospitalization. Improved after HD. During hospital stay did develop PAF. Rowena transient 2/2 to hyperkalemia and volume overload, no further tx recommended. Had ZIO patch which showed no afib, 1 brief episode of wide complex tach, asymptomatic. Echo 12/2019 revealed EF 60-64%, moderate , grade 1 DD, mildly dilated left atrium. Admit to PCU - monitor closely on tele for any arrhythmias Will go for HD at approximately 2 PM, if no arrhythmia on telemetry will be able to go without monitor Received 1g calcium gluc in ED - discussed with Dr. Paul, no further treatment needed, pt requires HD continue O2 supplementation as needed Further recs from nephrology - appreciate their input pt c/o UTI sx - obtain urine - await UA to determine need to start antibiotic LEUKOCYTOSIS may be in setting of URi vs missed HD await UA (4) URI, acute: pt with URI sx since 07/06 sinus congestion, cough, occassional productive b/l wheeze on exam, covid negative x2, flu and rsv negative possible other common virus vs cardiac asthma given volume overload xopenex for wheezing, tessalon perle for cough (5) DM type 2 (diabetes mellitus, type 2): hx of diet controlled DM last A1c 01/2020 5.2 now controlled with HD/diet not on any oral hypoglycemics admitting BSG 160, add a1c in a.m. (6) HTN (hypertension): continue amlodipine, metoprolol monitor (7) Depression: continue lamictal (8) JUNITO (obstructive sleep apnea): not on CPAP (9) DVT prophylaxis: SQ heparin Dispo: Admit to PCU Code: FULL CODE PCP:Flex Michaels MD Pt was seen and examined in collaboration with Dr. Hobbs, please see addendum History of Present Illness Chief Complaint: Worsening shortness of breath x 1 day. Primary Care Provider: Adri Michaels MD This is a 55-year-old male who has significant past medical history of benign spinal tumor which resulted in neurogenic bladder, obstructive uropathy and eventual kidney failure. He had tumor removed several years ago and has been on dialysis for approximately 3 years. Currently he receives hemodialysis Wednesday and Fridays. Further medical problems include diet-controlled T2DM, HTN, HLD, gout, depression, and JUNITO. He presents ED today secondary to worsening shortness of breath x1 day. Of significance patient missed yesterday's hemodialysis treatment. Apparently on Wednesday he developed upper respiratory symptoms and overall ill feeling. URI symptoms include sinus congestion, chest congestion, wheezing and cough. Cough occasionally productive of yellow sputum. His last hemodialysis treatment was 07/06. He denies any docum ented fever, chills, sweats, lightheadedness, dizziness, syncope, chest pain, palpitations, hemoptysis, nausea, vomiting, abdominal pain, diarrhea. + concentrated urine and dysuria. Typically has to straight cath. " I know I have a UTI." "I can tell when I have one and I have one." States in past he has taken keflex. He was trying to walk his dog today when he was having significant shortness of breath. He opted to seek ED for evaluation. In ED patient was hemodynamically stable although was hypoxic at 97% on room air requiring 2 L of O2 via NC. Lab work revealed end-stage renal disease with hyperkalemia and hyponatremia in need of hemodialysis. BUN and creatinine were 71 and 11.50 respectively, K6.2, sodium 127, glucose 160, WBC 12.78, H&H 10.2 and 29.4, platelet 169. ED provider discussed case with nephrology who was placing orders for hemodialysis. Chest x-ray reveals volume overload. He also received 1 g calcium gluconate secondary to hyperkalemia. Allergies Allergy/AdvReac Type Severity Reaction Status Date / Time Iodinated Contrast Media Allergy Unknown STAGE 4 Verified 07/09/20 09:10 KIDNEY DISEASE Home Medications Medication Instructions Recorded Confirmed Type atorvastatin [Lipitor] 40 mg PO DAILY #0 06/18/16 07/09/20 History amlodipine 5 mg PO QPM 01/24/20 07/09/20 History gabapentin 300 mg PO BID 01/24/20 07/09/20 History sevelamer carbonate [Renvela] 2,400 mg PO DIRECTED 01/24/20 07/09/20 History calcium acetate(phosphat bind) 1,334 mg PO UD 03/07/20 07/09/20 History lamotrigine 200 mg PO HS 03/07/20 07/09/20 History metoprolol tartrate 50 mg PO BID 03/07/20 07/09/20 History trazodone 50 mg PO HS PRN 03/07/20 07/09/20 History B complex-vitamin C-folic acid 1 tab PO DAILY 07/09/20 07/09/20 History [Eufemia-Isac] cinacalcet [Sensipar] 30 mg PO DAILY 07/09/20 07/09/20 History lanthanum 1,000 mg PO HS 07/09/20 07/09/20 History Past Med/Surg History Medical History AV fistula Depression Diabetes DM type 2 (diabetes mellitus, type 2) Dyslipidemia ESRD (end stage renal disease) on dialysis Gout MRSA (methicillin resistant Staphylococcus aureus) Myxopapillary ependymoma "s/p resection" JUNITO (obstructive sleep apnea) PAF (paroxysmal atrial fibrillation) Renal osteodystrophy Urinary retention "straight caths self, 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" Surgical History H/O arthroscopic knee surgery H/O hand surgery H/O laminectomy "07/08/2010- Partial L1 and complete L2 and L3 laminectomies for microsurgical resection of intradural extramedullary tumor." Family History Father Diabetes Heart disease Mother Diabetes Social History (Updated 07/09/20 @ 10:13 by Yajaira Jeffers PA-C) Smoking Status: Former smoker Tobacco Type: Smokeless Tobacco (Dip or Chew) Second Hand Exposure: No; Do You Dip or Chew Tobacco: Yes; Tobacco Cessation Education Requested by Patient: No Hx Alcohol Use: Yes Alcohol type: beer Alcohol Intake Frequency: Monthly or Less Hx Substance Use: Yes Non-Prescribed Medications: Marijuana Last Used Substance: Days (ago) Last Used Substance Other:: Reports using 2-3 weeks ago Preferred Language: French Communication Ability: Effective 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 Required: No Beliefs That Will Affect Care: None marital status: Single Current Living Situation: Alone and Other Current Living Situation Comment: Reports staying with sister at times as well Other Information That Helps Us Care for You: No Feels Safe at Home: Yes Safety Concerns: Feels Safe At This Time Assistive Devices: None Review of Systems Review of Systems: All systems reviewed & are unremarkable except as noted in HPI & below Physical Exam Physical Exam: Constitutional: WD/WN, vitals as above, NAD, sitting up in bed, pleasant, conversing easily Head: Normocephalic, Atraumatic Eyes: PERRL, conjunctivae normal, anicteric sclerae ENMT: external ear and nose normal, oropharynx normal Neck: trachea midline, no thyromegaly normal visual inspection Respiratory: On O2 2 L via NC, expiratory wheezing bilaterally, normal respiratory effort, lungs clear to auscultation,no rales, rhonchi. Normal insp/exp effort, no accessory muscle use Cardiovascular: RRR, no murmur, no edema Vessels: no JVD or carotid bruit, left extremity AV fistula with palpable thrill Chest: normal inspection of chest Abdomen: normal bowel sounds, soft, nontender, no hepatosplenomegaly Musculoskeletal: no cyanosis or clubbing, extremities motor strength 5/5 Skin: no rashes, warm and dry normal turgor Neurologic: PERRL, EOMI, accommodation nl, no face palsy, no dysarthria CN's II-XI intact bilaterally and moves all extremities Psychiatric: A+Ox3, euthymic affect Lymphatic: no cervical or axillary lymphadenopathy : deferred Results & Data Results & Data ([facility]) Vital Signs (Past 12 Hours) Vital Signs Temp Pulse Pulse Resp BP BP Pulse Ox 07/09/20 09:34 62 18 155/88 H 96 07/09/20 09:19 62 20 99 07/09/20 08:40 98 07/09/20 08:31 36.7 C 66 18 168/89 H 92 Diagnostic Findings CXR: IMPRESSION: 1. Cardiomegaly and increased perihilar markings. The findings likely represent congestive failure with mild interstitial edema. An interstitial infectious/inflammatory process could appear similar but is felt to be statistically less likely. ECG Rate (beats per minute): 68 Findings: + peaked T-waves and + prolonged QT (qtc 468ms) COVID-19 Results Results COVID-19 Adm Lab Results: RBC 3.26 M/uL (4.7-6.1) L 07/09/20 WBC 12.78 K/uL (4.8-10.8) H 07/09/20 Hgb 10.2 g/dL (14.0-18.0) L 07/09/20 Hct 29.4 % (42-52) L 07/09/20 Plt Count 169 K/uL (130-400) 07/09/20 Neutrophils (%) (Auto) 88.6 % 07/09/20 Lymphocytes (%) (Auto) 3.6 % 07/09/20 Monocytes # (Auto) 0.65 K/uL (0.11-0.59) H 07/09/20 Eosinophils # (Auto) 0.30 K/uL (0-0.5) 07/09/20 Immature Granulocyte % (Auto) 0.2 % 07/09/20 Neutrophils # (Auto) 11.33 K/uL (1.4-6.5) H 07/09/20 Lymphocytes # (Auto) 0.46 K/uL (1.2-3.4) L 07/09/20 Monocytes # (Auto) 0.65 K/uL (0.11-0.59) H 07/09/20 Eosinophils # (Auto) 0.30 K/uL (0-0.5) 07/09/20 Basophils # (Auto) 0.02 K/uL (0-0.2) 07/09/20 Immature Granulocyte # (Auto) 0.02 K/uL (0.00-0.02) 07/09/20 Na 127 mmol/L (136-145) L 07/09/20 K 6.2 mmol/L (3.5-5.1) H* 07/09/20 Cl 91 mmol/L (98-107) L 07/09/20 CO2 24 mmol/L (21-32) 07/09/20 Anion Gap 12.0 (3-11) H 07/09/20 BUN 71 mg/dl (7-18) H 07/09/20 Creatinine 11.50 mg/dl (0.6-1.4) H* 07/09/20 BUN/Creatinine Ratio 6.1 (10-20) L 07/09/20 Glucose Level 160 mg/dl (70-99) H 07/09/20 Ca 8.7 mg/dl (8.5-10.1) 07/09/20 COVID-19 PCR NEGATIVE (Negative) 07/09/20 Influenza Virus Type A (PCR) Negative (Neg) 07/09/20 Influenza Virus Type B (PCR) Negative (Neg) 07/09/20 SARS-CoV-2, RNA, NAAT NEGATIVE (NEGATIVE) 07/09/20 Chest X-Ray 07/09/20 Code Status & VTE Plan Code Status Full Code VTE Prophylaxis Plan VTE Prophylaxis will be ordered: Yes Supervising Physician Co-Signing Physician Notes Attending addendum: The patient was seen and examined in dialysis room He missed 1 dialysis and came in with increasing shortness of breath and fluid overload He is almost at the end of his dialysis today and has been feeling a lot better Denies any significant symptoms On examination Lying in bed comfortably with minimal back pain Blood pressure has been running on the higher side Chest-decreased breath sounds otherwise clear Heart-S1-S2, regular Abdomen-benign Extremities-trace edema bilaterally Admission labs, imaging studies reviewed Has ESRD on hemodialysis Missed his dialysis catheter and was brought in with fluid overload shortness of breath Has been getting dialysis right now Agree with assessment and plan as outlined above by REJI Hua Dr (1) HTN (hypertension) Hypertension type: unspecified Qualified Code(s): I10 - Essential (primary) hypertension
[2020-07-09 10:53] LABS: Hepatitis B Surface Ab Quant 36.52 mIU/mL (>or=10mIU/mL Immune); Hepatitis B Surface Antibody Immune
[2020-07-09 11:01] LABS: Influenza A virus by PCR Negative (Neg); Influenza B virus by PCR Negative (Neg); RSV by PCR Negative (Neg); SARS CoV2 RNA(COVID-19) InHosp NEGATIVE (Negative)
[2020-07-09 11:04] LABS: Hepatitis B Surface Antigen Neg (Neg)
--- NOTE | 2020-07-09 11:12 | Electrocardiogram Report ---
Test Reason : Blood Pressure : / mmHG Vent. Rate : 068 BPM Atrial Rate : 068 BPM P-R Int : 182 ms QRS Dur : 098 ms QT Int : 454 ms P-R-T Axes : 045 017 040 degrees QTc Int : 482 ms Normal sinus rhythm Normal ECG When compared with ECG of 07-MAR-2020 07:38, No significant change was found Confirmed by Peter Jeffries ([id number]) on 07/09/2020 11:12:16 AM Referred By: REFERRED SELF Confirmed By:Peter Jeffries
[2020-07-09] MEDS ORDERED: CALCIUM ACETATE 667 MG CAP/TAB PO SCH ×2 (11:30→12:00)
[2020-07-09] MEDS ORDERED: SEVELAMER HCL 800 MG TABLET PO PRN (11:49)
[2020-07-09] MEDS ORDERED: CALCIUM ACETATE 667 MG CAP/TAB PO PRN (12:00)
[2020-07-09] MEDS: CALCIUM ACETATE 667 MG CAP/TAB PO SCH ×2 (12:36→18:44)
[2020-07-09] MEDS: SEVELAMER HCL 800 MG TABLET PO SCH ×2 (12:36→18:44)
[2020-07-09 17:47] LABS: Hematocrit (blood only) 29.6 % (42-52); Hemoglobin 10.2 g/dL (14.0-18.0)
--- NOTE | 2020-07-09 17:49 | Communication Note ---
Date of Service: July 09, 2020 CODE PURPLE : Code Luli called overhead while patient was ending hemodialysis session. Dialysis nurse reports patient suddenly had blood coming from mouth. The patient had not coughed or vomited and was not in any distress. On arrival the patient was obese, awake, alert and not confused. He was answering questions appropriately and in no acute distress. BP per nurse was 220/110 with the cuff on the left forearm. When this was adjusted to put the cuff on the left upper arm the blood pressure was 170/80. The dialysis nurse informed us that he had given the patient a small bolus of heparin and had removed approximately 5L of ultrafiltrate during this session. The patient denied any shortness of breath, pain or chest pain and had no other complaints. His record was reviewed including H&P from earlier today and labs and radiology studies. He was admitted for shortness of breath apparently from fluid overload after having missed hemodialysis sessions earlier this week. Notably his potassium was elevated to 6.2. He also had reported recent URI symptoms for the past few days, notably covid, flu and RSV negative. CXR revealed cardiomegaly and increased perihilar markings with mild interstitial edema. On exam, it appeared that his tongue was bleeding, however, not profusely at this point. The patient denied any pain. Cardiac and pulmonary auscultation was attempted, however, it was difficult to hear well in the room. He still had the HD catheter accessed so was also still in the supine position and difficult to maneuver around. Therefore, the exam was limited. No rayna murmurs were heard and breath sounds were audible and clear but diminished. He appeared to be stable so code was ended and source of bleeding appeared to be his tongue. Repeat labwork and CXR were ordered and pending. DO Waqas
--- NOTE | 2020-07-09 18:19 | Nephrology Consultation ---
Date of Consultation July 09, 2020 Assessment & Plan (1) Acute hyperkalemia: K 6.2 >> dialysis today; renal diet Present on Admission?: Yes (2) URI, acute: supportive care; f/u respiratory PCR Present on Admission?: Yes (3) ESRD (end stage renal disease) on dialysis: tx today; reeval for needs tomorrow but likely to need it -needs second covid test at least 24 hrs after first one and also negative in order to return to OP dialysis w/o going to cohort/PUI shift Present on Admission?: Yes (4) Anemia in ESRD (end-stage renal disease): monitor hgb q48 hrs at least and more often until bleeding settles; hgb checked at 1730 will be somewhat inaccurate d/t fluid shifts between compartments on tx -low threshold to recheck hgb later this evening if persistent concerns Present on Admission?: Yes (5) Urinary retention: does CIC - cont same in house/ensure he has supplies >agree w/ orders to check urinalysis, culture Present on Admission?: Yes (6) Bleeding: monitor overnight; did have heparin w/ HD; will check in w/ surveillance specialist for update Present on Admission?: Yes (7) Hypoxia: no home 02 at baseline; at least some of this is from large fluid gains w/ missed HD leading to vol OL -assess for another tx tomorrow Present on Admission?: Yes History of Present Illness Reason for Consultation: hyperkalemia, hypoxia in ESRD Requesting Physician: Dr Hobbs Attending Physician: Dr Hobbs History of Present Illness 53 y/o M whom I'm asked to see for dialysis needs after he presented to ER this am w/ SOB. He dialyzes under my care at [facility] -- missed tx yesterday d/t uri sx. on 2/ he developed cough, sinus congestion, malaise which worsened w/ time; plan was to make up missed HD as OP late this AM but he woke SOB at 430 and called 911. on arrival to ER hypoxia on RA improved w/ 02nc; CXR notable for pulmonary vascular congestoin; his presenting K was 6.2; WBC were 13K. Rapid covid test was negative. Other PMH includes benign spinal tumor c/b neurogenic bladder for which he does chronic intermittent self cath 2-3 times daily; also w/ diet-controlled DM, HTN, HL, gout, depression, JUNITO not on cpap, OA. He did tell me that his urine has been darker and more foul smelling than usual, present x more than one month but more noticeable in past week; no f/c. Plan was on presentation late this am to keep him on patient monitor and to dialyze off monitor assuming no arrhythmias on monitor before HD. He had 1 gm calcium IV in ER. No fruther medical txs for K. I arranged for urgent HD which began approximately 1345 today; I saw him at about 1350 on HD. He was feeling somewhat improved and was settling in for his tx. He often has large wt gains between txs and 5 kg UF is not unusual for him and usually well tolerated at least in the near term. Of note as I write this I see that a code purple was called for bleeding from the mouth toward end of dialysis tx. Allergies Allergy/AdvReac Type Severity Reaction Status Date / Time Iodinated Contrast Media Allergy Unknown STAGE 4 Verified 07/09/20 09:10 KIDNEY DISEASE Home Medications Medication Instructions Recorded Confirmed Type atorvastatin [Lipitor] 40 mg PO DAILY #0 06/18/16 07/09/20 History amlodipine 5 mg PO QPM 01/24/20 07/09/20 History gabapentin 300 mg PO BID 01/24/20 07/09/20 History sevelamer carbonate [Renvela] 2,400 mg PO DIRECTED 01/24/20 07/09/20 History calcium acetate(phosphat bind) 1,334 mg PO UD 03/07/20 07/09/20 History lamotrigine 200 mg PO HS 03/07/20 07/09/20 History metoprolol tartrate 50 mg PO BID 03/07/20 07/09/20 History trazodone 50 mg PO HS PRN 03/07/20 07/09/20 History B complex-vitamin C-folic acid 1 tab PO DAILY 07/09/20 07/09/20 History [Eufemia-Isac] cinacalcet [Sensipar] 30 mg PO DAILY 07/09/20 07/09/20 History lanthanum 1,000 mg PO HS 07/09/20 07/09/20 History Patient History Medical History AV fistula Depression Diabetes DM type 2 (diabetes mellitus, type 2) Dyslipidemia ESRD (end stage renal disease) on dialysis Gout MRSA (methicillin resistant Staphylococcus aureus) Myxopapillary ependymoma "s/p resection" JUNITO (obstructive sleep apnea) PAF (paroxysmal atrial fibrillation) Renal osteodystrophy Urinary retention "straight caths self, 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" Surgical History H/O arthroscopic knee surgery H/O hand surgery H/O laminectomy "07/08/2010- Partial L1 and complete L2 and L3 laminectomies for microsurgical resection of intradural extramedullary tumor." Family History Father Diabetes Heart disease Mother Diabetes Social History Smoking Status: Former smoker Tobacco Type: Smokeless Tobacco (Dip or Chew) Second Hand Exposure: No; Do You Dip or Chew Tobacco: Yes; Tobacco Cessation Education Requested by Patient: No Hx Alcohol Use: Yes Alcohol type: beer Alcohol Intake Frequency: Monthly or Less Hx Substance Use: Yes Non-Prescribed Medications: Marijuana Last Used Substance: Days (ago) Last Used Substance Other:: Reports using 2-3 weeks ago Preferred Language: Lithuanian Communication Ability: Effective Electrical 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 Required: No Beliefs That Will Affect Care: None marital status: Single Current Living Situation: Alone and Other Current Living Situation Comment: Reports staying with sister at times as well Other Information That Helps Us Care for You: No Feels Safe at Home: Yes Safety Concerns: Feels Safe At This Time Assistive Devices: None Review of Systems Review of Systems: All systems reviewed & are unremarkable except as noted in HPI & below Physical Exam Constitutional: well developed and well nourished; no acute distress on 02nc Eyes: EOM intact bilaterally ENMT: Ears: no external ear abnormality Nose: no external nose abnormality Mouth: + dry oral mucous membranes Neck: no nuchal rigidity Respiratory: normal respiratory effort Auscultation: + diminished lung sounds, + rhonchi and + wheezes; no crackles and no rales Cardiovascular: RRR, no murmur, no edema Extremities: + AV fistula (avg + t/b) Gastrointestinal (Abdomen): Inspection/Auscultation: normal bowel sounds Percussion/Palpation: abdomen soft; abdomen nontender Musculoskeletal: no cyanosis or clubbing, extremities motor strength 5/5 Extremities: strength 5/5 throughout Skin: no rashes, warm and dry Neurologic: parada, fluent speech, no tremor Psychiatric: Orientation: alert and oriented x 3 Speech: normal rate/rhythm/volume of speech Affect: + flat affect (at baseline) Results & Data ([facility]) Vital Signs (Past 12 Hours) Vital Signs Temp Pulse Pulse Resp BP BP Pulse Ox 07/09/20 13:00 63 18 165/98 H 98 07/09/20 11:00 62 18 169/91 H 95 07/09/20 09:34 62 18 155/88 H 96 07/09/20 09:19 62 20 99 07/09/20 08:40 98 07/09/20 08:31 36.7 C 66 18 168/89 H 92 Laboratory Results 07/09/20 17:31 reviewed Diagnostic Findings cxr reviewed Echo 12/2019 revealed EF 60-64%, moderate , grade 1 DD, mildly dilated left atrium.
--- NOTE | 2020-07-09 18:28 | Dialysis Progress Note ---
Date of Service July 09, 2020 Assessment & Plan (1) Acute hyperkalemia: K 6.2 >> dialysis today; renal diet (2) URI, acute: supportive care; f/u respiratory PCR; missed HD d/t this (3) ESRD (end stage renal disease) on dialysis: tx today; reeval for needs tomorrow but likely to need it -needs second covid test at least 24 hrs after first one and also negative in order to return to OP dialysis w/o going to cohort/PUI shift (4) Anemia in ESRD (end-stage renal disease): monitor hgb q48 hrs at least and more often until bleeding settles; hgb checked at 1730 will be somewhat inaccurate d/t fluid shifts between compartments on tx -low threshold to recheck hgb later this evening if persistent concerns (5) Urinary retention: does CIC - cont same in house/ensure he has supplies >agree w/ orders to check urinalysis, culture (6) Bleeding: monitor overnight; did have heparin w/ HD; will check in w/ research manufacturing operator for update (7) Hypoxia: no home 02 at baseline; at least some of this is from large fluid gains w/ missed HD leading to vol OL -assess for another tx tomorrow Admission and Anticipated Discharge Date Admission Date: July 09, 2020 Subjective seen on dialysis at 1350 Review of Systems Review of Systems: All systems reviewed & are unremarkable except as noted in Subjective Physical Exam Constitutional: well developed and well nourished; no acute distress Eyes: EOM intact bilaterally ENMT: Ears: no external ear abnormality Nose: no external nose abnormality Mouth: + dry oral mucous membranes Neck: no nuchal rigidity Respiratory: normal respiratory effort Auscultation: + diminished lung sounds, + rhonchi and + wheezes; no crackles and no rales Cardiovascular: RRR, no murmur, no edema Extremities: + AV fistula (avg + t/b) Gastrointestinal (Abdomen): Inspection/Auscultation: normal bowel sounds Percussion/Palpation: abdomen soft; abdomen nontender Musculoskeletal: no cyanosis or clubbing, extremities motor strength 5/5 Extremities: strength 5/5 throughout Skin: no rashes, warm and dry Psychiatric: Orientation: alert and oriented x 3 Speech: normal rate/rhythm/volume of speech Affect: + flat affect (at baseline) Results & Data ([facility]) Vital Signs (Past 12 Hours) Vital Signs Temp Pulse Pulse Resp BP BP Pulse Ox 07/09/20 13:00 63 18 165/98 H 98 07/09/20 11:00 62 18 169/91 H 95 07/09/20 09:34 62 18 155/88 H 96 07/09/20 09:19 62 20 99 07/09/20 08:40 98 07/09/20 08:31 36.7 C 66 18 168/89 H 92 Laboratory Results reveiwed
[2020-07-09] MEDS ORDERED: traZODone HCL 50 MG TAB PO PRN (18:36)
[2020-07-09] MEDS ORDERED: ACETAMINOPHEN 325 MG TAB PO PRN (18:36)
[2020-07-09] MEDS ORDERED: BENZONATATE 100 MG CAPSULE PO PRN (18:36)
[2020-07-09] MEDS ORDERED: LEVALBUTEROL HCL 0.63 MG/3 ML NEB NEB PRN (18:36)
[2020-07-09] MEDS ORDERED: POLYETHYLENE (MIRALAX) 17 GM PACK PO PRN (18:36)
[2020-07-09] MEDS: HEPARIN SOD (PORCINE) 1000 UNIT/ML 10 ML VIAL IV SCH ×3 (18:43→19:16)
--- NOTE | 2020-07-09 18:44 | XRay Report ---
XR chest 1V portable CLINICAL HISTORY: after dialysis COMPARISON STUDY: Chest radiograph performed earlier today. FINDINGS: Lung volumes are normal. No pneumothorax is present. There is a trace right pleural effusio n. Cardiomegaly is unchanged. Interstitial thickening has significantly improved. Right lower lung op acity persists. IMPRESSION: 1. Significant improvement in pulmonary edema. 2. Persistent mild right lower lung opacity. 2. Trace right pleural effusion. ACT 112: Negative or not required by law. Electronically signed by: Valdo Torres M.D. 07/09/2020 6:43 PM
[2020-07-09 18:52] LABS: BUN Creatinine Ratio 5.4 (10-20); Calcium 9.8 mg/dl (8.5-10.1); Creatinine Clr Calc Pharmacy 21.9 ml/min; Est GFR (African American) 13.4; Est GFR (Non-African American) 11.5
[2020-07-09] MEDS ORDERED: Nursing to Pharmacy Communication SCH (19:00)
[2020-07-09 20:07] LABS: Potassium 3.7 mmol/L (3.5-5.1)
[2020-07-09] MEDS: METOPROLOL TARTRATE 50 MG TAB PO SCH (21:44)
[2020-07-09] MEDS: amLODIPine BESYLATE 5 MG TAB PO SCH (21:44)
[2020-07-09] MEDS: HEPARIN SOD 5,000 UNIT/0.5 ML VIAL SQ SCH (21:45)
[2020-07-09] MEDS: GABAPENTIN 300 MG CAP PO SCH (21:45)
[2020-07-09] MEDS: lamoTRIgine 100 MG TAB PO SCH (21:45)
[2020-07-10] MEDS: CINACALCET: ORDER AWAITING ACTION SCH ×3 (00:17→16:18)
[2020-07-10 01:17] LABS: Appearance Urine Slightly Cloudy (Clear); Bilirubin Urine Negative (Negative); Blood Urine 2+ (Negative); Color Urine Yellow; Glucose Urine UA Trace (Negative); Ketones Urine Negative (Negative); Leukocyte Esterase Urine 1+ (Negative); Nitrite Urine Negative (Negative); Protein Urine 3+ (Negative); Urobilinogen Urine Negative (Negative)
[2020-07-10 01:26] LABS: Bacteria Urine 1+ (Negative); RBC Urine 0-4 /hpf (0-4); WBC Urine >30 /hpf (0-5)
[2020-07-10] MEDS: HEPARIN SOD 5,000 UNIT/0.5 ML VIAL SQ SCH ×3 (06:24→20:40)
[2020-07-10 07:08] LABS: Basophils # (auto) 0.01 K/uL (0-0.2); Basophils % (auto) 0.1 %; Hematocrit (blood only) 27.8 % (42-52); Hemoglobin 9.3 g/dL (14.0-18.0); Immature Granulocytes # (auto) 0.01 K/uL (0.00-0.02); Immature Granulocytes % (auto) 0.1 %; Lymphocytes # (auto) 0.94 K/uL (1.2-3.4); Lymphocytes % (auto) 13.9 %; Mean Corpuscular Hgb Conc 33.5 g/dL (32-36); Mean Corpuscular Volume 92.7 fL (80-100); Monocytes # (auto) 0.35 K/uL (0.11-0.59); Monocytes % (auto) 5.2 %; Neutrophils # (auto) 5.24 K/uL (1.4-6.5); Neutrophils % (auto) 77.7 %; Platelet Count 137 K/uL (130-400); RDW Coefficient of Variation 16.4 % (11.5-14.5); RDW Standard Deviation 55.7 fL (36.4-46.3); White Blood Count 6.75 K/uL (4.8-10.8)
[2020-07-10 07:11] LABS: Estimated Average Glucose 103 mg/dl; Hemoglobin A1C 5.2 % (4.5-5.6)
[2020-07-10] MEDS ORDERED: SODIUM CHLORIDE 0.9% 1000ML 1,000 ML IV PRN (07:51)
[2020-07-10] MEDS ORDERED: EPOETIN ALFA 4,000 UNIT/ML VIAL IV SCH (08:00)
[2020-07-10] MEDS ORDERED: HEPARIN SOD (PORCINE) 1000 UNIT/ML 10 ML VIAL IV SCH (08:00)
[2020-07-10 08:06] LABS: Albumin Globulin Ratio 0.8 (0.9-2); Albumin Level 3.3 gm/dl (3.4-5.0); BUN Creatinine Ratio 5.5 (10-20); Bilirubin,Total 0.9 mg/dl (0.2-1); Calcium 9.7 mg/dl (8.5-10.1); Creatinine Clr Calc Pharmacy 13.2 ml/min; Est GFR (African American) 7.5; Est GFR (Non-African American) 6.5; Globulin 3.9 gm/dl (2.5-4.0); Phosphorus 5.8 mg/dl (2.5-4.9); Potassium 4.3 mmol/L (3.5-5.1); Total Protein 7.2 gm/dl (6.4-8.2)
[2020-07-10] MEDS: CALCIUM ACETATE 667 MG CAP/TAB PO SCH ×3 (08:30→17:36)
[2020-07-10] MEDS: SEVELAMER HCL 800 MG TABLET PO SCH ×3 (08:30→17:36)
[2020-07-10] MEDS: ATORVASTATIN 40 MG TAB PO SCH (08:30)
[2020-07-10] MEDS: GABAPENTIN 300 MG CAP PO SCH ×2 (08:31→20:41)
[2020-07-10] MEDS: METOPROLOL TARTRATE 50 MG TAB PO SCH ×2 (08:31→20:41)
[2020-07-10] MEDS: NEPHROCAPS PO SCH (08:31)
[2020-07-10] MEDS: LIDOCAINE 5% 1 PATCH TD SCH (08:32)
--- NOTE | 2020-07-10 09:07 | Hospitalist Progress Note ---
Date of Service July 10, 2020 Assessment & Plan (1) Acute pulmonary edema: Acute pulmonary edema in setting of ESRD and missed hemodialysis appointment. He presented to ER with worsening shortness of breath for 1 day and he missed his dialysis Noted to have acute pulmonary edema with the fluid overload on chest x-ray Condition has been improving following dialysis He has had dialysis yesterday and also today He has been feeling a lot better and denies any shortness of breath at rest (2) Hypoxia: (3) Acute hyperkalemia: Resolved following dialysis (4) ESRD (end stage renal disease) on dialysis: This is a 55-year-old male who has significant past medical history of benign spinal tumor which resulted in neurogenic bladder, obstructive uropathy and eventual kidney failure. He had tumor removed several years ago and has been on dialysis for approximately 3 years. Currently he receives hemodialysis Wednesday and Fridays. Further medical problems include diet-controlled T2DM, HTN, HLD, gout, depression, and JUNITO. He presents ED today secondary to worsening shortness of breath x1 day. Pt presented similarly after missed HD 12/2019 requiring hospitalization. Improved after HD. During hospital stay did develop PAF. [place] transient 2/2 to hyperkalemia and volume overload, no further tx recommended. Had ZIO patch which showed no afib, 1 brief episode of wide complex tach, asymptomatic. Echo 12/2019 revealed EF 60-64%, moderate , grade 1 DD, mildly dilated left atrium. Appreciate nephrology input and recommendation LEUKOCYTOSIS-resolved following hemodialysis UA suggestive of infection White count is slightly elevated at 12.78 with left shift UA + leuks, > 30 wbc, tx empirically with IV rocephin - await urine culture Denies any urinary symptoms (5) URI, acute: pt with URI sx since 07/06 sinus congestion, cough, occassional productive improved lung exam today, likely congestion 2/2 to cardiac asthma but may also have viral component covid negative x2, flu and rsv negative will need repeat covid test today in order to return to OP HD center xopenex for wheezing, tessalon perle for cough Denies any fever and/or chills-doubt any pneumonia (6) DM type 2 (diabetes mellitus, type 2): hx of diet controlled DM A1C 5.2 now controlled with HD/diet not on any oral hypoglycemics (7) HTN (hypertension): continue amlodipine, metoprolol monitor (8) Depression: continue lamictal (9) JUNITO (obstructive sleep apnea): not on CPAP (10) DVT prophylaxis: SQ heparin Dispo: Admit to PCU; Pt possible discharge tomorrow if clinically improved after todays HD, will need repeat covid test, ordered Code: FULL CODE PCP:Flex Michaels MD Admission and Anticipated Discharge Date Admission Date: July 09, 2020 Supervising Physician Co-Signing Physician Notes Attending addendum The patient was seen and examined in telemetry unit He has had oral bleeding due to tongue bite and that has stopped He denies any cough and/or shortness of breath, any fever and/or chills On examination Stable in bed and without any acute distress Chest-crackles both bases right more than the left Heart-S1-S2 with a 2/6 ejection systolic murmur over precordium Abdomen-benign Extremities-trace edema bilaterally Her labs and imaging studies reviewed Agree with assessment and plan(which was addended) as outlined above by REJI Jauregui Dr Subjective Patient was seen and examined in room 244-1. Follow up volume overload in setting of missed HD and hypoxia. He feels better this morning. SOB improved after receiving HD. He is still on oxygen. Overall feels chest congestion and sinus congestion improved. Didn't sleep well, 4 hours. To undergo additional HD today. Denies f/c/s, dizziness, lightheaded, n/v/d. Good appetite. Still mild cough with occasional production. Code purple was called last night 2/2 to blood coming from mouth. This has resolved. Pt bit his tongue. States he was sleeping and woke up and bit it. Review of Systems Review of Systems: All systems reviewed & are unremarkable except as noted in HPI & below Physical Exam Physical Exam: Gen: WD/WN, M, lying in bed, NAD, A&O x3 HEENT: Normocephalic, atraumatic, conjunctivae moist, sclerae anicteric, mucous membranes moist. Tongue with inflammation to L medial side 2/2 to biting. Lung: Clear to Auscultation bilaterally, mild end expiratory wheezing, improved from yesterday, no rales/rhonchi Heart: Regular rate, regular rhythm,2/6 TYLOR noted LUSB, no rubs, or gallops. LUE AV fistula in place Abdomen:protuberant abd, Soft, NT, ND +BS x 4 Extremities: No edema Skin: Warm, no rash, negative turgor Results & Data Results & Data ([facility]) Vital Signs (Past 12 Hours) Vital Signs Temp Pulse Pulse Resp BP Pulse Ox 07/10/20 07:45 36.8 C 58 L 18 158/81 H 98 07/09/20 23:54 36.8 C 73 20 141/73 H 90 Laboratory Results Short CBC 07/09/20 07/09/20 07/10/20 Range/Units 09:00 17:31 01:10 WBC 12.78 H (4.8-10.8) K/uL Hgb 10.2 L 10.2 L (14.0-18.0) g/dL Hct 29.4 L 29.6 L (42-52) % Plt Count 169 (130-400) K/uL Ur Epithelial Cells 5-10 H (0-5) /lpf 07/10/20 Range/Units 06:34 WBC 6.75 (4.8-10.8) K/uL Hgb 9.3 L (14.0-18.0) g/dL Hct 27.8 L (42-52) % Plt Count 137 (130-400) K/uL Ur Epithelial Cells (0-5) /lpf BMP 07/09/20 07/09/20 07/10/20 09:00 17:31 06:34 Sodium 127 L 135 L D 133 L Potassium 6.2 H* 3.7 D 4.3 D Chloride 91 L 96 L 94 L Carbon Dioxide 24 26 28 BUN 71 H 28 H D 46 H D Creatinine 11.50 H* 5.18 H* D 8.38 H* D Glucose 160 H 109 H 106 H Calcium 8.7 9.8 9.7 Liver Function 07/10/20 Range/Units 06:34 Total Bilirubin 0.9 (0.2-1) mg/dl AST 12 L (15-37) U/L ALT 19 (12-78) U/L Alkaline Phosphatase 149 H (45-117) U/L Albumin 3.3 L (3.4-5.0) gm/dl Urine 07/10/20 Range/Units 01:10 Urine Color Yellow Urine Appearance Slightly Cloudy (Clear) Urine pH 8.0 H (4.5-7.5) Ur Specific [place] 1.020 (1.000-1.030) Urine Protein 3+ H (Negative) Urine Glucose (UA) Trace H (Negative) Diagnostic Findings CXR: IMPRESSION: 1. Significant improvement in pulmonary edema. 2. Persistent mild right lower lung opacity. 2. Trace right pleural effusion. Medications Administered Amlodipine Besylate (Amlodipine Besylate 5 Mg Tab) 5 mg PO QPM ESTELLA Stop: 08/08/20 20:59 Last Admin: 07/09/20 21:44 Dose: 5 mg Documented by: [id number] Atorvastatin Calcium (Atorvastatin 40 Mg Tab) 40 mg PO DAILY ESTELLA Stop: 08/09/20 08:59 Last Admin: 07/10/20 08:30 Dose: 40 mg Documented by: [id number] Calcium Acetate (Calcium Acetate 667 Mg Cap/Tab) 667 mg PO QS PRN PRN Reason: SNACKS Stop: 08/08/20 11:59 Last Admin: 07/09/20 21:48 Dose: 667 mg Documented by: [id number] Calcium Acetate (Calcium Acetate 667 Mg Cap/Tab) 1,334 mg PO TIDM ESTELLA Stop: 08/08/20 11:59 Last Admin: 07/10/20 08:30 Dose: 1,334 mg Documented by: [id number] Admin: 07/09/20 18:44 Dose: Not Given Documented by: [id number] Admin: 07/09/20 12:36 Dose: 1,334 mg Documented by: [id number] Gabapentin (Gabapentin 300 Mg Cap) 300 mg PO BID ESTELLA Stop: 08/08/20 20:59 Last Admin: 07/10/20 08:31 Dose: 300 mg Documented by: [id number] Admin: 07/09/20 21:45 Dose: 300 mg Documented by: [id number] Heparin Sodium (Porcine) (Heparin Sod 5,000 Unit/0.5 Ml Vial) 7,500 units SQ Q8 ESTELLA Stop: 08/08/20 21:59 Last Admin: 07/10/20 06:24 Dose: 7,500 units Documented by: [id number] Admin: 07/09/20 21:45 Dose: Not Given Documented by: [id number] Lamotrigine (Lamotrigine 100 Mg Tab) 200 mg PO HS ESTELLA Stop: 08/08/20 20:59 Last Admin: 07/09/20 21:45 Dose: 200 mg Documented by: [id number] Lidocaine (Lidocaine 5% 1 Patch) 1 patch TD QAM ESTELLA Stop: 08/09/20 08:59 Last Admin: 07/10/20 08:32 Dose: Not Given Documented by: [id number] Metoprolol Tartrate (Metoprolol Tartrate 50 Mg Tab) 50 mg PO BID ESTELLA Stop: 08/08/20 19:59 Last Admin: 07/10/20 08:31 Dose: 50 mg Documented by: [id number] Admin: 07/09/20 21:44 Dose: 50 mg Documented by: [id number] Miscellaneous (Cinacalcet: Order Awaiting Action) 1 ea N/A QS ESTELLA Stop: 08/09/20 00:00 Last Admin: 07/10/20 08:32 Dose: Not Given Documented by: [id number] Admin: 07/10/20 00:17 Dose: Not Given Documented by: [id number] Miscellaneous (Lanthanum: Order Awaiting Action) 1 ea N/A QS [facility] Stop: 08/09/20 00:00 Last Admin: 07/10/20 08:34 Dose: Not Given Documented by: [id number] Admin: 07/10/20 00:18 Dose: Not Given Documented by: [id number] Sevelamer HCl (Sevelamer Hcl 800 Mg Tablet) 2,400 mg PO TIDM ESTELLA Stop: 08/08/20 11:29 Last Admin: 07/10/20 08:30 Dose: 2,400 mg Documented by: [id number] Admin: 07/09/20 18:44 Dose: Not Given Documented by: [id number] Admin: 07/09/20 12:36 Dose: 2,400 mg Documented by: [id number] Vitamin B Complex/Folic Acid (Nephrocaps) 1 cap PO DAILY ESTELLA Stop: 08/09/20 08:59 Last Admin: 07/10/20 08:31 Dose: 1 cap Documented by: [id number] Discontinued Medications Albuterol (Albut/Ipratrop 3mg/0.5mg Neb 3 Ml Vial) 3 ml NEB NOW STA Stop: 07/09/20 08:51 Last Admin: 07/09/20 09:18 Dose: 3 ml Documented by: [id number] Heparin Sodium (Porcine) (Heparin Sod (Porcine) 1000 Unit/Ml 10 Ml Vial) 2,000 units IV ONE ONE Stop: 07/09/20 09:47 Last Admin: 07/09/20 18:43 Dose: Not Given Documented by: [id number] Heparin Sodium (Porcine) (Heparin Sod (Porcine) 1000 Unit/Ml 10 Ml Vial) 800 units IV Q1H ESTELLA Stop: 07/09/20 12:01 Last Admin: 07/09/20 19:16 Dose: Not Given Documented by: [id number] Admin: 07/09/20 18:45 Dose: Not Given Documented by: [id number] Admin: 07/09/20 18:43 Dose: Not Given Documented by: [id number] Calcium Gluconate 1,000 mg/ (Sodium Chloride) 60 mls @ 240 mls/hr IV NOW STA Stop: 07/09/20 09:22 Last Infusion: 07/09/20 09:59 Dose: 0 mls/hr Documented by: [id number] Admin: 07/09/20 09:34 Dose: 240 mls/hr Documented by: [id number] (1) HTN (hypertension) Hypertension type: unspecified Qualified Code(s): I10 - Essential (primary) hypertension
[2020-07-10] MEDS: HEPARIN SOD (PORCINE) 1000 UNIT/ML 10 ML VIAL IV SCH ×2 (10:32→14:27)
--- NOTE | 2020-07-10 12:51 | Dialysis Progress Note ---
Date of Service July 10, 2020 Assessment & Plan (1) Acute hyperkalemia: at admission; resolved w/ HD >cont renal diet (2) URI, acute: supportive care; f/u respiratory PCR; missed HD before admission d/t this (3) ESRD (end stage renal disease) on dialysis: on MWF HD at [facility] sofiya césar; for routine tx todayw/ aggressive UF -needs second covid test at least 24 hrs after first one and also negative in order to return to OP dialysis w/o going to cohort/PUI shift >> appreciate primary service has ordered this (4) Anemia in ESRD (end-stage renal disease): monitor hgb q48 hrs at least; no furthe rbleeding concerns > ? bitten tongue -epo low dose w/ HD -lower heparin dose on HD (5) Urinary retention: does CIC - cont same in house/ensure he has supplies >agree w/ orders to check urinalysis, culture though these are bound to be + more than likely w/ CIC; he did report changes in urine though [employer] (6) Hypoxia: no home 02 at baseline; at least some of this is from large fluid gains w/ missed HD leading to vol OL -assess for another tx tomorrow Admission and Anticipated Discharge Date Admission Date: July 09, 2020 Subjective seen on dialysis at about 1030; no dialysis related c/o; no further bleeding; breathing a bit better Review of Systems Review of Systems: All systems reviewed & are unremarkable except as noted in Subjective Physical Exam Constitutional: well developed and well nourished; no acute distress Eyes: EOM intact bilaterally ENMT: Ears: no external ear abnormality Nose: no external nose abnormality Mouth: + dry oral mucous membranes Neck: no nuchal rigidity Respiratory: normal respiratory effort Auscultation: + diminished lung sounds; no crackles, no rales, no rhonchi and no wheezes Cardiovascular: RRR, no murmur, no edema Extremities: + AV fistula (avg + t/b) Gastrointestinal (Abdomen): Inspection/Auscultation: normal bowel sounds Percussion/Palpation: abdomen soft; abdomen nontender Musculoskeletal: no cyanosis or clubbing, extremities motor strength 5/5 Extremities: strength 5/5 throughout Skin: no rashes, warm and dry Psychiatric: Orientation: alert and oriented x 3 Speech: normal rate/rhythm/volume of speech Affect: + flat affect (at baseline) Results & Data ([facility]) Vital Signs (Past 12 Hours) Vital Signs Temp Pulse Pulse Resp BP BP Pulse Ox 07/10/20 12:45 56 L 128/75 07/10/20 12:20 56 L 128/75 07/10/20 12:06 59 L 105/69 07/10/20 11:40 57 L 129/72 07/10/20 11:20 54 L 126/77 07/10/20 11:00 54 L 128/72 07/10/20 10:40 54 L 118/69 07/10/20 10:20 55 L 117/70 07/10/20 10:00 55 L 114/63 07/10/20 09:40 59 L 122/83 07/10/20 09:20 61 137/76 07/10/20 09:12 63 133/74 07/10/20 09:05 37.5 C 63 07/10/20 07:45 36.8 C 58 L 18 158/81 H 98 Laboratory Results 07/10/20 06:34 07/10/20 06:34
[2020-07-10] MEDS: lamoTRIgine 100 MG TAB PO SCH (20:41)
[2020-07-10] MEDS: amLODIPine BESYLATE 5 MG TAB PO SCH (20:42)
[2020-07-10] MEDS ORDERED: CALCIUM CARBONATE 500 MG CHEWABLE TAB PO PRN (22:19)
[2020-07-11] MEDS: CINACALCET: ORDER AWAITING ACTION SCH ×4 (01:08→21:24)
[2020-07-11] MEDS: HEPARIN SOD 5,000 UNIT/0.5 ML VIAL SQ SCH ×3 (05:30→21:10)
[2020-07-11 06:15] LABS: Hematocrit (blood only) 28.6 % (42-52); Hemoglobin 9.8 g/dL (14.0-18.0); Mean Corpuscular Hemoglobin 31.3 pg (25-34); Mean Corpuscular Hgb Conc 34.3 g/dL (32-36); Mean Corpuscular Volume 91.4 fL (80-100); Mean Platelet Volume 9.6 fL (7.4-10.4); Platelet Count 148 K/uL (130-400); RDW Coefficient of Variation 16.1 % (11.5-14.5); RDW Standard Deviation 54.2 fL (36.4-46.3); Red Blood Count 3.13 M/uL (4.7-6.1); White Blood Count 4.82 K/uL (4.8-10.8)
[2020-07-11 07:03] LABS: BUN Creatinine Ratio 5.9 (10-20); Calcium 9.4 mg/dl (8.5-10.1); Creatinine Clr Calc Pharmacy 16.9 ml/min; Est GFR (African American) 10.1; Est GFR (Non-African American) 8.7; Magnesium 2.2 mg/dl (1.8-2.4); Phosphorus 5.1 mg/dl (2.5-4.9)
--- NOTE | 2020-07-11 07:50 | XRay Report ---
XR chest 1V portable CLINICAL HISTORY: Abnormal chest x-ray. Follow-up study. COMPARISON STUDY: July 09, 2020 FINDINGS: The heart remains enlarged. There is resolving pulmonary vascular congestion. There is a re solving right basilar airspace opacity likely representing resolving focal edema. There is no acute l obar consolidation. There are no significant pleural effusions.[ IMPRESSION: Resolving right basilar airspace opacity. ACT 112: Negative or not required by law. Electronically signed by: Farhat Hernandez M.D. 07/11/2020 7:49 AM
[2020-07-11] MEDS: CALCIUM ACETATE 667 MG CAP/TAB PO SCH ×3 (08:29→17:17)
[2020-07-11] MEDS: LIDOCAINE 5% 1 PATCH TD SCH (08:30)
[2020-07-11] MEDS: NEPHROCAPS PO SCH (08:30)
[2020-07-11] MEDS: ATORVASTATIN 40 MG TAB PO SCH (08:30)
[2020-07-11] MEDS: SEVELAMER HCL 800 MG TABLET PO SCH ×3 (08:30→17:17)
[2020-07-11] MEDS: METOPROLOL TARTRATE 50 MG TAB PO SCH ×2 (08:31→21:08)
[2020-07-11] MEDS: GABAPENTIN 300 MG CAP PO SCH ×2 (08:31→21:09)
[2020-07-11] MEDS: cefTRIAXone SODIUM 2,000 MG in DEXTROSE 5% 50 ML IV SCH (10:31)
--- NOTE | 2020-07-11 11:10 | Electrocardiogram Report ---
Test Reason : Blood Pressure : / mmHG Vent. Rate : 072 BPM Atrial Rate : 117 BPM P-R Int : 000 ms QRS Dur : 090 ms QT Int : 428 ms P-R-T Axes : 000 009 052 degrees QTc Int : 468 ms Atrial fibrillation Nonspecific ST abnormality Abnormal ECG When compared with ECG of 09-JUL-2020 08:39, Atrial fibrillation has replaced Sinus rhythm Confirmed by Edu Joyner [id number] on 07/11/2020 11:09:34 AM Referred By: REFERRED SELF Confirmed By:Edu Joyner
--- NOTE | 2020-07-11 16:43 | Hospitalist Progress Note ---
Date of Service July 11, 2020 Assessment & Plan (1) Acute pulmonary edema: Acute pulmonary edema Hypoxia In setting of ESRD and missed hemodialysis appointment. -CXR:Cardiomegaly and increased perihilar markings. The findings likely represent congestive failure with mild interstitial edema. An interstitial infectious/inflammatory process could appear similar but is felt to be statistically less likely. Volume status improved with dialysis Wean off of supplemental oxygen as able (2) Hypoxia: (3) Acute hyperkalemia: Resolved following dialysis (4) ESRD (end stage renal disease) on dialysis: H/O Benign spinal tumor which resulted in neurogenic bladder, obstructive uropathy and eventual kidney failure. On Hemodialysis since ~ 3 Years MWF Appreciate Nephrology help Continue Hemodialysis Leukocytosis Possible UTI Urine Cx:pending Empirically on Rocephin (5) URI, acute: URI sx since 2/6 sinus congestion, cough, occasional productive COVID Screen:Negative Influenza, RSV screen negative as well No fever Leukocytosis resolved (6) DM type 2 (diabetes mellitus, type 2): H/O Diet controlled DM A1C 5.2 Monitor H/O Paroxysmal atrial fibrillation Continue metoprolol Currently not on any anticoagulation Patient prefers to discuss with cardiology prior to initiating any anticoagulation if needed as outpatient (7) HTN (hypertension): continue amlodipine, metoprolol monitor (8) Depression: continue lamictal (9) JUNITO (obstructive sleep apnea): not on CPAP (10) DVT prophylaxis: SQ heparin Code: FULL CODE Disposition PCP:Flex Michaels MD Admission and Anticipated Discharge Date Admission Date: July 09, 2020 Subjective Patient is seen and examined at bedside Offers no complaints Eager to get discharged Denies chest pain, dyspnea, dizziness, nausea, abdominal pain Review of Systems Review of Systems: All systems reviewed & are unremarkable except as noted in HPI & below Physical Exam Physical Exam: Physical Exam: Vitals signs as noted above General Appearance:Moderately built and nourished, no apparent distress Head: normocephalic, Atraumatic Eyes: normal inspection, EOMI Neck: supple, Trachea midline Respiratory/Chest: Normal breath sounds, CTA Cardiovascular: Irregularly irregular, No murmur Abdomen/GI:Soft, Non tender, Bowel sounds present Extremities/Musculoskelatal:normal inspection, no edema, Left UE Scarring, S/P amputated middle digit Neurologic/Psych:AAOX3, grossly no focal neurological deficits Skin: normal color, warm Results & Data Results & Data ([facility]) Vital Signs (Past 12 Hours) Vital Signs Temp Pulse Resp BP Pulse Ox 07/11/20 16:02 36.8 C 76 18 106/82 97 07/11/20 08:07 36.7 C 77 19 117/72 97 Laboratory Results Short CBC 07/11/20 Range/Units 05:37 WBC 4.82 (4.8-10.8) K/uL Hgb 9.8 L (14.0-18.0) g/dL Hct 28.6 L (42-52) % Plt Count 148 (130-400) K/uL BMP 07/11/20 05:37 Sodium 134 L Potassium 4.0 Chloride 97 L Carbon Dioxide 27 BUN 39 H Creatinine 6.53 H* D Glucose 94 Calcium 9.4 (1) HTN (hypertension) Hypertension type: unspecified Qualified Code(s): I10 - Essential (primary) hypertension
[2020-07-11] MEDS: amLODIPine BESYLATE 5 MG TAB PO SCH (21:09)
[2020-07-11] MEDS: lamoTRIgine 100 MG TAB PO SCH (21:09)
[2020-07-12] MEDS: HEPARIN SOD 5,000 UNIT/0.5 ML VIAL SQ SCH ×3 (06:06→22:29)
[2020-07-12] MEDS: CINACALCET: ORDER AWAITING ACTION SCH ×3 (07:37→22:29)
[2020-07-12] MEDS: GABAPENTIN 300 MG CAP PO SCH ×2 (07:46→21:53)
[2020-07-12] MEDS: ATORVASTATIN 40 MG TAB PO SCH (07:46)
[2020-07-12] MEDS: NEPHROCAPS PO SCH (07:46)
[2020-07-12] MEDS: SEVELAMER HCL 800 MG TABLET PO SCH ×3 (07:47→17:42)
[2020-07-12] MEDS: CALCIUM ACETATE 667 MG CAP/TAB PO SCH ×3 (07:47→17:43)
[2020-07-12] MEDS: LIDOCAINE 5% 1 PATCH TD SCH (07:48)
[2020-07-12 07:51] LABS: BUN Creatinine Ratio 7.2 (10-20); Calcium 9.5 mg/dl (8.5-10.1); Creatinine Clr Calc Pharmacy 12.2 ml/min; Est GFR (African American) 6.8; Est GFR (Non-African American) 5.9; Magnesium 2.3 mg/dl (1.8-2.4); Potassium 4.4 mmol/L (3.5-5.1)
[2020-07-12] MEDS ORDERED: SODIUM CHLORIDE 0.9% 1000ML 1,000 ML IV PRN (08:12)
[2020-07-12] MEDS ORDERED: HEPARIN SOD (PORCINE) 1000 UNIT/ML 10 ML VIAL IV ONE (08:12)
[2020-07-12] MEDS ORDERED: EPOETIN ALFA 10,000 UNITS/ML VIAL IV ONE (09:30)
[2020-07-12] MEDS: HEPARIN SOD (PORCINE) 1000 UNIT/ML 10 ML VIAL IV SCH (12:08)
[2020-07-12] MEDS: METOPROLOL TARTRATE 50 MG TAB PO SCH ×2 (14:18→21:52)
[2020-07-12] MEDS: cefTRIAXone SODIUM 2,000 MG in DEXTROSE 5% 50 ML IV SCH (14:18)
--- NOTE | 2020-07-12 15:56 | Hospitalist Progress Note ---
Date of Service July 12, 2020 Assessment & Plan (1) Acute pulmonary edema: Acute pulmonary edema Hypoxia In setting of ESRD and missed hemodialysis appointment. -CXR:Cardiomegaly and increased perihilar markings. The findings likely represent congestive failure with mild interstitial edema. An interstitial infectious/inflammatory process could appear similar but is felt to be statistically less likely. Volume status improved with dialysis Weaned off of supplemental oxygen Saturating 95% on room air (2) Hypoxia: (3) Acute hyperkalemia: Resolved following dialysis (4) ESRD (end stage renal disease) on dialysis: H/O Benign spinal tumor which resulted in neurogenic bladder, obstructive uropathy and eventual kidney failure. On Hemodialysis since ~ 3 Years MWF Appreciate Nephrology help Continue Hemodialysis as per Nephrology Leukocytosis UTI--Ruled out Urine Cx: Group B beta strep Discontinue Rocephin (5) URI, acute: URI sx since 2 sinus congestion, cough, occasional productive COVID Screen:Negative Influenza, RSV screen negative as well No fever Leukocytosis resolved (6) DM type 2 (diabetes mellitus, type 2): H/O Diet controlled DM A1C 5.2 Monitor H/O Paroxysmal atrial fibrillation Continue metoprolol Currently not on any anticoagulation Patient prefers to discuss with his sash sticker prior to initiating any anticoagulation if needed as outpatient (7) HTN (hypertension): continue amlodipine, metoprolol monitor (8) Depression: continue lamictal (9) JUNITO (obstructive sleep apnea): not on CPAP (10) DVT prophylaxis: SQ heparin Code: FULL CODE Disposition PCP:Flex Michaels MD Admission and Anticipated Discharge Date Admission Date: July 09, 2020 Subjective Patient is seen and examined at bedside during his dialysis session today Had hemodialysis today Denies chest pain, dyspnea, dizziness, nausea, abdominal pain No complaints Review of Systems Review of Systems: All systems reviewed & are unremarkable except as noted in HPI & below Physical Exam Physical Exam: Physical Exam: Vitals signs as noted above General Appearance:Moderately built and nourished, no apparent distress Head: normocephalic, Atraumatic Eyes: normal inspection, EOMI Neck: supple, Trachea midline Respiratory/Chest: Normal breath sounds, CTA Cardiovascular: Irregularly irregular, No murmur Abdomen/GI:Soft, Non tender, Bowel sounds present Extremities/Musculoskelatal:normal inspection, no edema, Left UE Scarring, S/P amputated middle digit Neurologic/Psych:AAOX3, grossly no focal neurological deficits Skin: normal color, warm Results & Data Results & Data ([facility]) Vital Signs (Past 12 Hours) Vital Signs Temp Pulse Pulse Pulse Resp BP BP 07/12/20 13:32 36.9 C 77 77 121/70 121/70 07/12/20 13:20 69 105/66 07/12/20 13:00 80 98/70 L 07/12/20 12:40 71 116/81 07/12/20 12:20 56 L 121/67 07/12/20 12:00 80 119/77 07/12/20 11:40 68 112/71 07/12/20 11:20 88 108/59 L 07/12/20 11:00 65 117/72 07/12/20 10:40 72 108/79 07/12/20 10:20 61 124/79 07/12/20 10:00 68 119/77 07/12/20 09:40 68 114/75 07/12/20 09:16 36.8 C 67 67 133/67 07/12/20 08:48 36.8 C 74 18 145/84 H 07/12/20 05:10 36.3 C L 60 18 104/46 L Pulse Ox 07/12/20 13:32 07/12/20 13:20 07/12/20 13:00 07/12/20 12:40 07/12/20 12:20 07/12/20 12:00 07/12/20 11:40 07/12/20 11:20 07/12/20 11:00 07/12/20 10:40 07/12/20 10:20 07/12/20 10:00 07/12/20 09:40 07/12/20 09:16 07/12/20 08:48 95 07/12/20 05:10 95 Laboratory Results BMP 07/12/20 06:36 Sodium 132 L Potassium 4.4 Chloride 96 L Carbon Dioxide 24 BUN 65 H D Creatinine 9.04 H* D Glucose 106 H Calcium 9.5 (1) HTN (hypertension) Hypertension type: unspecified Qualified Code(s): I10 - Essential (primary) hypertension
--- NOTE | 2020-07-12 16:49 | Dialysis Progress Note ---
Date of Service July 12, 2020 Assessment & Plan (1) ESRD (end stage renal disease) on dialysis: on MWF HD at [facility] sofiya césar; for routine tx today w/ aggressive UF -has second covid test at least 24 hrs after first one and also negative >> needed for OP dialysis (2) Anemia in ESRD (end-stage renal disease): monitor hgb q48 hrs at least; no furthe rbleeding concerns > ? bitten tongue -epo low dose w/ HD -lower heparin dose on HD (3) Urinary retention: does CIC - cont same in house/ensure he has supplies >urine cx w/o colony count; no antimicrobial currently (4) Hypoxia: no home 02 at baseline; at least some of this is from large fluid gains w/ missed HD leading to vol OL -aggressive UF on dialysis; cont FR; note back on RA after tx today Admission and Anticipated Discharge Date Admission Date: July 09, 2020 Subjective seen on dialysis at 11 am; feels improved in terms of sinus/cough; RN noted some wheezing at start of tx; pt denies sob, orthopnea Review of Systems Review of Systems: All systems reviewed & are unremarkable except as noted in Subjective Physical Exam Constitutional: well developed and well nourished; no acute distress Eyes: EOM intact bilaterally ENMT: Ears: no external ear abnormality Nose: no external nose abnormality Mouth: + dry oral mucous membranes Neck: no nuchal rigidity Respiratory: normal respiratory effort Auscultation: + diminished lung sounds; no crackles, no rales, no rhonchi and no wheezes Cardiovascular: RRR, no murmur, no edema Extremities: + AV fistula (avg + t/b) Gastrointestinal (Abdomen): Inspection/Auscultation: normal bowel sounds Percussion/Palpation: abdomen soft; abdomen nontender Musculoskeletal: no cyanosis or clubbing, extremities motor strength 5/5 Extremities: strength 5/5 throughout Skin: no rashes, warm and dry Neurologic: parada, fluent speech, not remor Psychiatric: Orientation: alert and oriented x 3 Speech: normal rate/rhythm/volume of speech Affect: + flat affect (at baseline) Results & Data ([facility]) Vital Signs (Past 12 Hours) Vital Signs Temp Pulse Pulse Pulse Resp BP BP 07/12/20 16:28 36.5 C 83 16 141/76 H 07/12/20 15:58 83 02/12/21 13:32 36.9 C 77 77 121/70 121/70 07/12/20 13:20 69 105/66 07/12/20 13:00 80 98/70 L 07/12/20 12:40 71 116/81 07/12/20 12:20 56 L 121/67 07/12/20 12:00 80 119/77 07/12/20 11:40 68 112/71 07/12/20 11:20 88 108/59 L 07/12/20 11:00 65 117/72 07/12/20 10:40 72 108/79 07/12/20 10:20 61 124/79 07/12/20 10:00 68 119/77 07/12/20 09:40 68 114/75 07/12/20 09:16 36.8 C 67 67 133/67 07/12/20 08:48 36.8 C 74 18 145/84 H 07/12/20 05:10 36.3 C L 60 18 104/46 L Pulse Ox 07/12/20 16:28 98 07/12/20 15:58 07/12/20 13:32 07/12/20 13:20 07/12/20 13:00 07/12/20 12:40 07/12/20 12:20 07/12/20 12:00 07/12/20 11:40 07/12/20 11:20 07/12/20 11:00 07/12/20 10:40 07/12/20 10:20 07/12/20 10:00 07/12/20 09:40 07/12/20 09:16 07/12/20 08:48 95 07/12/20 05:10 95 Laboratory Results 07/11/20 05:37 07/12/20 06:36 urine cx w/ group b strep
[2020-07-12] MEDS: amLODIPine BESYLATE 5 MG TAB PO SCH (21:53)
[2020-07-12] MEDS: lamoTRIgine 100 MG TAB PO SCH (21:53)
[2020-07-13] MEDS: HEPARIN SOD 5,000 UNIT/0.5 ML VIAL SQ SCH ×2 (05:01→12:06)
[2020-07-13 06:43] LABS: BUN Creatinine Ratio 5.9 (10-20); Calcium 10.1 mg/dl (8.5-10.1); Creatinine Clr Calc Pharmacy 16.1 ml/min; Est GFR (African American) 9.6; Est GFR (Non-African American) 8.3; Magnesium 2.1 mg/dl (1.8-2.4); Potassium 4.2 mmol/L (3.5-5.1)
[2020-07-13] MEDS: NEPHROCAPS PO SCH (08:02)
[2020-07-13] MEDS: SEVELAMER HCL 800 MG TABLET PO SCH ×2 (08:02→12:05)
[2020-07-13] MEDS: CALCIUM ACETATE 667 MG CAP/TAB PO SCH ×2 (08:02→12:05)
[2020-07-13] MEDS: ATORVASTATIN 40 MG TAB PO SCH (08:02)
[2020-07-13] MEDS: LIDOCAINE 5% 1 PATCH TD SCH (08:03)
[2020-07-13] MEDS: CINACALCET: ORDER AWAITING ACTION SCH (08:03)
[2020-07-13] MEDS: METOPROLOL TARTRATE 50 MG TAB PO SCH (08:03)
[2020-07-13] MEDS: GABAPENTIN 300 MG CAP PO SCH (08:03)
--- NOTE | 2020-07-13 11:06 | Hospitalist Progress Note ---
Date of Service July 13, 2020 Assessment & Plan (1) Acute pulmonary edema: Acute pulmonary edema Hypoxia In setting of ESRD and missed hemodialysis appointment. -CXR:Cardiomegaly and increased perihilar markings. The findings likely represent congestive failure with mild interstitial edema. An interstitial infectious/inflammatory process could appear similar but is felt to be statistically less likely. 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 On Hemodialysis since ~ 3 Years MWF Appreciate Nephrology help Continue Hemodialysis as per Nephrology Leukocytosis UTI--Ruled out Urine Cx: Group B beta strep Discontinue Rocephin (5) URI, acute: URI sx since 2 sinus congestion, cough, occasional productive COVID Screen:Negative Influenza, RSV screen negative as well No fever Leukocytosis resolved (6) DM type 2 (diabetes mellitus, type 2): H/O Diet controlled DM A1C 5.2 Monitor H/O Paroxysmal atrial fibrillation Continue metoprolol Currently not on any anticoagulation Patient prefers to discuss with his commercial engineer prior to initiating any anticoagulation if needed as outpatient (7) HTN (hypertension): continue amlodipine, metoprolol monitor (8) Depression: continue lamictal (9) JUNITO (obstructive sleep apnea): not on CPAP (10) DVT prophylaxis: SQ heparin Code: FULL CODE Disposition PCP:Flex Michaels MD Plan to discharge home today Admission and Anticipated Discharge Date Admission Date: July 09, 2020 Subjective Patient is seen and examined at bedside during his dialysis session today Doing well today Saturating well on room air Eager to get discharged Offers no complaints Denies chest pain, dyspnea, dizziness, nausea, abdominal pain Review of Systems Review of Systems: All systems reviewed & are unremarkable except as noted in HPI & below Physical Exam Physical Exam: Physical Exam: Vitals signs as noted above General Appearance:Moderately built and nourished, no apparent distress Head: normocephalic, Atraumatic Eyes: normal inspection, EOMI Neck: supple, Trachea midline Respiratory/Chest: Normal breath sounds, CTA Cardiovascular: Irregularly irregular, No murmur Abdomen/GI:Soft, Non tender, Bowel sounds present Extremities/Musculoskelatal:normal inspection, no edema, Left UE Scarring, S/P amputated middle digit Neurologic/Psych:AAOX3, grossly no focal neurological deficits Skin: normal color, warm Results & Data Results & Data ([facility]) Vital Signs (Past 12 Hours) Vital Signs Temp Pulse Pulse Pulse Resp BP Pulse Ox 07/13/20 07:55 36.5 C 76 18 139/73 96 07/13/20 02:26 76 07/12/20 23:49 36.8 C 65 19 126/79 97 Laboratory Results [facility] 07/13/20 05:26 Sodium 134 L Potassium 4.2 Chloride 97 L Carbon Dioxide 26 BUN 40 H Creatinine 6.83 H* D Glucose 98 Calcium 10.1 (1) HTN (hypertension) Hypertension type: unspecified Qualified Code(s): I10 - Essential (primary) hypertension
--- NOTE | 2020-07-13 11:11 | Discharge Summary ---
Date of Service July 13, 2020 Admission HPI Per Admitting Provider Chief Complaint: Worsening shortness of breath x 1 day. Primary Care Provider: Adri Michaels MD This is a 55-year-old male who has significant past medical history of benign spinal tumor which resulted in neurogenic bladder, obstructive uropathy and eventual kidney failure. He had tumor removed several years ago and has been on dialysis for approximately 3 years. Currently he receives hemodialysis Wednesday and Fridays. Further medical problems include diet-controlled T2DM, HTN, HLD, gout, depression, and JUNITO. He presents ED today secondary to worsening shortness of breath x1 day. Of significance patient missed yesterday's hemodialysis treatment. Apparently on Wednesday he developed upper respiratory symptoms and overall ill feeling. URI symptoms include sinus congestion, chest congestion, wheezing and cough. Cough occasionally productive of yellow sputum. His last hemodialysis treatment was 07/06. He denies any documented fever, chills, sweats, lightheadedness, dizziness, syncope, chest pain, palpitations, hemoptysis, nausea, vomiting, abdominal pain, diarrhea. + concentrated urine and dysuria. Typically has to straight cath. " I know I have a UTI." "I can tell when I have one and I have one." States in past he has taken keflex. He was trying to walk his dog today when he was having significant shortness of breath. He opted to seek ED for evaluation. In ED patient was hemodynamically stable although was hypoxic at 97% on room air requiring 2 L of O2 via NC. Lab work revealed end-stage renal disease with hyperkalemia and hyponatremia in need of hemodialysis. BUN and creatinine were 71 and 11.50 respectively, K6.2, sodium 127, glucose 160, WBC 12.78, H&H 10.2 and 29.4, platelet 169. ED provider discussed case with nephrology who was placing orders for hemodial ysis. Chest x-ray reveals volume overload. He also received 1 g calcium gluconate secondary to hyperkalemia. Admission Exam Per Admitting Provider Physical Exam Physical Exam: Constitutional: WD/WN, vitals as above, NAD, sitting up in bed, pleasant, conversing easily Head: Normocephalic, Atraumatic Eyes: PERRL, conjunctivae normal, anicteric sclerae ENMT: external ear and nose normal, oropharynx normal Neck: trachea midline, no thyromegaly normal visual inspection Respiratory: On O2 2 L via NC, expiratory wheezing bilaterally, normal respiratory effort, lungs clear to auscultation,no rales, rhonchi. Normal insp/exp effort, no accessory muscle use Cardiovascular: RRR, no murmur, no edema Vessels: no JVD or carotid bruit, left extremity AV fistula with palpable thrill Chest: normal inspection of chest Abdomen: normal bowel sounds, soft, nontender, no hepatosplenomegaly Musculoskeletal: no cyanosis or clubbing, extremities motor strength 5/5 Skin: no rashes, warm and dry normal turgor Neurologic: PERRL, EOMI, accommodation nl, no face palsy, no dysarthria CN's II-XI intact bilaterally and moves all extremities Psychiatric: A+Ox3, euthymic affect Lymphatic: no cervical or axillary lymphadenopathy : deferred Principal Diagnosis Acute pulmonary edema Hypoxia Paroxysmal atrial fibrillation Discharge Data Allergies Allergy/AdvReac Type Severity Reaction Status Date / Time Iodinated Contrast Media Allergy Unknown STAGE 4 Verified 07/09/20 09:10 KIDNEY DISEASE Consultations 07/09/20 09:51 ED Decision to Admit Stat 07/09/20 09:55 Consult Nephrology Routine 07/09/20 13:21 Consult Case Management - Discharge Planning Routine Procedures Performed CXR:Cardiomegaly and increased perihilar markings. The findings likely represent congestive failure with mild interstitial edema. An interstitial infectious/inflammatory process could appear similar but is felt to be statistically less likely. Hospital Course (1) Acute pulmonary edema: Acute pulmonary edema Hypoxia In setting of ESRD and missed hemodialysis appointment. -CXR:Cardiomegaly and increased perihilar markings. The findings likely represent congestive failure with mild interstitial edema. An interstitial infectious/inflammatory process could appear similar but is felt to be statistically less likely. 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 On Hemodialysis since ~ 3 Years MWF Appreciate Nephrology help Continue Hemodialysis as per Nephrology Leukocytosis UTI--Ruled out Urine Cx: Group B beta strep Discontinue Rocephin (5) URI, acute: URI sx since 07/06 sinus congestion, cough, occasional productive COVID Screen:Negative Influenza, RSV screen negative as well No fever Leukocytosis resolved (6) DM type 2 (diabetes mellitus, type 2): H/O Diet controlled DM A1C 5.2 Monitor H/O Paroxysmal atrial fibrillation Continue metoprolol Currently not on any anticoagulation Patient prefers to discuss with his roaster supervisor prior to initiating any anticoagulation if needed as outpatient (7) HTN (hypertension): continue amlodipine, metoprolol monitor (8) Depression: continue lamictal (9) JUNITO (obstructive sleep apnea): not on CPAP (10) DVT prophylaxis: SQ heparin Code: FULL CODE Disposition PCP:Flex Michaels MD Plan to discharge home today Total Time Total Time Spent Total Time Spent (In Minutes): 40 minutes Total Time Includes: Examination of the Patient, Discharge Planning, Medication Reconciliation, Communication With Other Providers and Other Discharge Plan Discharge Items Patient Disposition: Home - Self-Care Reason For Visit: VOLUME OVERLOAD IN SETTING OF ESRD, MISSED HD Discharge Diagnosis: Acute pulmonary edema Hypoxia Paroxysmal atrial fibrillation Activity: Per Instructions section Exercise/Sports: Gradually increase as tolerated Non-emergency contact: Primary Care Provider, Beef Grinder and Manager Management Call non-emergency contact if: you have any medication questions, your symptoms worsen, your pain is not controlled, your pain is worsening, your pain is unusual for you, your pain is concerning for you and you have a fever Follow-up/Referrals: Adri Nolan MD [Primary Care Provider] - (Date & Time 07/16/2020 12:00 PM Provider Adri Michaels MD Department Internal Medicine [facility] ) Diet: Dialysis Renal and Heart Healthy Add Attending Provider Instructions: Follow-up with your primary care physician Dr. Flex Michaels on 07/16/2020 12:00 PM as scheduled Follow-up with your cement sack breaker for dialysis as scheduled Follow-up with your roaster supervisor for further recommendations on anticoagulation for paroxysmal atrial fibrillation as advised. Seek immediate medical attention if your symptoms reoccur or worsen Pending Studies at Discharge: No Stand-Alone Forms: My [employer], Smoking Cessation Medications and DC Order Prescriptions: Continued atorvastatin [Lipitor] 40 mg Tablet 40 mg PO DAILY Qty: 0 RF: 0 amlodipine 5 mg tablet 5 mg PO QPM RF: 0 gabapentin 300 mg capsule 300 mg PO BID RF: 0 sevelamer carbonate [Renvela] 800 mg tablet 2,400 mg PO DIRECTED RF: 0 lanthanum 1,000 mg tablet,chewable 1,000 mg PO HS RF: 0 Eufemia-Isac 0.8 mg Tablet 1 tab PO DAILY RF: 0 cinacalcet [Sensipar] 30 mg tablet 30 mg PO DAILY RF: 0 lamotrigine 200 mg tablet 200 mg PO HS RF: 0 trazodone 100 mg Tablet 50 mg PO HS PRN (Reason: Pain) RF: 0 metoprolol tartrate 50 mg tablet 50 mg PO BID RF: 0 calcium acetate(phosphat bind) 667 mg capsule 1,334 mg PO UD RF: 0 Discharge Orders: Discharge Order (Routine); Ordered 07/13/20 Ordered By: Sergio Fernandes Admission Data Admit Date/Time: 07/09/20 09:55 Attending Provider: Sergio Fernandes Admit Provider: Neptali Hobbs Primary Care Provider: Adri Nolan Other Providers: Neptali Hobbs ; Nat Paul Other Interventions: Discharge Summary Assessment (RN) Last Done: 07/13/20 12:26
== END 2020-07-13 14:21 | disposition home or self-care (01) | DRG 682 ==
LOC: ED 08:26 → SUATTDRO 09:55 → 2S 09:55 → 2N 07-13 01:38

== ENCOUNTER 2021-05-30 01:17 | Inpatient (IN) ==
[2021-05-30] MEDS ORDERED: VANCOMYCIN HCL 2,500 MG in SODIUM CHLORIDE 0.9% 500 ML IV ONE (03:39)
[2021-05-30] MEDS ORDERED: PIPERACILL/TAZOBAC CONSULT ACTIVE PRN (03:39)
[2021-05-30] MEDS ORDERED: VANCOMYCIN CONSULT ACTIVE PRN (03:39)
[2021-05-30] MEDS ORDERED: PIPERACILLIN/TAZOBACTAM 4.5 GM/120 ML BAG IV ONE (03:39)
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
[2021-05-30 04:00] LABS: Basophils # (auto) 0.03 K/uL (0-0.2); Basophils % (auto) 0.5 %; Eosinophils # (auto) 0.22 K/uL (0-0.5); Eosinophils % (auto) 3.4 %; Hematocrit (blood only) 23.8 % (42-52); Hemoglobin 7.5 g/dL (14.0-18.0); Immature Granulocytes # (auto) 0.03 K/uL (0.00-0.02); Immature Granulocytes % (auto) 0.5 %; Lymphocytes # (auto) 1.09 K/uL (1.2-3.4); Lymphocytes % (auto) 16.8 %; Mean Corpuscular Hemoglobin 29.4 pg (25-34); Mean Corpuscular Hgb Conc 31.5 g/dL (32-36); Mean Corpuscular Volume 93.3 fL (80-100); Mean Platelet Volume 8.7 fL (7.4-10.4); Monocytes # (auto) 0.36 K/uL (0.11-0.59); Monocytes % (auto) 5.5 %; Neutrophils # (auto) 4.77 K/uL (1.4-6.5); Neutrophils % (auto) 73.3 %; Platelet Count 194 K/uL (130-400); RDW Coefficient of Variation 17.6 % (11.5-14.5); Red Blood Count 2.55 M/uL (4.7-6.1)
[2021-05-30 04:10] LABS: INR 1.2 (0.9-1.1); Partial Thromboplastin Ratio 1.1; Partial Thromboplastin Time 28.4 Seconds (21.0-31.0); Prothrombin Time 11.9 Seconds (9.0-12.0)
[2021-05-30 04:54] LABS: Alanine Aminotransferase 30 (12-78); Albumin Globulin Ratio 0.6 (0.9-2); Albumin Level 2.7 gm/dl (3.4-5.0); Alkaline Phosphatase 276 U/L (45-117); Aspartate Aminotransferase 28 U/L (15-37); BUN Creatinine Ratio 7.6 (10-20); Bilirubin,Total 0.9 mg/dl (0.2-1); Blood Urea Nitrogen 79 mg/dl (7-18); Calcium 7.3 mg/dl (8.5-10.1); Carbon Dioxide 23 mmol/L (21-32); Chloride 95 mmol/L (98-107); Est GFR (African American) 5.8 ml/min; Globulin 4.3 gm/dl (2.5-4.0); Glucose 144 mg/dl (70-99); Magnesium 1.6 mg/dl (1.8-2.4); Potassium 5.5 mmol/L (3.5-5.1); Sodium 130 mmol/L (136-145)
[2021-05-30 05:01] LABS: RBC Morphology Unremarkable
--- NOTE | 2021-05-30 06:21 | Ultrasound Report ---
LEFT LOWER EXTREMITY VENOUS DOPPLER CLINICAL HISTORY: pain/swelling COMPARISON STUDY: No previous studies for comparison. TECHNIQUE: Sonography of the deep venous system of the left lower extremity was performed. Compressi on and augmentation were evaluated. FINDINGS: The left common femoral, superficial femoral and popliteal veins were compressible. Augmen tation was normal. Flow was shown within the deep calf vessels although calf vessels were suboptimall y assessed on this exam. Note was made of subcutaneous edema of the left lower extremity. IMPRESSION: No evidence of deep venous thrombus within the left lower extremity. ACT 112: Negative or not required by law. Electronically signed by: Valdo Torres M.D. 05/30/2021 6:20 AM
--- NOTE | 2021-05-30 07:45 | CT Scan Report ---
CT foot LT wo con CLINICAL HISTORY: left foot heal wound. Evaluate for possible abscess or osteomyelitis COMPARISON STUDY: No previous studies for comparison. CT DOSE: 215.95 mGy.cm TECHNIQUE: Standard CT of the left foot is performed without IV contrast. Multiplanar reconstruction is performed. A dose lowering technique was utilized adhering to the principles of ALARA. FINDINGS: Bones: There is no evidence for cortical destruction or CT evidence for osteomyelitis. There is no ev idence for an acute fracture or dislocation. There are no lytic or blastic lesions. Joints: There is joint space narrowing and secondary degenerative changes present involving the tibi otalar joint, subtalar joint, talonavicular joint and additional intertarsal joints. Subchondral scle rosis and subchondral cyst formation are present. The bones are in anatomic alignment. Soft tissues: There is diffuse swelling surrounding the calcaneus and proximal foot. However, no foc al fluid collections are identified. Skin thickening is seen with no air present within the soft tiss ues. The findings are most characteristic of cellulitis. IMPRESSION: CT findings most characteristic of cellulitis with no evidence for focal fluid collection or abscess. No CT evidence for osteomyelitis. If the patient's symptoms persist, follow-up MRI would be the study of choice for further evaluation. ACT 112: Positive. There are findings on this exam that require communication between the performing entity and the patient following Patient Test Result Information Act ([place] Act 112) guidelines. Electronically signed by: Rd Mirza M.D. 05/30/2021 7:43 AM
[2021-05-30] MEDS ORDERED: ONDANSETRON INJ 2 MG/ML 2 ML VIAL IV PRN (07:54)
[2021-05-30] MEDS ORDERED: POLYETHYLENE (MIRALAX) 17 GM PACK PO PRN (07:54)
[2021-05-30] MEDS ORDERED: ACETAMINOPHEN 325 MG TAB PO PRN (07:54)
[2021-05-30] MEDS ORDERED: SEVELAMER HCL 800 MG TABLET PO PRN (07:59)
--- NOTE | 2021-05-30 08:40 | History and Physical Report ---
DATE OF SERVICE: 05/30/2021. CHIEF COMPLAINT: Left foot infection. HISTORY OF PRESENT ILLNESS: This is a 55-year-old male with past medical history significant for end-stage renal disease on hemodialysis, type 2 diabetes, diabetic neuropathy, hyperlipidemia, obstructive sleep apnea, paroxysmal atrial fibrillation, history of V-tach, history of hypertension, history of esophageal varices, severe obesity, history of lesion of oral mucosa, spinal stenosis, medically noncompliant, comes because of left foot infection. The patient does not have much feeling in the lower extremities and today he noticed left heel pop up and draining, so he came to the ER. He is afebrile. Denies any chest pain, shortness of breath, no nausea, no vomiting, no abdominal pain. Does not make much urine. Normal bowel movements. No headache, no earache, no runny nose, no sore throat, no cough. The patient is unvaccinated for COVID, but he says he had COVID in March and as per the patient he was admitted in [facility] for COVID pneumonia. As per the [facility], he was diagnosed with COVID on 04/14/2021. Today, his COVID test was negative. ALLERGIES: IODINATED CONTRAST MEDIA. PAST MEDICAL HISTORY: As mentioned above. PAST SURGICAL HISTORY: Biopsy of a spinal tumor, colonoscopy, coronary angiography, release of lumbar spinal cord, removal of neck spinal lamina. MEDICATIONS: The patient is on First Magic Mouthwash, gabapentin 300 mg p.o. b.i.d., Tylenol 500 mg p.o. q. 6 hours p.r.n., chlorhexidine p.r.n., atorvastatin 40 mg p.o. daily, aspirin 81 mg p.o. daily, folic acid 1 mg p.o. daily, Latuda 40 mg p.o. daily, Lamictal 250 mg p.o. daily, Lopressor 50 mg p.o. b.i.d., amlodipine 5 mg p.o. daily, Sensipar 30 mg p.o. every other day, Renvela 800 mg p.o. daily with meals. FAMILY HISTORY: Significant for father has arthritis, ischemic heart disease, heart attacks in 60s; mother has diabetes, rheumatoid arthritis and fibromyalgia. Sister has diabetes. SOCIAL HISTORY: Single. Chews tobacco. Alcohol once a month. Smokes marijuana. REVIEW OF SYMPTOMS: As per HPI. Rest of the review of systems is negative. PHYSICAL EXAMINATION: GENERAL: The patient is obese, not in acute distress. VITAL SIGNS: Temperature 37.1, pulse 83, blood pressure 130/84, oxygen 94% on room air. HEENT: Pupils equal, round and reactive to light. Oral mucosa moist. Lesions seen on the roof of the mouth. NECK: No JVD, no neck masses. CARDIOVASCULAR: S1 and S2 heard. Regular rate and rhythm. No murmur, no gallop. RESPIRATORY SYSTEM: Normal AP diameter. No accessory muscle use. No wheezing, no crackles. ABDOMEN: Soft, bowel sounds present, nontender, no distention. CENTRAL NERVOUS SYSTEM: Cranial nerves II-XII grossly intact, nonfocal. EXTREMITIES: Bilateral lower extremity edema present and draining ulcer present on the left heel region on the plantar aspect. SKIN: Multiple excoriations on the extremities. LABORATORY DATA: WBC 6.5, hemoglobin 7.5, hematocrit 23.8, platelets 194. ESR 53. PT 11.9, INR 1.2, APTT 28.4. Sodium 130, potassium 5.5, chloride 95, bicarbonate 23, BUN 79 creatinine 10.4, serum glucose 144, lactate 1.4, calcium 7.3, magnesium 1.6, total bilirubin 0.9, AST 28, ALT 30, alkaline phosphatase 276. C-reactive protein 6.6. SARS-CoV-2 RNA negative. IMAGING DATA: Venous Doppler study, no DVT in the left lower extremity. EKG: Atrial flutter with variable AV block at a rate of 106. ASSESSMENT AND PLAN: This is a 55-year-old male presents with left foot infection. 1. Left foot infection on the heel in the plantar aspect. The patient has a history of diabetes. Started on vancomycin and Zosyn . We will get a CT scan of the foot to see any abscess orOsteo.Consult Orthopedics and wound care and follow the response. Follow the cultures. 2. End-stage renal disease, on hemodialysis. 3. Diabetes, not on any medication. Follow HbA1c level. Follow the blood sugars. 4. History of atrial fibrillation, on metoprolol tartrate. As per the Cardiology notes, patient is refusing to be on Coumadin, he just want to be on aspirin. 5. Seems to have critical aortic stenosis, supposed to follow with Cardiology. 6. Hypertension. Continue amlodipine and metoprolol. Follow the blood pressure. 6. History of sleep apnea, CPAP at bedtime.7 7. Hyperlipidemia, on statin. 8. History of oral lesion. Following with oral surgeon. 9. Deep venous thrombosis prophylaxis: We will place on sequential compression devices for now. If no [procedure planned to place on heparin subcutaneous. DISPOSITION: Closely monitor in the medical floor. PT/OT prior to discharge. Social service to help with discharge planning. Job ID: [id number]
[2021-05-30] MEDS ORDERED: SODIUM CHLORIDE 0.9% 1000ML 1,000 ML IV PRN (09:17)
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
[2021-05-30] MEDS ORDERED: EPOETIN ALFA 10,000 UNITS/ML VIAL IV SCH (10:00)
[2021-05-30] MEDS: METOPROLOL TARTRATE 50 MG TAB PO SCH ×2 (10:38→21:28)
[2021-05-30] MEDS: lamoTRIgine 100 MG TAB PO SCH (10:38)
[2021-05-30] MEDS: SEVELAMER HCL 800 MG TABLET PO SCH ×3 (10:39→20:14)
[2021-05-30] MEDS: CINACALCET HCL 30 MG TAB PO SCH (10:39)
[2021-05-30] MEDS ORDERED: CARBOHYDRATES FOR HYPOGLYCEMIA PO PRN (11:30)
[2021-05-30] MEDS ORDERED: DEXTROSE 50% 50 ML SYRINGE IV PRN (11:30)
[2021-05-30] MEDS ORDERED: GLUCOSE 10 TABS/TUBE PO PRN (11:30)
[2021-05-30] MEDS ORDERED: GLUCAGON FOR INJ 1 MG VIAL IM PRN (11:30)
[2021-05-30] MEDS ORDERED: GLUCOSE 40% GEL 15 GM TUBE PO PRN (11:30)
--- NOTE | 2021-05-30 12:22 | Magnetic Resonance Report ---
MR ankle LT wo con CLINICAL HISTORY: Diabetic with draining wound on his left heel. Pain. Soft tissue swelling and cell ulitis on CT. MR to further evaluate for osteomyelitis. COMPARISON: CT of the left foot from 05/30/2021 TECHNIQUE: Multiplanar multisequence images of the left foot were performed without contrast. FINDINGS: The study is limited by patient motion artifact. The patient was not cooperative for this s tudy. Osseous structures: Degenerative cyst formation is seen within the distal calcaneus and the navicular bone. There is otherwise homogeneous marrow signal seen throughout the imaged bones of the ankle. Th ere is no evidence for marrow edema or marrow replacement. There is no evidence for an acute or occu lt fracture. There is no MR evidence for osteomyelitis. There is a small calcaneal spur at the origin of the plantar fascia. Joints: The tibiotalar joint is maintained. There is no evidence for joint effusion. No osteochondra l defects are seen at the talar dome. The subtalar joint is maintained. The remaining imaged joints are also intact. Tendons: The tibialis posterior tendon as well as the flexor digitorum longus and hallucis longus ten dons demonstrate anatomic signal characteristics. The peroneus longus and brevis tendons are within normal limits. There is no evidence for tendon tear or tendinopathy. The Achilles' tendon is within normal limits. Plantar fascia is within normal limits. Ligaments: The anterior and posterior tibiofibular and talofibular ligaments are intact. Deltoid comp ny is within normal limits. The calcaneofibular ligament is also within normal limits. Soft tissues: There is diffuse subcutaneous edema characteristic of cellulitis. There is soft tissue wound seen along the posterolateral aspect of the heel, inferiorly. However, no focal fluid collectio n or abscess is seen. IMPRESSION: 1. No MR evidence for osteomyelitis. 2. Cellulitis involving the subcutaneous soft tissues surrounding the heel. 3. Small wound along the posterolateral aspect of the heel inferiorly with no focal fluid collection or abscess. ACT 112: Negative or not required by law. Electronically signed by: Rd Mirza M.D. 05/30/2021 12:21 PM
[2021-05-30] MEDS: MAGNESIUM SULFATE / D5W 1 GM/100 ML BAG IV SCH ×2 (12:56→20:08)
--- NOTE | 2021-05-30 14:14 | Pharmacy Report ---
Pharmacy Abx Dose Short Note - Date of Service May 30, 2021 - Assessment & Plan Assessment 55 year old M receiving VANCOMYCIN + ZOSYN for treatment of L diabetic foot draining wound / cellulitis + h/o DM, obesity, ESRD on HD BLCXs and wound cx obtained Surgery consulted MRI report stated no MR evidence of osteo or abscess Plan Vancomycin * Patient is not a candidate for AUC/GAVI dosing, rather will dose per random levels * 2500mg loading dose (20mg/kg) x 1 given in ED this AM * Patient has HD session ordered for today * Will check random level w/ AM labs tomorrow * Plan to redose vanco when level is 15-20mcg/mL or anticipated to be so following HD session Zosyn * BMI > 35, eCrCl < 20, 4.5gm EI Q 12 hrs indicated Pharmacy will continue to follow and will adjust dose/frequency as necessary. Thank you.
[2021-05-30] MEDS ORDERED: BENZOCAINE 20% (ORAJEL) 11.9 GM TUBE MT PRN (15:38)
[2021-05-30] MEDS ORDERED: HYDROmorphone INJ 0.5 MG/0.5 ML SYR IV ONE (15:45)
[2021-05-30] MEDS ORDERED: oxyCODONE/ACETAMINOPHEN 5mg/325mg TAB PO PRN (15:45)
--- NOTE | 2021-05-30 17:48 | Hospitalist Progress Note ---
Date of Service May 30, 2021 Assessment & Plan (1) Cellulitis of foot, left: Plan: Patient is a 55 yr male who presents with left foot infection. Left foot cellulitis -MRI:No MR evidence for osteomyelitis. Cellulitis involving the subcutaneous soft tissues surrounding the heel. Small wound along the posterolateral aspect of the heel inferiorly with no focal fluid collection or abscess. -Blood cultures pending -Wound cultures pending Continue Mariangel Mak Appreciate orthopedics input Nonweightbearing left lower extremity Continue wound care Pain control End-stage renal disease on dialysis Appreciate nephrology input Continue dialysis as per nephrology DM II Currently not on any medication Continue insulin therapy while hospitalized Update HbA1c Monitor blood glucose levels Atrial fibrillation Continue metoprolol Patient refused Coumadin in the past as per records Currently not on any anticoagulation Hyponatremia Hyperkalemia Hypomagnesemia Monitor and replace electrolytes as needed Severe Aortic stenosis Suggested for valve replacement as per patient Needs follow-up with cardiology upon discharge Hypertension Continue amlodipine, metoprolol Sleep apnea CPAP at bedtime Hyperlipidemia on statin H/O Oral lesion (Hard Pal[place]) Evaluated by dental surgery as outpatient Needs follow-up with oromaxillary surgery Recent COVID infection Saturating well on room air DVT Px: Heparin SQ CODE STATUS Full code Disposition To be determined Admission and Anticipated Discharge Date Admission Date: May 30, 2021 Subjective Patient is seen and examined at bedside States having left ankle pain, swelling, discharge Reports dyspnea on exertion, cough from recent Covid infection Denies any chest pain, nausea, abdominal pain Offers no other complaints Review of Systems Review of Systems: All systems reviewed & are unremarkable except as noted in Subjective Physical Exam Physical Exam: Physical Exam: Vitals signs as noted above General Appearance:Obese, no apparent distress Head: normocephalic, Atraumatic Eyes: normal inspection, EOMI Neck: supple, Trachea midline Respiratory/Chest: Decreased breath sounds, CTA Cardiovascular: S1, S2, No murmur Abdomen/GI:Soft, Non tender, Bowel sounds present Extremities/Musculoskeletal:normal inspection, + Multiple Hand excoriations,B/L LE edema, Left ankle wound Neurologic/Psych:AAOX3, grossly no focal neurological deficits Skin: normal color, warm Results & Data Results & Data ([facility]) Vital Signs (Past 12 Hours) Vital Signs Temp Pulse Pulse Pulse Resp BP BP 05/30/21 17:20 84 112/76 05/30/21 17:00 90 109/71 05/30/21 16:40 88 101/71 05/30/21 16:20 86 106/72 05/30/21 16:00 84 100/70 05/30/21 15:40 81 102/59 L 05/30/21 15:24 80 97/73 L 05/30/21 15:17 36.6 C 61 05/30/21 14:30 76 18 105/69 05/30/21 14:01 108/62 05/30/21 13:35 109/83 05/30/21 09:00 126/82 05/30/21 08:30 37 C 76 18 106/85 116/77 05/30/21 08:00 109/83 05/30/21 07:54 05/30/21 07:30 129/94 05/30/21 07:00 111/82 05/30/21 06:39 102 H 20 116/77 116/77 Pulse Ox Pulse Ox 05/30/21 17:20 05/30/21 17:00 05/30/21 16:40 05/30/21 16:20 05/30/21 16:00 05/30/21 15:40 05/30/21 15:24 05/30/21 15:17 05/30/21 14:30 98 05/30/21 14:01 05/30/21 13:35 05/30/21 09:00 05/30/21 08:30 98 05/30/21 08:00 05/30/21 07:54 96 05/30/21 07:30 05/30/21 07:00 05/30/21 06:39 91 Laboratory Results Short CBC 05/30/21 Range/Units 03:45 WBC 6.50 (4.8-10.8) K/uL Hgb 7.5 L (14.0-18.0) g/dL Hct 23.8 L (42-52) % Plt Count 194 (130-400) K/uL BMP 05/30/21 03:45 Sodium 130 L Potassium 5.5 H Chloride 95 L Carbon Dioxide 23 BUN 79 H Creatinine 10.40 H* Glucose 144 H Calcium 7.3 L Liver Function 05/30/21 Range/Units 03:45 Total Bilirubin 0.9 (0.2-1) mg/dl AST 28 (15-37) U/L ALT 30 (12-78) Alkaline Phosphatase 276 H D (45-117) U/L Albumin 2.7 L (3.4-5.0) gm/dl
[2021-05-30] MEDS: INSULIN ASPART PER UNIT SC SCH ×3 (19:16→21:47)
[2021-05-30] MEDS: PIPERACILLIN/TAZOBACTAM 4.5 GM in DEXTROSE 5% 100 ML IV SCH (20:07)
[2021-05-30] MEDS: GABAPENTIN 300 MG CAP PO SCH (21:27)
[2021-05-30] MEDS: FOLIC ACID 1 MG TAB PO SCH (21:27)
[2021-05-30] MEDS: amLODIPine BESYLATE 5 MG TAB PO SCH (21:27)
[2021-05-30] MEDS: ATORVASTATIN 40 MG TAB PO SCH (21:27)
[2021-05-30] MEDS: LURASIDONE HCL 40 MG TAB PO SCH (21:28)
[2021-05-30] MEDS: HEPARIN SOD 5,000 UNIT/0.5 ML VIAL SQ SCH (22:36)
[2021-05-31] MEDS: HEPARIN SOD 5,000 UNIT/0.5 ML VIAL SQ SCH ×3 (06:07→22:51)
[2021-05-31 07:58] LABS: Basophils # (auto) 0.08 K/uL (0-0.2); Basophils % (auto) 0.7 %; Eosinophils # (auto) 0.06 K/uL (0-0.5); Eosinophils % (auto) 0.5 %; Hematocrit (blood only) 26.2 % (42-52); Hemoglobin 8.2 g/dL (14.0-18.0); Immature Granulocytes # (auto) 0.02 K/uL (0.00-0.02); Immature Granulocytes % (auto) 0.2 %; Lymphocytes # (auto) 1.52 K/uL (1.2-3.4); Lymphocytes % (auto) 13.6 %; Mean Corpuscular Hemoglobin 29.4 pg (25-34); Mean Corpuscular Hgb Conc 31.3 g/dL (32-36); Mean Corpuscular Volume 93.9 fL (80-100); Mean Platelet Volume 9.5 fL (7.4-10.4); Monocytes # (auto) 0.86 K/uL (0.11-0.59); Monocytes % (auto) 7.7 %; Neutrophils # (auto) 8.62 K/uL (1.4-6.5); Neutrophils % (auto) 77.3 %; Platelet Count 266 K/uL (130-400); RDW Standard Deviation 61.5 fL (36.4-46.3); Red Blood Count 2.79 M/uL (4.7-6.1); White Blood Count 11.16 K/uL (4.8-10.8)
[2021-05-31] MEDS: ASPIRIN 81 MG CHEW PO SCH (08:06)
[2021-05-31] MEDS: lamoTRIgine 100 MG TAB PO SCH (08:07)
[2021-05-31] MEDS: GABAPENTIN 300 MG CAP PO SCH ×2 (08:07→22:49)
[2021-05-31] MEDS: SEVELAMER HCL 800 MG TABLET PO SCH ×3 (08:07→17:26)
[2021-05-31] MEDS: METOPROLOL TARTRATE 50 MG TAB PO SCH ×2 (08:11→22:50)
[2021-05-31] MEDS: PIPERACILLIN/TAZOBACTAM 4.5 GM in DEXTROSE 5% 100 ML IV SCH ×2 (08:12→22:45)
[2021-05-31 08:48] LABS: Estimated Average Glucose 100 mg/dl; Hemoglobin A1C 5.1 % (4.5-5.6)
--- NOTE | 2021-05-31 08:50 | Pharmacy Report ---
Pharmacy Abx Dose Short Note - Date of Service May 31, 2021 - Assessment & Plan Assessment 55 year old M receiving vancomycin/Zosyn for treatment of diabetic foot infection, negative for osteomyelitis Day # 2 of antimicrobial therapy. Plan Vancomycin * Random level of 17.9 mcg/mL is therapeutic. * Patient received dialysis yesterday- 3.5 L removed. Next dialysis should be scheduled for Wednesday. * hold vancomycin * Goal trough level for foot infection : 15 to 20 mcg/mL * Random level ordered for: 06/01/21 Pharmacy will continue to follow and will adjust dose/frequency as necessary. Thank you.
[2021-05-31 09:06] LABS: BUN Creatinine Ratio 6.8 (10-20); Calcium 7.3 mg/dl (8.5-10.1); Creatinine Clr Calc Pharmacy 16.1 ml/min; Est GFR (African American) 9.3 ml/min; Magnesium 1.9 mg/dl (1.8-2.4)
[2021-05-31] MEDS ORDERED: CALCIUM GLUCONATE 10% 1,000 MG in SODIUM CHLORIDE 0.9% 50 ML IV ONE (10:15)
[2021-05-31] MEDS ORDERED: PHARMACY GLYCEMIC MGMT CONSULT PRN (11:01)
[2021-05-31] MEDS ORDERED: SODIUM CHLORIDE 0.9% 1000ML 1,000 ML IV PRN (11:14)
[2021-05-31] MEDS ORDERED: D5W AND NSS 500 ML IV ONE (11:59)
--- NOTE | 2021-05-31 12:39 | Orthopedic Progress Note ---
Date of Service May 31, 2021 Assessment & Plan (1) Cellulitis of foot, left: Plan: He has a very small wound on the plantar aspect of his left foot without evidence of deep infection, abscess, or osteomyelitis. This can be adequately treated with wound care. He does not require surgical intervention at this point. Orthopedics will sign off at this point. He can follow-up with Dr. Mendes in our clinic if he has persistent trouble with this wound healing with just wound care. Admission and Anticipated Discharge Date Admission Date: May 30, 2021 Subjective Patient resting comfortably. Denies any significant pain in his left foot. Physical Exam Physical Exam: Examination of the left foot reveals a very small wound on the plantar aspect of his heel. No significant surrounding erythema, swelling, induration, or fluctuance. Results & Data ([facility]) Vital Signs (Past 12 Hours) Vital Signs Temp Pulse Pulse Resp BP Pulse Ox 05/31/21 11:31 93/64 L 05/31/21 11:17 91/63 L 05/31/21 08:11 105 H 105/71 05/31/21 08:08 36.7 C 105 H 16 105/70 93 05/31/21 05:40 37.2 C 05/31/21 04:44 106 H 120/82 93 Diagnostic Findings MRI of the left foot was reviewed. Only shows a very small wound in the plantar aspect of the soft tissue. No evidence of abscess. No evidence of deep infection below the fascial layer or osteomyelitis. Extensive arthritis of the midfoot joints is noted. Otherwise MRI is unremarkable.
--- NOTE | 2021-05-31 13:11 | Nephrology Progress Note ---
Date of Service May 31, 2021 Assessment & Plan (1) ESRD (end stage renal disease) on dialysis: Plan: ESRD on hemodialysis.( Access- left AV Fistula) His normal days are Wednesday, dialyzed on Wednesday for 4 hours . -Potassium raised at 6 today, calcium gluconate given by hospitalist. -Extra treatment today for 3 hours, 2K bath, with the biggest dialyzer available. Next dialysis will be Wednesday -Needs to adhere strictly to renal dialysis diet. (2) Cellulitis of foot, left: Plan: On antibiotics-managed by primary Admission and Anticipated Discharge Date Admission Date: May 30, 2021 Subjective Patient resting comfortably and having lunch No complaints of pain in the lower limb Review of Systems 2 Review of Systems: Bilateral pedal edema. No shortness of breath Physical Exam Physical Exam: GENERAL: The patient is obese, not in acute distress.. HEENT: Pupils equal, round and reactive to light. Oral mucosa moist. Lesions seen on the roof of the mouth. NECK: No JVD, no neck masses. CARDIOVASCULAR: S1 and S2 heard. Regular rate and rhythm. No murmur, no gallop. RESPIRATORY SYSTEM: Normal AP diameter. No accessory muscle use. No wheezing, no crackles. ABDOMEN: Soft, bowel sounds present, nontender, no distention. CENTRAL NERVOUS SYSTEM: Cranial nerves II-XII grossly intact, nonfocal. EXTREMITIES: Bilateral lower extremity edema present and draining ulcer present on the left heel. SKIN: Multiple excoriations on the extremities. Results & Data ([facility]) Vital Signs (Past 12 Hours) Vital Signs Temp Pulse Pulse Resp BP Pulse Ox 05/31/21 13:01 36.6 C 79 18 98/66 L 100 05/31/21 11:31 93/64 L 05/31/21 11:17 91/63 L 05/31/21 08:11 105 H 105/71 05/31/21 08:08 36.7 C 105 H 16 105/70 93 05/31/21 05:40 37.2 C 05/31/21 04:44 106 H 120/82 93 Laboratory Results 05/31/21 07:41 05/31/21 07:41
[2021-05-31 14:05] LABS: iSTAT Allen Test Pass; iSTAT Art Bld Gas pCO2 Correct 31 mmHg (35-46); iSTAT Art Bld Gas pH Corrected 7.383 (7.35-7.45); iSTAT Arterial Blood Gas HCO3 19 meg/L (19-24); iSTAT Arterial Blood Gas pCO2 32 mmHg (35-46); iSTAT Arterial Blood Gas pH 7.38 (7.35-7.45); iSTAT Arterial Blood Gas pO2 125 mmHg (80-95); iSTAT Arterial Blood Gas pO2 C 122; iSTAT Carbon Dioxide 20 mmol/L (24-31); iSTAT Hematocrit 25 % (42-52); iSTAT Hemoglobin 8.5 g/dl (14.0-18.0); iSTAT Potassium 6.2 mmol/L (3.3-5.0); iSTAT Site R Brachial; iSTAT Sodium 130 mmol/L (135-144)
[2021-05-31] MEDS: LACTOBACILLUS ACIDOPHILUS 1 GM PACK PO SCH ×2 (14:05→17:26)
[2021-05-31] MEDS: INSULIN ASPART PER UNIT SC SCH (14:26)
[2021-05-31] MEDS ORDERED: LEVALBUTEROL HCL 0.63 MG/3 ML NEB NEB PRN (16:28)
--- NOTE | 2021-05-31 17:01 | XRay Report ---
XR chest 1V portable HISTORY: 55 years-old Male covid acute shortness of breath. COVID Positive. COMPARISON: Chest radiograph 08/26/2020 TECHNIQUE: Portable AP view of the chest FINDINGS: Cardiac silhouette is enlarged. Interstitial coarsening with patchy bilateral airspace opacities. Mil d right hemidiaphragmatic elevation. There is no pneumothorax or large pleural effusion. Degenerative changes of the shoulders and spine. IMPRESSION: Ill-defined multifocal airspace opacities are suggestive of viral pneumonia. ACT 112: Negative or not required by law. The above report was generated using voice recognition software. It may contain grammatical, syntax o r spelling errors. Electronically signed by: Thomas Rodríguez M.D. 05/31/2021 5:00 PM
--- NOTE | 2021-05-31 19:30 | Hospitalist Progress Note ---
Date of Service May 31, 2021 Assessment & Plan (1) Cellulitis of foot, left: Plan: Patient is a 55 yr male who presents with left foot infection. Left foot cellulitis -MRI:No MR evidence for osteomyelitis. Cellulitis involving the subcutaneous soft tissues surrounding the heel. Small wound along the posterolateral aspect of the heel inferiorly with no focal fluid collection or abscess. -Blood cultures 1/2 growing gram-positive cocci in chains -Wound cultures growing staph species, gram-negative bacilli Continue VancEricka poesyn Appreciate orthopedics input Nonweightbearing left lower extremity Continue wound care Pain control Will consider to repeat blood cultures if needed Hypoglycemia Acute metabolic encephalopathy likely secondary to hypoglycemia Monitor blood glucose levels Continue hypoglycemia protocol Hyperkalemia Likely secondary to kidney disease Low potassium diet Received calcium gluconate Had dialysis Monitor potassium levels Diarrhea Likely secondary to antibiotics Check stool for C. difficile Monitor End-stage renal disease on dialysis Appreciate nephrology input Continue dialysis as per nephrology DM II Currently not on any medication Update HbA1c Monitor blood glucose levels Atrial fibrillation Continue metoprolol Patient refused Coumadin in the past as per records Currently not on any anticoagulation Hyponatremia Hyperkalemia Hypomagnesemia Monitor and replace electrolytes as needed Severe Aortic stenosis Suggested for valve replacement as per patient Needs follow-up with cardiology upon discharge Hypertension Continue amlodipine, metoprolol Sleep apnea CPAP at bedtime Hyperlipidemia on statin H/O Oral lesion (Hard Palate) Evaluated by dental surgery as outpatient Needs follow-up with oromaxillary surgery Recent COVID infection Saturating well on 2 L supplemental oxygen DVT Px: Heparin SQ CODE STATUS Full code Disposition To be determined Admission and Anticipated Discharge Date Admission Date: May 30, 2021 Subjective Patient is seen and examined at bedside Drowsy this morning likely secondary to hypoglycemia Oriented x3 during my encounter Discussed with nephrology today Potassium elevated to 6.2 today Plan for dialysis again today Left ankle pain is controlled Denies any chest pain, nausea, abdominal pain 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 Review of Systems: All systems reviewed & are unremarkable except as noted in Subjective Physical Exam Physical Exam: Physical Exam: Vitals signs as noted above General Appearance:Obese, no apparent distress Head: normocephalic, Atraumatic Eyes: normal inspection, EOMI Neck: supple, Trachea midline Respiratory/Chest: Decreased breath sounds, CTA Cardiovascular: S1, S2, No murmur Abdomen/GI:Soft, Non tender, Bowel sounds present Extremities/Musculoskeletal:normal inspection, + Multiple Hand excoriations,B/L LE edema, Left ankle wound Neurologic/Psych:AAOX3, grossly no focal neurological deficits Skin: normal color, warm Results & Data Results & Data ([facility]) Vital Signs (Past 12 Hours) Vital Signs Temp Pulse Pulse Resp BP Pulse Ox 05/31/21 16:20 113/76 05/31/21 16:08 36.8 C 80 16 113/32 L 100 05/31/21 13:01 36.6 C 79 18 98/66 L 100 05/31/21 11:31 93/64 L 05/31/21 11:17 91/63 L 05/31/21 08:11 105 H 105/71 05/31/21 08:08 36.7 C 105 H 16 105/70 93 Laboratory Results Short CBC 05/31/21 Range/Units 07:41 WBC 11.16 H (4.8-10.8) K/uL Hgb 8.2 L (14.0-18.0) g/dL Hct 26.2 L (42-52) % Plt Count 266 (130-400) K/uL BMP 05/31/21 07:41 Sodium 131 L Potassium 6.0 H Chloride 97 L Carbon Dioxide 21 BUN 47 H Creatinine 7.02 H* D Glucose 101 H Calcium 7.3 L
--- NOTE | 2021-05-31 19:41 | Electrocardiogram Report ---
Test Reason : Blood Pressure : / mmHG Vent. Rate : 106 BPM Atrial Rate : 267 BPM P-R Int : 000 ms QRS Dur : 096 ms QT Int : 358 ms P-R-T Axes : 000 007 050 degrees QTc Int : 475 ms Atrial flutter with variable A-V block Abnormal ECG When compared with ECG of 11-JUL-2020 09:44, Atrial flutter has replaced Atrial fibrillation Confirmed by Edu Joyner ([id number]) on 05/31/2021 7:41:33 PM Referred By: REFERRED SELF Confirmed By:Edu Joyner
[2021-05-31] MEDS: ATORVASTATIN 40 MG TAB PO SCH (22:49)
[2021-05-31] MEDS: amLODIPine BESYLATE 5 MG TAB PO SCH (22:50)
[2021-05-31] MEDS: LURASIDONE HCL 40 MG TAB PO SCH (22:50)
[2021-05-31] MEDS: FOLIC ACID 1 MG TAB PO SCH (22:50)
[2021-06-01 06:24] LABS: Hematocrit (blood only) 26.9 % (42-52); Hemoglobin 8.2 g/dL (14.0-18.0); Mean Corpuscular Hemoglobin 28.8 pg (25-34); Mean Corpuscular Hgb Conc 30.5 g/dL (32-36); Mean Corpuscular Volume 94.4 fL (80-100); Mean Platelet Volume 9.5 fL (7.4-10.4); Platelet Count 224 K/uL (130-400); RDW Coefficient of Variation 17.7 % (11.5-14.5); RDW Standard Deviation 61.1 fL (36.4-46.3); Red Blood Count 2.85 M/uL (4.7-6.1); White Blood Count 8.54 K/uL (4.8-10.8)
[2021-06-01 07:06] LABS: BUN Creatinine Ratio 5.9 (10-20); Calcium 8.2 mg/dl (8.5-10.1); Creatinine Clr Calc Pharmacy 20.6 ml/min; Est GFR (African American) 12.6 ml/min; Est GFR (Non-African American) 10.9 ml/min; Potassium 4.6 mmol/L (3.5-5.1)
[2021-06-01] MEDS: HEPARIN SOD 5,000 UNIT/0.5 ML VIAL SQ SCH ×3 (07:06→22:11)
[2021-06-01] MEDS: PIPERACILLIN/TAZOBACTAM 4.5 GM in DEXTROSE 5% 100 ML IV SCH ×2 (08:14→22:12)
[2021-06-01] MEDS: lamoTRIgine 100 MG TAB PO SCH (08:15)
[2021-06-01] MEDS: SEVELAMER HCL 800 MG TABLET PO SCH ×3 (08:17→17:00)
[2021-06-01] MEDS: LACTOBACILLUS ACIDOPHILUS 1 GM PACK PO SCH ×3 (08:18→17:00)
--- NOTE | 2021-06-01 08:18 | Pharmacy Report ---
Pharmacy Abx Dose Short Note - Date of Service June 01, 2021 - Assessment & Plan Assessment 55 year old M receiving vancomycin/Zosyn for treatment of R foot cellulitis Day # 3 of antimicrobial therapy. Plan Vancomycin * Random level of 12.2 mcg/mL is subtherapeutic. Patient had extra dialysis session yesterday that pharmacy was unaware of. * vancomycin 1000 mg IV x 1 (8 mg/kg) * Goal trough level for cellulitis : 15 mcg/mL * Random level ordered for: 06/02/21 Pharmacy will continue to follow and will adjust dose/frequency as necessary. Thank you.
[2021-06-01] MEDS: CINACALCET HCL 30 MG TAB PO SCH (08:19)
[2021-06-01] MEDS: GABAPENTIN 300 MG CAP PO SCH ×2 (08:20→22:11)
[2021-06-01] MEDS: ASPIRIN 81 MG CHEW PO SCH (08:25)
[2021-06-01] MEDS: METOPROLOL TARTRATE 50 MG TAB PO SCH ×2 (08:27→22:11)
[2021-06-01] MEDS ORDERED: VANCOMYCIN HCL 1,000 MG in SODIUM CHLORIDE 0.9% 250 ML IV ONE (10:00)
--- NOTE | 2021-06-01 11:23 | Nephrology Progress Note ---
Date of Service June 01, 2021 Assessment & Plan (1) ESRD (end stage renal disease) on dialysis: Plan: ESRD on hemodialysis.( Access- left AV Fistula) His normal days are Wednesday, dialyzed on Wednesday for 4 hours, extra treatment yesterday due to hyperkalemia. -Lytess normal today - Next dialysis will be Wednesday -Needs to adhere strictly to renal dialysis diet. (2) Cellulitis of foot, left: Plan: On antibiotics-managed by primary Admission and Anticipated Discharge Date Admission Date: May 30, 2021 Subjective Comfortable, no new concerns Review of Systems Review of Systems: Bilateral pedal edema. No shortness of breath Physical Exam Physical Exam: GENERAL: The patient is obese, not in acute distress.. HEENT: Pupils equal, round and reactive to light. Oral mucosa moist. Lesions seen on the roof of the mouth. NECK: No JVD, no neck masses. CARDIOVASCULAR: S1 and S2 heard. Regular rate and rhythm. No murmur, no gallop. RESPIRATORY SYSTEM: Normal AP diameter. No accessory muscle use. No wheezing, no crackles. ABDOMEN: Soft, bowel sounds present, nontender, no distention. CENTRAL NERVOUS SYSTEM: Cranial nerves II-XII grossly intact, nonfocal. EXTREMITIES: Bilateral lower extremity edema present and draining ulcer present on the left heel. SKIN: Multiple excoriations on the extremities. Results & Data ([facility]) Vital Signs (Past 12 Hours) Vital Signs Temp Pulse Resp BP Pulse Ox 06/01/21 07:19 36.7 C 70 16 102/64 98 Laboratory Results 06/01/21 05:30 06/01/21 05:30
--- NOTE | 2021-06-01 20:23 | Hospitalist Progress Note ---
Date of Service June 01, 2021 Assessment & Plan (1) Cellulitis of foot, left: Plan: Patient is a 55 yr male who presents with left foot infection. Left foot cellulitis -MRI:No MR evidence for osteomyelitis. Cellulitis involving the subcutaneous soft tissues surrounding the heel. Small wound along the posterolateral aspect of the heel inferiorly with no focal fluid collection or abscess. -Blood cultures 1/2 growing alpha strep likely contamination -Wound cultures growing staph species, gram-negative bacilli Continue Ericka Maksyn Appreciate orthopedics input No surgical intervention needed as per Ortho Nonweightbearing left lower extremity Continue wound care Pain control Will repeat blood cultures tomorrow Hypoglycemia Acute metabolic encephalopathy likely secondary to hypoglycemia Monitor blood glucose levels Continue hypoglycemia protocol Hyperkalemia Likely secondary to kidney disease Low potassium diet Received calcium gluconate Had dialysis Monitor potassium levels Diarrhea Likely secondary to antibiotics Check stool for C. difficile id reoccurs Monitor End-stage renal disease on dialysis Appreciate nephrology input Continue dialysis as per nephrology DM II Currently not on any medication Update HbA1c Monitor blood glucose levels Atrial fibrillation Continue metoprolol Patient refused Coumadin in the past as per records Currently not on any anticoagulation Hyponatremia Hyperkalemia Hypomagnesemia Monitor and replace electrolytes as needed Severe Aortic stenosis Suggested for valve replacement as per patient Needs follow-up with cardiology upon discharge Hypertension Continue amlodipine, metoprolol Sleep apnea CPAP at bedtime Hyperlipidemia on statin H/O Oral lesion (Hard Palate) Evaluated by dental surgery as outpatient Needs follow-up with oromaxillary surgery Recent COVID infection Saturating well on 2 L supplemental oxygen DVT Px: Heparin SQ CODE STATUS Full code Disposition To be determined Admission and Anticipated Discharge Date Admission Date: May 30, 2021 Subjective Patient is seen and examined at bedside States feeling better today Reports ankle pain No confusion today Had to semisolid BMs today Denies any chest pain, nausea, abdominal pain Potassium levels improved Review of Systems Review of Systems: All systems reviewed & are unremarkable except as noted in Subjective Physical Exam Physical Exam: Physical Exam: Vitals signs as noted above General Appearance:Obese, no apparent distress Head: normocephalic, Atraumatic Eyes: normal inspection, EOMI Neck: supple, Trachea midline Respiratory/Chest: Decreased breath sounds, CTA Cardiovascular: S1, S2, No murmur Abdomen/GI:Soft, Non tender, Bowel sounds present Extremities/Musculoskeletal:normal inspection, + Multiple Hand excoriations,B/L LE edema, Left ankle wound Neurologic/Psych:AAOX3, grossly no focal neurological deficits Skin: normal color, warm Results & Data Results & Data ([facility]) Vital Signs (Past 12 Hours) Vital Signs Temp Pulse Resp BP Pulse Ox 06/01/21 14:57 37.1 C 91 H 16 105/75 97 Laboratory Results Short CBC 06/01/21 Range/Units 05:30 WBC 8.54 (4.8-10.8) K/uL Hgb 8.2 L (14.0-18.0) g/dL Hct 26.9 L (42-52) % Plt Count 224 (130-400) K/uL BMP 06/01/21 05:30 Sodium 130 L Potassium 4.6 D Chloride 95 L Carbon Dioxide 24 BUN 32 H Creatinine 5.44 H* D Glucose 92 Calcium 8.2 L
[2021-06-01] MEDS: ATORVASTATIN 40 MG TAB PO SCH (22:11)
[2021-06-01] MEDS: LURASIDONE HCL 40 MG TAB PO SCH (22:11)
[2021-06-01] MEDS: amLODIPine BESYLATE 5 MG TAB PO SCH (22:11)
[2021-06-01] MEDS: FOLIC ACID 1 MG TAB PO SCH (22:11)
[2021-06-02] MEDS: HEPARIN SOD 5,000 UNIT/0.5 ML VIAL SQ SCH ×3 (06:17→21:27)
[2021-06-02 06:20] LABS: Hematocrit (blood only) 25.6 % (42-52); Hemoglobin 8.1 g/dL (14.0-18.0); Mean Corpuscular Hemoglobin 29.3 pg (25-34); Mean Corpuscular Hgb Conc 31.6 g/dL (32-36); Mean Corpuscular Volume 92.8 fL (80-100); Mean Platelet Volume 9.1 fL (7.4-10.4); Platelet Count 269 K/uL (130-400); RDW Coefficient of Variation 17.6 % (11.5-14.5); RDW Standard Deviation 59.5 fL (36.4-46.3); Red Blood Count 2.76 M/uL (4.7-6.1); White Blood Count 10.55 K/uL (4.8-10.8)
[2021-06-02] MEDS ORDERED: SODIUM CHLORIDE 0.9% 1000ML 1,000 ML IV PRN (07:00)
[2021-06-02] MEDS ORDERED: EPOETIN ALFA 10,000 UNITS/ML VIAL IV ONE (07:00)
[2021-06-02 07:14] LABS: BUN Creatinine Ratio 6.7 (10-20); Calcium 7.6 mg/dl (8.5-10.1); Creatinine Clr Calc Pharmacy 16.3 ml/min; Est GFR (African American) 9.5 ml/min; Est GFR (Non-African American) 8.2 ml/min; Potassium 4.6 mmol/L (3.5-5.1)
[2021-06-02] MEDS: LACTOBACILLUS ACIDOPHILUS 1 GM PACK PO SCH ×3 (08:04→16:47)
[2021-06-02] MEDS: lamoTRIgine 100 MG TAB PO SCH (08:05)
[2021-06-02] MEDS: SEVELAMER HCL 800 MG TABLET PO SCH ×3 (08:06→16:47)
--- NOTE | 2021-06-02 08:16 | Nephrology Progress Note ---
Date of Service June 02, 2021 Assessment & Plan Admission and Anticipated Discharge Date Admission Date: May 30, 2021 Subjective Assessment & Plan (1) ESRD (end stage renal disease) on dialysis: Plan: ESRD on hemodialysis.( Access- left AV Fistula) His normal days are Wednesday, dialyzed on Wednesday for 4 hours, extra treatment Wednesday due to hyperkalemia. - Low Na but K normal today. Low Na likely from Chronic fluid overload with ESRD/CHF. - Next dialysis will be today -Needs to adhere strictly to renal dialysis diet. (2) Cellulitis of foot, left: Plan: On antibiotics-managed by primary Subjective Comfortable, no new concerns. Still on o2 and wants to go home Review of Systems Review of Systems: Bilateral pedal edema. No shortness of breath Physical Exam Physical Exam: GENERAL: The patient is obese, not in acute distress.. HEENT: Pupils equal, round and reactive to light. Oral mucosa moist. Lesions seen on the roof of the mouth. NECK: No JVD, no neck masses. CARDIOVASCULAR: S1 and S2 heard. Regular rate and rhythm. No murmur, no gallop. RESPIRATORY SYSTEM: Normal AP diameter. No accessory muscle use. No wheezing, no crackles. ABDOMEN: Soft, bowel sounds present, nontender, no distention. CENTRAL NERVOUS SYSTEM: Cranial nerves II-XII grossly intact, nonfocal. EXTREMITIES: Bilateral lower extremity edema present and draining ulcer present on the left heel. SKIN: Multiple excoriations on the extremities. Results & Data ([facility]) Vital Signs (Past 12 Hours) Vital Signs Temp Pulse Pulse Resp BP Pulse Ox 06/02/21 07:35 36.8 C 82 16 98/65 L 99 06/02/21 00:03 37.0 C 18 95 06/01/21 21:58 82 124/84
[2021-06-02] MEDS: METOPROLOL TARTRATE 50 MG TAB PO SCH ×2 (09:18→21:26)
[2021-06-02] MEDS: PIPERACILLIN/TAZOBACTAM 4.5 GM in DEXTROSE 5% 100 ML IV SCH ×2 (13:39→21:25)
[2021-06-02] MEDS: GABAPENTIN 300 MG CAP PO SCH ×2 (13:40→21:26)
[2021-06-02] MEDS: ASPIRIN 81 MG CHEW PO SCH (13:40)
--- NOTE | 2021-06-02 18:05 | Hospitalist Progress Note ---
Date of Service June 02, 2021 Assessment & Plan (1) Cellulitis of foot, left: Plan: Patient is a 55 yr male who presents with left foot infection. Left foot cellulitis -MRI:No MR evidence for osteomyelitis. Cellulitis involving the subcutaneous soft tissues surrounding the heel. Small wound along the posterolateral aspect of the heel inferiorly with no focal fluid collection or abscess. -Blood cultures 1/2 growing alpha strep, coagulase-negative staph -Wound cultures growing staph, Alcaligenes faecalis Continue Vanco, Zosyn>>> Zosyn Appreciate orthopedics input No surgical intervention needed as per Ortho Nonweightbearing left lower extremity Continue wound care Pain control Repeat blood cultures pending Consider de-escalating Zosyn tomorrow based on repeat cultures Hypoglycemia Acute metabolic encephalopathy likely secondary to hypoglycemia Monitor blood glucose levels Continue hypoglycemia protocol Hyperkalemia Likely secondary to kidney disease Low potassium diet Received calcium gluconate Had dialysis Monitor potassium levels Diarrhea Likely secondary to antibiotics Check stool for C. difficile id reoccurs Monitor End-stage renal disease on dialysis Appreciate nephrology input Continue dialysis as per nephrology DM II Currently not on any medication Update HbA1c Monitor blood glucose levels Atrial fibrillation Continue metoprolol Patient refused Coumadin in the past as per records Currently not on any anticoagulation Hyponatremia Hyperkalemia Hypomagnesemia Monitor and replace electrolytes as needed Hyponatremia likely chronic Severe Aortic stenosis Suggested for valve replacement as per patient Needs follow-up with cardiology upon discharge Hypertension Continue amlodipine, metoprolol Sleep apnea CPAP at bedtime Hyperlipidemia on statin H/O Oral lesion (Hard Palate) Evaluated by dental surgery as outpatient Needs follow-up with oromaxillary surgery Recent COVID infection Saturating well on 2 L supplemental oxygen DVT Px: Heparin SQ CODE STATUS Full code Disposition To be determined Admission and Anticipated Discharge Date Admission Date: May 30, 2021 Subjective Patient is seen and examined bedside Getting hemodialysis during my encounter Ankle pain improved Denies any chest pain, shortness of breath, dizziness, nausea, abdominal pain Offers no other complaints Review of Systems Review of Systems: All systems reviewed & are unremarkable except as noted in Subjective Physical Exam Physical Exam: Physical Exam: Vitals signs as noted above General Appearance:Obese, no apparent distress Head: normocephalic, Atraumatic Eyes: normal inspection, EOMI Neck: supple, Trachea midline Respiratory/Chest: Decreased breath sounds, CTA Cardiovascular: S1, S2, No murmur Abdomen/GI:Soft, Non tender, Bowel sounds present Extremities/Musculoskeletal:normal inspection, + Multiple Hand excoriations,B/L LE edema, Left ankle wound Neurologic/Psych:AAOX3, grossly no focal neurological deficits Skin: normal color, warm Results & Data Results & Data ([facility]) Vital Signs (Past 12 Hours) Vital Signs Temp Pulse Pulse Pulse Resp BP BP 06/02/21 15:21 36.7 C 96 H 16 107/67 06/02/21 13:27 36.7 C 101 H 16 127/77 06/02/21 13:20 36.8 C 95 H 108/77 06/02/21 12:40 77 121/89 06/02/21 12:20 85 115/52 L 06/02/21 12:00 81 124/84 06/02/21 11:40 69 110/77 06/02/21 11:20 66 114/77 06/02/21 11:00 58 L 121/79 06/02/21 10:40 72 118/76 06/02/21 10:20 70 129/89 06/02/21 10:00 74 102/79 06/02/21 09:40 86 110/73 06/02/21 09:20 64 107/76 06/02/21 09:00 63 106/81 06/02/21 08:50 37.0 C 59 L 06/02/21 07:35 36.8 C 82 16 98/65 L Pulse Ox 06/02/21 15:21 99 06/02/21 13:27 99 06/02/21 13:20 06/02/21 12:40 06/02/21 12:20 06/02/21 12:00 06/02/21 11:40 06/02/21 11:20 06/02/21 11:00 06/02/21 10:40 06/02/21 10:20 06/02/21 10:00 06/02/21 09:40 06/02/21 09:20 06/02/21 09:00 06/02/21 08:50 06/02/21 07:35 99 Laboratory Results Short CBC 06/02/21 Range/Units 05:40 WBC 10.55 (4.8-10.8) K/uL Hgb 8.1 L (14.0-18.0) g/dL Hct 25.6 L (42-52) % Plt Count 269 (130-400) K/uL BMP 06/02/21 05:40 Sodium 127 L Potassium 4.6 Chloride 92 L Carbon Dioxide 22 BUN 46 H Creatinine 6.88 H* D Glucose 119 H Calcium 7.6 L
[2021-06-02] MEDS: amLODIPine BESYLATE 5 MG TAB PO SCH (21:25)
[2021-06-02] MEDS: ATORVASTATIN 40 MG TAB PO SCH (21:26)
[2021-06-02] MEDS: LURASIDONE HCL 40 MG TAB PO SCH (21:26)
[2021-06-02] MEDS: FOLIC ACID 1 MG TAB PO SCH (21:27)
[2021-06-02] MEDS ORDERED: oxyCODONE HCL IR 5 MG TAB (IMMEDIATE RELEASE) PO PRN (23:30)
[2021-06-03] MEDS: HEPARIN SOD 5,000 UNIT/0.5 ML VIAL SQ SCH ×3 (06:02→20:11)
[2021-06-03] MEDS: PIPERACILLIN/TAZOBACTAM 4.5 GM in DEXTROSE 5% 100 ML IV SCH ×2 (07:32→20:10)
[2021-06-03] MEDS: CINACALCET HCL 30 MG TAB PO SCH (08:15)
[2021-06-03] MEDS: ASPIRIN 81 MG CHEW PO SCH (08:15)
[2021-06-03] MEDS: LACTOBACILLUS ACIDOPHILUS 1 GM PACK PO SCH ×3 (08:15→18:15)
[2021-06-03] MEDS: GABAPENTIN 300 MG CAP PO SCH ×2 (08:15→20:10)
[2021-06-03] MEDS: lamoTRIgine 100 MG TAB PO SCH (08:16)
[2021-06-03] MEDS: SEVELAMER HCL 800 MG TABLET PO SCH ×3 (08:18→18:15)
[2021-06-03] MEDS: METOPROLOL TARTRATE 50 MG TAB PO SCH ×2 (08:19→20:11)
[2021-06-03 08:30] LABS: Hemoglobin 8.2 g/dL (14.0-18.0)
[2021-06-03 09:05] LABS: BUN Creatinine Ratio 5.7 (10-20); Calcium 7.8 mg/dl (8.5-10.1); Creatinine Clr Calc Pharmacy 20.5 ml/min; Est GFR (African American) 12.5 ml/min; Est GFR (Non-African American) 10.8 ml/min; Potassium 4.1 mmol/L (3.5-5.1)
--- NOTE | 2021-06-03 15:22 | Hospitalist Progress Note ---
Date of Service June 03, 2021 Assessment & Plan (1) Cellulitis of foot, left: Plan: Patient is a 55 yr male who presents with left foot infection. Left foot cellulitis -MRI:No MR evidence for osteomyelitis. Cellulitis involving the subcutaneous soft tissues surrounding the heel. Small wound along the posterolateral aspect of the heel inferiorly with no focal fluid collection or abscess. -Blood cultures 1/2 growing alpha strep, coagulase-negative staph -Wound cultures growing staph, Alcaligenes faecalis Continue Vanco, Zosyn>>> Zosyn Appreciate orthopedics input No surgical intervention needed as per Ortho Nonweightbearing left lower extremity Continue wound care Pain control Repeat blood cultures pending De-escalating antibiotics as able Diarrhea Check stool for C. difficile Hypoglycemia Acute metabolic encephalopathy likely secondary to hypoglycemia Monitor blood glucose levels Continue hypoglycemia protocol Hyperkalemia Likely secondary to kidney disease Low potassium diet Received calcium gluconate Had dialysis Monitor potassium levels End-stage renal disease on dialysis Appreciate nephrology input Continue dialysis as per nephrology DM II Currently not on any medication Update HbA1c Monitor blood glucose levels Atrial fibrillation Continue metoprolol Patient refused Coumadin in the past as per records Currently not on any anticoagulation Hyponatremia Hyperkalemia Hypomagnesemia Monitor and replace electrolytes as needed Hyponatremia likely chronic Severe Aortic stenosis Suggested for valve replacement as per patient Needs follow-up with cardiology upon discharge Hypertension Continue amlodipine, metoprolol Sleep apnea CPAP at bedtime Hyperlipidemia on statin H/O Oral lesion (Hard Palate) Evaluated by dental surgery as outpatient Needs follow-up with oromaxillary surgery Recent COVID infection Saturating well on 2 L supplemental oxygen DVT Px: Heparin SQ CODE STATUS Full code Disposition To be determined Admission and Anticipated Discharge Date Admission Date: May 30, 2021 Subjective Patient is seen and examined bedside Denies any ankle pain today Blood pressure relatively low today States having diarrhea which he attributes to antibiotics Denies any chest pain, shortness of breath, dizziness, nausea, abdominal pain Offers no other complaints Review of Systems Review of Systems: All systems reviewed & are unremarkable except as noted in Subjective Physical Exam Physical Exam: Physical Exam: Vitals signs as noted above General Appearance:Obese, no apparent distress Head: normocephalic, Atraumatic Eyes: normal inspection, EOMI Neck: supple, Trachea midline Respiratory/Chest: Decreased breath sounds, CTA Cardiovascular: S1, S2, No murmur Abdomen/GI:Soft, Non tender, Bowel sounds present Extremities/Musculoskeletal:normal inspection, + Multiple Hand excoriations,B/L LE edema, Left ankle wound Neurologic/Psych:AAOX3, grossly no focal neurological deficits Skin: normal color, warm Results & Data Results & Data ([facility]) Vital Signs (Past 12 Hours) Vital Signs Temp Pulse Resp BP Pulse Ox 06/03/21 14:57 36.8 C 110 H 16 97/66 L 90 06/03/21 07:16 36.8 C 80 20 92/64 L 94 Laboratory Results Short CBC 06/03/21 Range/Units 08:03 Hgb 8.2 L (14.0-18.0) g/dL Hct 27.0 L (42-52) % BMP 06/03/21 08:03 Sodium 131 L Potassium 4.1 Chloride 93 L Carbon Dioxide 27 BUN 31 H Creatinine 5.47 H* D Glucose 134 H Calcium 7.8 L
[2021-06-03] MEDS ORDERED: LACTOBACILLUS ACIDOPHILUS 1 GM PACK PO SCH (17:00)
[2021-06-03] MEDS: FOLIC ACID 1 MG TAB PO SCH (20:10)
[2021-06-03] MEDS: LURASIDONE HCL 40 MG TAB PO SCH (20:11)
[2021-06-03] MEDS: ATORVASTATIN 40 MG TAB PO SCH (20:11)
[2021-06-04] MEDS: HEPARIN SOD 5,000 UNIT/0.5 ML VIAL SQ SCH ×3 (06:02→19:40)
[2021-06-04 07:16] LABS: Hematocrit (blood only) 26.9 % (42-52); Hemoglobin 8.2 g/dL (14.0-18.0); Mean Corpuscular Hemoglobin 28.6 pg (25-34); Mean Corpuscular Hgb Conc 30.5 g/dL (32-36); Mean Corpuscular Volume 93.7 fL (80-100); Mean Platelet Volume 9.3 fL (7.4-10.4); Nucleated RBC # (auto) 0.24 K/uL (0-0); Nucleated RBC % (auto) 1.7 %; Platelet Count 257 K/uL (130-400); RDW Coefficient of Variation 18.6 % (11.5-14.5); RDW Standard Deviation 61.5 fL (36.4-46.3); Red Blood Count 2.87 M/uL (4.7-6.1); White Blood Count 13.73 K/uL (4.8-10.8)
[2021-06-04 07:55] LABS: BUN Creatinine Ratio 6.1 (10-20); Creatinine Clr Calc Pharmacy 15.3 ml/min; Est GFR (African American) 8.8 ml/min; Est GFR (Non-African American) 7.6 ml/min; Potassium 4.6 mmol/L (3.5-5.1)
[2021-06-04] MEDS: PIPERACILLIN/TAZOBACTAM 4.5 GM in DEXTROSE 5% 100 ML IV SCH ×2 (08:10→19:39)
[2021-06-04] MEDS ORDERED: SODIUM CHLORIDE 0.9% 1000ML 1,000 ML IV PRN (08:18)
[2021-06-04] MEDS ORDERED: HEPARIN SOD (PORCINE) 1000 UNIT/ML IV ONE (08:18)
[2021-06-04] MEDS: ASPIRIN 81 MG CHEW PO SCH (08:22)
[2021-06-04] MEDS: lamoTRIgine 100 MG TAB PO SCH (08:22)
[2021-06-04] MEDS: LACTOBACILLUS ACIDOPHILUS 1 GM PACK PO SCH ×3 (08:22→17:48)
[2021-06-04] MEDS: SEVELAMER HCL 800 MG TABLET PO SCH ×3 (08:23→17:48)
[2021-06-04] MEDS: GABAPENTIN 300 MG CAP PO SCH ×2 (08:23→19:39)
[2021-06-04] MEDS: METOPROLOL TARTRATE 50 MG TAB PO SCH ×2 (08:24→19:39)
[2021-06-04] MEDS ORDERED: EPOETIN ALFA 20,000 UNITS/ML VIAL IV SCH (08:30)
[2021-06-04] MEDS: HEPARIN SOD (PORCINE) 1000 UNIT/ML IV SCH (10:50)
--- NOTE | 2021-06-04 13:15 | Dialysis Progress Note ---
Date of Service June 04, 2021 Assessment & Plan (1) ESRD (end stage renal disease) on dialysis: Plan: ESRD on hemodialysis.( Access- left AV graft) His normal days are Wednesday, dialyzed on Wednesday for 4 hours, extra treatment on weekend due to hyperkalemia. -Lytess normal today except sNa which reflects volume overload -for HD today 4.25 hrs, goal 4.5 L UF spb > 110; miniheparin -FR ordered 1.2L -next HD on 06/07 or as clinical needs dictate -Needs to adhere strictly to renal dialysis diet. (2) Cellulitis of foot, left: Plan: On antibiotics-managed by primary; awaiting TTE (given valvular issues) and ID comments Admission and Anticipated Discharge Date Admission Date: May 30, 2021 Subjective anxious for d/c; worried about paying rent; no worsening pain Review of Systems Review of Systems: All systems reviewed & are unremarkable except as noted in Subjective Physical Exam Constitutional: well developed and well nourished; no acute distress Eyes: EOM intact bilaterally ENMT: Ears: no external ear abnormality Nose: no external nose abnormality Mouth: + dry oral mucous membranes marked facial edema Neck: no nuchal rigidity Respiratory: normal respiratory effort Auscultation: + diminished lung sounds Cardiovascular: Rate/Rhythm: regular rate and + tachycardic Heart Sounds: + murmur Extremities: + AV fistula; no edema Gastrointestinal (Abdomen): Inspection/Auscultation: normal bowel sounds Percussion/Palpation: abdomen soft; abdomen nontender Musculoskeletal: Extremities: strength 5/5 throughout Skin: no rashes, warm and dry Neurologic: parada, fluent speech, no tremor Psychiatric: Orientation: alert and oriented x 3 Results & Data ([facility]) Vital Signs (Past 12 Hours) Vital Signs Temp Pulse Pulse Resp BP BP Pulse Ox 06/04/21 12:40 102 H 144/86 H 06/04/21 12:20 97 H 135/92 06/04/21 12:00 95 H 149/96 H 06/04/21 11:40 95 H 142/92 H 06/04/21 11:20 94 H 129/83 06/04/21 11:00 95 H 147/90 H 06/04/21 10:40 83 128/83 06/04/21 10:20 93 H 117/83 06/04/21 10:00 86 135/83 06/04/21 09:40 92 H 122/76 06/04/21 09:24 74 143/74 H 06/04/21 09:17 37.4 C 66 06/04/21 07:57 37 C 76 18 110/74 90 Laboratory Results 06/04/21 06:51 06/04/21 06:51
--- NOTE | 2021-06-04 14:07 | Hospitalist Progress Note ---
Date of Service June 04, 2021 Assessment & Plan (1) Cellulitis of foot, left: Plan: Patient is a 55 yr male who presents with left foot infection. Left foot cellulitis/ulcer -MRI:No MR evidence for osteomyelitis. Cellulitis involving the subcutaneous soft tissues surrounding the heel. Small wound along the posterolateral aspect of the heel inferiorly with no focal fluid collection or abscess. -Blood cultures 1/2 growing alpha strep, coagulase-negative staph -Wound cultures growing staph aureus, Alcaligenes faecalis Currently on zosyn Appreciate orthopedics input No surgical intervention needed as per Ortho Nonweightbearing left lower extremity Continue wound care Pain control Repeat blood cultures negative so far. Blood culture possibly contaminant TTE no vegetation Will appreciate ID recs Diarrhea C diff negative Hypoglycemia Acute metabolic encephalopathy likely secondary to hypoglycemia Monitor blood glucose levels Continue hypoglycemia protocol Hyperkalemia Likely secondary to kidney disease Low potassium diet Received calcium gluconate Had dialysis Monitor potassium levels End-stage renal disease on dialysis Appreciate nephrology input Continue dialysis as per nephrology DM II Currently not on any medication A1c is currently 5.1 on 05/31/21 Review of outpatient records show last time A1c was >7 was in 12/2012 when it was 7.2 but has been controlled or normal since Monitor blood glucose levels Atrial fibrillation Continue metoprolol Patient refused Coumadin in the past as per records Currently not on any anticoagulation Hyponatremia Hyperkalemia Hypomagnesemia Monitor and replace electrolytes as needed Hyponatremia appears chronic based review of [employer] labs Na is lower today at 126. 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 Continue fluid restriction and monitor Severe Aortic stenosis Suggested for valve replacement as per patient Needs follow-up with cardiology upon discharge Hypertension Continue amlodipine, metoprolol Sleep apnea CPAP at bedtime Hyperlipidemia on statin H/O Oral lesion (Hard Palate) Evaluated by dental surgery as outpatient Needs follow-up with oromaxillary surgery Recent COVID infection On room air DVT Px: Heparin SQ CODE STATUS Full code Disposition Possibly in 1 -2 days Will need follow up with wound clinic Admission and Anticipated Discharge Date Admission Date: May 30, 2021 Subjective Patient seen and examined in HD. Denies any pain in the foot. Denies any chest pain, cough, shortness of breath Denies any nausea, vomiting, abdominal pain, diarrhea Denied fever and chills Physical Exam Constitutional: + well hydrated and + obese; no acute distress Eyes: PERRL, conjunctivae normal, anicteric sclerae ENMT: external ear and nose normal, oropharynx normal Respiratory: normal respiratory effort, lungs clear to auscultation Gastrointestinal (Abdomen): normal bowel sounds, soft, nontender, no hepatosplenomegaly Musculoskeletal: Left foot ulcer with dressing stained Neurologic: PERRL, EOMI, accommodation nl, no face palsy, no dysarthria Psychiatric: A+Ox3, euthymic affect Results & Data Results & Data ([facility]) Vital Signs (Past 12 Hours) Vital Signs Temp Pulse Pulse Resp BP BP Pulse Ox 06/04/21 13:40 111 H 140/87 06/04/21 13:20 91 H 146/94 H 06/04/21 13:00 72 94/60 L 06/04/21 12:40 102 H 144/86 H 06/04/21 12:20 97 H 135/92 06/04/21 12:00 95 H 149/96 H 06/04/21 11:40 95 H 142/92 H 06/04/21 11:20 94 H 129/83 06/04/21 11:00 95 H 147/90 H 06/04/21 10:40 83 128/83 06/04/21 10:20 93 H 117/83 06/04/21 10:00 86 135/83 06/04/21 09:40 92 H 122/76 06/04/21 09:24 74 143/74 H 06/04/21 09:17 37.4 C 66 06/04/21 07:57 37 C 76 18 110/74 90 Laboratory Results Abnormal lab results 06/03/21 06/04/21 06/04/21 Range/Units 20:36 06:51 06:51 WBC 13.73 H (4.8-10.8) K/uL RBC 2.87 L (4.7-6.1) M/uL Hgb 8.2 L (14.0-18.0) g/dL Hct 26.9 L (42-52) % MCHC 30.5 L (32-36) g/dL RDW Std Deviation 61.5 H (36.4-46.3) fL RDW Coeff of Jose R 18.6 H (11.5-14.5) % Absolute Nucleated RBC 0.24 H (0-0) K/uL Sodium 126 L (136-145) mmol/L Chloride 91 L (98-107) mmol/L Anion Gap 14.0 H (3-11) BUN 45 H (7-18) mg/dl Creatinine 7.32 H* D (0.6-1.4) mg/dl BUN/Creatinine Ratio 6.1 L (10-20) Glucose 130 H (70-99) mg/dl POC Glucose 145 H (70-99) mg/dl Calcium 7.0 L (8.5-10.1) mg/dl 06/04/21 06/04/21 06/04/21 Range/Units 07:57 11:39 16:58 WBC (4.8-10.8) K/uL RBC (4.7-6.1) M/uL Hgb (14.0-18.0) g/dL Hct (42-52) % MCHC (32-36) g/dL RDW Std Deviation (36.4-46.3) fL RDW Coeff of Jose R (11.5-14.5) % Absolute Nucleated RBC (0-0) K/uL Sodium (136-145) mmol/L Chloride (98-107) mmol/L Anion Gap (3-11) BUN (7-18) mg/dl Creatinine (0.6-1.4) mg/dl BUN/Creatinine Ratio (10-20) Glucose (70-99) mg/dl POC Glucose 134 H 126 H 208 H (70-99) mg/dl Calcium (8.5-10.1) mg/dl
[2021-06-04] MEDS: ATORVASTATIN 40 MG TAB PO SCH (19:39)
[2021-06-04] MEDS: LURASIDONE HCL 40 MG TAB PO SCH (19:39)
[2021-06-04] MEDS: FOLIC ACID 1 MG TAB PO SCH (19:39)
[2021-06-05] MEDS: HEPARIN SOD 5,000 UNIT/0.5 ML VIAL SQ SCH ×3 (05:31→20:36)
[2021-06-05 06:25] LABS: Hematocrit (blood only) 28.2 % (42-52); Hemoglobin 8.5 g/dL (14.0-18.0); Mean Corpuscular Hemoglobin 29.2 pg (25-34); Mean Corpuscular Hgb Conc 30.1 g/dL (32-36); Mean Corpuscular Volume 96.9 fL (80-100); Mean Platelet Volume 9.4 fL (7.4-10.4); Nucleated RBC # (auto) 0.15 K/uL (0-0); Nucleated RBC % (auto) 1.4 %; Platelet Count 205 K/uL (130-400); RDW Coefficient of Variation 19.7 % (11.5-14.5); RDW Standard Deviation 64.5 fL (36.4-46.3); Red Blood Count 2.91 M/uL (4.7-6.1); White Blood Count 10.62 K/uL (4.8-10.8)
[2021-06-05 07:12] LABS: BUN Creatinine Ratio 5.5 (10-20); Calcium 7.9 mg/dl (8.5-10.1); Creatinine Clr Calc Pharmacy 20.7 ml/min; Est GFR (African American) 12.7 ml/min; Potassium 3.7 mmol/L (3.5-5.1)
[2021-06-05] MEDS: PIPERACILLIN/TAZOBACTAM 4.5 GM in DEXTROSE 5% 100 ML IV SCH (09:19)
[2021-06-05] MEDS: LACTOBACILLUS ACIDOPHILUS 1 GM PACK PO SCH ×3 (09:25→17:20)
[2021-06-05] MEDS: SEVELAMER HCL 800 MG TABLET PO SCH ×3 (09:26→17:21)
[2021-06-05] MEDS: CINACALCET HCL 30 MG TAB PO SCH (09:26)
[2021-06-05] MEDS: ASPIRIN 81 MG CHEW PO SCH (09:26)
[2021-06-05] MEDS: GABAPENTIN 300 MG CAP PO SCH ×2 (09:27→20:36)
[2021-06-05] MEDS: METOPROLOL TARTRATE 50 MG TAB PO SCH ×2 (09:27→20:36)
[2021-06-05] MEDS: lamoTRIgine 100 MG TAB PO SCH (09:28)
--- NOTE | 2021-06-05 14:12 | Hospitalist Progress Note ---
Date of Service June 05, 2021 Assessment & Plan (1) Cellulitis of foot, left: Plan: Patient is a 55 yr male who presents with left foot infection. Left foot cellulitis/ulcer -MRI:No MR evidence for osteomyelitis. Cellulitis involving the subcutaneous soft tissues surrounding the heel. Small wound along the posterolateral aspect of the heel inferiorly with no focal fluid collection or abscess. -Blood cultures 1/2 growing alpha strep, coagulase-negative staph -Wound cultures growing staph aureus, Alcaligenes faecalis Currently on zosyn Appreciate ID eval and recs Change antibiotics to vanc and cefepime per ID till 06/16 Appreciate orthopedics input No surgical intervention needed as per Ortho Nonweightbearing left lower extremity Continue wound care Repeat blood cultures negative Diarrhea C diff negative Hypoglycemia Acute metabolic encephalopathy likely secondary to hypoglycemia Monitor blood glucose levels Continue hypoglycemia protocol Hyperkalemia Likely secondary to kidney disease End-stage renal disease on dialysis Hyponatremia Appreciate nephrology input Continue dialysis as per nephrology DM II Currently not on any medication A1c is currently 5.1 on 05/31/21 Review of outpatient records show last time A1c was >7 was in 12/2012 when it was 7.2 but has been controlled or normal since Monitor blood glucose levels Atrial fibrillation Continue metoprolol Patient refused Coumadin in the past as per records Currently not on any anticoagulation Severe Aortic stenosis Suggested for valve replacement as per patient Needs follow-up with cardiology upon discharge Hypertension Continue amlodipine, metoprolol Sleep apnea CPAP at bedtime Hyperlipidemia on statin H/O Oral lesion (Hard [place]) Evaluated by dental surgery as outpatient Needs follow-up with oromaxillary surgery Recent COVID infection On room air DVT Px: Heparin SQ CODE STATUS Full code Disposition Per CM who discussed with sister, patient is not able to get care at home at this time. CM working on placement Admission and Anticipated Discharge Date Admission Date: May 30, 2021 Subjective Patient seen and examined. Denies any pain in the feet/legs. Has neuropathy (numbness). Denies any chest pain, cough, shortness of breath Denies any nausea, vomiting, abdominal pain, diarrhea Denied fever and chills Physical Exam Constitutional: + well hydrated and + obese; no acute distress Eyes: PERRL, conjunctivae normal, anicteric sclerae ENMT: external ear and nose normal, oropharynx normal Respiratory: normal respiratory effort, lungs clear to auscultation Cardiovascular: Rate/Rhythm: regular rate and regular rhythm S1 S2 Gastrointestinal (Abdomen): normal bowel sounds, soft, nontender, no hepatosplenomegaly Musculoskeletal: Wound on heel on both feet (L>R) Neurologic: PERRL, EOMI, accommodation nl, no face palsy, no dysarthria Psychiatric: A+Ox3, euthymic affect Results & Data Results & Data ([facility]) Vital Signs (Past 12 Hours) Vital Signs Temp Pulse Pulse Resp BP Pulse Ox 06/05/21 09:24 90 111/77 06/05/21 07:41 36.7 C 92 H 18 114/76 92 Laboratory Results Abnormal lab results 06/04/21 06/04/21 06/05/21 Range/Units 16:58 20:31 05:51 RBC 2.91 L (4.7-6.1) M/uL Hgb 8.5 L (14.0-18.0) g/dL Hct 28.2 L (42-52) % MCHC 30.1 L (32-36) g/dL RDW Std Deviation 64.5 H (36.4-46.3) fL RDW Coeff of Jose R 19.7 H (11.5-14.5) % Absolute Nucleated RBC 0.15 H (0-0) K/uL Sodium (136-145) mmol/L Chloride (98-107) mmol/L BUN (7-18) mg/dl Creatinine (0.6-1.4) mg/dl BUN/Creatinine Ratio (10-20) Glucose (70-99) mg/dl POC Glucose 208 H 152 H (70-99) mg/dl Calcium (8.5-10.1) mg/dl 06/05/21 06/05/21 06/05/21 Range/Units 05:51 07:43 12:07 RBC (4.7-6.1) M/uL Hgb (14.0-18.0) g/dL Hct (42-52) % MCHC (32-36) g/dL RDW Std Deviation (36.4-46.3) fL RDW Coeff of Jose R (11.5-14.5) % Absolute Nucleated RBC (0-0) K/uL Sodium 131 L (136-145) mmol/L Chloride 95 L (98-107) mmol/L BUN 30 H (7-18) mg/dl Creatinine 5.41 H* D (0.6-1.4) mg/dl BUN/Creatinine Ratio 5.5 L (10-20) Glucose 123 H (70-99) mg/dl POC Glucose 134 H 151 H (70-99) mg/dl Calcium 7.9 L (8.5-10.1) mg/dl
[2021-06-05] MEDS ORDERED: VANCOMYCIN CONSULT ACTIVE PRN (16:22)
[2021-06-05] MEDS ORDERED: CEFEPIME 1,000 MG in SYRINGE 0 ML IV ONE (16:45)
[2021-06-05] MEDS ORDERED: VANCOMYCIN HCL 1,250 MG in SODIUM CHLORIDE 0.9% 250 ML IV ONE (17:30)
--- NOTE | 2021-06-05 19:38 | Pharmacy Report ---
Pharmacy Abx Dose Short Note - Date of Service June 05, 2021 - Assessment & Plan Assessment 55 year old M receiving vanc/cefepime for treatment of bacteremia/cellulitis per ID rec until 06/16 Random level this PM 9.6 mcg/mL, plan to redose x1 today and dose by levels for HD Plan Vancomycin * 1250 mg x 1 * Random level in AM to assist with dosing Pharmacy will continue to follow and will adjust dose/frequency as necessary. Thank you.
[2021-06-05] MEDS: FOLIC ACID 1 MG TAB PO SCH (20:36)
[2021-06-05] MEDS: ATORVASTATIN 40 MG TAB PO SCH (20:36)
[2021-06-05] MEDS: LURASIDONE HCL 40 MG TAB PO SCH (20:36)
[2021-06-05 22:51] LABS: Hemoglobin 8.3 g/dL (14.0-18.0)
[2021-06-06] MEDS: HEPARIN SOD 5,000 UNIT/0.5 ML VIAL SQ SCH ×3 (05:40→21:12)
[2021-06-06 06:31] LABS: Hematocrit (blood only) 29.8 % (42-52); Hemoglobin 8.8 g/dL (14.0-18.0); Mean Corpuscular Hemoglobin 29.2 pg (25-34); Mean Corpuscular Hgb Conc 29.5 g/dL (32-36); Mean Platelet Volume 9.8 fL (7.4-10.4); Nucleated RBC # (auto) 0.06 K/uL (0-0); Nucleated RBC % (auto) 0.7 %; Platelet Count 193 K/uL (130-400); RDW Coefficient of Variation 20.8 % (11.5-14.5); Red Blood Count 3.01 M/uL (4.7-6.1); White Blood Count 8.85 K/uL (4.8-10.8)
[2021-06-06 07:17] LABS: BUN Creatinine Ratio 6.1 (10-20); Calcium 7.5 mg/dl (8.5-10.1); Creatinine Clr Calc Pharmacy 15.6 ml/min; Est GFR (Non-African American) 7.8 ml/min; Potassium 4.1 mmol/L (3.5-5.1)
[2021-06-06] MEDS: LACTOBACILLUS ACIDOPHILUS 1 GM PACK PO SCH (08:02)
[2021-06-06] MEDS: lamoTRIgine 100 MG TAB PO SCH (08:02)
[2021-06-06] MEDS: SEVELAMER HCL 800 MG TABLET PO SCH ×3 (08:02→16:50)
[2021-06-06] MEDS: METOPROLOL TARTRATE 50 MG TAB PO SCH ×2 (08:03→20:18)
[2021-06-06] MEDS: GABAPENTIN 300 MG CAP PO SCH ×2 (08:04→20:17)
[2021-06-06] MEDS: ASPIRIN 81 MG CHEW PO SCH (08:04)
[2021-06-06] MEDS ORDERED: SODIUM CHLORIDE 0.9% 1000ML 1,000 ML IV PRN (08:20)
[2021-06-06] MEDS ORDERED: HEPARIN SOD (PORCINE) 1000 UNIT/ML IV ONE (08:20)
[2021-06-06] MEDS ORDERED: EPOETIN ALFA 20,000 UNITS/ML VIAL IV SCH (09:00)
[2021-06-06] MEDS: HEPARIN SOD (PORCINE) 1000 UNIT/ML IV SCH ×2 (10:26→14:02)
--- NOTE | 2021-06-06 11:59 | Hospitalist Progress Note ---
Date of Service June 06, 2021 Assessment & Plan (1) Cellulitis of foot, left: Plan: Patient is a 55 yr male who presents with left foot infection. Left foot cellulitis/ulcer Right heel wound -MRI:No MR evidence for osteomyelitis. Cellulitis involving the subcutaneous soft tissues surrounding the heel. Small wound along the posterolateral aspect of the heel inferiorly with no focal fluid collection or abscess. -Blood cultures 06/01 growing alpha strep, coagulase-negative staph -Wound cultures growing staph aureus, Alcaligenes faecalis Appreciate ID eval and recs Was on zosyn, Now changed to vanc and cefepime per ID till 06/16 Appreciate orthopedics input No surgical intervention needed as per Ortho Nonweightbearing left lower extremity Continue wound care Repeat blood cultures negative Diarrhea C diff negative Hypoglycemia Acute metabolic encephalopathy likely secondary to hypoglycemia Monitor blood glucose levels Continue hypoglycemia protocol Hyperkalemia Likely secondary to kidney disease End-stage renal disease on dialysis Hyponatremia Appreciate nephrology input Continue dialysis as per nephrology DM II Currently not on any medication A1c is currently 5.1 on 05/31/21 Review of outpatient records show last time A1c was >7 was in 12/2012 when it was 7.2 but has been controlled or normal since Monitor blood glucose levels Atrial fibrillation Continue metoprolol Patient refused Coumadin in the past as per records Currently not on any anticoagulation Severe Aortic stenosis Suggested for valve replacement as per patient Needs follow-up with cardiology upon discharge Hypertension Continue amlodipine, metoprolol Sleep apnea CPAP at bedtime Hyperlipidemia on statin H/O Oral lesion ([place]) Evaluated by dental surgery as outpatient Needs follow-up with oromaxillary surgery Recent COVID infection On room air DVT Px: Heparin SQ CODE STATUS Full code Disposition Plan to dc to SNF possibly tomorrow Will dose vanc and cefepime with HD on DC. Pharm aware Admission and Anticipated Discharge Date Admission Date: May 30, 2021 Subjective Patient seen and examined. Denies any pain in the feet/legs. Has chronic numbness in feet. Denies any chest pain, cough, shortness of breath Denies any nausea, vomiting, abdominal pain, diarrhea Denied fever and chills Physical Exam Constitutional: + well hydrated and + obese; no acute distress Eyes: PERRL, conjunctivae normal, anicteric sclerae ENMT: external ear and nose normal, oropharynx normal Respiratory: normal respiratory effort, lungs clear to auscultation Cardiovascular: Rate/Rhythm: regular rate and regular rhythm S1 S2 Gastrointestinal (Abdomen): normal bowel sounds, soft, nontender, no hepatosplenomegaly Musculoskeletal: Dressing over heel wounds Neurologic: PERRL, EOMI, accommodation nl, no face palsy, no dysarthria Psychiatric: A+Ox3, euthymic affect Results & Data Results & Data ([facility]) Vital Signs (Past 12 Hours) Vital Signs Temp Pulse Pulse Pulse Resp BP BP 06/06/21 11:40 66 91/67 L 06/06/21 11:20 56 L 99/61 L 06/06/21 11:00 68 109/71 06/06/21 10:40 67 106/71 06/06/21 10:20 91 H 106/71 06/06/21 10:00 75 102/68 06/06/21 09:40 83 90/68 L 06/06/21 09:20 96 H 86/66 L 06/06/21 09:09 89 115/71 06/06/21 09:04 37.0 C 86 06/06/21 07:31 36.4 C L 93 H 18 109/70 Pulse Ox 06/06/21 11:40 06/06/21 11:20 06/06/21 11:00 06/06/21 10:40 06/06/21 10:20 06/06/21 10:00 06/06/21 09:40 06/06/21 09:20 06/06/21 09:09 06/06/21 09:04 06/06/21 07:31 98 Laboratory Results Abnormal lab results 06/05/21 06/05/21 06/05/21 Range/Units 17:04 20:29 22:33 RBC (4.7-6.1) M/uL Hgb 8.3 L (14.0-18.0) g/dL Hct 28.0 L (42-52) % MCHC (32-36) g/dL RDW Std Deviation (36.4-46.3) fL RDW Coeff of Jose R (11.5-14.5) % Absolute Nucleated RBC (0-0) K/uL Sodium (136-145) mmol/L Chloride (98-107) mmol/L BUN (7-18) mg/dl Creatinine (0.6-1.4) mg/dl BUN/Creatinine Ratio (10-20) Glucose (70-99) mg/dl POC Glucose 137 H 154 H (70-99) mg/dl Calcium (8.5-10.1) mg/dl 06/06/21 06/06/21 06/06/21 Range/Units 05:44 05:44 08:12 RBC 3.01 L (4.7-6.1) M/uL Hgb 8.8 L (14.0-18.0) g/dL Hct 29.8 L (42-52) % MCHC 29.5 L (32-36) g/dL RDW Std Deviation 67.0 H (36.4-46.3) fL RDW Coeff of Jose R 20.8 H (11.5-14.5) % Absolute Nucleated RBC 0.06 H (0-0) K/uL Sodium 130 L (136-145) mmol/L Chloride 96 L (98-107) mmol/L BUN 44 H (7-18) mg/dl Creatinine 7.17 H* D (0.6-1.4) mg/dl BUN/Creatinine Ratio 6.1 L (10-20) Glucose 110 H (70-99) mg/dl POC Glucose 109 H (70-99) mg/dl Calcium 7.5 L (8.5-10.1) mg/dl
[2021-06-06] MEDS: ADVANCED PROBIOTIC 1250 MG CAPSULE PO SCH ×2 (14:05→16:51)
--- NOTE | 2021-06-06 14:53 | Pharmacy Report ---
Pharmacy Abx Dose Short Note - Date of Service June 06, 2021 - Assessment & Plan Assessment * 55 year old M receiving vanc/cefepime for treatment of bacteremia/cellulitis per ID rec until 06/16 * Pre-HD level today slightly elevated at 20.4 mcg/mL. Patient dialyzed 4.2 hours today. Will give supplemental dose post-HD and re-check level in AM * Patient to be discharged to complete IV vancomycin, likely tomorrow per Dr. Santoro. Plan to provide outpatient vancomycin IV dosing guidance after AM level Plan * Vancomycin 750 mg IV x1 post-HD * Random level with AM labs Pharmacy will continue to follow and will adjust dose/frequency as necessary. Thank you.
[2021-06-06] MEDS ORDERED: VANCOMYCIN HCL 750 MG in SODIUM CHLORIDE 0.9% 250 ML IV ONE (15:00)
[2021-06-06] MEDS: CEFEPIME 1,000 MG in SYRINGE 0 ML IV SCH (16:50)
--- NOTE | 2021-06-06 17:23 | Dialysis Progress Note ---
Date of Service June 06, 2021 Assessment & Plan (1) ESRD (end stage renal disease) on dialysis: Plan: ESRD on hemodialysis.( Access- left AV graft) His normal days are Wednesday, dialyzed on Wednesday for 4 hours, extra treatment on weekend due to hyperkalemia. -Lytess normal today except sNa which reflects volume overload -for HD today 4.25 hrs, goal 4 L UF spb > 110; miniheparin -FR ordered 1.2L -next HD on 06/07 to get on TRSa schedule for rehhab -Needs to adhere strictly to renal dialysis diet. (2) Cellulitis of foot, left: Plan: On antibiotics-managed by primary; no vegetations on DARIAN; awaiting ID comments Admission and Anticipated Discharge Date Admission Date: May 30, 2021 Subjective seen on dialysis; no sob, no n/v Review of Systems Review of Systems: All systems reviewed & are unremarkable except as noted in Subjective Physical Exam Constitutional: well developed and well nourished; no acute distress Eyes: EOM intact bilaterally ENMT: Ears: no external ear abnormality Nose: no external nose abnormality Mouth: + dry oral mucous membranes Neck: no nuchal rigidity Respiratory: normal respiratory effort Auscultation: + diminished lung sounds Cardiovascular: Rate/Rhythm: regular rate and + tachycardic Heart Sounds: + murmur Extremities: + edema (1-2+) and + AV fistula Gastrointestinal (Abdomen): Inspection/Auscultation: normal bowel sounds Percussion/Palpation: abdomen soft; abdomen nontender Musculoskeletal: Extremities: strength 5/5 throughout Skin: no rashes, warm and dry Psychiatric: Orientation: alert and oriented x 3 Results & Data ([facility]) Vital Signs (Past 12 Hours) Vital Signs Temp Pulse Pulse Pulse Resp BP BP 06/06/21 15:43 37 C 84 18 114/74 06/06/21 13:25 36.4 C L 68 71 86 102/69 105/68 06/06/21 13:00 68 111/70 06/06/21 12:40 68 99/69 L 06/06/21 12:20 87 104/59 L 06/06/21 12:00 86 111/72 06/06/21 11:40 66 91/67 L 06/06/21 11:20 56 L 99/61 L 06/06/21 11:00 68 109/71 06/06/21 10:40 67 106/71 06/06/21 10:20 91 H 106/71 06/06/21 10:00 75 102/68 06/06/21 09:40 83 90/68 L 06/06/21 09:20 96 H 86/66 L 06/06/21 09:09 89 115/71 06/06/21 09:04 37.0 C 86 06/06/21 07:31 36.4 C L 93 H 18 109/70 Pulse Ox 06/06/21 15:43 96 06/06/21 13:25 06/06/21 13:00 06/06/21 12:40 06/06/21 12:20 06/06/21 12:00 06/06/21 11:40 06/06/21 11:20 06/06/21 11:00 06/06/21 10:40 06/06/21 10:20 06/06/21 10:00 06/06/21 09:40 06/06/21 09:20 06/06/21 09:09 06/06/21 09:04 06/06/21 07:31 98 Laboratory Results 06/06/21 05:44 06/06/21 05:44
[2021-06-06] MEDS: FOLIC ACID 1 MG TAB PO SCH (20:17)
[2021-06-06] MEDS: LURASIDONE HCL 40 MG TAB PO SCH (20:17)
[2021-06-06] MEDS: ATORVASTATIN 40 MG TAB PO SCH (20:18)
[2021-06-07] MEDS: HEPARIN SOD 5,000 UNIT/0.5 ML VIAL SQ SCH (05:58)
[2021-06-07 08:10] LABS: BUN Creatinine Ratio 5.4 (10-20); Calcium 7.6 mg/dl (8.5-10.1); Creatinine Clr Calc Pharmacy 19.6 ml/min; Est GFR (African American) 11.9 ml/min; Est GFR (Non-African American) 10.3 ml/min; Potassium 3.6 mmol/L (3.5-5.1)
[2021-06-07] MEDS: ADVANCED PROBIOTIC 1250 MG CAPSULE PO SCH ×3 (08:12→17:35)
[2021-06-07] MEDS: SEVELAMER HCL 800 MG TABLET PO SCH ×3 (08:12→17:35)
[2021-06-07] MEDS: GABAPENTIN 300 MG CAP PO SCH ×2 (08:13→21:16)
[2021-06-07] MEDS: ASPIRIN 81 MG CHEW PO SCH (08:13)
[2021-06-07] MEDS: CINACALCET HCL 30 MG TAB PO SCH (08:13)
[2021-06-07] MEDS: METOPROLOL TARTRATE 50 MG TAB PO SCH ×2 (08:13→21:16)
[2021-06-07] MEDS: lamoTRIgine 100 MG TAB PO SCH (08:14)
--- NOTE | 2021-06-07 11:00 | Hospitalist Progress Note ---
Date of Service June 07, 2021 Assessment & Plan (1) Cellulitis of foot, left: Plan: Patient is a 55 yr male who presents with left foot infection. Left foot cellulitis/ulcer Right heel wound -MRI:No MR evidence for osteomyelitis. Cellulitis involving the subcutaneous soft tissues surrounding the heel. Small wound along the posterolateral aspect of the heel inferiorly with no focal fluid collection or abscess. -Blood cultures 06/01 growing alpha strep, coagulase-negative staph -Wound cultures growing staph aureus, Alcaligenes faecalis Appreciate ID eval and recs Was on zosyn, Now changed to vanc and cefepime per ID till 06/16 Appreciate orthopedics input No surgical intervention needed as per Ortho Nonweightbearing left lower extremity Continue wound care Repeat blood cultures negative Diarrhea C diff negative Hypoglycemia Acute metabolic encephalopathy likely secondary to hypoglycemia Monitor blood glucose levels Continue hypoglycemia protocol End-stage renal disease on dialysis Appreciate nephrology input Continue dialysis as per nephrology DM II Currently not on any medication A1c is currently 5.1 on 05/31/21 Review of outpatient records show last time A1c was >7 was in 12/2012 when it was 7.2 but has been controlled or normal since Monitor blood glucose levels Atrial fibrillation Continue metoprolol Patient refused Coumadin in the past as per records Currently not on any anticoagulation Severe Aortic stenosis Suggested for valve replacement as per patient Needs follow-up with cardiology upon discharge Hypertension Continue amlodipine, metoprolol Sleep apnea CPAP at bedtime Hyperlipidemia on statin H/O Oral lesion (Hard [place]) Evaluated by dental surgery as outpatient Needs follow-up with oromaxillary surgery Recent COVID infection On room air Recent rectal bleed Likely due to external hemorrhoid Currently stopped Review of EPIC showed patient had cscope 07/2020 which was normal Stop sq hep for DVT ppx and monitor Monitor H/H Will hold off planned DC today and monitor If patient has more bleeding, will get GI/Surgery Admission and Anticipated Discharge Date Admission Date: May 30, 2021 Subjective Patient seen and examined. Denies any pain in the feet/legs. Has chronic numbness in feet. Denies any chest pain, cough, shortness of breath Denies any nausea, vomiting, abdominal pain, diarrhea Denied fever and chills Patient had some blood stains on pullup Patient reported some bleeding after BM He reported some episode 2 days ago and stopped. Stated he had a large bleeding this morning from anal area Reported blood was not mixed in stool but happened after BM while wiping. He ascribed it to trauma from the tissue paper Denied dizziness, palpitation, exertional dyspnea Physical Exam Constitutional: + well hydrated and + obese; no acute distress Eyes: PERRL, conjunctivae normal, anicteric sclerae ENMT: external ear and nose normal, oropharynx normal Respiratory: normal respiratory effort, lungs clear to auscultation Cardiovascular: Rate/Rhythm: regular rate and regular rhythm S1 S2 Gastrointestinal (Abdomen): normal bowel sounds, soft, nontender, no hepatosplenomegaly Rectal Exam: + hemorrhoids old blood stains around anal area. No active bleeding Musculoskeletal: Dressing over heel wounds Neurologic: PERRL, EOMI, accommodation nl, no face palsy, no dysarthria Psychiatric: A+Ox3, euthymic affect Results & Data Results & Data ([facility]) Vital Signs (Past 12 Hours) Vital Signs Temp Pulse Resp BP Pulse Ox 06/07/21 07:32 36.8 C 75 16 110/73 93 06/06/21 23:21 36.7 C 94 H 18 112/76 93 Laboratory Results Abnormal lab results 06/06/21 06/06/21 06/07/21 Range/Units 17:23 20:50 06:46 Sodium 134 L (136-145) mmol/L BUN 31 H (7-18) mg/dl Creatinine 5.70 H* D (0.6-1.4) mg/dl BUN/Creatinine Ratio 5.4 L (10-20) Glucose 130 H (70-99) mg/dl POC Glucose 147 H 143 H (70-99) mg/dl Calcium 7.6 L (8.5-10.1) mg/dl 06/07/21 06/07/21 Range/Units 08:07 12:03 Sodium (136-145) mmol/L BUN (7-18) mg/dl Creatinine (0.6-1.4) mg/dl BUN/Creatinine Ratio (10-20) Glucose (70-99) mg/dl POC Glucose 118 H 149 H (70-99) mg/dl Calcium (8.5-10.1) mg/dl
--- NOTE | 2021-06-07 14:52 | Pharmacy Report ---
Pharmacy Abx Dose Short Note - Date of Service June 07, 2021 - Assessment & Plan Assessment * 55 year old M receiving vanc/cefepime for treatment of bacteremia/cellulitis per ID rec until 06/16 * Random Vancomycin AM level today slightly elevated at 20.7 mcg/mL. Patient dialyzed MWF. * Patient to be discharged to [facility] tomorrow and to complete IV antibiotics course there. Plan * Vancomycin 750 mg IV post-HD on dialysis days only (MWF) * Cefepime 1g IV Q24H daily (post-HD on HD days) Pharmacy will continue to follow and will adjust dose/frequency as necessary. Thank you.
[2021-06-07 15:55] LABS: Hematocrit (blood only) 29.1 % (42-52); Hemoglobin 8.7 g/dL (14.0-18.0)
[2021-06-07] MEDS: CEFEPIME 1,000 MG in SYRINGE 0 ML IV SCH (17:35)
[2021-06-07] MEDS: FOLIC ACID 1 MG TAB PO SCH (21:16)
[2021-06-07] MEDS: LURASIDONE HCL 40 MG TAB PO SCH (21:16)
[2021-06-07] MEDS: ATORVASTATIN 40 MG TAB PO SCH (21:16)
[2021-06-08 07:38] LABS: Hematocrit (blood only) 25.6 % (42-52); Hemoglobin 7.6 g/dL (14.0-18.0); Mean Corpuscular Hemoglobin 29.5 pg (25-34); Mean Corpuscular Hgb Conc 29.7 g/dL (32-36); Mean Corpuscular Volume 99.2 fL (80-100); Mean Platelet Volume 9.4 fL (7.4-10.4); Platelet Count 133 K/uL (130-400); RDW Coefficient of Variation 22.3 % (11.5-14.5); RDW Standard Deviation 76.7 fL (36.4-46.3); Red Blood Count 2.58 M/uL (4.7-6.1); White Blood Count 5.92 K/uL (4.8-10.8)
[2021-06-08] MEDS: ADVANCED PROBIOTIC 1250 MG CAPSULE PO SCH ×3 (08:04→17:16)
[2021-06-08] MEDS: SEVELAMER HCL 800 MG TABLET PO SCH ×3 (08:04→17:17)
[2021-06-08] MEDS: ASPIRIN 81 MG CHEW PO SCH (08:06)
[2021-06-08] MEDS: lamoTRIgine 100 MG TAB PO SCH (08:07)
[2021-06-08] MEDS: GABAPENTIN 300 MG CAP PO SCH (08:07)
[2021-06-08] MEDS: METOPROLOL TARTRATE 50 MG TAB PO SCH (08:09)
[2021-06-08 08:15] LABS: BUN Creatinine Ratio 5.7 (10-20); Calcium 7.4 mg/dl (8.5-10.1); Creatinine Clr Calc Pharmacy 15.1 ml/min; Est GFR (African American) 8.7 ml/min; Est GFR (Non-African American) 7.5 ml/min
[2021-06-08 10:26] LABS: Hematocrit (blood only) 31.2 % (42-52); Hemoglobin 9.3 g/dL (14.0-18.0)
[2021-06-08] MEDS: CEFEPIME 1,000 MG in SYRINGE 0 ML IV SCH (17:17)
--- NOTE | 2021-06-08 17:30 | Discharge Summary ---
Date of Service June 08, 2021 Admission HPI Per Admitting Provider 55-year-old male with past medical history significant for end-stage renal disease on hemodialysis, type 2 diabetes, diabetic neuropathy, hyperlipidemia, obstructive sleep apnea, paroxysmal atrial fibrillation, history of V-tach, history of hypertension, history of esophageal varices, severe obesity, history of lesion of oral mucosa, spinal stenosis, medically noncompliant, comes because of left foot infection. The patient does not have much feeling in the lower extremities and today he noticed left heel pop up and draining, so he came to the ER. He is afebrile. Denies any chest pain, shortness of breath, no nausea, no vomiting, no abdominal pain. Does not make much urine. Normal bowel movements. No headache, no earache, no runny nose, no sore throat, no cough. The patient is unvaccinated for COVID, but he says he had COVID in March and as per the patient he was admitted in [facility] for COVID pneumonia. As per the [facility], he was diagnosed with COVID on 04/14/2021. Today, his COVID test was negative Admission Exam Per Admitting Provider GENERAL: The patient is obese, not in acute distress. VITAL SIGNS: Temperature 37.1, pulse 83, blood pressure 130/84, oxygen 94% on room air. HEENT: Pupils equal, round and reactive to light. Oral mucosa moist. Lesions seen on the roof of the mouth. NECK: No JVD, no neck masses. CARDIOVASCULAR: S1 and S2 heard. Regular rate and rhythm. No murmur, no gallop. RESPIRATORY SYSTEM: Normal AP diameter. No accessory muscle use. No wheezing, no crackles. ABDOMEN: Soft, bowel sounds present, nontender, no distention. CENTRAL NERVOUS SYSTEM: Cranial nerves II-XII grossly intact, nonfocal. EXTREMITIES: Bilateral lower extremity edema present and draining ulcer present on the left heel region on the plantar aspect. SKIN: Multiple excoriations on the extremities. Principal Diagnosis Left foot infection Right heel wound Discharge Exam Constitutional + well hydrated and + obese; no acute distress Eyes PERRL, conjunctivae normal, anicteric sclerae ENMT external ear and nose normal, oropharynx normal Respiratory normal respiratory effort, lungs clear to auscultation Cardiovascular Rate/Rhythm: + irregularly irregular S1 S2 Gastrointestinal (Abdomen) normal bowel sounds, soft, nontender, no hepatosplenomegaly Musculoskeletal Pedal edema Dressing over heel wounds Neurologic PERRL, EOMI, accommodation nl, no face palsy, no dysarthria Psychiatric A+Ox3, euthymic affect Discharge Data Allergies Allergy/AdvReac Type Severity Reaction Status Date / Time Iodinated Contrast Media Allergy Unknown STAGE 4 Verified 08/26/20 16:05 KIDNEY DISEASE Consultations 05/30/21 03:14 ED Decision to Admit Stat 05/30/21 03:39 ED Decision to Admit Stat 05/30/21 08:00 Consult Nephrology Routine Consult Orthopedic Surgery Routine 06/03/21 18:08 Consult Infectious Diseases Routine Ordered Studies 05/30/21 03:48 US venous doppler LE LT Urgent 05/30/21 05:51 CT foot LT wo con Urgent 05/30/21 09:40 MR ankle LT wo con Urgent Hospital Course (1) Cellulitis of foot, left: Patient is a 55 yr male who presents with left foot infection. Left foot cellulitis/ulcer Right heel wound -MRI:No MR evidence for osteomyelitis. Cellulitis involving the subcutaneous soft tissues surrounding the heel. Small wound along the posterolateral aspect of the heel inferiorly with no focal fluid collection or abscess. -Blood cultures 06/01 growing alpha strep, coagulase-negative staph -Wound cultures growing staph aureus, Alcaligenes faecalis Was evaluated by ID Was on zosyn, Now changed to vanc and cefepime per ID till 06/16 Discharged on 750mg vanc, 2g cefepime after HD on HD days till 06/16/21 Appreciate orthopedics input No surgical intervention needed as per Ortho No weight bearing on heels Continue wound care Repeat blood cultures negative Diarrhea C diff negative End-stage renal disease on dialysis Appreciate nephrology input Continue dialysis as per nephrology DM II Currently not on any medication A1c is currently 5.1 on 05/31/21 Review of outpatient records show last time A1c was >7 was in 12/2012 when it was 7.2 but has been controlled or normal since Monitor blood glucose levels Atrial fibrillation Continue metoprolol Patient refused Coumadin in the past as per records Currently not on any anticoagulation Severe Aortic stenosis Suggested for valve replacement as per patient Needs follow-up with cardiology upon discharge Hypertension Continue amlodipine, metoprolol Sleep apnea CPAP at bedtime Hyperlipidemia on statin H/O Oral lesion (Hard Palate) Evaluated by dental surgery as outpatient Needs follow-up with oromaxillary surgery Recent JOSE CARLOS infection On room air Recent rectal bleed after bowel movement Likely due to external hemorrhoid Currently stopped Review of EPIC showed patient had cscope 07/2020 which was normal Hb stable Updated the sister. she stated patient has been off lamictal and latuda for sometime. Hence these were discontinued Total Time Total Time Spent Total Time Spent (In Minutes): 50 Total Time Includes: Examination of the Patient, Discharge Planning and Medication Reconciliation Discharge Plan Discharge Items Patient Disposition: Transfer Group Home Fac Reason For Visit: LEFT FOOT WOUND Discharge Diagnosis: Left foot wound infection Right heel wound Condition on Discharge: Fair Activity: As commented below Weightbearing: Left toe touch and Right toe touch Weightbearing Comment: Do not bear weight on heels to allow for healing Non-emergency contact: Primary Care Provider Call non-emergency contact if: you have any medication questions and your symptoms worsen Follow-up/Referrals: Adri Nolan MD [Primary Care Provider] - Diet: Dialysis Renal and Heart Healthy Addtl Attending Provider Instructions: Mr Munson You came to the hospital for left wound infection. You also have a wound on right heel. You were evaluated and started on antibiotics. You are being discharged to a longterm facility. You are being discharged on IV antibiotics (vancomycin 750mg and cefepime 2g) to be dosed with hem odialysis on HD days (Wednesday, Wed and Wednesday) until 06/16/21. Please ensure follow up with your Primary Doctor. Also you can follow up with wound care clinic on discharge from longterm facility. Latuda and lamictal were removed from your med list as your sister reported you have been off these for a long time. If there is problems with wound healing, you may have to follow up with orthopedic doctor for further evaluation. It was a pleasure taking care of you. Pending Studies at Discharge: No Stand-Alone Forms: My [facility] Skilled Items Patient informed of condition?: Yes DNR: No Discharge Level of Care: Skilled Communicable Disease: No Discharge Prognosis: Stable Lines: None Urinary Catheter: No Medications and DC Order Prescriptions: New vancomycin 750 mg recon soln See Rx Instructions .ROUTE .COMPLEX Qty: 4 RF: 0 cefepime 2 gram recon soln See Rx Instructions .ROUTE .COMPLEX Qty: 4 RF: 0 Continued atorvastatin [Lipitor] 40 mg Tablet 40 mg PO QPM Qty: 0 RF: 0 amlodipine 5 mg tablet 5 mg PO QPM RF: 0 sevelamer carbonate [Renvela] 800 mg tablet 2,400 mg PO DIRECTED RF: 0 cinacalcet [Sensipar] 30 mg tablet 30 mg PO Q OTHER DAY RF: 0 metoprolol tartrate 50 mg tablet 50 mg PO BID RF: 0 sildenafil 50 mg Tablet 50 mg PO DAILY PRN (Reason: Erectile Dysfunction) RF: 0 acetaminophen 500 mg Tablet 500 mg PO Q6H PRN (Reason: Pain) RF: 0 folic acid 1 mg Tablet 1 mg PO QPM RF: 0 gabapentin 300 mg capsule 300 mg PO BID RF: 0 aspirin [Aspirin Childrens] 81 mg tablet,chewable 81 mg PO DAILY RF: 0 Discontinued Latuda 20 mg Tablet 40 mg PO PM RF: 0 lamotrigine 200 mg tablet 250 mg PO DAILY RF: 0 Discharge Orders: Discharge Order (Routine); Ordered 06/08/21 Ordered By: Renee Santoro Admission Data Admit Date/Time: 05/30/21 05:51 Attending Provider: Renee Santoro I. Admit Provider: Peter Perla Primary Care Provider: Adri Nolan Other Providers: Peter Perla ; Nat Paul ; Robert eMndes Carlos M. ; Ajay Rivas ; Wellington Gibson I. ; Андрей Green II ; Nunu Knott ; Shawn Patrick ; Dennis Stewart ; Sergio Fernandes ; [facility] Other Interventions: Discharge Summary Assessment (RN) Last Done: 06/08/21 12:12
--- NOTE | 2021-07-04 06:38 | Coding Query ---
WOUND CLARIFICATION To promote full compliance with coding requirements relating to patient care, physician participation is requested in all cases of publicity consultant uncertainty. Please assist us with the question(s) below: Please place an "X" within the parenthesis (x). If other, please specify. Please provide further clarification on the type of heel wound. ( x ) Ulcer ( ) Open wound due to trauma ( ) Blister ( ) Other: (Please specify) Thank you Gayla LEBRON
== END 2021-06-08 18:08 | DRG 602 ==
LOC: ED 01:17 → EDINP 05:51 → SUATTDRO 05:51 → 3W 07:54
DX: F17.220 Nicotine dependence, chewing tobacco, uncomplicated; Z91.041 Radiographic dye allergy status; Z86.14 Personal history of Methicillin resistant Staphylococcus aureus infection; B95.8 Unspecified staphylococcus as the cause of diseases classified elsewhere; I50.9 Heart failure, unspecified; I35.0 Nonrheumatic aortic (valve) stenosis; E78.5 Hyperlipidemia, unspecified; Z68.36 Body mass index [BMI] 36.0-36.9, adult; K64.4 Residual hemorrhoidal skin tags; L03.116 Cellulitis of left lower limb; I13.2 Hypertensive heart and chronic kidney disease with heart failure and with stage 5 chronic kidney disease, or end stage renal disease; E66.9 Obesity, unspecified; Z91.19 Patient's noncompliance with other medical treatment and regimen; R19.7 Diarrhea, unspecified; E11.40 Type 2 diabetes mellitus with diabetic neuropathy, unspecified; G93.41 Metabolic encephalopathy; B95.5 Unspecified streptococcus as the cause of diseases classified elsewhere; G47.33 Obstructive sleep apnea (adult) (pediatric); Z83.3 Family history of diabetes mellitus; I48.0 Paroxysmal atrial fibrillation; N18.6 End stage renal disease; L97.419 Non-pressure chronic ulcer of right heel and midfoot with unspecified severity; E87.1 Hypo-osmolality and hyponatremia; E83.42 Hypomagnesemia; Z86.16 Personal history of COVID-19; Z82.49 Family history of ischemic heart disease and other diseases of the circulatory system; E87.5 Hyperkalemia; T36.95XA Adverse effect of unspecified systemic antibiotic, initial encounter; Z99.2 Dependence on renal dialysis; E11.649 Type 2 diabetes mellitus with hypoglycemia without coma; Z79.82 Long term (current) use of aspirin